=== PATIENT | male | born 1945 | race Caucasian/White ===

== ENCOUNTER 2024-08-05 10:26 | Outpatient (CLI) | payer OTHER, SELFPAY ==
[2024-08-05 10:36] LABS: Microscopic, Urine URINE MICROSCOPIC (MICROSCOPIC)
[2024-08-05 11:05] LABS: Appearance,Urine CLEAR (Clear); Bilirubin,Urine Negative (Negative); Blood, Urine Negative (Negative); Color,Urine YELLOW (Yellow); Glucose,Urine (UA) TRACE (Negative); Ketones,Urine Negative (Negative); Leukocyte Esterase,Urine 1+ (Negative); Nitrate,Urine Negative (Negative); Protein,Urine Negative (Negative); Urobilinogen,Urine 0.2 EU/dl (0.2)
[2024-08-05 11:14] LABS: Hematocrit 35.4 % (42.0-52.0); Hemoglobin 11.8 g/dL (14.1-18.0); Mean Corpuscular HGB Conc 33.3 g/dL (31.8-35.4); Mean Corpuscular Hemoglobin 34.4 pg (27.0-31.2); Mean Corpuscular Volume 103.2 fl (80-94); Platelet Count 211 K/mm3 (142-424); Red Blood Count 3.43 M/mm3 (4.60-6.20); Red Cell Distribution Width 14.4 % (11.5-17.5); White Blood Count 8.2 K/mm3 (4.8-10.8)
[2024-08-05 11:17] LABS: Creatinine,Urine Random 84 mg/dL (Not Estab.)
[2024-08-05 11:24] LABS: Bacteria,Urine Trace /lpf
[2024-08-05 11:46] LABS: Albumin Level 4.5 g/dl (3.5-5.0); Blood Urea Nitrogen 43 mg/dl (9-20); Calcium 9.1 mg/dl (8.4-10.2); Carbon Dioxide 20 mmol/L (22.0-30.0); Chloride 103 mmol/L (98-107); Estimated Glomerular Filt Rate 28 ml/min (>60); GFR (African American) 33 ML/MIN (>60); Glucose 117 mg/dl (74-100); Phosphorous 4.2 mg/dl (2.5-4.5); Sodium 136 mmol/L (136-145)
[2024-08-05 11:57] LABS: Anion Gap 17.9 mEq/L (5-15); Potassium 4.9 mmoL/L (3.5-5.1)
[2024-08-05 12:00] LABS: Intact Parathyroid Hormone 251.3 pg/mL (7.5-53.5)
[2024-08-05 12:06] LABS: 25-OH Vitamin D, Total 31.2 ng/mL (30-100)
== END 2024-08-05 23:59 | disposition home or self-care (01) ==
LOC: LAB 10:31
PROVIDERS: Visit Provider Student in an Organized Health Care Education/Training Program
DX: N18.30 Chronic kidney disease, stage 3 unspecified (principal); E55.9 Vitamin D deficiency, unspecified
CPT/HCPCS: 36415; 80069; 81001; 82306; 82570; 83970; 84156; 85027; 87086

== ENCOUNTER 2024-09-18 21:16 | Emergency (ER) | payer OTHER, MEDICARE, SELFPAY ==
[2024-09-18] VITALS (7 sets, daily range): BP systolic 106–143; BP diastolic 57–82; PULSE 94–107; RESP 18–20; TEMP 36.9–37.3; O2SAT 95–99; BMI 25.8
--- NOTE | 2024-09-18 22:06 | XR_ITS ---
PROCEDURE INFORMATION: Exam: XR Left Hip Exam date and time: 09/18/2024 10:14 PM Age: 78 years old Clinical indication: Hip pain; Left hip; Additional info: Fall, L hip pain TECHNIQUE: Imaging protocol: Radiologic exam of the left hip. Views: 2 or 3 views hip with pelvis when performed. COMPARISON: No relevant prior studies available. FINDINGS: Bones/joints: Unremarkable. No acute fracture. Soft tissues: Unremarkable. IMPRESSION: No acute findings.
--- NOTE | 2024-09-18 22:19 | HMH.EDGENADL ---
Discharge Plan Disposition Patient Disposition: Home, Self-Care Chief Complaint: Fall Referrals Follow up/Referrals: Provider,Referral, MD [Primary Care Provider] - See instructions Activity Restrictions/Add. Instructions Additional Instructions/Restrictions: Take Tylenol 1000 mg every 6 hours (4 times daily) and ibuprofen 400 mg every 6 hours (4 times daily) as needed with food and water to prevent GI upset and kidney damage. Call your family doctor to establish care for this visit to the emergency department and schedule follow-up within 48 hours to ensure improvement. If you have any worsening of your condition or any other concerning signs or symptoms, return to the emergency department or your primary care doctor for further evaluation. Clinical Impressions Clinical Impression: Acute pain of left hip, Accident due to mechanical fall without injury Print Language Print Language: Nauruan Discharge ED Provider: Anup Rose General Adult HPI General Chief complaint: Fall Stated complaint: Disoriented Time Seen by Provider: 09/18/24 21:49 Mode of Arrival: EMS Source of Information: Patient and EMS Limitations: No Limitations Description of Symptoms (Recalled from ER Triage Doc. by RN): pt reports he fell at home and just feels off and spacey pt denies any other complaints. History of Present Illness HPI narrative: Please note that above description of symptoms, in this electronic medical record under categorization of recalled from ER triage doctor by RN are reflective of an initial nursing assessment, however, is not reflective of my full history and physical exam that was personally taken and clarified. Consequentially, this preceding description of symptoms, which may include the patient's categorized chief complaint in the EMR, do not reflect my personal clinical impression, and the ultimate description of history of present illness and patient stated complaints should be deferred to this section of the note. Unless stated otherwise or congruent with this section of the note, additional signs, symptoms, or incongruence should be interpreted as inaccurate with my clinical impression. Related Data Allergies Allergy/AdvReac Type Severity Reaction Status Date / Time iodine Allergy Unknown Verified 09/18/24 21:28 allergy reaction [facility] Disclaimer: The information contained in this section may have been updated after the patient was seen, as this information can be updated by other users. Social History Smoking Status: Never smoker alcohol intake: never current occupational status: retired Travel in the last 8 weeks: None ROS Obtained: Yes All systems reviewed & no additional complaints except as documented Physical Exam General General appearance: alert Head Head exam: atraumatic and normocephalic Eye Eye exam: Present normal appearance, PERRL and EOMI Neck Neck exam: Present normal inspection, full ROM and trachea midline Respiratory Respiratory exam: Absent respiratory distress, wheezes, stridor, accessory muscle use or prolonged expiratory phase Cardiovascular Cardiovascular exam: Present other (Pulses equal symmetric in upper and lower extremities) Abdominal Exam Abdominal exam: Present soft; Absent distention, tenderness or pulsatile mass Extremities Exam Extremities exam: Present other (Tenderness left lateral hip, no tenderness with range of motion. No tenderness in inguinal fold.); Absent edema Neurological Exam Neurological exam: Present alert, oriented X3 and CN II-XII intact; Absent motor sensory deficit Skin Skin exam: Present warm and dry; Absent diaphoresis or erythema Medical Decision Making Medical Records Medical records reviewed: Yes I reviewed the patient's medical records. Screening: Per USPSTF and CDC recommendations, given the prevalence of disease in our region, it is our hospital?s policy to screen for HIV and viral Hepatitis for all patients aged 18 and over and those with ongoing risk factors. Marco Inquiry Pt receiving controlled substance: No Marco was queried for this patient: No Vital Signs: 09/18/24 21:16 Temperature 99.1 F Temperature Source Oral Pulse Rate [Right] 94 H Respiratory Rate 18 Blood Pressure [Right Arm] 112/82 Blood Pressure Mean [Right Arm] 92 02 Sat by Pulse Oximetry 95 Oxygen Delivery Method Room Air Orders (Tests/Meds): ED MEDICATIONS Generic Name Dose Route Start Last Admin Trade Name Freq PRN Reason Stop Dose Admin Acetaminophen 1,000 mg 09/18/24 22:22 Acetaminophen 500mg Tab PO 09/18/24 22:23 ONCE ONE Ibuprofen 600 mg 09/18/24 22:22 Ibuprofen 600 Mg Tablet PO 09/18/24 22:23 ONCE ONE ORDERS Category Date Time Status Hip XR left minimum 2 views [XR hip LT 2-3V w/pelvis] Exams 09/18/24 22:06 Taken Stat Medical Decision Narrative: This is a 78-year-old male presenting with fall. Patient states he was at home, fell because I got clumsy. States that he did not hit his head, did not lose consciousness. Landed on his buttocks and is having pain in his left hip laterally. Called EMS because he was not able to get up on his own, he states this is not abnormal for him. History was obtained via conversation with patient and EMS. On arrival, patient hemodynamically stable, alert, oriented x4, appropriate, GCS 15, moving all extremities spontaneously, pupils equal and reactive to light. Full physical exam performed and significant for very clinically well-appearing male no acute distress. Answering questions appropriately. Has some tenderness left lateral hip overlying trochanter, but range of motion of hip is intact. No midline spinal tenderness. Pelvis is stable and nontender. Neurologically and vascularly intact lower extremities. Differential includes sprain, strain, fracture, dislocation, among others. Patient was given Tylenol Motrin for symptomatic management and correction of underlying abnormalities. Labs considered, but not deemed necessary. Patient hemodynamically stable, very well-appearing, alert and oriented and has no complaints other than left hip. Not deemed necessary. Workup independently interpreted and significant for no acute bony abnormality of the pelvis or hip or femur within imaged parameters. See radiology read for full review of final results. On reevaluation, patient resting comfortably, no acute distress. Given patient presentation, workup, history, this most likely represents left hip pain after fall without complication. Because patient at baseline without signs or symptoms of clinical decompensation, deemed appropriate for discharge. Results were relayed to patient who voiced understanding and were agreeable to outpatient management and follow up. I discussed my clinical impression with patient and answered all questions. At this time, the evidence for any other entities in the differential is insufficient to warrant any further testing or ED observation. This was explained as well. Advisory was given that persistent or worsening symptoms require further evaluation. I confirmed the understanding of this discussion. College And Career Counselor disclaimer Much of this encounter note is an electronic quality systems specialist spoken language to printed text. Electronic quality systems specialist of the spoken language may permit errors. Although I have reviewed the note, some errors may still exist. Critical Care Critical Care Time Critical Care Time: No
[2024-09-18] MEDS: ACETAMINOPHEN 500MG TAB 1000 MG PO (22:38)
[2024-09-18] MEDS: IBUPROFEN 600 MG TABLET PO (22:38)
== END 2024-09-18 23:41 | disposition home or self-care (01) ==
PROVIDERS: Emergency Provider Emergency Medicine
DX: M25.552 Pain in left hip (principal); R41.82 Altered mental status, unspecified; W19.XXXA Unspecified fall, initial encounter; Y93.89 Activity, other specified; Y92.009 Unspecified place in unspecified non-institutional (private) residence as the place of occurrence of the external cause
CPT/HCPCS: 73502; 99283

== ENCOUNTER 2024-10-28 11:32 | Outpatient (CLI) | payer MEDICARE, OTHER, SELFPAY ==
[2024-10-28 11:38] LABS: Anti-Centromere B Antibodies ND; Anti-DNA (DS) Ab Qn ND; Anti-Jo-1 ND; Antichromatin Antibodies ND; Antiscleroderma-70 Antibodies ND; RNP Antibodies ND; Sjogren's Anti-SS-A ND; Sjogren's Anti-SS-B ND
[2024-10-28 12:04] LABS: Basophils % 0.3 % (0.1-2.0); Eosinophils # 0.1 K/mm3 (0.0-0.4); Eosinophils % 1.2 % (0.1-12.0); Hematocrit 39.3 % (42.0-52.0); Hemoglobin 13.2 g/dL (14.1-18.0); Lymphocytes # 3.1 K/mm3 (0.7-4.5); Lymphocytes % 42.4 % (10-50); Mean Corpuscular HGB Conc 33.6 g/dL (31.8-35.4); Mean Corpuscular Hemoglobin 34.5 pg (27.0-31.2); Mean Corpuscular Volume 102.6 fl (80-94); Mean Platelet Volume 9.7 fl (7.4-10.4); Monocytes # 0.5 K/mm3 (0.1-1.0); Monocytes % 7.3 % (1.7-9.3); Neutrophils # 3.6 K/mm3 (1.8-7.8); Neutrophils % 48.5 % (37.0-80.0); Platelet Count 155 K/mm3 (142-424); Red Blood Count 3.83 M/mm3 (4.60-6.20); White Blood Count 7.4 K/mm3 (4.8-10.8)
[2024-10-28 12:35] LABS: Alanine Aminotransferase 12 U/L (12-78); Albumin Level 4.6 g/dl (3.5-5.0); Albumin/Globulin Ratio 1.5 (1.1-1.8); Alkaline Phosphatase 53 U/L (38-126); Aspartate Amino Transferase 22 U/L (17-59); Bilirubin,Total 0.5 mg/dl (0.2-1.3); Blood Urea Nitrogen 31 mg/dl (9-20); Calcium 10.8 mg/dl (8.4-10.2); Carbon Dioxide 31 mmol/L (22.0-30.0); Chloride 108 mmol/L (98-107); Chol/HDL Ratio 4.5 (1-3.5); Cholesterol 201 mg/dl (140-200); Estimated Glomerular Filt Rate 34 ml/min (>60); GFR (African American) 42 ML/MIN (>60); Globulin 3.1 g/dL (1.3-3.2); Glucose 106 mg/dl (74-100); HDL Cholesterol 45 mg/dl (40-60); Magnesium 1.8 mg/dl (1.6-2.3); Sodium 141 mmol/L (136-145); Total Protein,Serum 7.7 g/dl (6.3-8.2); Triglycerides 90 mg/dl (30-150); VLDL Cholesterol 18 mg/dL (0-40)
[2024-10-28 13:06] LABS: Thyroid Stimulating Hormone 1.77 uIU/mL (0.465-4.68)
[2024-10-28 13:10] LABS: Ferritin 110 ng/ml (17.9-464)
[2024-10-28 13:25] LABS: Vitamin B12 980 pg/mL (239-931)
[2024-10-29 10:42] LABS: Triiodothyronine (T3) Free 1.9 pg/mL (2.0-4.4)
[2024-10-29 11:22] LABS: Antinuclear Antibodies (ANA) Negative (Negative)
[2024-10-30 20:21] LABS: Vitamin B1 109.8 nmol/L (66.5-200.0)
== END 2024-10-28 23:59 | disposition home or self-care (01) ==
LOC: LAB 11:35
PROVIDERS: PCP Nurse Practitioner Family; Visit Provider Nurse Practitioner Family
DX: G20.A1 Parkinson's disease without dyskinesia, without mention of fluctuations (principal); E53.8 Deficiency of other specified B group vitamins; D64.9 Anemia, unspecified; E78.5 Hyperlipidemia, unspecified
CPT/HCPCS: 36415; 80053; 80061; 82533; 82607; 82728; 83735; 84207; 84425; 84443; 84481; 85025; 86038

== ENCOUNTER 2024-11-05 11:41 | Outpatient (CLI) | payer MEDICARE, OTHER, SELFPAY ==
[2024-11-05 12:46] LABS: 25-OH Vitamin D, Total 25.5 ng/mL (30-100)
[2024-11-05 12:51] LABS: Hemoglobin A1C 6.5 % (4.0-6.0)
== END 2024-11-05 23:59 | disposition home or self-care (01) ==
LOC: LAB 11:42
PROVIDERS: PCP Nurse Practitioner Family; Visit Provider Nurse Practitioner Family
DX: E83.52 Hypercalcemia (principal); R73.09 Other abnormal glucose
CPT/HCPCS: 36415; 82306; 83036; 83970

== ENCOUNTER 2024-11-22 08:41 | Outpatient (CLI) | payer MEDICARE, OTHER, SELFPAY ==
--- OUTSIDE RECORDS SUMMARY | 2024-11-22 08:44 | XMS_ITS | Encounter Summary ---
Author Name [facility] [place] [facility] [place] Address [address] [place] [address] Care Team Providers Care Sales Facilitator Name Role Phone MING TSANG Primary Care Provider UnavailSOPHIE Fournier Primary Care Provider Unavaila ble Insurance Providers: All historical and current Section Date Range: From patient's date of to the date document was created. This section includes the names of all active insurance providers for the patient. Insurance Provider Type of Coverage Plan Name Start of Policy Coverage End of Policy Coverage Group Number Member ID Insurance Provider's Telephone Number Policy Gallo's Name Patient's Relationship to Policy Gallo [employer] TRICA RE DODA WNR Oct 09, 2020 [facility] [id number] MELANIE,LE ONARD PATIENT MEDICARE (WNR) MEDICARE (M) PART B Nov 05, 2010 PART B [id number] MELANIE,LE ONARD PATIENT MEDICARE (WNR) MEDICARE (M) PART A Nov 05, 2010 [place] [id number] [id number] [phone] MELANIE,LE ONARD PATIENT MEDICARE (WNR) MEDICARE (M) PART B Nov 05, 2010 PART B [id number] [id number] [phone] MELANIE,LE ONARD PATIENT MEDICARE (WNR) MEDICARE (M) PART B Nov 05, 2010 PART B [id number] MELANIEAMXINE GEE PATIENT MEDICARE (WNR) MEDICARE (M) PART A Nov 05, 2010 PART A [id number] MELANIEMAXINE PATIENT MEDICARE (WNR) MEDICARE (M) PART A Nov 05, 2010 PART A [id number] [id number] [phone] MELANIEMAXINE GEE PATIENT MEDICARE (WNR) MEDICARE (M) PART B Nov 05, 2010 PART B [id number] [place] [address] MELANIEMAXINE ONQUEENIE PATIENT MEDICARE (WNR) MEDICARE (M) PART A Nov 05, 2010 PART A [id number] [place] [address] [phone] MELANIEMAXINE GEE PATIENT MEDICARE (WNR) MEDICARE (M) PART B Nov 05, 2010 PART [address] [place] [address] MELANIEMAXINE GEE PATIENT MEDICARE (WNR) MEDICARE (M) PART A Nov 05, 2010 PART A [id number] [id number] MELANIEMAXINE GEE PATIENT MEDICARE (WNR) MEDICARE (M) PART B Nov 05, 2010 PART B [id number] [id number] [phone] MELANIEMAXINE GEE PATIENT MEDICARE (WNR) MEDICARE (M) PART A Nov 05, 2010 PART A [id number] MAXINE NAVARRO PATIENT FOR LIFE TRICA RE FOR LIFE Mar 31, 2010 SPONSOR [id number] MAXINE NAVARRO PATIENT FOR LIFE DIREC T CARE Mar 31, 2010 FOR LIFE [id number] MAXINE NAVARRO PATIENT -FO R-LIFE TRICA RE FOR LIFE December 05, 2010 TFL [id number] MAXINE NAVARRO PATIENT Selected Encounter This section includes the information on record at [place] for the Encounter. Date/Time Encounter Type Encounter Description Reason Pro vider Source Jun 24, 2024 01:26 PM Outpatient Encounter ADMIN PAT ACTIVTIES (MASNONCT) I[facility] Encounter Template Text not used by [place] Plan of Treatment: Future Appointments (+ 6 months) and Future Tests (+/- 45 days) The Plan of Treatment section includes future care activities for the patient from [facility] [place] [facility]. This section includes future appointments and future orders which are active, pending or scheduled. Future Appointments This section includes appointments that were scheduled to occur 6 months from the date of the Encounter, up to a maximum of 20 appointments. The data comes from all [facility]. Appointment Date/Time Appointment Type Appointme nt Facility Name Aug 09, 2024 01:00 PM [facility] Nov 08, 2024 11:00 AM [facility] Active, Pending, and Scheduled Orders This section includes a listing of several types of active, pending, and scheduled orders, including clinic medications orders, diagnostic test orders, procedure orders and consult orders; where the start date of the order is 45 days before the date of the Encounter or 45 days after the date of theEncounter. The data comes from all [facility]. Test Date/Time Test Type Test Details Facility Name Jun 26, 2024 12:00 AM Laboratory - Chemistry Order GLYCOHEMOGLOBIN [id number] BLOOD SP ONCE [facility] Advance Directives: All historical and current Section Date Range: From patient's date of to the date document was created. This section includes ALL of a patient's completed or amended [place] Advance and Rescinded Directives. The entries below indicate that a directive exists for the patient, but an actual copy is not included with this document. The data comes from all [facility]. Date Advance Directives Provider Source Apr 21, 2017 ADVANCE DIRECTIVE DISCUSSION YFN [facility] Jun 26, 2015 ADVANCE DIRECTIVE DISCUSSION ILIA SAL [facility] Encounter Notes: All associated encounter notes This section contains the clinical notes associated to the Encounter. Date/Time Encounter Note(s) Provider Source Jun 24, 2024 01:26 PM ADMINISTRATIVE NOT E: LOCAL TITLE: CLERICAL/ADMIN NOTE STANDARD TITLE: ADMINISTRATIVE NOTE DATE OF NOTE: JUN 24, 2024@13:26 ENTRY DATE: JUN 24, 2024@13:26:34 AUTHOR: OSEI AGRAWAL COSIGNER: URGENCY: STATUS: COMPLETED CLERICAL/ADMIN NOTE Has ADDENDA --forwarding to correct grocery clerk marking Cristobal Earl Md[address] 06/28/2024@13:00 Cancelled By Patient pt would like to reschedule after 08/12/24 thanks /es/ Alondra Lora Mcat Tutor Signed: 06/24/2024 08:31 /es/ OSEI AGRAWAL Signed: 06/24/2024 13:26 Receipt Acknowledged By: 06/25/2024 09:27 /es/ Pau Pollard MSA 06/25/2024 ADDENDUM STATUS: COMPLETED rtc r/s by from 06/28/2024 to new pid 08/09/2024@1pm-letter mailed /franny/ Pau Pollard MSA Signed: 06/25/2024 09:28 [facility]I [facility]RAWAL[facility]
--- OUTSIDE RECORDS SUMMARY | 2024-11-22 08:44 | XMS_ITS | Encounter Summary ---
Author Name [facility] of [facility] ([place]) Organization [facility] of [facility] ([place] Address [address] [place] [address] Care Team Providers Care Finisher Denture Name Role Phone MING TSANG Primary Care [...] TRICA RE DODA WNR Oct 09, 2020 DODA [id number] MELANIE,MAXINE ONARD PATIENT MEDICARE (WNR) MEDICARE (M) PART B Nov 05, 2010 PART B [id number] MELANIE,LE ONARD PATIENT MEDICARE (WNR) MEDICARE (M) PART A Nov 05, 2010 PART A [address] [place] [address] [phone] MELANIE,LE ONARD PATIENT MEDICARE (WNR) MEDICARE (M) PART B Nov 05, 2010 PART B [address] [place] [address] [phone] MELANIE,MAXINE ONARD PATIENT MEDICARE (WNR) MEDICARE (M) PART A Nov 05, 2010 PART A [address] [place] [address] [phone] MELANIEMAXINE ONARD PATIENT MEDICARE (WNR) MEDICARE (M) PART B Nov 05, 2010 PART B [id number] [facility] MELANIE,LE ONQUEENIE PATIENT MEDICARE (WNR) MEDICARE (M) PART A Nov 05, 2010 PART A [id number] MELANIE,LE ONARD PATIENT MEDICARE (WNR) MEDICARE (M) PART B Nov 05, 2010 PART B [id number] [phone] MELANIEMAXINE ONARD PATIENT MEDICARE (WNR) MEDICARE (M) PART A Nov 05, 2010 [id number] [id number] MELANIE,MAXINE ONARD PATIENT MEDICARE (WNR) MEDICARE (M) PART B Nov 05, 2010 PART B [id number] [id number] MELANIE,LE ONARD PATIENT MEDICARE (WNR) MEDICARE (M) PART A Nov 05, 2010 PART [place] [id number] [id number] MELANIEMAXINE GEE PATIENT MEDICARE (WNR) MEDICARE (M) PART B Nov 05, 2010 PART B [id number] MELANIEMAXINE ONQUEENIE PATIENT MEDICARE (WNR) MEDICARE (M) PART A Nov 05, 2010 PART A [id number] MAXINE NAVARRO PATIENT FOR LIFE TRICA RE FOR LIFE Mar 31, 2010 [facility] [id number] MAXINE NAVARRO PATIENT FOR LIFE DIREC T CARE Mar 31, 2010 FOR LIFE [id number] MAXINE NAVARRO PATIENT -FO R-LIFE TRICA RE FOR LIFE December 05, 2010 [facility] [id number] [phone] MAXINE NAVARRO PATIENT Selected Encounter This section includes the information on record at [place] for the Encounter. Date/Time Encounter Type Encounter Description Reason Provider Source Mar 20, 2024 02:36 PM TARGETED CASE MANAGEMENT ADMIN PAT ACTIVTIES (MASNONCT) JOSIE GARCIA Encounter Template Text not used by [place] Plan of Treatment: Future Appointments (+ 6 months) and Future Tests (+/- 45 days) The Plan of Treatment section includes future care activities for the patient from [facility] [facility] This section includes future appointments and future orders which are active, pending or scheduled. Future Appointments This section includes appointments that were scheduled to occur 6 months from the date of the Encounter, up to a maximum of 20 appointments. The data comes from all [facility]. Appointment Date/Time Appointment Type Appointme nt Facility Name Mar 22, 2024 01:00 PM AMBULATORY - PSYCHIATRY [facility] Mar 29, 2024 03:30 PM AMBULATORY - PSYCHIATRY [facility] Aug 09, 2024 01:00 PM AMBULATORY - PSYCHIATRY [facility] Active, Pending, and Scheduled Orders This section includes a listing of several types of active, pending, and scheduled orders, including clinic medications orders, diagnostic test orders, procedure orders and consult orders; where the start date of the order is 45 days before the date of the Encounter or 45 days after the date of theEncounter. The data comes from all [facility]. Test Date/Time Test Type Test Details Facility Name Mar 19, 2024 09:51 AM Consult Order COMMUNITY CARE-NEPHROLOGY Cons Aerial [facility] Mar 29, 2024 12:00 AM Laboratory - Chemi stry Order VALPROIC ACID [id number]-LNLLMI SP ONCE [facility] Apr 19, 2024 12:00 AM Laboratory - Chemi stry Order eGFR + CREATININE [id number] SP ONCE [facility] Apr 19, 2024 12:00 AM Laboratory - Chemi stry Order POTASSIUM [id number]-[id number] SP ONCE [facility] Apr 19, 2024 12:00 AM Laboratory - Chemi stry Order HGB & HCT [id number] BLOOD SP [facility] Apr 19, 2024 12:00 AM Laboratory - Chemi stry Order IRON/TIBC [id number]-MJMVRZ SP ONCE [facility] Apr 19, 2024 12:00 AM Laboratory - Chemi stry Order FERRITIN [id number]-[id number]-[id number] SP ONCE [facility] Apr 19, 2024 12:00 AM Laboratory - Chemi stry Order B12 VITAMIN [id number]-[id number]-[id number] SP ONCE [facility] Apr 19, 2024 12:00 AM Laboratory - Chemi stry Order CALCIUM [id number] SP ONCE [facility] Lab Results: +/- 30 days of the encounter This section includes the Chemistry and Hematology Lab Results on record with [place] for the patient. Radiology Reports and Pathology Reports are provided separately, in subsequent sections. Lab Results This section contains the Chemistry/Hematology Results that were resulted 30 days before or 30 daysafter the date of the Encounter. Date/Time Source Result Type Result - Unit Interpretation Reference Range Specimen Type Comment Mar 22, 2024 12:16 PM [facility] N MICROALBUMIN/CREAT RATIO URINE Specimen Type: URINE No comment entered. Ordering Provider: MING TSANG Report Released Date/Time: Mar 15, 2024 11:30 AM Reporting Lab: [address] [address] Performing Lab: [address] [phone] CREATININE 60.8 mg/dL MICROALBUMIN QUANT 9.0 mg/L 0.0-30.0 .MICROALBUMIN/CREA RATIO 14.8 ug/mg{creat} Mar 15, 2024 12:10 PM [facility] ALT PLASMA Specimen Type: PLASM A Comment: Estimated Glomerular Filtration Rate (eGFR) calculated using the 2020 Chronic Kidney Disease-Epidemiology (CKD-EPI) Collaboration creatinine equation; units of measure are mL/min/1.73 m2. Results are only valid for adults (>=18 years) whose serum creatinine is in a steady state. eGFR calculations are not valid for patients with acute kidney injury and for patients on dialysis. Creatinine-based estimates of kidney function may also be inaccurate in patients with reduced creatinine generation due to decreased muscle mass (e.g., malnutrition, severe hypoalbuminemia, sarcopenia, chronic neuromuscular disease, amputations, severe heart failure or liver disease) and in patients with increased creatinine generation due to increased muscle mass (e.g., muscle builders, anabolic steroids) or increased dietary intake. As drug clearance is proportional to total GFR and not GFR indexed to body surface area (BSA), in individuals with a BSA substantially different than 1.73 m2, drug dosing should be based on the reported eGFR value de-indexed from BSA by multiplying by the individual's BSA and dividing by 1.73. CKD is diagnosed based on abnormalities of kidney structure or function, present for >3 months, with implications for health and disease. CKD is classified and staged based on cause, eGFR and albuminuria (quantified as urine albumin to creatinine ratio). An eGFR >60 mL/min/1.73 m2 in the absence of increased urine albumin excretion or structural abnormalities does not represent CKD. eGFR CKD Interpretation (mL/min/1.73 m2) stage >=90 G1 Normal 60-89 G2 Mild decrease 45-59 G3A Mild to moderate decrease 30-44 G3B Moderate to severe decrease 15-29 G4 Severe decrease <15 G5 Kidney failure Ordering Provider: MING TSANG Report Released Date/Time: Mar 15, 2024 11:30 AM Reporting Lab: [address] [phone] Performing Lab: [address] [phone] ALT 13 U/L 0-55 Mar 15, 2024 12:10 PM [facility] AST PLASMA Specimen Type: PLASM A Comment: Estimated Glomerular Filtration Rate (eGFR) calculated using the 2020 Chronic Kidney Disease-Epidemiology (CKD-EPI) Collaboration creatinine equation; units of measure are mL/min/1.73 m2. Results are only valid for adults (>=18 years) whose serum creatinine is in a steady state. eGFR calculations are not valid for patients with acute kidney injury and for patients on dialysis. Creatinine-based estimates of kidney function may also be inaccurate in patients with reduced creatinine generation due to decreased muscle mass (e.g., malnutrition, severe hypoalbuminemia, sarcopenia, chronic neuromuscular disease, amputations, severe heart failure or liver disease) and in patients with increased creatinine generation due to increased muscle mass (e.g., muscle builders, anabolic steroids) or increased dietary intake. As drug clearance is proportional to total GFR and not GFR indexed to body surface area (BSA), in individuals with a BSA substantially different than 1.73 m2, drug dosing should be based on the reported eGFR value de-indexed from BSA by multiplying by the individual's BSA and dividing by 1.73. CKD is diagnosed based on abnormalities of kidney structure or function, present for >3 months, with implications for health and disease. CKD is classified and staged based on cause, eGFR and albuminuria (quantified as urine albumin to creatinine ratio). An eGFR >60 mL/min/1.73 m2 in the absence of increased urine albumin excretion or structural abnormalities does not represent CKD. eGFR CKD Interpretation (mL/min/1.73 m2) stage >=90 G1 Normal 60-89 G2 Mild decrease 45-59 G3A Mild to moderate decrease 30-44 G3B Moderate to severe decrease 15-29 G4 Severe decrease <15 G5 Kidney failure Ordering Provider: MING TSANG Report Released Date/Time: Mar 15, 2024 11:30 AM Reporting Lab: [address] [phone] Performing Lab: [address] [phone] AST 18 U/L 5-34 Mar 15, 2024 12:10 PM [facility] CBC/PLT BLOOD Specimen Type: BLOOD No comment entered. Ordering Provider: MING TSANG Report Released Date/Time: Mar 15, 2024 11:30 AM Reporting Lab: [address] [phone] Performing Lab: [address] [phone] WBC 6.6 10*3/uL 5.0-10.0 RBC 3.91 10*6/uL L 4.6-6.2 HGB 13.0 g/dL L 14.0-18.0 HCT 39.0 L 42.0-52.0 MCV 99.7 fL H 80.0-94.0 MCH 33.2 pg H 27.0-31.0 MCHC 33.3 g/dL 32.0-36.0 PLT 259 10*3/uL 150-450 MPV 9.6 fL 9.0-13.1 RDW 14.1 11.0-16.0 NRBC 0.0 0.0-0.0 Mar 15, 2024 12:10 PM [facility] GLYCOHEMOGLOBIN BLOOD Specimen Type: BLOOD Comment: [facility] guidelines for A1c interpretation: Glycemic control targets are based on Shared Decision Making between clinicians and patients. Criteria used to establish an A1c target recommendation can be found at https://www.ms.gov/qualityandpatientsafety/ and include the use of result accuracy and precision(CV) of the A1c tests clinicians utilize at their own sites of practice. Values obtained from A1C measurements can vary. For typical A1C assays, a reported value of 7.0 could actually be between 6.72 and 7.28 if measured by a reference method. A reported value of 9.0 could actually be between 8.73 and 9.27. Ref: https://ngsp.org/CAPdata.asp. The in-house Opt[employer]-QA on Request D-100 analyzer has a historical CV <= 2%. Contact the laboratory for further performance characteristics of this assay. Ordering Provider: MING TSANG Report Released Date/Time: Mar 15, 2024 11:30 AM Reporting Lab: [address] [phone] Performing Lab: [address] [address] GLYCOHEMOGLOBIN 9.1 H 4.4-6.4 Mar 15, 2024 12:10 PM [facility] LIPID PROFILE PLASMA Specimen Type: PLASM A Comment: Estimated Glomerular Filtration Rate (eGFR) calculated using the 2020 Chronic Kidney Disease-Epidemiology (CKD-EPI) Collaboration creatinine equation; units of measure are mL/min/1.73 m2. Results are only valid for adults (>=18 years) whose serum creatinine is in a steady state. eGFR calculations are not valid for patients with acute kidney injury and for patients on dialysis. Creatinine-based estimates of kidney function may also be inaccurate in patients with reduced creatinine generation due to decreased muscle mass (e.g., malnutrition, severe hypoalbuminemia, sarcopenia, chronic neuromuscular disease, amputations, severe heart failure or liver disease) and in patients with increased creatinine generation due to increased muscle mass (e.g., muscle builders, anabolic steroids) or increased dietary intake. As drug clearance is proportional to total GFR and not GFR indexed to body surface area (BSA), in individuals with a BSA substantially different than 1.73 m2, drug dosing should be based on the reported eGFR value de-indexed from BSA by multiplying by the individual's BSA and dividing by 1.73. CKD is diagnosed based on abnormalities of kidney structure or function, present for >3 months, with implications for health and disease. CKD is classified and staged based on cause, eGFR and albuminuria (quantified as urine albumin to creatinine ratio). An eGFR >60 mL/min/1.73 m2 in the absence of increased urine albumin excretion or structural abnormalities does not represent CKD. eGFR CKD Interpretation (mL/min/1.73 m2) stage >=90 G1 Normal 60-89 G2 Mild decrease 45-59 G3A Mild to moderate decrease 30-44 G3B Moderate to severe decrease 15-29 G4 Severe decrease <15 G5 Kidney failure Ordering Provider: IMNG TSANG Report Released Date/Time: Mar 15, 2024 11:30 AM Reporting Lab: [address] [phone] Performing Lab: [address] [phone] CHOLESTEROL 144 mg/dL 0-199 TRIGLYCERIDE 96 mg/dL 0-149 HDL CHOLESTEROL 40 mg/dL 40-69 DIRECT LDL CHOL. 93 mg/dL 0-100 Mar 15, 2024 12:10 [facility] Specimen Type: PLASM A Comment: Estimated Glomerular Filtration Rate (eGFR) calculated using the 2020 Chronic Kidney Disease-Epidemiology (CKD-EPI) Collaboration creatinine equation; units of measure are mL/min/1.73 m2. Results are only valid for adults (>=18 years) whose serum creatinine is in a steady state. eGFR calculations are not valid for patients with acute kidney injury and for patients on dialysis. Creatinine-based estimates of kidney function may also be inaccurate in patients with reduced creatinine generation due to decreased muscle mass (e.g., malnutrition, severe hypoalbuminemia, sarcopenia, chronic neuromuscular disease, amputations, severe heart failure or liver disease) and in patients with increased creatinine generation due to increased muscle mass (e.g., muscle builders, anabolic steroids) or increased dietary intake. As drug clearance is proportional to total GFR and not GFR indexed to body surface area (BSA), in individuals with a BSA substantially different than 1.73 m2, drug dosing should be based on the reported eGFR value de-indexed from BSA by multiplying by the individual's BSA and dividing by 1.73. CKD is diagnosed based on abnormalities of kidney structure or function, present for >3 months, with implications for health and disease. CKD is classified and staged based on cause, eGFR and albuminuria (quantified as urine albumin to creatinine ratio). An eGFR >60 mL/min/1.73 m2 in the absence of increased urine albumin excretion or structural abnormalities does not represent CKD. eGFR CKD Interpretation (mL/min/1.73 m2) stage >=90 G1 Normal 60-89 G2 Mild decrease 45-59 G3A Mild to moderate decrease 30-44 G3B Moderate to severe decrease 15-29 G4 Severe decrease <15 G5 Kidney failure Ordering Provider: MING TSANG Report Released Date/Time: Mar 15, 2024 11:30 AM Reporting Lab: [address] [phone] Performing Lab: [address] [address] CREATININE 2.10 mg/dL H 0.72-1.25 UREA NITROGEN 42 mg/dL H 9-25 GLUCOSE 151 mg/dL H 74-100 SODIUM 137 mmol/L 136-145 POTASSIUM 4.8 mmol/L 3.5-5.1 CHLORIDE 107 mmol/L 98-107 CO2 22 mmol/L 22-29 CALCIUM 10.4 mg/dL H 8.4-10.2 ANION GAP 8 meq/L 3-19 eGFR (CKD-EPI) 32 Social History: Smoking Status (Most current) and Tobacco Use (All prior to encounter date) This section includes the most current, and the historical, smoking and tobacco- related health factors from the [place] facility where the Encounter took place. Current Smoking Status This section includes the most current smoking, or tobacco-related health factor, from the [place] facility where the Encounter took place. Date/Time Current Smoking Status Comment Jeri christy Aug 29, 2023 03:32 PM VA-TOBACCO NEVER USED [facility] Tobacco Use History This section includes a history of the smoking, or tobacco-related health factors, that were collected on or before the date of the Encounter. The data comes from the [place] facility where the Encounter took place. Date/Time Smoking Status/Tobacco Use Comment F acility Sep 28, 2020 12:26 PM VA-TOBACCO FORMER USER [facility] Sep 28, 2020 12:26 PM VA-TOBACCO QUIT 15 YRS OR MORE [facility] Advance Directives: All historical and current Section Date Range: From patient's date of to the date document was created. This section includes ALL of a patient's completed or amended [place] Advance and Rescinded Directives. The entries below indicate that a directive exists for the patient, but an actual copy is not included with this document. The data comes from all [place] facilities. Date Advance Directives Provider Source Apr 21, 2017 ADVANCE DIRECTIVE DISCUSSION YFN JOHNSON [facility] Jun 26, 2015 ADVANCE DIRECTIVE DISCUSSION ILIA SLA [facility] Encounter Notes: All associated encounter notes This section contains the clinical notes associated to the Encounter. Date/Time Encounter Note(s) Provider Source Mar 20, 2024 02:36 PM ADMINISTRATIVE NOTE: LOCAL TITLE: PCMM TRAVELING COORDINATOR NOTE STANDARD TITLE: ADMINISTRATIVE NOTE DATE OF NOTE: MAR 20, 2024@14:36 ENTRY DATE: MAR 20, 2024@14:36:17 AUTHOR: JOSIE GARCIA EXP COSIGNER: URGENCY: STATUS: COMPLETED TVC reviewed 's medical record and confirmed has relocated and established care at the [facility]. /es/ JOSIE GARCIA RN,MSN Signed: 03/20/2024 14:36 JOSIE GARCIA [facility]
--- NOTE | 2024-11-22 08:45 | CA_ITS ---
FINAL REPORT TECHNIQUE: Roque scale, color and spectral doppler images of the bilateral carotid arteries were obtained. CLINICAL HISTORY: dizziness, tremor COMPARISON: None FINDINGS: Peak systolic velocity in the right internal carotid artery is 103 cm/sec. The internal carotid to common carotid artery ratio is 1.7. There is no significant carotid artery stenosis and mild plaque formation. The right vertebral artery is normal in direction. Peak systolic velocity in the left internal carotid artery is 102 cm/sec. The internal carotid to common carotid artery ratio is 1.0. There is no significant carotid artery stenosis and mild plaque formation. The left vertebral artery is normal in direction. IMPRESSION: No ultrasound evidence of hemodynamically significant carotid artery stenosis. Normal peak systolic velocities and normal internal to common carotid artery ratios bilaterally. Reviewed, Interpreted and Dictated by Chet Gray MD Transcribed by Danna Jacome Authenticated and [facility]
--- OUTSIDE RECORDS SUMMARY | 2024-11-22 08:45 | XMS_ITS | Encounter Summary ---
Author Name [facility] [place] Organization [place] Address [address] [place] [address] Care Team Providers Care Maintenance Carpenter Name Role Phone MING TSANG Primary Care [...] RE DODA WNR Oct 09, 2020 DODA [id number] [phone] MAXINE NAVARRO ONQUEENIE PATIENT MEDICARE (WNR) MEDICARE (M) PART A Nov 05, 2010 PART A [id number] [facility] MAXINE NAVARRO ONQUE[place] PATIENT MEDICARE (WNR) MEDICARE (M) PART B Nov 05, 2010 PART B [id number] [facility] [phone] MAXINE NAVARRO ONQUEEN[place] PATIENT MEDICARE (WNR) MEDICARE (M) PART A Nov 05, 2010 PART A [id number] MAXINE NAVARRO ONQUEEN[place] PATIENT MEDICARE (WNR) MEDICARE (M) PART B Nov 05, 2010 PART B [id number] [id number] MELANIEMAXINE GEE PATIENT MEDICARE (WNR) MEDICARE (M) PART A Nov 05, 2010 PART A [id number] [facility] MELANIEMAXINE GEE PATIENT MEDICARE (WNR) MEDICARE (M) PART B Nov 05, 2010 [id number] [id number] [phone] [id number] MAXINE NAVARRO ONQUEENIE PATIENT MEDICARE (WNR) MEDICARE (M) PART A Nov 05, 2010 [id number] [id number] MELANIE,LE ONQUEENIE PATIENT MEDICARE (WNR) MEDICARE (M) PART B Nov 05, 2010 [place] [id number] [id number] [id number] [id number] MELANIEMAXINE GEE PATIENT MEDICARE (WNR) MEDICARE (M) PART A Nov 05, 2010 PART A [id number] MAXINE NAVARRO PATIENT MEDICARE (WNR) MEDICARE (M) PART B Nov 05, 2010 PART B [id number] MAXINE NAVARRO PATIENT MEDICARE (WNR) MEDICARE (M) PART A Nov 05, 2010 PART [place] [id number] [id number] MELANIEMAXINE GEE PATIENT MEDICARE (WNR) MEDICARE (M) PART B Nov 05, 2010 PART B [id number] [id number] MAXINE NAVARRO PATIENT FOR LIFE [facility] RE FOR LIFE Mar 31, 2010 [facility] [id number] MAXINE NAVARRO PATIENT FOR LIFE DIREC T CARE Mar 31, 2010 FOR LIFE [id number] MAXINE NAVARRO PATIENT -FO R-LIFE [facility] RE FOR LIFE December 05, 2010 [facility] [id number] MAXINE NAVARRO PATIENT Selected Encounter This section includes the information on record at [place] for the Encounter. Date/Time Encounter Type Encounter Description Reason Pro vider Source Mar 22, 2024 01:14 PM Outpatient Encounter PRIMARY CARE/MEDICINE IHE Encounter Template Text not used by [place] Plan of Treatment: Future Appointments (+ 6 months) and Future Tests (+/- 45 days) The Plan of Treatment section includes future care activities for the patient from all [facility] treatment[facility]ilities. This section includes future appointments and future orders which are active, pending or scheduled. Future Appointments This section includes appointments that were scheduled to occur 6 months from the date of the Encounter, up to a maximum of 20 appointments. The data comes from all [facility]. Appointment Date/Time Appointment Type Appointme nt Facility Name Mar 29, 2024 03:30 PM AMBULATORY - PSYCHIATRY [facility] Aug 09, 2024 01:00 PM AMBULATORY - PSYCHIATRY [facility] Active, Pending, and Scheduled Orders This section includes a listing of several types of active, pending, and scheduled orders, including clinic medications orders, diagnostic test orders, procedure orders and consult orders; where the start date of the order is 45 days before the date of the Encounter or 45 days after the date of theEncounter. The data comes from all [facility]. Test Date/Time Test Type Test Details Facility Name Mar 19, 2024 09:51 AM Consult Order [facility]-NEPH[facility]OLOG[facility] Cons [employer] Mixer Operator's Choice [facility] Mar 29, 2024 12:00 AM Laboratory - Chemi stry Order VALPROIC ACID [id number] SP ONCE [facility] Apr 19, 2024 12:00 AM Laboratory - Chemi stry Order eGFR + CREATININE [id number] SP ONCE [facility] Apr 19, 2024 12:00 AM Laboratory - Chemi stry Order POTASSIUM [id number] SP ONCE [facility] Apr 19, 2024 12:00 AM Laboratory - Chemi stry Order HGB & HCT [id number] BLOOD SP [facility] Apr 19, 2024 12:00 AM Laboratory - Chemi stry Order IRON/TIBC [id number] SP ONCE [facility] Apr 19, 2024 12:00 AM Laboratory - Chemi stry Order FERRITIN [id number] SP ONCE [facility] Apr 19, 2024 12:00 AM Laboratory - Chemi stry Order B12 VITAMIN [id number] SP ONCE [facility] Apr 19, 2024 12:00 AM Laboratory - Chemi stry Order CALCIUM [id number] SP ONCE [facility] Lab Results: +/- 30 days of the encounter This section includes the Chemistry and Hematology Lab Results on record with [place] for the patient. Radiology Reports and Pathology Reports are provided separately, in subsequent sections. Lab Results This section contains the Chemistry/Hematology Results that were resulted 30 days before or 30 daysafter the date of the Encounter. Date/Time Source Result Type Result - Unit Interpretation Reference Range Specimen Type Comment Mar 22, 2024 12:16 PM [facility] N MICROALBUMIN/CREAT RATIO URINE Specimen Type: URINE No comment entered. Ordering Provider: MING TSANG Report Released Date/Time: Mar 15, 2024 11:30 AM Reporting Lab: [address] [phone] Performing Lab: [address] [address] CREATININE 60.8 mg/dL MICROALBUMIN QUANT 9.0 mg/L 0.0-30.0 .MICROALBUMIN/CREA RATIO 14.8 ug/mg{creat} Mar 15, 2024 12:10 PM [facility] ALT PLASMA Specimen Type: PLASM A [...] Mar 15, 2024 11:30 AM Reporting Lab: [address] [address] Performing Lab: [address] [address] ALT 13 U/L 0-55 Mar 15, 2024 12:10 PM [facility] AST PLASMA Specimen Type: PLASM A [...] Mar 15, 2024 11:30 AM Reporting Lab: [address] [phone] Performing Lab: [address] [address] AST 18 U/L 5-34 Mar 15, 2024 12:10 PM [facility] CBC/PLT BLOOD Specimen Type: BLOOD No comment entered. Ordering Provider: MING TSANG Report Released Date/Time: Mar 15, 2024 11:30 AM Reporting Lab: [address] [address] Performing Lab: [address] [address] WBC 6.6 10*3/uL 5.0-10.0 RBC 3.91 10*6/uL L 4.6-6.2 HGB 13.0 g/dL L 14.0-18.0 HCT 39.0 L 42.0-52.0 MCV 99.7 fL H 80.0-94.0 MCH 33.2 pg H 27.0-31.0 MCHC 33.3 g/dL 32.0-36.0 PLT 259 10*3/uL 150-450 MPV 9.6 fL 9.0-13.1 RDW 14.1 11.0-16.0 NRBC 0.0 0.0-0.0 Mar 15, 2024 12:10 PM [facility] GLYCOHEMOGLOBIN BLOOD Specimen Type: BLOOD Comment: [place] guidelines for A1c interpretation: Glycemic control targets are based on Shared Decision Making between clinicians and patients. Criteria used to establish an A1c target recommendation can be found at https://www.or.gov/qualityandpatientsafety/ and include the use of result accuracy [...] 8.73 and 9.27. Ref: https://ngsp.org/CAPdata.asp. The in-house [employer] D-100 analyzer has a historical CV <= 2%. Contact the laboratory for further performance characteristics of this assay. Ordering Provider: MING TSANG Report Released Date/Time: Mar 15, 2024 11:30 AM Reporting Lab: [address] [address] Performing Lab: [address] [address] GLYCOHEMOGLOBIN 9.1 H 4.4-6.4 Mar 15, 2024 12:10 PM [facility] LIPID PROFILE PLASMA Specimen Type: PLASM [...] Mar 15, 2024 11:30 AM Reporting Lab: [address] [address] Performing Lab: [address] [address] CHOLESTEROL 144 mg/dL 0-199 TRIGLYCERIDE 96 mg/dL 0-149 HDL CHOLESTEROL 40 mg/dL 40-69 DIRECT LDL CHOL. 93 mg/dL 0-100 Mar 15, 2024 12:10 PM [facility] PANEL 1 PLASMA Specimen Type: PLASM A [...] Mar 15, 2024 11:30 AM Reporting Lab: [address] [address] Performing Lab: [address] [address] CREATININE 2.10 mg/dL H 0.72-1.25 UREA NITROGEN [...] and tobacco- related health factors from the [place] facility where the Encounter took place. Current Smoking Status This section includes the most current smoking, or tobacco-related health factor, from the [place] facility where the Encounter took place. Date/Time Current Smoking Status Comment Facil ity Mar 15, 2024 11:00 AM VA-TOBACCO FORMER USER [facility] Tobacco Use History This section includes a history of the smoking, or tobacco-related health factors, that were collected on or before the date of the Encounter. The data comes from the [place] facility where the Encounter took place. Date/Time Smoking Status/Tobacco Use Comment F acility Mar 15, 2024 11:00 AM [place]-TOBACCO QUIT 15 YRS OR MORE [facility] Advance Directives: All historical and current Section Date Range: From patient's date of to the date document was created. This section includes ALL of a patient's completed or amended [place] Advance and Rescinded Directives. The entries below indicate that a directive exists for the patient, but an actual copy is not included with this document. The data comes from all [place] facilities. Date Advance Directives Provider Source Apr 21, 2017 ADVANCE DIRECTIVE DISCUSSION [facility] Jun 26, 2015 ADVANCE DIRECTIVE DISCUSSION [facility] Encounter Notes: All associated encounter notes This section contains the clinical notes associated to the Encounter. Date/Time Encounter Note(s) Provider Source Mar 22, 2024 01:14 PM NURSING EDUCATION NOTE: LOCAL TITLE: PC GLUCOMETER TRAINING PROGRESS NOTE STANDARD TITLE: NURSING EDUCATION NOTE DATE OF NOTE: MAR 22, 2024@13:14 ENTRY DATE: MAR 22, 2024@13:14:15 AUTHOR: DES SALINASIGNER: URGENCY: STATUS: COMPLETED Patient was seen in clinic for home glucometer training and issue. Discussed general diabetes issues, and reinforced education with pre-approved teaching tools regarding the following: What is Diabetes, Healthy Eating with Diabetes, HbA1c Measurement - What It Means, Home Blood Sugar Monitoring, Exercise, Foot Care, Prevention of Complications, Hyper and Hypoglycemia Instructed patient on the use of glucometer and auto-lancet. Demonstrated and discussed the following: -Meter use, care, cleaning, protection from extremes of temperature and abrasive solutions. Changing batteries, date and time, memory retrieval, warranty, instruction manual, on/off, county home demonstration agent's 800 Help Number, warning / error signals. -Calibration, test strips, auto-lancet, procedure for finger stick, disposal of lancets, storage of test strips in air tight container, protect strips / meter from extremes of temperature. -Patient returned demonstration, performing a finger stick and blood glucose testing. Patient performed the test correctly, results as follows: -Issued meter, lancet and enough testing supplies to last until pharmacy processes and mails balance of supplies. Instructed patient to bring glucometer to appointments for review of home test results. Meter Lot# [id number] Meter Serial # [id number] Ucon is RN - orders entered for testing supplies to include alcohol swabs, test strips and lancets. Yes - /Caregiver verbalized understanding of topics discussed and education provided /es/ KINSEY MORALESN,RN aadc plans staff officer Signed: 03/22/2024 13:15 DES SALINAS [facility]
--- OUTSIDE RECORDS SUMMARY | 2024-11-22 08:45 | XMS_ITS | Encounter Summary ---
Author Name [facility] [place] Organization [place] Address [address] [place] [address] Care Team Providers Care Dough Raiser Name Role Phone MING TSANG Primary Care [...] 2020 [facility] [id number] MELANIE,LE ONARD PATIENT MEDICARE (WNR) MEDICARE (M) PART A Nov 05, 2010 PART A [id number] MELANIE,LE ONARD PATIENT MEDICARE (WNR) MEDICARE (M) PART B Nov 05, 2010 PART B [id number] MELANIE,LE ONARD PATIENT MEDICARE (WNR) MEDICARE (M) PART A Nov 05, 2010 PART A [id number] [facility] [id number] MELANIE,LE ONARD PATIENT MEDICARE (WNR) MEDICARE (M) PART B Nov 05, 2010 PART B [id number] [id number] MELANIE,LE ONARD PATIENT MEDICARE (WNR) MEDICARE (M) PART A Nov 05, 2010 PART A [id number] [id number] MELANIEMAXINE GEE PATIENT MEDICARE (WNR) MEDICARE (M) PART B Nov 05, 2010 PART B [id number] [id number] MELANIEMAXINE GEE PATIENT MEDICARE (WNR) MEDICARE (M) PART B Nov 05, 2010 PART B [id number] [facility] MELANIEMAXINE ONQUEENIE PATIENT MEDICARE (WNR) MEDICARE (M) PART A Nov 05, 2010 PART A [id number] [facility] [phone] MELANIE,LE ONQUEENIE PATIENT MEDICARE (WNR) MEDICARE (M) PART A Nov 05, 2010 PART A [id number] [id number] MELANIEMAXINE GEE PATIENT MEDICARE (WNR) MEDICARE (M) PART B Nov 05, 2010 PART B [id number] [id number] MAXINE NAVARRO PATIENT MEDICARE (WNR) MEDICARE (M) PART A Nov 05, 2010 PART A [id number] [phone] [id number] MELANIEMAXINE GEE PATIENT MEDICARE (WNR) MEDICARE (M) PART B Nov 05, 2010 PART B [id number] MAXINE NAVARRO PATIENT FOR LIFE TRICA RE FOR LIFE Mar 31, 2010 [facility] [id number] MAXINE NAVARRO PATIENT FOR LIFE DIREC T CARE Mar 31, 2010 FOR LIFE [id number] MAXINE NAVARRO PATIENT -FO R-LIFE TRICA RE FOR LIFE December 05, 2010 [id number] MAXINE NAVARRO PATIENT Selected Encounter This section includes the information on record at [place] for the Encounter. Date/Time Encounter Type Encounter Description Reason Pro vider Source Oct 02, 2024 09:57 AM Outpatient Encounter ADMIN PAT ACTIVTIES (MASNONCT) IHE Encounter Template Text not used by [facility] Plan of Treatment: Future Appointments (+ 6 months) and Future Tests (+/- 45 days) The Plan of Treatment section includes future care activities for the [facility] [place] [facility] This section includes future appointments and future orders which are active, pending or scheduled. Future Appointments This section includes appointments that were scheduled to occur 6 months from the date of the Encounter, up to a maximum of 20 appointments. The data comes from all [place] treatment facilities. Appointment Date/Time Appointment Type Appointme nt Facility Name Nov 08, 2024 11:00 AM AMBULATORY - PSYCHIATRY [facility] Jan 29, 2025 01:00 PM AMBULATORY - PSYCHIATRY [facility] Jan 31, 2025 10:00 AM AMBULATORY - NONE [facility] Lab Results: +/- 30 days of the encounter This section includes the Chemistry and Hematology Lab Results on record with [place] for the patient. Radiology Reports and Pathology Reports are provided separately, in subsequent sections. Lab Results This section contains the Chemistry/Hematology Results that were resulted 30 days before or 30 daysafter the date of the Encounter. Date/Time Source Result Type Result - Unit Interpretation Reference Range Specimen Type Comment Sep 30, 2024 08:55 AM [facility] VALPROIC ACID PLASMA Specimen Type: PLASMA No comment entered. Ordering Provider: ALEXSANDRA STEPHENSON Report Released Date/Time: Aug 09, 2024 07:55 AM Reporting Lab: [address] [address] Performing Lab: [address] [address] VALPROIC ACID 30.8 ug/mL L 50.0-99.9 Advance Directives: All historical and current Section Date Range: From patient's date of to the date document was created. This section includes ALL of a patient's completed or amended [place] Advance and Rescinded Directives. The entries below indicate that a directive exists for the patient, but an actual copy is not included with this document. The data comes from all [facility]. Date Advance Directives Provider Source Apr 21, 2017 ADVANCE DIRECTIVE DISCUSSION [facility] Jun 26, 2015 ADVANCE DIRECTIVE DISCUSSION [facility] Encounter Notes: All associated encounter notes This section contains the clinical notes associated to the Encounter. Date/Time Encounter Note(s) Provider Source Oct 02, 2024 10:54 AM ADDENDUM: LOCAL TITLE: Addendum STANDARD TITLE: ADDENDUM DATE OF NOTE: OCT 02, 2024@10:54:34 ENTRY DATE: OCT 02, 2024@10:54:35 AUTHOR: DES SALINASIGNER: URGENCY: STATUS: COMPLETED Forward to ordering provider /franny/ RICHA MORALES,RN mail processing associate Signed: 10/02/2024 10:54 Receipt Acknowledged By: 10/02/2024 18:18 /franny/ ALEXSANDRA STEPHENSON MD Psychiatry Attending --- Original Document --- 10/02/24 CCC: SCHEDULING ADMINISTRATION: Patient Demographics Patient Name: CHELE NAVARRO Patient Primary Phone: [phone] Patient Primary Address: [address] [place] [address] Patient : 1945 Patient Age: 78 Call Back Number: [phone] Caller/Recipient Relation to Patient: Self Caller Name: CHELE NAVARRO Administrative Administrative Note Reason: Lab / Imaging Results Administrative Note Comments: is calling to see if his lab work results are back. Please call back when available. IMPORTANT: This note was created by [facility] Clinical Contact Center staff. Please do not alert the staff member by adding them as a signer for future communications. Alerts are not monitored by this user. /franny/ SHANNAN BOLTON Advanced Clerical Associate Signed: 10/02/2024 09:57 Receipt Acknowledged By: 10/02/2024 10:55 /franny/ RICHA MORALES,RN mail processing associate DES SALINAS-CDD [facility] Oct 02, 2024 09:57 AM ADMINISTRATIVE NOT E: LOCAL TITLE: CCC: SCHEDULING ADMINISTRATION STANDARD TITLE: ADMINISTRATIVE NOTE DATE OF NOTE: OCT 02, 2024@09:57:25 ENTRY DATE: OCT 02, 2024@09:57:25 AUTHOR: SHANNAN BOLTON EXP COSIGNER: URGENCY: STATUS: COMPLETED CCC: SCHEDULING ADMINISTRATION Has ADDENDA Patient Demographics Patient Name: CHELE NAVARRO Patient Primary Phone: [phone] Patient Primary Address: [address] [place] [address] Patient : 1945 Patient Age: 78 Call Back Number: [phone] Caller/Recipient Relation to Patient: Self Caller Name: CHELE NAVARRO Administrative Administrative Note Reason: Lab / Imaging Results Administrative Note Comments: Mead is calling to see if his lab work results are back. Please call back when available. IMPORTANT: This note was created by [facility] Clinical Contact Center staff. Please do not alert the staff member by adding them as a signer for future communications. Alerts are not monitored by this user. /franny/ SHANNAN BOLTON Advanced Clerical Associate Signed: 10/02/2024 09:57 Receipt Acknowledged By: 10/02/2024 10:55 /es/ RICHA MORALES,RN mail processing associate 10/02/2024 ADDENDUM STATUS: COMPLETED Forward to ordering provider /RICHA Leija,RN mail processing associate Signed: 10/02/2024 10:54 Receipt Acknowledged By: * AWAITING SIGNATURE * ALEXSANDRA STEPHENSON [place] [facility]
--- OUTSIDE RECORDS SUMMARY | 2024-11-22 08:45 | XMS_ITS | Encounter Summary ---
Author Name [facility] [place] Organization [facility] [place] Address [address] [place] [address] Care Team Providers Care Information Technology Assistant Name Role Phone MING TSANG Primary Care [...] TRICA RE DODA WNR Oct 09, 2020 [facility] [id number] MELANIE,MAXINE ONARD PATIENT MEDICARE (WNR) MEDICARE (M) PART A Nov 05, 2010 PART A [id number] [facility] [phone] MELANIE,LE ONARD PATIENT MEDICARE (WNR) MEDICARE (M) PART B Nov 05, 2010 PART B [id number] [facility] [phone] MELANIE,LE ONARD PATIENT MEDICARE (WNR) MEDICARE (M) PART A Nov 05, 2010 PART A [id number] [phone] [id number] MELANIE,LE ONARD PATIENT MEDICARE (WNR) MEDICARE (M) PART B Nov 05, 2010 PART B [id number] [phone] [id number] MELANIE,LE ONQUEENIE PATIENT MEDICARE (WNR) MEDICARE (M) PART A Nov 05, 2010 [id number] [id number] [phone] [id number] MELANIEMAXINE ONQUEENIE PATIENT MEDICARE (WNR) MEDICARE (M) PART B Nov 05, 2010 PART B [id number] [id number] MELANIE,LE ONARD PATIENT MEDICARE (WNR) MEDICARE (M) PART A Nov 05, 2010 PART A [address] [place] [address] [phone] MELANIE,LE ONQUEENIE PATIENT MEDICARE (WNR) MEDICARE (M) PART B Nov 05, 2010 [address] [place] [address] [phone] [id number] MELANIEMAXINE GEE PATIENT MEDICARE (WNR) MEDICARE (M) PART A Nov 05, 2010 PART [place] [id number] [id number] MELANIEMAXINE GEE PATIENT MEDICARE (WNR) MEDICARE (M) PART B Nov 05, 2010 PART B [id number] [id number] MELANIEMAXINE GEE PATIENT MEDICARE (WNR) MEDICARE (M) PART A Nov 05, 2010 PART A [id number] MAXINE NAVARRO PATIENT MEDICARE (WNR) MEDICARE (M) PART B Nov 05, 2010 PART B [id number] MAXINE NAVARRO PATIENT FOR LIFE TRICA RE FOR LIFE Mar 31, 2010 SPONSOR [id number] MAXINE NAVARRO PATIENT FOR LIFE DIREC T CARE Mar 31, 2010 FOR LIFE [id number] MAXINE NAVARRO PATIENT -FO R-LIFE TRICA RE FOR LIFE December 05, 2010 [id number] MAXINE NAVARRO PATIENT Selected Encounter This section includes the information on record at [place] for the Encounter. Date/Time Encounter Type Encounter Description Reason Provider Source Nov 08, 2024 11:00 AM OFFICE O/P EST MOD 30 MIN [facility] - IND ICD-10-CM F31.9 Bipolar disorder, unspecified ALEXSANDRA STEPHENSON Megan Encounter Template Text not used by [place] Assessments - Encounter Diagnoses This section includes the primary and secondary diagnoses documented for the Encounter. Date/Time Primary/Secondary Diagnosis Diagnosis Name Provider Source Nov 08, 2024 05:08 PM PRIMARY Bipolar disorder, unspecified ALEXSANDRA STEPHENSON [facility] Plan of Treatment: Future Appointments (+ 6 months) and Future Tests (+/- 45 days) The Plan of Treatment section includes future care activities for the patient from [facility] [place] [facility]. This section includes future appointments and future orders which are active, pending or scheduled. Future Appointments This section includes appointments that were scheduled to occur 6 months from the date of the Encounter, up to a maximum of 20 appointments. The data comes from all [place] treatment facilities. Appointment Date/Time Appointment Type Appointme nt Facility Name Jan 29, 2025 01:00 PM AMBULATORY - PSYCHIATRY MAXINE GORDONZO [facility] Jan 31, 2025 10:00 AM [facility] Social History: Smoking Status (Most current) and Tobacco Use (All prior to encounter date) This section includes the most current, and the historical, smoking and tobacco- related health factors from the [place] facility where the Encounter took place. Current Smoking Status This section includes the most current smoking, or tobacco-related health factor, from the [place] facility where the Encounter took place. Date/Time Current Smoking Status Comment Facil ity Mar 15, 2024 11:00 AM CO-TOBACCO FORMER USER [facility] Tobacco Use History This section includes a history of the smoking, or tobacco-related health factors, that were collected on or before the date of the Encounter. The data comes from the [place] facility where the Encounter took place. Date/Time Smoking Status/Tobacco Use Comment F acility Mar 15, 2024 11:00 AM CO-TOBACCO QUIT 15 YRS OR MORE [facility] Advance Directives: All historical and current Section Date Range: From patient's date of to the date document was created. This section includes ALL of a patient's completed or amended [place] Advance and Rescinded Directives. The entries below indicate that a directive exists for the patient, but an actual copy is not included with this document. The data comes from all [place] facilities. Date Advance Directives Provider Source Apr 21, 2017 ADVANCE DIRECTIVE DISCUSSION YFN JOHNSON [facility] Jun 26, 2015 ADVANCE DIRECTIVE DISCUSSION ILIA SAL [facility] Encounter Notes: All associated encounter notes This section contains the clinical notes associated to the Encounter. Date/Time Encounter Note(s) Provider Source Nov 08, 2024 05:08 PM MENTAL HEALTH E & M NOTE: LOCAL TITLE: MHC E&M WITH PSYCHOTHERAPY STANDARD TITLE: MENTAL HEALTH E & M NOTE DATE OF NOTE: NOV 08, 2024@17:08 ENTRY DATE: NOV 08, 2024@17:08:42 AUTHOR: ALEXSANDRA STEPHENSON EXP COSIGNER: URGENCY: STATUS: COMPLETED PATIENT NAME: CHELE NAVARRO PATIENT RACE: WHITE PATIENT SEX: MALE PATIENT AGE: 78 MARITAL STATUS:MARITAL STATUS - CO RATING: SERVICE CONNECTED % - 100 Date of Service (if earlier than date of documentation): Is the patient seen via [facility]? No PSYCHOTHERAPY SECTION SUMMARY OF PSYCHOTHERAPY: (minutes) Time spent during this session exclusively on psychotherapy EVALUATION AND MANAGEMENT GRAPE CUTTER COMPLAINT: F/U for Bipolar and meds review. INTERVAL HISTORY: Targeted review of systems was performed. Pertinent findings include: 78 Yo MWM presents with his son for 3 month f/u. Reports Hx of Bipolar for 30+ years and transfer care from [place] to here in 2023. Pt is observed as a WM of stated age with fully bold head. he ws calm, comfortbale, smiling, and very plesant. Pt reports Dx of Bipolar 30 years ago and had at least 5 or 6 psych hospitalizations but the last one was more than 10 years ago. Pt reports seeing an outside priscriber in [place] and has been stable on 3 psych meds. His most recnt VPA was 30. Rotine labs were not remarkable. His meds including Seroquel 100 mg qhs, depakorte 1000 mg qhs. Pt reports not aware of side effects or problems. His recent lab of liver function was fair. VPA was 30 on 09-30-2024. Pt is not clear if his hair loss was related to depakote. Pt denies al/delu/Si/Hi. Wants next f/u be VVC. Past Psych Hx: Reports Dx and Tx of bip[olar for 30+ years. Reports 5 or 6 previous psych amdissions but the last one was more than 10 years ago. Denies suicidal attempt. FAmily Hx: None reported. Social Hx: Pt and his recently moved from [place] to this area. His son is and also moved along with them. Son is employed at [employer] for the past 6 months now. Legal Hx: None reproted. 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 PAIN ASSESSMENT: No - Pain Intensity: Location: Duration: Characteristics: MEDICATION RECONCILIATION: I have reviewed all prescriptions and non-VA medications with the patient and/or caregiver. I have documented and addressed any discrepancies within the Meds tab. Patient verbalized understanding. Active and Recently Outpatient Medications (including Supplies): Active Outpatient Medications Status 1) ALLOPURINOL 100MG TAB TAKE ONE TABLET BY MOUTH DAILY ACTIVE Indication: FOR GOUT 2) CITALOPRAM HYDROBROMIDE 40MG TAB TAKE ONE-HALF TABLET BY ACTIVE MOUTH DAILY Indication: FOR MOOD 3) CLOPIDOGREL BISULFATE 75MG TAB TAKE ONE TABLET BY MOUTH ACTIVE DAILY Indication: TO THIN BLOOD 4) DIVALPROEX 500MG 24HR (ER) SA TAB TAKE TWO TABLETS BY MOUTH ACTIVE DAILY Indication: FOR MOOD 5) GEMFIBROZIL 600MG TAB TAKE ONE TABLET BY MOUTH TWICE A DAY ACTIVE -TAKE 30 MINUTES BEFORE MEALS Indication: FOR CHOLESTEROL 6) MEMANTINE HCL 10MG TAB TAKE ONE TABLET BY MOUTH DAILY ACTIVE (S) Indication: FOR MEMORY 7) PRIMIDONE 50MG TAB TAKE ONE TABLET BY MOUTH DAILY ACTIVE Indication: FOR TREMORS 8) PROPRANOLOL HCL 60MG SA CAP TAKE ONE CAPSULE BY MOUTH DAILY ACTIVE Indication: FOR TREMOR 9) QUETIAPINE FUMARATE 200MG TAB TAKE ONE-HALF TABLET BY MOUTH ACTIVE AT BEDTIME Indication: FOR MOOD 10) SITAGLIPTIN (EQV-ZITUVIO) 50MG TAB TAKE ONE TABLET BY MOUTH ACTIVE DAILY - STORE IN ORIGINAL CONTAINER. OPENED BOTTLES MUST BE USED WITHIN 3 MONTHS Indication: FOR BLOOD SUGAR 11) TAMSULOSIN HCL 0.4MG CAP TAKE ONE CAPSULE BY MOUTH EVERY ACTIVE EVENING Indication: FOR PROSTATE Inactive Outpatient Medications Status 1) LISINOPRIL 20MG TAB TAKE ONE-HALF TABLET BY MOUTH DAILY Indication: FOR HIGH BLOOD PRESSURE 12 Total Medications Allergies: local and remote IODINATED CONTRAST MEDIA FACILITY ALLERGY/ADR -------- [id number]^[facility] SUSAN REPT EFF [id number]^200CHIODINE 512^[facility] SYS^512 IODINE 528^[facility]^528 INTRAVASCULAR CONTRAST MEDIA 528^[facility]^[address] [place] PAST MEDICAL HISTORY: Active problems - Computerized Problem List is the source for the followin. Parkinson's disease 2. Dementia 3. Diabetes mellitus 4. Hypertension 5. Hyperlipidemia 6. Transient cerebral ischemia 7. Gout 8. Benign prostatic hyperplasia VITAL SIGNS: TEMP: No values within 24 hours BLOOD PRESSURE: No values within 24 hours RESPIRATIONS: No values within 24 hours PULSE: No values within 24 hours 66 in [167.6 cm] (03/15/2024 10:22) WEIGHT: No values within 24 hours MENTAL STATUS EXAM: Appearance: No acute distress, Well-developed Orientation/Alertness: Oriented to person, place, and time Attitude: Cooperative Behavior: Calm Speech: Normal in tone, rate, volume and amount Mood: Euthymic Affect: Stable Thought Process: Linear, Organized, Goal directed Thought Content: Appropriate to mood and circumstances denies Hallucinations: Homicide: Memory: normal Attention/Concentration: fair Insight: Shows awareness of self and problems Judgment: Normal Capacity to make treatment decisions and engage in treatment planning: fair Labs: Recent laboratory reports on the chart were reviewed and pertinent abnormalities were noted and considered. CBC/PLT, BLOOD - Partial Panel found WBC , BLOOD, 03/15/24@1210 6.6 K/cmm (5.0 - 10.0) RBC, BLOOD, 03/15/24@1210 3.91 LM/cmm (4.6 - 6.2) HGB, BLOOD, 03/15/24@1210 13.0 Lg/dL (14.0 - 18.0) HCT, BLOOD, 03/15/24@1210 39.0 L% (42.0 - 52.0) MCV, BLOOD, 03/15/24@1210 99.7 HfL (80.0 - 94.0) MCH, BLOOD, 03/15/24@1210 33.2 Hpg (27.0 - 31.0) MCHC, BLOOD, 03/15/24@1210 33.3 g/dL (32.0 - 36.0) RDW, BLOOD, 03/15/241210 14.1 % (11.0 - 16.0) PLT, BLOOD, 03/15/24@1210 259 K/cmm (150 - 450) MPV, BLOOD, 03/15/24@1210 9.6 fL (9.0 - 13.1) NRBC, BLOOD, 03/15/24@1210 0.0 % (0.0 - 0.0) PANEL 1 Jimmy. date GLUCOSE BUN CREAT SODIUM K CHLOR CO2 03/15/24 12:10 151 H 42 H 2.10 H 137 4.8 107 22 Collection DT Specimen Test Name Result Units Ref Range 03/15/2024 12:10 PLASMA!! eGFR (CKD-EPI) 32 SEE EVAL !! Indicates COMMENTS AVAILABLE...Refer to Interim Lab Report. PANEL 2 - NONE FOUND Collection DT Specimen Test Name Result Units Ref Range 03/15/2024 12:10 BLOOD HGB 13.0 L g/dL 14.0 - 18.0 Lipid Panel: Collection DT Specimen Test Name Result Units Ref Range 03/15/2024 12:10 PLASMA!! CHOLESTEROL 144 mg/dL 0 - 199 03/15/2024 12:10 PLASMA!! TRIGLYCERIDE 96 mg/dL 0 - 149 03/15/2024 12:10 PLASMA!! HDL CHOLESTEROL 40 mg/dL 40 - 69 03/15/2024 12:10 PLASMA!! DIRECT LDL CHOL. 93 mg/dL 0 - 100 !! Indicates COMMENTS AVAILABLE...Refer to Interim Lab Report. [place]: ____ Valproic Acid: 30.8 ug/mL L (09/30/2024 08:55) Drugs of Abuse - NONE FOUND SUICIDE RISK ASSESSMENT: C-SSRS Screening [place]-Suicide Severity Rating Scale (C-SSRS Screener) 1. Over the past month, have you wished you were or wished you could go to sleep and not wake up? No 2. Over the past month, have you had any actual thoughts of killing yourself? No 3. Over the past month, have you been thinking about how you might do this? Response not required due to responses to other questions. 4. Over the past month, have you had these thoughts and had some intention of acting on them? Response not required due to responses to other questions. 5. Over the past month, have you started to work out or worked out the details of how to kill yourself? Response not required due to responses to other questions. 6. If yes, at any time in the past month did you intend to carry out this plan? Response not required due to responses to other questions. 7. In your lifetime, have you ever done anything, started to do anything, or prepared to do anything to end your life (for example, collected pills, obtained a gun, gave away valuables, went to the roof but didn't jump)? No 8. If YES, was this within the past 3 months? Response not required due to responses to other questions. ASSESSMENT: 78 Yo WM presents for 3 months f/u. Reports Bipolar Hx for 30 years and has been fairly stable in mood for many years while on 3 meds. VPA was 30 recently. Panel 1 and CBC were fair. Denies sied effects or problems Denies al/delu/si/hi. DSM5 Diagnosis: Bipolar disorder, unspecified (ICD-10-CM F31.9) (Primary) TREATMENT GOALS: stablze mood TREATMENT PLAN: 1. RTC 3 monts. 2. Labs: panel 1 = NL. VPA = 30 on 09-30-2024. 3. Meds: cont. home meds per pt's request, I verified with his old bottles. - Depakote 1000 mg qhs for mood - Seroquel 100 mg qhs formood/sleep/psychosis - Celexa 20 mg daily for depression - On Mementine and Primidone from Neuro. Potential risks, adverse side effects, benefits, and alternatives pertaining to the above treatment plan were reviewed with the patient, who verbalized understanding and provided consent. Patient was instructed to return to clinic or call during regular business hours with any problems or questions and clinic phone numbers were provided. Patient was also advised to present to the nearest emergency room, the [facility] ER, or to call 911 should they experience acute suicidal or homicidal ideation or their medical condition rapidly deteriorate. Patient was also provided with the telephone number for the National Suicide Hotline. DISPOSITION: Visit modality: Bijb-so-hgbj 15 (minutes) Time spent face to face performing medically appropriate exam or evaluation 15 (minutes) Time spent documenting clinical information in the health record (minutes) Total time spent for today's visit The following activities were performed: Preparing to see the patient such as review of tests, x-rays, labs, SHAKA (Specify test reviewed) Obtaining and or review a separately obtained history Counseling and educating the patient/family/caregiver Ordering medications, tests, or procedures (Specify what tests are ordered) /franny/ ALEXSANDRA STEPHENSON MD Psychiatry Attending Signed: 11/08/2024 17:17 ALEXSANDRA STEPHENSON [facility] Nov 08, 2024 05:07 PM MENTAL HEALTH MEDI CATION MGT NOTE: LOCAL TITLE: [facility] STAND[facility] TITLE: MENTAL HEALTH MEDICATION MGT NOTE DATE OF NOTE: NOV 08, 2024@17:07 ENTRY DATE: NOV 08, 2024@17:07:51 AUTHOR: ALEXSANDRA STEPHENSON EXP COSIGNER: URGENCY: STATUS: COMPLETED MEDICATION RECONCILIATION: [place]/caregiver refused a copy of medication list I have reviewed all prescriptions and non-VA medications with the patient and/or caregiver. I have documented and addressed any discrepancies within the Meds tab. Patient verbalized understanding. Active and Recently Outpatient Medications (including Supplies): Active Outpatient Medications Status = 1) ALLOPURINOL 100MG TAB TAKE ONE TABLET BY MOUTH DAILY ACTIVE Indication: FOR GOUT 2) CITALOPRAM HYDROBROMIDE 40MG TAB TAKE ONE-HALF TABLET BY ACTIVE MOUTH DAILY Indication: FOR MOOD 3) CLOPIDOGREL BISULFATE 75MG TAB TAKE ONE TABLET BY MOUTH ACTIVE DAILY Indication: TO THIN BLOOD 4) DIVALPROEX 500MG 24HR (ER) SA TAB TAKE TWO TABLETS BY MOUTH ACTIVE DAILY Indication: FOR MOOD 5) GEMFIBROZIL 600MG TAB TAKE ONE TABLET BY MOUTH TWICE A DAY ACTIVE -TAKE 30 MINUTES BEFORE MEALS Indication: FOR CHOLESTEROL 6) MEMANTINE HCL 10MG TAB TAKE ONE TABLET BY MOUTH DAILY ACTIVE (S) Indication: FOR MEMORY 7) PRIMIDONE 50MG TAB TAKE ONE TABLET BY MOUTH DAILY ACTIVE Indication: FOR TREMORS 8) PROPRANOLOL HCL 60MG SA CAP TAKE ONE CAPSULE BY MOUTH DAILY ACTIVE Indication: FOR TREMOR 9) QUETIAPINE FUMARATE 200MG TAB TAKE ONE-HALF TABLET BY MOUTH ACTIVE AT BEDTIME Indication: FOR MOOD 10) SITAGLIPTIN (EQV-ZITUVIO) 50MG TAB TAKE ONE TABLET BY MOUTH ACTIVE DAILY - STORE IN ORIGINAL CONTAINER. OPENED BOTTLES MUST BE USED WITHIN 3 MONTHS Indication: FOR BLOOD SUGAR 11) TAMSULOSIN HCL 0.4MG CAP TAKE ONE CAPSULE BY MOUTH EVERY ACTIVE EVENING Indication: FOR PROSTATE Inactive Outpatient Medications Status = 1) LISINOPRIL 20MG TAB TAKE ONE-HALF TABLET BY MOUTH DAILY Indication: FOR HIGH BLOOD PRESSURE 12 Total Medications Allergies: local and remote IODINATED CONTRAST MEDIA FACILITY ALLERGY/ADR -------- [id number]^CLNCL/HLTH SUSAN REPT EFF [id number]^200CHIODINE 512^[facility] SYS^512 IODINE 528^[facility]^528 INTRAVASCULAR CONTRAST MEDIA 528^[facility]^[address] [place] Active and Recently Outpatient Medications (including Supplies): Active Outpatient Medications Status = 1) ALLOPURINOL 100MG TAB TAKE ONE TABLET BY MOUTH DAILY ACTIVE Indication: FOR GOUT 2) CITALOPRAM HYDROBROMIDE 40MG TAB TAKE ONE-HALF TABLET BY ACTIVE MOUTH DAILY Indication: FOR MOOD 3) CLOPIDOGREL BISULFATE 75MG TAB TAKE ONE TABLET BY MOUTH ACTIVE DAILY Indication: TO THIN BLOOD 4) DIVALPROEX 500MG 24HR (ER) SA TAB TAKE TWO TABLETS BY MOUTH ACTIVE DAILY Indication: FOR MOOD 5) GEMFIBROZIL 600MG TAB TAKE ONE TABLET BY MOUTH TWICE A DAY ACTIVE -TAKE 30 MINUTES BEFORE MEALS Indication: FOR CHOLESTEROL 6) MEMANTINE HCL 10MG TAB TAKE ONE TABLET BY MOUTH DAILY ACTIVE (S) Indication: FOR MEMORY 7) PRIMIDONE 50MG TAB TAKE ONE TABLET BY MOUTH DAILY ACTIVE Indication: FOR TREMORS 8) PROPRANOLOL HCL 60MG SA CAP TAKE ONE CAPSULE BY MOUTH DAILY ACTIVE Indication: FOR TREMOR 9) QUETIAPINE FUMARATE 200MG TAB TAKE ONE-HALF TABLET BY MOUTH ACTIVE AT BEDTIME Indication: FOR MOOD 10) SITAGLIPTIN (EQV-ZITUVIO) 50MG TAB TAKE ONE TABLET BY MOUTH ACTIVE DAILY - STORE IN ORIGINAL CONTAINER. OPENED BOTTLES MUST BE USED WITHIN 3 MONTHS Indication: FOR BLOOD SUGAR 11) TAMSULOSIN HCL 0.4MG CAP TAKE ONE CAPSULE BY MOUTH EVERY ACTIVE EVENING Indication: FOR PROSTATE Inactive Outpatient Medications Status = 1) LISINOPRIL 20MG TAB TAKE ONE-HALF TABLET BY MOUTH DAILY Indication: FOR HIGH BLOOD PRESSURE 12 Total Medications Allergies: local and remote IODINATED CONTRAST MEDIA FACILITY ALLERGY/ADR -------- [id number]^CLNCL/HLTH SUSAN REPT EFF [id number]^200CHIODINE 512^[facility]^512 IODINE 528^[facility]^528 INTRAVASCULAR CONTRAST MEDIA 528^[facility]^[address] [place] Allergies: Local and Remote IODINATED CONTRAST MEDIA FACILITY ALLERGY/ADR -------- [id number]^CLNCL/HLTH SUSAN REPT EFF [id number]^200CHIODINE 512^[facility]^512 IODINE 528^[facility]^528 INTRAVASCULAR CONTRAST MEDIA 528^[facility]^[address] [place] Medication Reconciliation ACTIVE OUTPATIENT MEDICATIONS LOCAL/REMOTE: ALLOPURINOL 100MG TAB Directions: TAKE ONE TABLET BY MOUTH DAILY FOR GOUT Quantity: 90 for 90 days Issued: 03/19/24 Filled: 08/27/24 Expires: 03/20/25 Refills: 0 Status: ACTIVE CITALOPRAM HYDROBROMIDE 40MG TAB Directions: TAKE ONE-HALF TABLET BY MOUTH DAILY FOR MOOD Quantity: 45 for 90 days Issued: 03/29/24 Filled: 09/15/24 Expires: 03/30/25 Refills: 1 Status: ACTIVE CLOPIDOGREL BISULFATE 75MG TAB Directions: TAKE ONE TABLET BY MOUTH DAILY TO THIN BLOOD Quantity: 90 for 90 days Issued: 09/09/24 Filled: 09/10/24 Expires: 09/10/25 Refills: 1 Status: ACTIVE DIVALPROEX 500MG 24HR (ER) SA TAB Directions: TAKE TWO TABLETS BY MOUTH DAILY FOR MOOD Quantity: 180 for 90 days Issued: 08/09/24 Filled: 08/11/24 Expires: 08/10/25 Refills: 3 Status: ACTIVE GEMFIBROZIL 600MG TAB Directions: TAKE ONE TABLET BY MOUTH TWICE A DAY FOR CHOLESTEROL -TAKE 30 MINUTES BEFORE MEALS Quantity: 180 for 90 days Issued: 10/01/24 Filled: 10/01/24 Expires: 10/02/25 Refills: 1 Status: ACTIVE PRIMIDONE 50MG TAB Directions: TAKE ONE TABLET BY MOUTH DAILY FOR TREMORS Quantity: 90 for 90 days Issued: 09/16/24 Filled: 09/16/24 Expires: 09/17/25 Refills: 1 Status: ACTIVE PROPRANOLOL HCL 60MG SA CAP Directions: TAKE ONE CAPSULE BY MOUTH DAILY FOR TREMOR Quantity: 90 for 90 days Issued: 09/09/24 Filled: 09/10/24 Expires: 09/10/25 Refills: 1 Status: ACTIVE QUETIAPINE FUMARATE 200MG TAB Directions: TAKE ONE-HALF TABLET BY MOUTH AT BEDTIME FOR MOOD Quantity: 45 for 90 days Issued: 03/29/24 Filled: 09/16/24 Expires: 03/30/25 Refills: 1 Status: ACTIVE SITAGLIPTIN (EQV-ZITUVIO) 50MG TAB Directions: TAKE ONE TABLET BY MOUTH DAILY FOR BLOOD SUGAR - STORE IN ORIGINAL CONTAINER. OPENED BOTTLES MUST BE USED WITHIN 3 MONTHS Quantity: 90 for 90 days Issued: 09/16/24 Filled: 09/16/24 Expires: 12/15/24 Refills: 0 Status: ACTIVE TAMSULOSIN HCL 0.4MG CAP Directions: TAKE ONE CAPSULE BY MOUTH EVERY EVENING FOR PROSTATE Quantity: 90 for 90 days Issued: 11/04/24 Filled: 11/04/24 Expires: 11/05/25 Refills: 1 Status: ACTIVE MEMANTINE HCL 10MG TAB Directions: TAKE ONE TABLET BY MOUTH DAILY FOR MEMORY Quantity: 90 for 90 days Issued: 10/15/24 Filled: 12/20/24 Expires: 01/13/25 Refills: 0 Status: ACTIVE/SUSP No remote medications found. PENDING OUTPATIENT MEDICATONS (LOCAL/REMOTE): No local medications found. No remote medications found. ACTIVE/PENDING INPT MEDICATIONS: No local medications found. No remote medications found. ACTIVE NONVA MEDICATIONS (LOCAL): CITALOPRAM TAB Directions: MOUTH Status: ACTIVE DIVALPROEX(HANDLING ALERT) TAB (DELAYED Directions: MOUTH Status: ACTIVE QUETIAPINE TAB Directions: MOUTH Status: ACTIVE OUTPATIENT MEDICATIONS (LOCAL)WITHIN 90 DAYS: MEMANTINE HCL 10MG TAB Directions: TAKE ONE TABLET BY MOUTH DAILY FOR MEMORY Quantity: 90 for 90 days Issued: 10/15/24 Filled: 12/20/24 Expires: 01/13/25 Refills: 0 Status: ACTIVE/SUSP DISCONTINUED OUTPATIENT MEDICATIONS (LOCAL) WITHIN 90 DAYS: MEMANTINE HCL 10MG TAB Directions: TAKE ONE TABLET BY MOUTH DAILY FOR MEMORY Quantity: 90 for 90 days Issued: 10/15/24 Filled: 12/20/24 Expires: 01/13/25 Refills: 0 Status: ACTIVE/SUSP CLOPIDOGREL BISULFATE 75MG TAB Directions: TAKE ONE TABLET BY MOUTH DAILY TO THIN BLOOD Quantity: 90 for 90 days Issued: 03/19/24 Filled: 06/10/24 Expires: 03/20/25 Refills: 0 Status: DISCONTINUED GEMFIBROZIL 600MG TAB Directions: TAKE ONE TABLET BY MOUTH TWICE A DAY FOR CHOLESTEROL -TAKE 30 MINUTES BEFORE MEALS Quantity: 180 for 90 days Issued: 03/19/24 Filled: 06/24/24 Expires: 03/20/25 Refills: 0 Status: DISCONTINUED MEMANTINE HCL 10MG TAB Directions: TAKE ONE TABLET BY MOUTH DAILY FOR MEMORY Quantity: 90 for 90 days Issued: 07/09/24 Filled: 07/10/24 Expires: 10/07/24 Refills: 0 Status: DISCONTINUED MEMANTINE HCL 10MG TAB Directions: TAKE ONE TABLET BY MOUTH DAILY FOR MEMORY Quantity: 90 for 90 days Issued: 10/01/24 Filled: 10/01/24 Expires: 12/30/24 Refills: 0 Status: DISCONTINUED PRIMIDONE 50MG TAB Directions: TAKE ONE TABLET BY MOUTH DAILY FOR TREMORS Quantity: 90 for 90 days Issued: 03/19/24 Filled: 06/18/24 Expires: 03/20/25 Refills: 0 Status: DISCONTINUED PROPRANOLOL HCL 60MG SA CAP Directions: TAKE ONE CAPSULE BY MOUTH DAILY FOR TREMOR Quantity: 90 for 90 days Issued: 03/19/24 Filled: 06/18/24 Expires: 03/20/25 Refills: 0 Status: DISCONTINUED SITAGLIPTIN (EQV-ZITUVIO) 50MG TAB Directions: TAKE ONE TABLET BY MOUTH DAILY FOR BLOOD SUGAR - STORE IN ORIGINAL CONTAINER. OPENED BOTTLES MUST BE USED WITHIN 3 MONTHS Quantity: 90 for 90 days Issued: 05/16/24 Filled: 06/09/24 Expires: 08/14/24 Refills: 0 Status: DISCONTINUED TAMSULOSIN HCL 0.4MG CAP Directions: TAKE ONE CAPSULE BY MOUTH EVERY EVENING FOR PROSTATE Quantity: 90 for 90 days Issued: 03/19/24 Filled: 07/30/24 Expires: 03/20/25 Refills: 0 Status: DISCONTINUED DIVALPROEX 500MG 24HR (ER) SA TAB Directions: TAKE TWO TABLETS BY MOUTH DAILY FOR MOOD Quantity: 180 for 90 days Issued: 07/16/24 Filled: 07/19/24 Expires: 10/14/24 Refills: 0 Status: DISCONTINUED (EDIT) CLINIC MEDICATIONS (LOCAL): No local medications found. Reviewed current medications with patient/signficant other, patient/significant other reports patient taking ALL VA, Non VA & OTC medications as listed on [facility] medication tab outpatient section. /franny/ ALEXSANDRA STEPHENSON MD Psychiatry Attending Signed: 11/08/2024 17:08 ALEXSANDRA STEPHENSON [facility]
--- OUTSIDE RECORDS SUMMARY | 2024-11-22 08:45 | XMS_ITS | Continuity of Care Document ---
Author Name [facility] Organization [facility] Care Team Providers Care Recruit Instructor Name Role Phone [facility] Unavailable Unavailable Problems Combined list of problems from Department of Defense and [facility] Affairs facilities. It does not include entries that were removed or entered in error. 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 02/04/19 98 Condition [facility] Benign prostatic hyperplasia Active Condition [facility] Benign prostatic hyperplasia Active Condition [facility] BIPOLAR AFF, MANIC-MILD Active Condition [facility] Bipolar disorder (SNOMED CT 16909807) Active Condition [facility] Bipolar disorder in remission (SNOMED CT 62191078) Active Condition Jun 11, 2012 Entered By: OZZY WASHINGTON Comment: -psychiatrist Apr 15, 2013 Entered By: OZZY WASHINGTON Comment: [place]- psychiatry [facility] BLEPHARITIS NOS Active Condition [facility] comanaged care Active Condition Jun Entered By: OZZY WASHINGTON Comment: [facility] Dementia Active Condition [facility] depression. 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,UNCONTRLD Active Condition [facility] Diabetes mellitus Active Condition [facility] Diabetes mellitus (SNOMED CT [id number]) Active Condition [facility] Dyslipidemia (ICD-9-CM 272.4) Active Condition [place] [facility] FITTING AND ADJUSTMENT OF HEARING AID Active Condition [facility] Gout Active Condition [facility] Gout * (ICD-9-CM 274.9) Active Condition [facility] Hearing Loss Active Condition [facility] htn. Active Condition [facility] Hyperlipidemia Active Condition [place] [facility] HYPERLIPIDEMIA NEC/NOS Active Condition [facility] Hypertension Active Condition [facility] Hypertension * (ICD-9-CM 401.9) Active Condition [facility] Hypertension, Essential Active Condition [facility] Insulin treated type 2 diabetes mellitus Active Condition [facility] Major Depression, recurrent (ICD-9-CM 296.30) Active Condition [facility] Parkinson disease Active Condition [facility] Parkinson's disease Active Condition [facility] Personal History of Transient Ischemic Attack (Tia), and Cerebral Infarction wit Active Condition [facility] Posttraumatic Stress Disorder Active Condition [facility] PROPHY VACC. STREP PNEU Active Condition [facility] Routine Med Exam Active Condition [facility] Sensorineural hearing loss of Combined types, Bilateral (ICD-9-CM 389.18) Active Condition [facility] Sensorineural Hearing Loss, Bilateral (ICD-9-CM 389.18) Active Condition [facility] Sensorineural hearing loss, bilateral (SNOMED CT [id number]) Active Condition [facility] Transient cerebral ischemia Active Condition [place] [facility] Unspecified Sleep Apnea (ICD-9-CM 780.57) Active Condition [facility] VACCIN FOR INFLUENZA Active Condition [facility] LOSS OF TEETH, ACQUIRED Inactive Condition [facility] Diagnosis: ICD-10-CM F31.9 Bipolar disorder, unspecified Active Diagnosis [facility] Diagnosis: ICD-10-CM E11.9 Type 2 diabetes mellitus without complications Active Diagnosis [facility] Diagnosis: ICD-10-CM Z71.89 Other specified counseling Active Diagnosis [facility] Diagnosis: ICD-10-CM G20.C Parkinsonism, unspecified Active Diagnosis [facility] Medications Combined list of outpatient medications from Department of Defense and [facility] Affairs facilities.Medications provided include 1) outpatient medications from the last 15 months, and 2) patient-reported medications. Medication Details Route Status Patient Instructions Prescription Expires Prescription Number Last Dispense Date Ordering Provider Order Date Order Qty Source allopurinol 100 mg tablet 100 mg, Oral, Daily, # 90 EA, 0 total refill(s ), Hard Stop Oral (given by mouth) Complet ed 08/20/2024 4 2024 90.0 Ambulat ory Pharmac y allopurinol 100 mg tablet 100 mg, Oral, Daily, # 90 EA, 0 total refill(s ), Hard Stop Oral (given by mouth) Complet ed 05/09/2024 3 2023 90.0 Ambulat ory Pharmac y allopurinol 100 mg tablet 100 mg, Oral, Daily, # 90 EA, 1 total refill(s ), Hard Stop Oral (given by mouth) Discont inued 02/29/2024 4 2023 90.0 Ambulat ory Pharmac y allopurinol 100 mg tablet 100 mg, Oral, Daily, # 90 EA, 0 total refill(s ), Hard Stop Oral (given by mouth) Complet ed 02/06/2024 3 2023 90.0 Ambulat ory Pharmac y ALLOPURINOL 100MG TAB TAKE ONE TABLET BY MOUTH DAILY FOR GOUT ORAL ACTIVE 03/20/2025 [id number] GLI TSANG EK R 2023 90 [place] [facility] ALLOPURINOL 100MG TAB TAKE ONE TABLET BY MOUTH EVERY DAY ORAL ACTIVE BLAKE JORDAN I 2017 [facility] ALLOPURINOL 100MG TAB TAKE ONE TABLET BY MOUTH EVERY DAY ORAL ACTIVE AJAY PUENTE 2013 [facility] ASPIRIN 81MG TAB,CHEWABL E CHEW ONE TABLET BY MOUTH EVERY DAY ORAL ACTIVE Chris WALLER 2020 [place] [facility] ASPIRIN TAB TAKE 81MG BY MOUTH EVERY DAY ORAL ACTIVE AJAY PUENTE 2012 [facility] benztropine 0.5 mg oral tablet TAKE ONE TABLET BY MOUTH TWICE A DAY -- NO DRIVING IF FEELING DROWSY FROM THIS MEDICATI ON, # 60 EA, 1 total refill(s ), Acute Complet ed 12/21/2022 2 2022 60.0 Ambulat ory Pharmac y BRAND CELEXA TAB TAKE BY MOUTH EVERY DAY ORAL ACTIVE Chris WALLER 2020 [place] [facility] CHOLECALCIF MIKE 25MCG (1,000UNIT) TAB TAKE TWO TABLETS BY MOUTH EVERY DAY ORAL ACTIVE BLAKE JORDAN JAMIR Dougherty 2017 [facility] CHOLECALCIF MIKE 25MCG (1,000UNIT) TAB TAKE ONE TABLET BY MOUTH EVERY DAY ORAL ACTIVE [facility] SELBY 2011 [facility] citalopram 20 mg tablet See dose instruct ions in comments , # 90 EA, 3 total refill(s ), Acute Complet ed 03/08/2023 3 2022 90.0 Ambulat ory Pharmac y citalopram 20 mg tablet See Instruct ions, # 90 EA, 3 total refill(s ), Hard Stop Complet ed 02/13/2024 4 2023 90.0 Ambulat ory Pharmac y CITALOPRAM HYDROBROMID E 40MG TAB TAKE ONE-HALF TABLET BY MOUTH DAILY FOR MOOD ORAL ACTIVE 03/30/2025 [id number] RONY STEPHENSON 2023 45 [place] [facility] CITALOPRAM TAB TAKE BY MOUTH DAILY ORAL ACTIVE GIL TSANG 2023 [place] [facility] clopidogrel 75 mg tablet 75 mg, Oral, Daily, # 90 EA, 0 total refill(s ), Hard Stop Oral (given by mouth) Complet ed 05/29/2024 3 2023 90.0 Ambulat ory Pharmac y clopidogrel 75 mg tablet 75 mg, Oral, Daily, # 90 EA, 0 total refill(s ), Hard Stop Oral (given by mouth) Complet ed 09/03/2024 4 2024 90.0 Ambulat ory Pharmac y clopidogrel 75 mg tablet 75 mg, Oral, Daily, # 90 EA, 0 total refill(s ), Hard Stop Oral (given by mouth) Ordered 11/30/2024 4 2023 90.0 Ambulat ory Pharmac y clopidogrel 75 mg tablet 75 mg, Oral, Daily, # 90 EA, 0 total refill(s ), Hard Stop Oral (given by mouth) Complet ed 11/23/2023 3 2023 90.0 Ambulat ory Pharmac y clopidogrel 75 mg tablet 75 mg, Oral, Daily, # 90 EA, 0 total refill(s ), Hard Stop Oral (given by mouth) Complet ed 02/22/2024 3 2023 90.0 Ambulat ory Pharmac y CLOPIDOGREL BISULFATE 75MG TAB TAKE ONE TABLET BY MOUTH DAILY TO THIN BLOOD ORAL ACTIVE 09/10/2025 [id number] 5 GIL TSANG EK R 2024 90 [place] [facility] CLOPIDOGREL BISULFATE 75MG TAB TAKE ONE TABLET BY MOUTH DAILY TO THIN BLOOD ORAL DISCONT INUED 03/20/2025 [id number] 4 GIL TSANG R 2023 90 [place] [facility] CLOPIDOGREL BISULFATE 75MG TAB TAKE ONE TABLET BY MOUTH EVERY DAY ORAL ACTIVE BLAKE JORDNA I 2017 [facility] CYANOCOBALA MIN 1000MCG TAB TAKE ONE TABLET BY MOUTH EVERY DAY ORAL ACTIVE BLAKE JORDAN I 2017 [facility] DIVALPROEX NA 500MG TAB,SA TAKE TWO TABLETS BY MOUTH DAILY FOR MOOD ORAL ACTIVE 08/10/2025 [id number] 5 RONY STEPHENSON 2024 180 [place] [facility] DIVALPROEX NA 500MG TAB,SA TAKE TWO TABLETS BY MOUTH DAILY FOR MOOD ORAL DISCONT INUED (EDIT) 10/14/2024 [id number] 4 RONY STEPHENSON 2023 180 [place] [facility] DIVALPROEX NA 500MG TAB,SA TAKE TWO TABLETS BY MOUTH DAILY FOR MOOD ORAL DISCONT INUED 06/27/2024 [id number] 4 RONY STEPHENSON 2023 180 [place] [facility] divalproex sodium ER [Mylan] 500 mg tablet See dose instruct ions in comments , # 180 EA, 1 total refill(s ), Acute Complet ed 03/08/2023 3 2022 180.0 Ambulat ory Pharmac y divalproex sodium ER [Mylan] 500 mg tablet 1000 mg, Oral, every day at bedtime, # 180 EA, 3 total refill(s ), Hard Stop Oral (given by mouth) Complet ed 02/13/2024 4 2023 180.0 Ambulat ory Pharmac y DIVALPROEX( HANDLING ALERT) TAB (DELAYED RELEASE) MOUTH TWICE A DAY ORAL ACTIVE GIL TSANG MALIK R 2023 [place] [facility] fluticasone 50 mcg/inh nasal spray SPRAY 1 SPRAY IN EACH NOSTRIL EVERY DAY, # 16 g, 2 total refill(s ), Acute Complet ed 12/01/2022 2 2022 16.0 Ambulat ory Pharmac y gemfibrozil 600 mg tablet See Instruct ions, Oral, # 90 EA, 0 total refill(s ), Hard Stop Oral (given by mouth) Complet ed 01/03/2024 3 2023 90.0 Ambulat ory Pharmac y gemfibrozil 600 mg tablet See Instruct ions, # 90 EA, 0 total refill(s ), Hard Stop Complet ed 05/15/2024 3 2023 90.0 Ambulat ory Pharmac y gemfibrozil 600 mg tablet 600 mg, Oral, BID, # 90 EA, 0 total refill(s ), Hard Stop Oral (given by mouth) Complet ed 08/20/2024 4 2024 90.0 Ambulat ory Pharmac y gemfibrozil 600 mg tablet 600 mg, Oral, BID, # 90 EA, 0 total refill(s ), Hard Stop Oral (given by mouth) Complet ed 11/07/2023 3 2023 90.0 Ambulat ory Pharmac y gemfibrozil 600 mg tablet See Instruct ions, Oral, # 90 EA, 0 total refill(s ), Hard Stop Oral (given by mouth) Complet ed 04/02/2024 3 2023 90.0 Ambulat ory Pharmac y gemfibrozil 600 mg tablet 600 mg, Oral, BID, # 120 EA, 1 total refill(s ), Hard Stop Oral (given by mouth) Ordered 11/26/2024 4 2023 120.0 Ambulat ory Pharmac y gemfibrozil 600 mg tablet 600 mg, Oral, BID, # 90 EA, 0 total refill(s ), Hard Stop Oral (given by mouth) Complet ed 10/08/2024 4 2024 90.0 Ambulat ory Pharmac y gemfibrozil 600 mg tablet See Instruct ions, # 90 EA, 0 total refill(s ), Hard Stop Complet ed 02/14/2024 3 2023 90.0 Ambulat ory Pharmac y gemfibrozil 600 mg tablet 600 mg, Oral, BID, # 90 EA, 0 total refill(s ), Hard Stop Oral (given by mouth) Complet ed 07/03/2024 3 2023 90.0 Ambulat ory Pharmac y GEMFIBROZIL 600MG TAB TAKE ONE TABLET BY MOUTH TWICE A DAY FOR CHOLESTE ROL -TAKE 30 MINUTES BEFORE MEALS ORAL ACTIVE 10/02/2025 [id number] 5 GIL TSANG EK R 2024 180 [place] GEMFIBROZIL 600MG TAB TAKE ONE TABLET BY MOUTH TWICE A DAY FOR CHOLESTE ROL -TAKE 30 MINUTES BEFORE MEALS ORAL DISCONT INUED 03/20/2025 [id number] 4 GIL TSANG EK R 2023 180 [place] [facility] GEMFIBROZIL 600MG TAB TAKE ONE TABLET BY MOUTH TWICE A DAY ORAL ACTIVE BLAKE JORDAN I 2017 [facility] GLIMEPIRIDE 2MG TAB TAKE ONE TABLET BY MOUTH EVERY DAY ORAL ACTIVE [place] AJAY SELBY 2012 [place] VARGAS [facility] lisinopril 10 mg tablet 10 mg, Oral, Daily, # 90 EA, 1 total refill(s ), Hard Stop Oral (given by mouth) Discont inued 02/29/2024 4 2023 90.0 Ambulat ory Pharmac y lisinopril 10 mg tablet 10 mg, Oral, Daily, # 90 EA, 1 total refill(s ), Hard Stop Oral (given by mouth) Complet ed 07/09/2024 4 2023 90.0 Ambulat ory Pharmac y lisinopril 10 mg tablet 10 mg, Oral, Daily, # 90 EA, 1 total refill(s ), Hard Stop Oral (given by mouth) Complet ed 12/26/2023 3 2023 90.0 Ambulat ory Pharmac y LISINOPRIL 20MG TAB TAKE ONE-HALF TABLET BY MOUTH DAILY FOR HIGH BLOOD PRESSURE ORAL 06/17/2024 [id number] 4 GIL TSANG EK R 2023 45 [place] [facility] LISINOPRIL 40MG TAB TAKE ONE-HALF TABLET BY MOUTH EVERY DAY ORAL ACTIVE BLAKE JORDAN I 2017 [place] [facility] LISINOPRIL 40MG TAB TAKE ONE TABLET BY MOUTH EVERY DAY ORAL ACTIVE AJAY PUENTE 2011 [facility] Lokelma 5 g Packet [5g] See Instruct ions, # 90 EA, 1 total refill(s ), Hard Stop Complet ed 07/12/2024 4 2023 90.0 Ambulat ory Pharmac y memantine 10 mg tablet 10 mg, Oral, BID, # 180 EA, 1 total refill(s ), Hard Stop Oral (given by mouth) Complet ed 06/25/2024 4 2023 180.0 Ambulat ory Pharmac y memantine 10 mg tablet 10 mg, Oral, BID, # 180 EA, 1 total refill(s ), Hard Stop Oral (given by mouth) Complet ed 12/26/2023 3 2023 180.0 Ambulat ory Pharmac y MEMANTINE HCL 10MG TAB TAKE ONE TABLET BY MOUTH DAILY FOR MEMORY ORAL SUSPEND ED 01/13/2025 [id number] 5 TSANGGIL HEART EK R 2024 90 [place] MEMANTINE HCL 10MG TAB TAKE ONE TABLET BY MOUTH DAILY FOR MEMORY ORAL DISCONT INUED 12/30/2024 [id number] 5 TSANGGIL HEART EK R 2024 90 [place] MEMANTINE HCL 10MG TAB TAKE ONE TABLET BY MOUTH DAILY FOR MEMORY ORAL DISCONT INUED 10/07/2024 [id number] 4 TSANGGIL HEART EK R 2023 90 [place] [facility] MEMANTINE HCL 10MG TAB TAKE ONE TABLET BY MOUTH DAILY FOR MEMORY ORAL DISCONT INUED 06/20/2024 [id number] 4 GIL TSANG EK R 2023 90 [place] [facility] MEMANTINE HCL 10MG TAB TAKE ONE TABLET BY MOUTH EVERY DAY ORAL ACTIVE BLAKE JORDAN I 2017 [facility] MEMANTINE HCL 10MG TAB TAKE ONE TABLET BY MOUTH TWICE A DAY ORAL ACTIVE [place]AW[place] AJAY SELBY 2011 [facility] METFORMIN 1000MG/XAVI GLIPTIN 50MG TAB TAKE JANUMET BY MOUTH TWICE A DAY ORAL ACTIVE SHAWN AJAY SELBY 2011 [facility] METFORMIN HCL 1000MG/XAVI GLIPTIN PHOSPHATE 50MG 24 HR TAB,SA TAKE ONE TABLET BY MOUTH EVERY DAY ORAL ACTIVE Chris WALLER 2020 [place] [facility] metformin-s itagliptin 1000 mg-50 mg oral tablet TAKE 1 TABLET BY MOUTH TWICE A DAY WITH MEALS, # 180 EA, 1 total refill(s ), Acute Complet ed 01/09/2023 2 2022 180.0 Ambulat ory Pharmac y PANTOPRAZOL E NA 40MG TAB,EC TAKE ONE TABLET BY MOUTH EVERY DAY ORAL ACTIVE Chris WALLER 2020 [place] [facility] primidone 50 mg tablet 50 mg, Oral, Daily, # 90 EA, 1 total refill(s ), Hard Stop Oral (given by mouth) Complet ed 06/25/2024 4 2023 90.0 Ambulat ory Pharmac y primidone 50 mg tablet 50 mg, Oral, Daily, # 90 EA, 1 total refill(s ), Hard Stop Oral (given by mouth) Complet ed 12/26/2023 3 2023 90.0 Ambulat ory Pharmac y PRIMIDONE 50MG TAB TAKE ONE TABLET BY MOUTH DAILY FOR TREMORS ORAL ACTIVE 09/17/2025 [id number] 5 GIL TSANG EK R 2024 90 [place] PRIMIDONE 50MG TAB TAKE ONE TABLET BY MOUTH DAILY FOR TREMORS ORAL DISCONT INUED 03/20/2025 [id number] 4 GIL TSANG EK R 2023 90 [place] [facility] PRIMIDONE 50MG TAB TAKE ONE TABLET BY MOUTH EVERY DAY ORAL ACTIVE BLAKE JORDAN I 2017 [facility] propranolol 60 mg oral tablet TAKE 1 TABLET BY MOUTH EVERY DAY, # 60 EA, 0 total refill(s ), Acute Complet ed 11/26/20222022 60.0 Ambulat ory Pharmac y propranolol 60 mg tablet 60 mg, Oral, Daily, # 60 EA, 1 total refill(s ), Hard Stop Oral (given by mouth) Ordered 11/26/2024 4 2023 60.0 Ambulat ory Pharmac y propranolol ER 60 mg/24 hour capsule 60 mg, Oral, Daily, # 90 EA, 1 total refill(s ), Hard Stop Oral (given by mouth) Complet ed 05/03/2024 4 2023 90.0 Ambulat ory Pharmac y propranolol ER 60 mg/24 hour capsule 60 mg, Oral, Daily, # 90 EA, 1 total refill(s ), Hard Stop Oral (given by mouth) Complet ed 12/26/2023 4 2023 90.0 Ambulat ory Pharmac y PROPRANOLOL HCL 60MG CAP,SA TAKE ONE CAPSULE BY MOUTH DAILY FOR TREMOR ORAL ACTIVE 09/10/2025 [id number] 5 GIL TSANG EK R 2024 90 [place] [facility] PROPRANOLOL HCL 60MG CAP,SA TAKE ONE CAPSULE BY MOUTH DAILY FOR TREMOR ORAL DISCONT INUED 03/20/2025 [id number] 4 GIL TSANG EK R 2023 90 [place] [facility] PROPRANOLOL HCL 60MG CAP,SA TAKE 1 CAPSULE BY MOUTH EVERY DAY ORAL ACTIVE JADENBLAKE MIR JAMIR Dougherty 2017 [facility] PROPRANOLOL HCL 60MG CAP,SA TAKE 1 CAPSULE BY MOUTH EVERY DAY ORAL ACTIVE AJAY PUENTE 2011 [facility] QUEtiapine 100 mg tablet See dose instruct ions in comments , # 90 EA, 2 total refill(s ), Acute Complet ed 03/08/2023 3 2022 90.0 Ambulat ory Pharmac y QUEtiapine 100 mg tablet 100 mg, Oral, every day at bedtime, # 90 EA, 3 total refill(s ), Hard Stop Oral (given by mouth) Complet ed 02/13/2024 4 2023 90.0 Ambulat ory Pharmac y QUETIAPINE FUMARATE 200MG TAB TAKE ONE-HALF TABLET BY MOUTH AT BEDTIME FOR MOOD ORAL ACTIVE 03/30/2025 [id number] 5 RONY STEPHENSON 2023 45 [place] [facility] QUETIAPINE FUMARATE 300MG TAB TAKE ONE TABLET BY MOUTH ORAL ACTIVE Chris WALLER 2020 [place] [facility] QUETIAPINE TAB TAKE BY MOUTH ORAL ACTIVE GIL TSANG R 2023 [place] [facility] SIMVASTATIN 40MG TAB TAKE ONE-HALF TABLET BY MOUTH AT BEDTIME ORAL ACTIVE AJAY PUENTE 2011 [facility] SITAGLIPTIN (EQV-ZITUVI O) 50MG TAB TAKE ONE TABLET BY MOUTH DAILY FOR BLOOD SUGAR - STORE IN ORIGINAL JOSEE R. OPENED BOTTLES MUST BE USED WITHIN 3 MONTHS ORAL ACTIVE 12/15/2024 [id number] 5 GIL TSANG EK R 2024 90 [place] SITAGLIPTIN (EQV-ZITUVI O) 50MG TAB TAKE ONE TABLET BY MOUTH DAILY FOR BLOOD SUGAR - STORE IN ORIGINAL CONTAINE R. OPENED BOTTLES MUST BE USED WITHIN 3 MONTHS ORAL DISCONT INUED 08/14/2024 [id number] 4 TALAT TSANG UR N 2023 90 [place] SITAGLIPTIN (EQV-ZITUVI O) 50MG TAB TAKE ONE TABLET BY MOUTH DAILY FOR BLOOD SUGAR - STORE IN ORIGINAL CONTAINE R. OPENED BOTTLES MUST BE USED WITHIN 3 MONTHS ORAL DISCONT INUED 06/18/2024 [id number] 4 GIL TSANG R 2023 90 [place] [facility] SODIUM ZIRCONIUM CYCLOSILICA TE 5GM/PKT PWDR,RENST- ORAL TAKE 1 PACKET BY MOUTH DAILY FOR HIGH POTASSIU M -MIX PACKET CONTENTS IN A GLASS WITH AT LEAST 3 TABLESPO ONS OF WATER OR MORE THEN STIR WELL AND DRINK. IF POWDER REMAINS, ADD WATER, STIR, AND DRINK. REPEAT UNTIL NO POWDER REMAINS. ORAL 04/18/2024 [id number] 4 GIL TSANG R 2023 30 [place] [facility] tamsulosin 0.4 mg capsule 0.4 mg, Oral, Daily, # 90 EA, 1 total refill(s ), Hard Stop Oral (given by mouth) Discont inued 02/29/2024 4 2023 90.0 Ambulat ory Pharmac y tamsulosin 0.4 mg capsule See Instruct ions, 0, # 90 EA, 1 total refill(s ), Hard Stop Complet ed 07/16/2024 4 2023 90.0 Ambulat ory Pharmac y tamsulosin 0.4 mg capsule 0.4 mg, Oral, Daily, # 90 EA, 1 total refill(s ), Hard Stop Oral (given by mouth) Complet ed 12/26/2023 3 2023 90.0 Ambulat ory Pharmac y tamsulosin 0.4 mg oral capsule TAKE ONE CAPSULE BY MOUTH EVERY DAY, # 90 EA, 1 total refill(s ), Acute Complet ed 12/27/2022 2 2022 90.0 Ambulat ory Pharmac y TAMSULOSIN HCL 0.4MG CAP TAKE ONE CAPSULE BY MOUTH EVERY EVENING FOR PROSTATE ORAL ACTIVE 11/05/2025 [id number] 5 GLI TSANG EK R 2024 90 [place] [facility] TAMSULOSIN HCL 0.4MG CAP TAKE ONE CAPSULE BY MOUTH EVERY EVENING FOR PROSTATE ORAL DISCONT INUED 03/20/2025 [id number] 4 GIL TSANG EK R 2023 90 [place] [facility] TAMSULOSIN HCL 0.4MG CAP TAKE ONE CAPSULE BY MOUTH AT BEDTIME ORAL ACTIVE BLAKE JORDAN I 2017 [place] [facility] TAMSULOSIN HCL 0.4MG CAP TAKE 1 CAPSULE BY MOUTH EVERY DAY ORAL ACTIVE ROMYJACOB NON 2016 [place] VARGAS [facility] Allergies, Adverse Reactions, Alerts Combined list of allergies from Department of Defense and Veterans Affairs facilities. It does not include entries that were removed or entered in error. Substance Category Reaction Severity Reaction type Status Date Reported Comments Source INTRAVASCULA R CONTRAST MEDIA Propensity to adverse reactions to drug (finding) Urticaria, Swelling, Pharyngeal swelling active 2 [facility] IODINATED CONTRAST MEDIA Propensity to adverse reactions to drug (finding) active 4 [place] [facility] IODINE Propensity to adverse reactions to drug (finding) ITCHING,TONI ERING EYES, Diarrhea active 2 [facility] iodine topical Propensity to adverse reactions to drug Unknown Active Reaction( s): Unknown Unknown Organiza tion sertraline Propensity to adverse reactions to drug Vomiting Active Unknown Organiza tion SHELLFISH Propensity to adverse reactions to food (finding) Urticaria, Pharyngeal swelling active 2 [facility] Immunizations Combined list of available immunizations from the Department of Defense and Veterans Affairs facilities. Immunization Series Date Given Administered By Site Reaction Lot Number CVX Code Drug Manager Progressive Care Status Comments Source INFLUENZA, HIGH-DOSE, TRIVALENT, PF 1 2024 135 complet ed HISTORICA L INFORMATI ON - FROM OTHER REGISTRY, [place] [facility] influenza virus vaccine, inactivated 2022 [id number] [place] clyde, left (delt oid) [id number] 197 sanofi pasteur complet ed influenza virus vaccine, inactivat ed 06/05/23 Given [id number] [place] COVID Vaccine Moderna 2021 zzLef t Arm [id number] 207 complet ed COVID Vaccine Moderna 12/10/21 Given Ambulat ory Pharmac y COVID Vaccine Moderna 2020 zzLef t Arm [id number] 207 complet ed COVID Vaccine Moderna 06/10/21 Given Ambulat ory Pharmac y COVID-19 (MODERNA), MRNA, LNP-S, PF, 100 MCG/0.5 ML DOSE 2 2020 207 complet ed [facility] COVID Vaccine Moderna 2020 Body, whole [id number] 207 complet ed COVID Vaccine Moderna 11/12/20 Given Ambulat ory Pharmac y COVID Vaccine Moderna 2020 zzLef t Arm [id number] 207 complet ed COVID Vaccine Moderna 10/16/20 Given Ambulat ory Pharmac y COVID-19 (MODERNA), MRNA, LNP-S, PF, 100 MCG/0.5 ML DOSE 1 2020 207 complet ed [facility] INFLUENZA, UNSPECIFIED FORMULATION 2019 88 complet ed [facility] INFLUENZA, HIGH DOSE SEASONAL 2016 135 complet ed Community [facility] INFLUENZA, SEASONAL, INJECTABLE 2016 141 complet ed Community PCP [facility] INFLUENZA, SEASONAL, INJECTABLE 2014 141 complet ed outside provider [facility] PNEUMOCOCCAL CONJUGATE PCV 13 2014 133 complet ed [facility] ZOSTER LIVE 2013 121 complet ed [facility] FLU,3 YRS (HISTORICAL) 2013 88 complet ed [facility] FLU,3 YRS (HISTORICAL) 2012 88 complet ed [facility] PNEUMOCOCCAL POLYSACCHARID E PPV23 2011 33 complet ed [facility] PNEUMOCOCCAL, UNSPECIFIED FORMULATION 2011 109 complet ed [facility] FLU,3 YRS (HISTORICAL) [address] [facility] FLU,3 YRS (HISTORICAL) 2010 88 complet ed [facility] INFLUENZA, UNSPECIFIED FORMULATION [address] [facility] [facility]OSP[facility] PNEUMOCOCCAL, UNSPECIFIED FORMULATION [address] [facility] NOVEL INFLUENZA-H1N 1-09, ALL FORMULATIONS [address] FLU,3 YRS (HISTORICAL) [address] [facility] influenza virus vaccine,split 2007 zzLef t Arm [id number] 15 complet ed influenza virus vaccine,s plit 05/21/08 Given Ambulat ory Pharmac y FLU,3 YRS (HISTORICAL) 2007 88 complet ed [facility] INFLUENZA, UNSPECIFIED FORMULATION [address] [facility] Influenza Vaccination (Refused) (HISTORICAL) 2002 complet ed DECLINED ADRIANA QIU BUTCHER TETANUS REFUSED (HISTORICAL) 2001 complet ed verbalize s akankshaan mena GONZALESMegan BUTCHER TETANUS REFUSED (HISTORICAL) 2001 complet ed does not wish to receive this visit. FELECIAKULDEEPMARÍA ELENA GONZALESMegan BUTCHER INFLUENZA (HISTORICAL) 2001 88 complet ed [facility] Results Combined list of recent chemistry, hematology and other laboratory results from [employer] and [employer], ranging from 15 months to all on record, depending upon the facility. Order Name Results Value Reference Range Date Interpretation Specimen Comments Source VALPROIC ACID VALPROATE [MASS/VOLUM E] IN SERUM OR PLASMA 30.8 ug/mL 50.0 - 99.9 09/30 L Specimen Type: PLASMA No comment entered. Ordering Provider: WINTER STEPHENSON Report Released Date/Time: Aug 09, 2024 07:55 AM Reporting Lab: [facility] [address] [address] Performing Lab: [facility] [address] [address] [facility] MICROALBU MIN/CREAT RATIO CREATININE [MASS/VOLUM E] IN URINE 60.8 mg/dL 03/22 Specimen Type: URINE No comment entered. Ordering Provider: MING TSANG Report Released Date/Time: Mar 15, 2024 11:30 AM Reporting Lab: [place] [phone] Performing Lab: [place] [phone] [facility] MICROALBU MIN/CREAT RATIO MICROALBUMI N [MASS/VOLUM E] IN URINE 9.0 mg/L 0.0 - 30.0 03/22 Specimen Type: URINE No comment entered. Ordering Provider: MING TSANG Report Released Date/Time: Mar 15, 2024 11:30 AM Reporting Lab: [address] [address] Performing Lab: [place] [phone] [facility] MICROALBU MIN/CREAT RATIO MICROALBUMI N/CREATININ E [MASS RATIO] IN URINE 14.8 ug/mg{ creat} 03/22 Specimen Type: URINE No comment entered. Ordering Provider: MING TSANG Report Released Date/Time: Mar 15, 2024 11:30 AM Reporting Lab: [address] [address] Performing Lab: [place] [phone] [facility] ALT ALANINE AMINOTRANSF ERASE [ENZYMATIC ACTIVITY/VO LUME] IN SERUM OR PLASMA 13 U/L 0 - 55 03/15 Specimen Type: PLASMA Comment: Estimated Glomerular Filtration Rate (eGFR) calculated using the 2020 Chronic Kidney Disease-Epi demiology (CKD-EPI) Collaborati on creatinine equation; units of measure are mL/min/1.73 m2. Results are only valid for adults (>=18 years) whose serum creatinine is in a steady state. eGFR calculation s are not valid for patients with acute kidney injury and for patients on dialysis. Creatinine- based estimates of kidney function may also be inaccurate in patients with reduced creatinine generation due to decreased muscle mass (e.g., malnutritio n, severe hypoalbumin emia, sarcopenia, chronic neuromuscul ar disease, amputations , severe heart failure or liver disease) and in patients with increased creatinine generation due to increased muscle mass (e.g., muscle builders, anabolic steroids) or increased dietary intake. As drug clearance is proportiona l to total GFR and not GFR indexed to body surface area (BSA), in individuals with a BSA substantial ly different than 1.73 m2, drug dosing should be based on the reported eGFR value de-indexed from BSA by multiplying by the individual' s BSA and dividing by 1.73. CKD is diagnosed based on abnormaliti es of kidney structure or function, present for >3 months, with implication s for health and disease. CKD is classified and staged based on cause, eGFR and albuminuria (quantified as urine albumin to creatinine ratio). An eGFR >60 mL/min/1.73 m2 in the absence of increased urine albumin excretion or structural abnormaliti es does not represent CKD. eGFR CKD Interpretat ion (mL/min/1.7 3 m2) stage >=90 G1 Normal 60-89 G2 Mild decrease 45-59 G3A Mild to moderate decrease 30-44 G3B Moderate to severe decrease 15-29 G4 Severe decrease <15 G5 Kidney failure Ordering Provider: MING TSANG Report Released Date/Time: Mar 15, 2024 11:30 AM Reporting Lab: [facility] [address] [address] Performing Lab: [facility] [address] [address] [facility] AST ASPARTATE AMINOTRANSF ERASE [ENZYMATIC ACTIVITY/VO LUME] IN SERUM OR PLASMA 18 U/L 5 - 34 03/15 Specimen Type: PLASMA Comment: Estimated Glomerular Filtration Rate (eGFR) calculated using the 2020 Chronic Kidney Disease-Epi demiology (CKD-EPI) Collaborati on creatinine equation; units of measure are mL/min/1.73 m2. Results are only valid for adults (>=18 years) whose serum creatinine is in a steady state. eGFR calculation s are not valid for patients with acute kidney injury and for patients on dialysis. Creatinine- based estimates of kidney function may also be inaccurate in patients with reduced creatinine generation due to decreased muscle mass (e.g., malnutritio n, severe hypoalbumin emia, sarcopenia, chronic neuromuscul ar disease, amputations , severe heart failure or liver disease) and in patients with increased creatinine generation due to increased muscle mass (e.g., muscle builders, anabolic steroids) or increased dietary intake. As drug clearance is proportiona l to total GFR and not GFR indexed to body surface area (BSA), in individuals with a BSA substantial ly different than 1.73 m2, drug dosing should be based on the reported eGFR value de-indexed from BSA by multiplying by the individual' s BSA and dividing by 1.73. CKD is diagnosed based on abnormaliti es of kidney structure or function, present for >3 months, with implication s for health and disease. CKD is classified and staged based on cause, eGFR and albuminuria (quantified as urine albumin to creatinine ratio). An eGFR >60 mL/min/1.73 m2 in the absence of increased urine albumin excretion or structural abnormaliti es does not represent CKD. eGFR CKD Interpretat ion (mL/min/1.7 3 m2) stage >=90 G1 Normal 60-89 G2 Mild decrease 45-59 G3A Mild to moderate decrease 30-44 G3B Moderate to severe decrease 15-29 G4 Severe decrease <15 G5 Kidney failure Ordering Provider: MING TSANG Report Released Date/Time: Mar 15, 2024 11:30 AM Reporting Lab: [facility] [address] [address] Performing Lab: [facility] [address] [address] [facility] CBC/PLT LEUKOCYTES [#/VOLUME] IN BLOOD BY AUTOMATED COUNT 6.6 10*3/u L 5.0 - 10.0 03/15 Specimen Type: BLOOD No comment entered. Ordering Provider: TSANG,MING R Report Released Date/Time: Mar 15, 2024 11:30 AM Reporting Lab: [place] [phone] Performing Lab: [place] [phone] [place] [address] CBC/PLT ERYTHROCYTE S [#/VOLUME] IN BLOOD BY AUTOMATED COUNT 3.91 10*6/u L 4.6 - 6.2 03/15 L Specimen Type: BLOOD No comment entered. Ordering Provider: MING TSANG R Report Released Date/Time: Mar 15, 2024 11:30 AM Reporting Lab: [address] [address] Performing Lab: [place] [phone] [place] [address] CBC/PLT HEMOGLOBIN [MASS/VOLUM E] IN BLOOD 13.0 g/dL 14.0 - 18.0 03/15 L Specimen Type: BLOOD No comment entered. Ordering Provider: MING TSANG R Report Released Date/Time: Mar 15, 2024 11:30 AM Reporting Lab: [address] [address] Performing Lab: [address] [phone] [place] [address] CBC/PLT HEMATOCRIT [VOLUME FRACTION] OF BLOOD BY AUTOMATED COUNT 39.0 42.0 - 52.0 03/15 L Specimen Type: BLOOD No comment entered. Ordering Provider: MING TSANG Report Released Date/Time: Mar 15, 2024 11:30 AM Reporting Lab: [address] [address] Performing Lab: [address] [address] [facility] CBC/PLT MCV [ENTITIC VOLUME] BY AUTOMATED COUNT 99.7 fL 80.0 - 94.0 03/15 H Specimen Type: BLOOD No comment entered. Ordering Provider: MING TSANG R Report Released Date/Time: Mar 15, 2024 11:30 AM Reporting Lab: [address] [address] Performing Lab: [address] [address] [facility] CBC/PLT MCH [ENTITIC MASS] BY AUTOMATED COUNT 33.2 pg 27.0 - 31.0 03/15 H Specimen Type: BLOOD No comment entered. Ordering Provider: MING TSANG Report Released Date/Time: Mar 15, 2024 11:30 AM Reporting Lab: [place] [phone] Performing Lab: [place] [phone] [facility] CBC/PLT MCHC [MASS/VOLUM E] BY AUTOMATED COUNT 33.3 g/dL 32.0 - 36.0 03/15 Specimen Type: BLOOD No comment entered. Ordering Provider: MING TSANG Report Released Date/Time: Mar 15, 2024 11:30 AM Reporting Lab: [place] [phone] Performing Lab: [place] [phone] [facility] CBC/PLT PLATELETS [#/VOLUME] IN BLOOD 259 10*3/u L 150 - 450 03/15 Specimen Type: BLOOD No comment entered. Ordering Provider: MING TSANG Report Released Date/Time: Mar 15, 2024 11:30 AM Reporting Lab: [place] [phone] Performing Lab: [place] [phone] [place] [address] CBC/PLT PLATELET MEAN VOLUME [ENTITIC VOLUME] IN BLOOD 9.6 fL 9.0 - 13.1 03/15 Specimen Type: BLOOD No comment entered. Ordering Provider: MING TSANG Report Released Date/Time: Mar 15, 2024 11:30 AM Reporting Lab: [address] [address] Performing Lab: [address] [address] [facility] CBC/PLT ERYTHROCYTE DISTRIBUTIO N WIDTH [ENTITIC VOLUME] BY AUTOMATED COUNT 14.1 11.0 - 16.0 03/15 Specimen Type: BLOOD No comment entered. Ordering Provider: MING TSANG Report Released Date/Time: Mar 15, 2024 11:30 AM Reporting Lab: [address] [address] Performing Lab: [place] [phone] [place] [address] CBC/PLT NUCLEATED ERYTHROCYTE S/100 ERYTHROCYTE S IN BLOOD 0.0 0.0 - 0.0 03/15 Specimen Type: BLOOD No comment entered. Ordering Provider: MING TSANG Report Released Date/Time: Mar 15, 2024 11:30 AM Reporting Lab: [place] [phone] Performing Lab: [place] [phone] [place] [address] GLYCOHEMO GLOBIN HEMOGLOBIN A1C/HEMOGLO BIN.TOTAL IN BLOOD BY HPLC 9.1 4.4 - 6.4 03/15 H Specimen Type: BLOOD Comment: [facility] guidelines for A1c interpretat ion: Glycemic control targets are based on Shared Decision Making between clinicians and patients. Criteria used to establish an A1c target recommendat ion can be found at https://www .in.gov/bladimir lityandpati entsafety/ and include the use of result accuracy and precision(C V) of the A1c tests clinicians utilize at their own sites of practice. Values obtained from A1C measurement s can vary. For typical A1C assays, a reported value of 7.0 could actually be between 6.72 and 7.28 if measured by a reference method. A reported value of 9.0 could actually be between 8.73 and 9.27. Ref: https://ngs p.org/CAPda ta.asp. The in-house [employer]-Neuro[employer] D-100 analyzer has a historical CV <= 2%. Contact the laboratory for further performance characteris tics of this assay. Ordering Provider: MING TSANG Report Released Date/Time: Mar 15, 2024 11:30 AM Reporting Lab: [address] [address] Performing Lab: [place] [id number] [facility] [address] [facility] LIPID PROFILE CHOLESTEROL [MASS/VOLUM E] IN SERUM OR PLASMA 144 mg/dL 0 - 199 03/15 Specimen Type: PLASMA Comment: Estimated Glomerular Filtration Rate (eGFR) calculated using the 2020 Chronic Kidney Disease-Epi demiology (CKD-EPI) Collaborati on creatinine equation; units of measure are mL/min/1.73 m2. Results are only valid for adults (>=18 years) whose serum creatinine is in a steady state. eGFR calculation s are not valid for patients with acute kidney injury and for patients on dialysis. Creatinine- based estimates of kidney function may also be inaccurate in patients with reduced creatinine generation due to decreased muscle mass (e.g., malnutritio n, severe hypoalbumin emia, sarcopenia, chronic neuromuscul ar disease, amputations , severe heart failure or liver disease) and in patients with increased creatinine generation due to increased muscle mass (e.g., muscle builders, anabolic steroids) or increased dietary intake. As drug clearance is proportiona l to total GFR and not GFR indexed to body surface area (BSA), in individuals with a BSA substantial ly different than 1.73 m2, drug dosing should be based on the reported eGFR value de-indexed from BSA by multiplying by the individual' s BSA and dividing by 1.73. CKD is diagnosed based on abnormaliti es of kidney structure or function, present for >3 months, with implication s for health and disease. CKD is classified and staged based on cause, eGFR and albuminuria (quantified as urine albumin to creatinine ratio). An eGFR >60 mL/min/1.73 m2 in the absence of increased urine albumin excretion or structural abnormaliti es does not represent CKD. eGFR CKD Interpretat ion (mL/min/1.7 3 m2) stage >=90 G1 Normal 60-89 G2 Mild decrease 45-59 G3A Mild to moderate decrease 30-44 G3B Moderate to severe decrease 15-29 G4 Severe decrease <15 G5 Kidney failure Ordering Provider: MING TSANG Report Released Date/Time: Mar 15, 2024 11:30 AM Reporting Lab: [facility] [address] [facility] [address] Performing Lab: [facility] [address] [facility] [address] [facility] LIPID PROFILE TRIGLYCERID E [MASS/VOLUM E] IN SERUM OR PLASMA 96 mg/dL 0 - 149 03/15 Specimen Type: PLASMA Comment: Estimated Glomerular Filtration Rate (eGFR) calculated using the 2020 Chronic Kidney Disease-Epi demiology (CKD-EPI) Collaborati on creatinine equation; units of measure are mL/min/1.73 m2. Results are only valid for adults (>=18 years) whose serum creatinine is in a steady state. eGFR calculation s are not valid for patients with acute kidney injury and for patients on dialysis. Creatinine- based estimates of kidney function may also be inaccurate in patients with reduced creatinine generation due to decreased muscle mass (e.g., malnutritio n, severe hypoalbumin emia, sarcopenia, chronic neuromuscul ar disease, amputations , severe heart failure or liver disease) and in patients with increased creatinine generation due to increased muscle mass (e.g., muscle builders, anabolic steroids) or increased dietary intake. As drug clearance is proportiona l to total GFR and not GFR indexed to body surface area (BSA), in individuals with a BSA substantial ly different than 1.73 m2, drug dosing should be based on the reported eGFR value de-indexed from BSA by multiplying by the individual' s BSA and dividing by 1.73. CKD is diagnosed based on abnormaliti es of kidney structure or function, present for >3 months, with implication s for health and disease. CKD is classified and staged based on cause, eGFR and albuminuria (quantified as urine albumin to creatinine ratio). An eGFR >60 mL/min/1.73 m2 in the absence of increased urine albumin excretion or structural abnormaliti es does not represent CKD. eGFR CKD Interpretat ion (mL/min/1.7 3 m2) stage >=90 G1 Normal 60-89 G2 Mild decrease 45-59 G3A Mild to moderate decrease 30-44 G3B Moderate to severe decrease 15-29 G4 Severe decrease <15 G5 Kidney failure Ordering Provider: MING TSANG Report Released Date/Time: Mar 15, 2024 11:30 AM Reporting Lab: [facility] [address] [facility] [address] Performing Lab: [facility] [address] [facility] [address] [facility] LIPID PROFILE CHOLESTEROL IN HDL [MASS/VOLUM E] IN SERUM OR PLASMA 40 mg/dL 40 - 69 03/15 Specimen Type: PLASMA Comment: Estimated Glomerular Filtration Rate (eGFR) calculated using the 2020 Chronic Kidney Disease-Epi demiology (CKD-EPI) Collaborati on creatinine equation; units of measure are mL/min/1.73 m2. Results are only valid for adults (>=18 years) whose serum creatinine is in a steady state. eGFR calculation s are not valid for patients with acute kidney injury and for patients on dialysis. Creatinine- based estimates of kidney function may also be inaccurate in patients with reduced creatinine generation due to decreased muscle mass (e.g., malnutritio n, severe hypoalbumin emia, sarcopenia, chronic neuromuscul ar disease, amputations , severe heart failure or liver disease) and in patients with increased creatinine generation due to increased muscle mass (e.g., muscle builders, anabolic steroids) or increased dietary intake. As drug clearance is proportiona l to total GFR and not GFR indexed to body surface area (BSA), in individuals with a BSA substantial ly different than 1.73 m2, drug dosing should be based on the reported eGFR value de-indexed from BSA by multiplying by the individual' s BSA and dividing by 1.73. CKD is diagnosed based on abnormaliti es of kidney structure or function, present for >3 months, with implication s for health and disease. CKD is classified and staged based on cause, eGFR and albuminuria (quantified as urine albumin to creatinine ratio). An eGFR >60 mL/min/1.73 m2 in the absence of increased urine albumin excretion or structural abnormaliti es does not represent CKD. eGFR CKD Interpretat ion (mL/min/1.7 3 m2) stage >=90 G1 Normal 60-89 G2 Mild decrease 45-59 G3A Mild to moderate decrease 30-44 G3B Moderate to severe decrease 15-29 G4 Severe decrease <15 G5 Kidney failure Ordering Provider: MING TSANG Report Released Date/Time: Mar 15, 2024 11:30 AM Reporting Lab: [place] [address] [address] Performing Lab: [place] [address] [address] [facility] LIPID PROFILE CHOLESTEROL IN LDL [MASS/VOLUM E] IN SERUM OR PLASMA BY DIRECT ASSAY 93 mg/dL 0 - 100 03/15 Specimen Type: PLASMA Comment: Estimated Glomerular Filtration Rate (eGFR) calculated using the 2020 Chronic Kidney Disease-Epi demiology (CKD-EPI) Collaborati on creatinine equation; units of measure are mL/min/1.73 m2. Results are only valid for adults (>=18 years) whose serum creatinine is in a steady state. eGFR calculation s are not valid for patients with acute kidney injury and for patients on dialysis. Creatinine- based estimates of kidney function may also be inaccurate in patients with reduced creatinine generation due to decreased muscle mass (e.g., malnutritio n, severe hypoalbumin emia, sarcopenia, chronic neuromuscul ar disease, amputations , severe heart failure or liver disease) and in patients with increased creatinine generation due to increased muscle mass (e.g., muscle builders, anabolic steroids) or increased dietary intake. As drug clearance is proportiona l to total GFR and not GFR indexed to body surface area (BSA), in individuals with a BSA substantial ly different than 1.73 m2, drug dosing should be based on the reported eGFR value de-indexed from BSA by multiplying by the individual' s BSA and dividing by 1.73. CKD is diagnosed based on abnormaliti es of kidney structure or function, present for >3 months, with implication s for health and disease. CKD is classified and staged based on cause, eGFR and albuminuria (quantified as urine albumin to creatinine ratio). An eGFR >60 mL/min/1.73 m2 in the absence of increased urine albumin excretion or structural abnormaliti es does not represent CKD. eGFR CKD Interpretat ion (mL/min/1.7 3 m2) stage >=90 G1 Normal 60-89 G2 Mild decrease 45-59 G3A Mild to moderate decrease 30-44 G3B Moderate to severe decrease 15-29 G4 Severe decrease <15 G5 Kidney failure Ordering Provider: MING TSANG Report Released Date/Time: Mar 15, 2024 11:30 AM Reporting Lab: [facility] [address] [phone] Performing Lab: [address] [address] [facility] PANEL 1 CREATININE [MASS/VOLUM E] IN SERUM OR PLASMA 2.10 mg/dL 0.72 - 1.25 03/15 H Specimen Type: PLASMA Comment: Estimated Glomerular Filtration Rate (eGFR) calculated using the 2020 Chronic Kidney Disease-Epi demiology (CKD-EPI) Collaborati on creatinine equation; units of measure are mL/min/1.73 m2. Results are only valid for adults (>=18 years) whose serum creatinine is in a steady state. eGFR calculation s are not valid for patients with acute kidney injury and for patients on dialysis. Creatinine- based estimates of kidney function may also be inaccurate in patients with reduced creatinine generation due to decreased muscle mass (e.g., malnutritio n, severe hypoalbumin emia, sarcopenia, chronic neuromuscul ar disease, amputations , severe heart failure or liver disease) and in patients with increased creatinine generation due to increased muscle mass (e.g., muscle builders, anabolic steroids) or increased dietary intake. As drug clearance is proportiona l to total GFR and not GFR indexed to body surface area (BSA), in individuals with a BSA substantial ly different than 1.73 m2, drug dosing should be based on the reported eGFR value de-indexed from BSA by multiplying by the individual' s BSA and dividing by 1.73. CKD is diagnosed based on abnormaliti es of kidney structure or function, present for >3 months, with implication s for health and disease. CKD is classified and staged based on cause, eGFR and albuminuria (quantified as urine albumin to creatinine ratio). An eGFR >60 mL/min/1.73 m2 in the absence of increased urine albumin excretion or structural abnormaliti es does not represent CKD. eGFR CKD Interpretat ion (mL/min/1.7 3 m2) stage >=90 G1 Normal 60-89 G2 Mild decrease 45-59 G3A Mild to moderate decrease 30-44 G3B Moderate to severe decrease 15-29 G4 Severe decrease <15 G5 Kidney failure Ordering Provider: MING TSANG Report Released Date/Time: Mar 15, 2024 11:30 AM Reporting Lab: [facility] [address] [address] Performing Lab: [facility] [address] [address] [facility] PANEL 1 UREA NITROGEN [MASS/VOLUM E] IN SERUM OR PLASMA 42 mg/dL 03/15 H Specimen Type: PLASMA Comment: Estimated Glomerular Filtration Rate (eGFR) calculated using the 2020 Chronic Kidney Disease-Epi demiology (CKD-EPI) Collaborati on creatinine equation; units of measure are mL/min/1.73 m2. Results are only valid for adults (>=18 years) whose serum creatinine is in a steady state. eGFR calculation s are not valid for patients with acute kidney injury and for patients on dialysis. Creatinine- based estimates of kidney function may also be inaccurate in patients with reduced creatinine generation due to decreased muscle mass (e.g., malnutritio n, severe hypoalbumin emia, sarcopenia, chronic neuromuscul ar disease, amputations , severe heart failure or liver disease) and in patients with increased creatinine generation due to increased muscle mass (e.g., muscle builders, anabolic steroids) or increased dietary intake. As drug clearance is proportiona l to total GFR and not GFR indexed to body surface area (BSA), in individuals with a BSA substantial ly different than 1.73 m2, drug dosing should be based on the reported eGFR value de-indexed from BSA by multiplying by the individual' s BSA and dividing by 1.73. CKD is diagnosed based on abnormaliti es of kidney structure or function, present for >3 months, with implication s for health and disease. CKD is classified and staged based on cause, eGFR and albuminuria (quantified as urine albumin to creatinine ratio). An eGFR >60 mL/min/1.73 m2 in the absence of increased urine albumin excretion or structural abnormaliti es does not represent CKD. eGFR CKD Interpretat ion (mL/min/1.7 3 m2) stage >=90 G1 Normal 60-89 G2 Mild decrease 45-59 G3A Mild to moderate decrease 30-44 G3B Moderate to severe decrease 15-29 G4 Severe decrease <15 G5 Kidney failure Ordering Provider: MING TSANG Report Released Date/Time: Mar 15, 2024 11:30 AM Reporting Lab: [facility] [address] [phone] Performing Lab: [facility] [address] [address] [facility] PANEL 1 GLUCOSE [MASS/VOLUM E] IN SERUM OR PLASMA 151 mg/dL 74 - 100 03/15 H Specimen Type: PLASMA Comment: Estimated Glomerular Filtration Rate (eGFR) calculated using the 2020 Chronic Kidney Disease-Epi demiology (CKD-EPI) Collaborati on creatinine equation; units of measure are mL/min/1.73 m2. Results are only valid for adults (>=18 years) whose serum creatinine is in a steady state. eGFR calculation s are not valid for patients with acute kidney injury and for patients on dialysis. Creatinine- based estimates of kidney function may also be inaccurate in patients with reduced creatinine generation due to decreased muscle mass (e.g., malnutritio n, severe hypoalbumin emia, sarcopenia, chronic neuromuscul ar disease, amputations , severe heart failure or liver disease) and in patients with increased creatinine generation due to increased muscle mass (e.g., muscle builders, anabolic steroids) or increased dietary intake. As drug clearance is proportiona l to total GFR and not GFR indexed to body surface area (BSA), in individuals with a BSA substantial ly different than 1.73 m2, drug dosing should be based on the reported eGFR value de-indexed from BSA by multiplying by the individual' s BSA and dividing by 1.73. CKD is diagnosed based on abnormaliti es of kidney structure or function, present for >3 months, with implication s for health and disease. CKD is classified and staged based on cause, eGFR and albuminuria (quantified as urine albumin to creatinine ratio). An eGFR >60 mL/min/1.73 m2 in the absence of increased urine albumin excretion or structural abnormaliti es does not represent CKD. eGFR CKD Interpretat ion (mL/min/1.7 3 m2) stage >=90 G1 Normal 60-89 G2 Mild decrease 45-59 G3A Mild to moderate decrease 30-44 G3B Moderate to severe decrease 15-29 G4 Severe decrease <15 G5 Kidney failure Ordering Provider: MING TSANG Report Released Date/Time: Mar 15, 2024 11:30 AM Reporting Lab: [facility] [address] [address] Performing Lab: [facility] [address] [address] [facility] PANEL 1 SODIUM [MOLES/VOLU ME] IN SERUM OR PLASMA 137 mmol/L 136 - 145 03/15 Specimen Type: PLASMA Comment: Estimated Glomerular Filtration Rate (eGFR) calculated using the 2020 Chronic Kidney Disease-Epi demiology (CKD-EPI) Collaborati on creatinine equation; units of measure are mL/min/1.73 m2. Results are only valid for adults (>=18 years) whose serum creatinine is in a steady state. eGFR calculation s are not valid for patients with acute kidney injury and for patients on dialysis. Creatinine- based estimates of kidney function may also be inaccurate in patients with reduced creatinine generation due to decreased muscle mass (e.g., malnutritio n, severe hypoalbumin emia, sarcopenia, chronic neuromuscul ar disease, amputations , severe heart failure or liver disease) and in patients with increased creatinine generation due to increased muscle mass (e.g., muscle builders, anabolic steroids) or increased dietary intake. As drug clearance is proportiona l to total GFR and not GFR indexed to body surface area (BSA), in individuals with a BSA substantial ly different than 1.73 m2, drug dosing should be based on the reported eGFR value de-indexed from BSA by multiplying by the individual' s BSA and dividing by 1.73. CKD is diagnosed based on abnormaliti es of kidney structure or function, present for >3 months, with implication s for health and disease. CKD is classified and staged based on cause, eGFR and albuminuria (quantified as urine albumin to creatinine ratio). An eGFR >60 mL/min/1.73 m2 in the absence of increased urine albumin excretion or structural abnormaliti es does not represent CKD. eGFR CKD Interpretat ion (mL/min/1.7 3 m2) stage >=90 G1 Normal 60-89 G2 Mild decrease 45-59 G3A Mild to moderate decrease 30-44 G3B Moderate to severe decrease 15-29 G4 Severe decrease <15 G5 Kidney failure Ordering Provider: MING TSANG Report Released Date/Time: Mar 15, 2024 11:30 AM Reporting Lab: [facility] [address] [address] Performing Lab: [facility] [address] [address] [facility] PANEL 1 POTASSIUM [MOLES/VOLU ME] IN SERUM OR PLASMA 4.8 mmol/L 3.5 - 5.1 03/15 Specimen Type: PLASMA Comment: Estimated Glomerular Filtration Rate (eGFR) calculated using the 2020 Chronic Kidney Disease-Epi demiology (CKD-EPI) Collaborati on creatinine equation; units of measure are mL/min/1.73 m2. Results are only valid for adults (>=18 years) whose serum creatinine is in a steady state. eGFR calculation s are not valid for patients with acute kidney injury and for patients on dialysis. Creatinine- based estimates of kidney function may also be inaccurate in patients with reduced creatinine generation due to decreased muscle mass (e.g., malnutritio n, severe hypoalbumin emia, sarcopenia, chronic neuromuscul ar disease, amputations , severe heart failure or liver disease) and in patients with increased creatinine generation due to increased muscle mass (e.g., muscle builders, anabolic steroids) or increased dietary intake. As drug clearance is proportiona l to total GFR and not GFR indexed to body surface area (BSA), in individuals with a BSA substantial ly different than 1.73 m2, drug dosing should be based on the reported eGFR value de-indexed from BSA by multiplying by the individual' s BSA and dividing by 1.73. CKD is diagnosed based on abnormaliti es of kidney structure or function, present for >3 months, with implication s for health and disease. CKD is classified and staged based on cause, eGFR and albuminuria (quantified as urine albumin to creatinine ratio). An eGFR >60 mL/min/1.73 m2 in the absence of increased urine albumin excretion or structural abnormaliti es does not represent CKD. eGFR CKD Interpretat ion (mL/min/1.7 3 m2) stage >=90 G1 Normal 60-89 G2 Mild decrease 45-59 G3A Mild to moderate decrease 30-44 G3B Moderate to severe decrease 15-29 G4 Severe decrease <15 G5 Kidney failure Ordering Provider: MING TSANG Report Released Date/Time: Mar 15, 2024 11:30 AM Reporting Lab: [facility] [address] [address] Performing Lab: [facility] [address] [address] [facility] PANEL 1 CHLORIDE [MOLES/VOLU ME] IN SERUM OR PLASMA 107 mmol/L 98 - 107 03/15 Specimen Type: PLASMA Comment: Estimated Glomerular Filtration Rate (eGFR) calculated using the 2020 Chronic Kidney Disease-Epi demiology (CKD-EPI) Collaborati on creatinine equation; units of measure are mL/min/1.73 m2. Results are only valid for adults (>=18 years) whose serum creatinine is in a steady state. eGFR calculation s are not valid for patients with acute kidney injury and for patients on dialysis. Creatinine- based estimates of kidney function may also be inaccurate in patients with reduced creatinine generation due to decreased muscle mass (e.g., malnutritio n, severe hypoalbumin emia, sarcopenia, chronic neuromuscul ar disease, amputations , severe heart failure or liver disease) and in patients with increased creatinine generation due to increased muscle mass (e.g., muscle builders, anabolic steroids) or increased dietary intake. As drug clearance is proportiona l to total GFR and not GFR indexed to body surface area (BSA), in individuals with a BSA substantial ly different than 1.73 m2, drug dosing should be based on the reported eGFR value de-indexed from BSA by multiplying by the individual' s BSA and dividing by 1.73. CKD is diagnosed based on abnormaliti es of kidney structure or function, present for >3 months, with implication s for health and disease. CKD is classified and staged based on cause, eGFR and albuminuria (quantified as urine albumin to creatinine ratio). An eGFR >60 mL/min/1.73 m2 in the absence of increased urine albumin excretion or structural abnormaliti es does not represent CKD. eGFR CKD Interpretat ion (mL/min/1.7 3 m2) stage >=90 G1 Normal 60-89 G2 Mild decrease 45-59 G3A Mild to moderate decrease 30-44 G3B Moderate to severe decrease 15-29 G4 Severe decrease <15 G5 Kidney failure Ordering Provider: MING TSANG Report Released Date/Time: Mar 15, 2024 11:30 AM Reporting Lab: [facility] [address] [address] Performing Lab: [facility] [address] [address] [facility] PANEL 1 CARBON DIOXIDE, TOTAL [MOLES/VOLU ME] IN SERUM OR PLASMA 22 mmol/L 22 - 03/15 Specimen Type: PLASMA Comment: Estimated Glomerular Filtration Rate (eGFR) calculated using the 2020 Chronic Kidney Disease-Epi demiology (CKD-EPI) Collaborati on creatinine equation; units of measure are mL/min/1.73 m2. Results are only valid for adults (>=18 years) whose serum creatinine is in a steady state. eGFR calculation s are not valid for patients with acute kidney injury and for patients on dialysis. Creatinine- based estimates of kidney function may also be inaccurate in patients with reduced creatinine generation due to decreased muscle mass (e.g., malnutritio n, severe hypoalbumin emia, sarcopenia, chronic neuromuscul ar disease, amputations , severe heart failure or liver disease) and in patients with increased creatinine generation due to increased muscle mass (e.g., muscle builders, anabolic steroids) or increased dietary intake. As drug clearance is proportiona l to total GFR and not GFR indexed to body surface area (BSA), in individuals with a BSA substantial ly different than 1.73 m2, drug dosing should be based on the reported eGFR value de-indexed from BSA by multiplying by the individual' s BSA and dividing by 1.73. CKD is diagnosed based on abnormaliti es of kidney structure or function, present for >3 months, with implication s for health and disease. CKD is classified and staged based on cause, eGFR and albuminuria (quantified as urine albumin to creatinine ratio). An eGFR >60 mL/min/1.73 m2 in the absence of increased urine albumin excretion or structural abnormaliti es does not represent CKD. eGFR CKD Interpretat ion (mL/min/1.7 3 m2) stage >=90 G1 Normal 60-89 G2 Mild decrease 45-59 G3A Mild to moderate decrease 30-44 G3B Moderate to severe decrease 15-29 G4 Severe decrease <15 G5 Kidney failure Ordering Provider: MING TSANG Report Released Date/Time: Mar 15, 2024 11:30 AM Reporting Lab: [facility] [address] [address] Performing Lab: [facility] [address] [address] [facility] PANEL 1 CALCIUM [MASS/VOLUM E] IN SERUM OR PLASMA 10.4 mg/dL 8.4 - 10.2 03/15 H Specimen Type: PLASMA Comment: Estimated Glomerular Filtration Rate (eGFR) calculated using the 2020 Chronic Kidney Disease-Epi demiology (CKD-EPI) Collaborati on creatinine equation; units of measure are mL/min/1.73 m2. Results are only valid for adults (>=18 years) whose serum creatinine is in a steady state. eGFR calculation s are not valid for patients with acute kidney injury and for patients on dialysis. Creatinine- based estimates of kidney function may also be inaccurate in patients with reduced creatinine generation due to decreased muscle mass (e.g., malnutritio n, severe hypoalbumin emia, sarcopenia, chronic neuromuscul ar disease, amputations , severe heart failure or liver disease) and in patients with increased creatinine generation due to increased muscle mass (e.g., muscle builders, anabolic steroids) or increased dietary intake. As drug clearance is proportiona l to total GFR and not GFR indexed to body surface area (BSA), in individuals with a BSA substantial ly different than 1.73 m2, drug dosing should be based on the reported eGFR value de-indexed from BSA by multiplying by the individual' s BSA and dividing by 1.73. CKD is diagnosed based on abnormaliti es of kidney structure or function, present for >3 months, with implication s for health and disease. CKD is classified and staged based on cause, eGFR and albuminuria (quantified as urine albumin to creatinine ratio). An eGFR >60 mL/min/1.73 m2 in the absence of increased urine albumin excretion or structural abnormaliti es does not represent CKD. eGFR CKD Interpretat ion (mL/min/1.7 3 m2) stage >=90 G1 Normal 60-89 G2 Mild decrease 45-59 G3A Mild to moderate decrease 30-44 G3B Moderate to severe decrease 15-29 G4 Severe decrease <15 G5 Kidney failure Ordering Provider: MING TSANG Report Released Date/Time: Mar 15, 2024 11:30 AM Reporting Lab: [facility] [address] [address] Performing Lab: [facility] [address] [address] [facility] PANEL 1 ANION GAP 3 IN SERUM OR PLASMA 8 meq/L 3 - 19 03/15 Specimen Type: PLASMA Comment: Estimated Glomerular Filtration Rate (eGFR) calculated using the 2020 Chronic Kidney Disease-Epi demiology (CKD-EPI) Collaborati on creatinine equation; units of measure are mL/min/1.73 m2. Results are only valid for adults (>=18 years) whose serum creatinine is in a steady state. eGFR calculation s are not valid for patients with acute kidney injury and for patients on dialysis. Creatinine- based estimates of kidney function may also be inaccurate in patients with reduced creatinine generation due to decreased muscle mass (e.g., malnutritio n, severe hypoalbumin emia, sarcopenia, chronic neuromuscul ar disease, amputations , severe heart failure or liver disease) and in patients with increased creatinine generation due to increased muscle mass (e.g., muscle builders, anabolic steroids) or increased dietary intake. As drug clearance is proportiona l to total GFR and not GFR indexed to body surface area (BSA), in individuals with a BSA substantial ly different than 1.73 m2, drug dosing should be based on the reported eGFR value de-indexed from BSA by multiplying by the individual' s BSA and dividing by 1.73. CKD is diagnosed based on abnormaliti es of kidney structure or function, present for >3 months, with implication s for health and disease. CKD is classified and staged based on cause, eGFR and albuminuria (quantified as urine albumin to creatinine ratio). An eGFR >60 mL/min/1.73 m2 in the absence of increased urine albumin excretion or structural abnormaliti es does not represent CKD. eGFR CKD Interpretat ion (mL/min/1.7 3 m2) stage >=90 G1 Normal 60-89 G2 Mild decrease 45-59 G3A Mild to moderate decrease 30-44 G3B Moderate to severe decrease 15-29 G4 Severe decrease <15 G5 Kidney failure Ordering Provider: MING TSANG Report Released Date/Time: Mar 15, 2024 11:30 AM Reporting Lab: [facility] [address] [facility] [address] Performing Lab: [facility] [address] [facility] [address] [facility] PANEL 1 GLOMERULAR FILTRATION RATE/1.73 SQ M.PREDICTED [VOLUME RATE/AREA] IN SERUM, PLASMA OR BLOOD BY CREATININE- BASED FORMULA (CKD-EPI 2020) 32 03/15 Specimen Type: PLASMA Comment: Estimated Glomerular Filtration Rate (eGFR) calculated using the 2020 Chronic Kidney Disease-Epi demiology (CKD-EPI) Collaborati on creatinine equation; units of measure are mL/min/1.73 m2. Results are only valid for adults (>=18 years) whose serum creatinine is in a steady state. eGFR calculation s are not valid for patients with acute kidney injury and for patients on dialysis. Creatinine- based estimates of kidney function may also be inaccurate in patients with reduced creatinine generation due to decreased muscle mass (e.g., malnutritio n, severe hypoalbumin emia, sarcopenia, chronic neuromuscul ar disease, amputations , severe heart failure or liver disease) and in patients with increased creatinine generation due to increased muscle mass (e.g., muscle builders, anabolic steroids) or increased dietary intake. As drug clearance is proportiona l to total GFR and not GFR indexed to body surface area (BSA), in individuals with a BSA substantial ly different than 1.73 m2, drug dosing should be based on the reported eGFR value de-indexed from BSA by multiplying by the individual' s BSA and dividing by 1.73. CKD is diagnosed based on abnormaliti es of kidney structure or function, present for >3 months, with implication s for health and disease. CKD is classified and staged based on cause, eGFR and albuminuria (quantified as urine albumin to creatinine ratio). An eGFR >60 mL/min/1.73 m2 in the absence of increased urine albumin excretion or structural abnormaliti es does not represent CKD. eGFR CKD Interpretat ion (mL/min/1.7 3 m2) stage >=90 G1 Normal 60-89 G2 Mild decrease 45-59 G3A Mild to moderate decrease 30-44 G3B Moderate to severe decrease 15-29 G4 Severe decrease <15 G5 Kidney failure Ordering Provider: MING TSANG Report Released Date/Time: Mar 15, 2024 11:30 AM Reporting Lab: [facility] [address] [address] Performing Lab: [facility] [address] [address] [facility] Vital Signs Combined list of inpatient and outpatient Vital Signs from Department of [facility] and [facility], ranging from 12 months to all on record, depending upon the facility. Vital Sign Value Date Comments Source SYSTOLIC BLOOD PRESSURE 124 03/15/2024 10:22:26 [facility] DIASTOLIC BLOOD PRESSURE 76 03/15/2024 10:22:26 [facility] PULSE OXIMETRY 99 03/15/2024 10:22:26 [facility] WEIGHT 155 03/15/2024 10:22:26 [place] [facility] PAIN 0 03/15/2024 10:22:26 [place] [facility] TEMPERATURE 97.6 03/15/2024 10:22:26 [facility] PULSE 83 03/15/2024 10:22:26 [place] [facility] RESPIRATION 20 03/15/2024 10:22:26 [facility] Encounters Combined list of: 1) [facility]ters [facility] facilities going backup to the last 18 months, not all [place] inpatient encounters are included; 2) Encounters from the Department of [facility] facilities going backup to 280 months. Location Location Details Encounter Type Encounter Number Reason For Visit Attending Provider ADM Date DC Date Status Disposition Source [facility] Outpatient Encounter [id number] STANLEY DIAS 08/29 [facility] Outpatient Encounter [id number] 11/20 [place] [facility] Outpatient Encounter [id number] 02/25 [place] [facility] En[facility] [id number] 02/27 [place] Outpatient Encounter [id number] 03/01 [place] Outpatient Encounter [id number] 03/05 [place] Outpatient Encounter [id number] 03/05 [place] Outpatient Encounter [id number] 03/06 [place] [facility] Outpatient Encounter [id number] 03/08 [place] [facility] OFFICE O/P NEW MOD 45 MIN [id number] Diagnos is: ICD-10- CM G20.C Max onism, unspeci TREASURE Parr 03/15 [place] [facility] CASE MANAGEMENT [id number] Diagnos is: ICD-10- CM Z71.89 Other specifi ed assessment counselor KIERSTEN Brooks 03/15 [place] [facility] Outpatient Encounter [id number] 03/15 [place] [facility] HC PRO PHONE CALL 5-10 MIN [id number] Diagnos is: ICD-10- CM E11.9 Type 2 diabete s mellitu s without complic ations Livier SALINAS 03/19 [place] [facility] HC PRO PHONE CALL 5-10 MIN [id number] Diagnos is: ICD-10- CM Z71.89 Other specifi ed assessment counselor TIKI Diamond 03/19 [place] [facility] TARGETED CASE MANAGEMENT [id number] CELSARAMY Kate 03/20 [place] Outpatient Encounter [id number] 03/20 [place] [facility] TARGETED CASE MANAGEMENT [id number] [place] GARCIA 03/20 [facility] Outpatient Encounter [id number] 03/22 [place] [facility] PSYTX W PT 60 MINUTES [id number] Diagnos is: ICD-10- CM F31.9 Bipolar disorde r, unspeci fied MONI CARTER 03/22 [place] [facility] Outpatient Encounter [id number] 03/22 [place] [facility] Outpatient Encounter [id number] 03/22 [place] [facility] Outpatient Encounter [id number] 03/22 [place] [facility] Outpatient Encounter [id number] 03/26 [place] [facility] Outpatient Encounter [id number] 03/26 [place] Outpatient Encounter [id number] 03/29 [place] [facility] PSYCH DIAG EVAL W/MED SRVCS [id number] Diagnos is: ICD-10- CM F31.9 Bipolar disorde r, unspeci fied FORTINO STEPHENSON 03/29 [place] [facility] Outpatient Encounter [id number] 03/29 [place] Outpatient Encounter [id number] 04/10 [place] Outpatient Encounter [id number] 04/24 [place] HC PRO PHONE CALL 5-10 MIN [id number] Diagnos is: ICD-10- CM Z71.89 Other specifi ed assessment counselor TIKI Diamond 05/09 [place] [facility] Outpatient Encounter [id number] 05/15 [place] HC PRO PHONE CALL 5-10 MIN [id number] Diagnos is: ICD-10- CM E11.9 Type 2 diabete s mellitu s without complic ations Livier SALINAS 05/15 [place] [facility] HC PRO PHONE CALL 5-10 MIN [id number] Diagnos is: ICD-10- CM Z71.89 Other specifi ed assessment counselor TIKI Diamond 05/15 [place] [facility] Outpatient Encounter [id number] 06/24 [place] Outpatient Encounter [id number] 07/09 [place] OFFICE O/P EST HI 40 MIN [id number] Diagnos is: ICD-10- CM F31.9 Bipolar disorde r, unspeci fied FORTINO STEPHENSON 08/09 [place] [facility] Outpatient Encounter [id number] 09/09 [place] [facility] Outpatient Encounter [id number] 09/16 [place] [facility] PH1 ASSMT&MGMT NQHP 5-10 [id number] Diagnos is: ICD-10- CM E11.9 Type 2 diabete s mellitu s without complic ations ZELALEM JOAQUIN 09/16 [place] [facility] Outpatient Encounter [id number] 09/18 [place] ASSMT&MGMT NQHP 5-10 [id number] Diagnos is: ICD-10- CM E11.9 Type 2 diabete s mellitu s without complic ations Livier SALINAS 09/24 [place] [facility] Outpatient Encounter [id number] 09/30 [place] [facility] Outpatient Encounter [id number] 10/02 [place] Outpatient Encounter [id number] 10/15 [place] [facility] Outpatient Encounter [id number] 10/21 [place] [facility] Outpatient Encounter [id number] 11/04 [place] [facility] OFFICE O/P EST MOD 30 MIN [id number] Diagnos is: ICD-10- CM F31.9 Bipolar disorde r, unspeci fied SACHINRONNYLOTTIE AARON 11/08 [place] [facility] Procedures Combined list of: 1) Procedures from [facility] facilities going back up to thelast 18 months, not all [place] non-surgical procedures are included; 2) All procedures from the Department of [facility] facilities. Procedure Procedure Type Code Date Perfomer Comments Sourc e No data available for this section Ambulatory P harmacy Social History Combined list of available smoking, tobacco, and other social history from Department of Defense and Veterans [facility] facilities. Social History Type Response Date Comment Sourc e Tobacco smoking status NHIS [facility]-TO[facility]ACCO FORMER USER 03/15/2024 [facility] History of tobacco use MI-TOBACCO QUIT 15 YRS OR MORE 03/15/2024 [facility] History of tobacco use MI-TOBACCO NEVER USED 08/29/2023 [facility] History of tobacco use MI-TOBACCO QUIT 15 YRS OR MORE 09/28/2020 [facility] [facility] History of tobacco use [place]-TOBACCO FORMER USER 10/08/2018 [facility] History of tobacco use LIFETIME NON-USER OF TOBACCO 07/21/2017 [facility] History of tobacco use LIFETIME NON-USER OF TOBACCO 10/17/2016 [facility] History of tobacco use LIFETIME NON-USER OF [facility]BACCO 10[facility]28[facility] History of tobacco use LIFETIME NON-USER OF TOBACCO 12/23[facility] History of tobacco use QUIT TOBACCO >7 YEARS AGO 03/10/2014 [facility] History of tobacco use QUIT TOBACCO >7 YEARS AGO 04/15/2013 [facility] History of tobacco use QUIT TOBACCO >7 YEARS AGO 06/11/2012 [facility] History of tobacco use DATE LAST SMOKED 11/29/2011 [facility] History of tobacco use LIFETIME NON-TOBACCO USER 09/16/2010 [facility] History of tobacco use DATE LAST SMOKED 06/24/2009 [facility] History of tobacco use LIFETIME NON-TOBACCO USER 06/23/2008 [facility] History of tobacco use TOBACCO USE/SMOKING SCREEN 07/27/2007 [facility] History of tobacco use DATE LAST SMOKED 07/24/2006 [facility] History of tobacco use LIFETIME NON-TOBACCO USER 12/02/2004 [facility] Assessment and Plan Combined list of future care activities from [facility] facilities (e.g., assessment and plan notes, appointments, orders, and referrals). Additional future care activities may be listed in the Plan of Care section. Result Assessment and Plan Date Source Assessment and Plan No data available for this section 11/22/2024 Ambulatory Pharmacy Plan of Care List of future care activities from Department [facility] facilities. Additional future care activities may be listed in the Assessment and Plan section. Date/Time Care Activity Care Activity Detail Facili ty 01/29/2025 [facility] Advance Directives List of completed, amended, or rescinded Advance Directives on record at Department [facility] facilities. An actual copy of the Directive is not included. Date Advance Directive Provider Source 04/21/2017 ADVANCE DIRECTIVE DISCUSSION YFN JOHNSON [facility] 06/26/2015 ADVANCE DIRECTIVE DISCUSSION CATA SAL [facility] Functional Status Combined list of recent functional and cognitive assessments recorded at [facility] ([place] Functional Roane Measurement (FIM) Scale: 1 = Total Assistance (Subject = 0% +), 2 = Maximal Assistance (Subject = 25% +), 3 = Moderate Assistance (Subject = 50% +), 4 = Minimal Assistance (Subject = 75% +), 5 = Supervision, 6 = Modified Roane (Device), 7 = Complete Roane (Timely, Safely). Assessment Date/Time Source Assessment Type Assessment Skill Assessment Score Assessment Details No data available for this section
--- OUTSIDE RECORDS SUMMARY | 2024-11-22 08:45 | XMS_ITS | Encounter Summary ---
Author Name [facility] Organization [facility] Address [address] [place] [address] Care Team Providers Care Independent Consultant Name Role Phone MING TSANG Primary Care [...] RE DODA WNR Oct 09, 2020 DODA [id number] MAXINE NAVARRO [place] PATIENT MEDICARE (WNR) MEDICARE (M) PART A Nov 05, 2010 PART A [id number] [facility] [phone] MAXINE NAVARRO [place] PATIENT MEDICARE (WNR) MEDICARE (M) PART B Nov 05, 2010 PART B [id number] [place] [address] [phone] MAXINE NAVARRO [place] PATIENT MEDICARE (WNR) MEDICARE (M) PART A Nov 05, 2010 PART A [id number] [id number] [phone] MAXINE NAVARRO [place] PATIENT MEDICARE (WNR) MEDICARE (M) PART B Nov 05, 2010 PART B [id number] [place] [address] [phone] MELANIE,MAXINE ONARD PATIENT MEDICARE (WNR) MEDICARE (M) PART A Nov 05, 2010 PART A [id number] [phone] MELANIE,MAXINE ONARD PATIENT MEDICARE (WNR) MEDICARE (M) PART B Nov 05, 2010 PART B [id number] MELANIE,MAXINE ONARD PATIENT MEDICARE (WNR) MEDICARE (M) PART A Nov 05, 2010 PART A [id number] [id number] MELANIE,MAXINE ONARD PATIENT MEDICARE (WNR) MEDICARE (M) PART B Nov 05, 2010 PART B [id number] [id number] [phone] MELANIE,MAXINE ONARD PATIENT MEDICARE (WNR) MEDICARE (M) PART A Nov 05, 2010 PART A [id number] [id number] MELANIE,MAXINE ONARD PATIENT MEDICARE (WNR) MEDICARE (M) PART B Nov 05, 2010 PART B [id number] [id number] MELANIE,MAXINE ONARD PATIENT MEDICARE (WNR) MEDICARE (M) PART A Nov 05, 2010 PART A [id number] [phone] MELANIE,LE ONQUEEN[place] PATIENT MEDICARE (WNR) MEDICARE (M) PART B Nov 05, 2010 PART B [id number] [phone] MELANIEMAXINE GEE PATIENT FOR LIFE TRICA RE FOR LIFE Mar 31, 2010 SPONSOR [id number] MELANIEMAXINE GEE PATIENT FOR LIFE DIREC T CARE Mar 31, 2010 FOR LIFE [id number] MELANIEMAXINE GEE PATIENT -FO R-LIFE TRICA RE FOR LIFE December 05, 2010 [id number] [phone] MELANIEMAXINE GEE PATIENT Selected Encounter This section includes the information on record at MD for the Encounter. Date/Time Encounter Type Encounter Description Reason Provider Source Sep 24, 2024 01:18 PM PH1 ASSMT&MGMT NQHP 5-10 TELEPHONE PRIMARY CARE ICD-10-CM E11.9 Type 2 diabetes mellitus without complications PENDLAND,CLIFF IFER WILLIE IHE Encounter Template Text not used by [facility] Assessments - Encounter Diagnoses This section includes the primary and secondary diagnoses documented for the Encounter. Date/Time Primary/Secondary Diagnosis Diagnosis Name Provider Source Sep 24, 2024 01:18 PM PRIMARY Type 2 diabetes mellitus without complications FRANCY SALINAS [facility] Plan of Treatment: Future Appointments (+ 6 months) and Future Tests (+/- 45 days) The Plan of Treatment section includes future care activities for the patient from all MD treatmentfacilities. This section includes future appointments and future orders which are active, pending or scheduled. Future Appointments This section includes appointments that were scheduled to occur 6 months from the date of the Encounter, up to a maximum of 20 appointments. The data comes from all MD treatment facilities. Appointment Date/Time Appointment Type Appointme nt Facility Name Nov 08, 2024 11:00 AM AMBULATORY - PS[facility]IATRY [facility] Jan 29, 2025 01:00 PM AMBULATORY - PSYCHIATRY [facility] Jan 31, 2025 10:00 AM AMBULATORY - NONE [facility] Lab Results: +/- 30 days of the encounter This section includes the Chemistry and Hematology Lab Results on record with MD for the patient. Radiology Reports and Pathology Reports are provided separately, in subsequent sections. Lab Results This section contains the Chemistry/Hematology Results that were resulted 30 days before or 30 daysafter the date of the Encounter. Date/Time Source Result Type Result - Unit Interpretation Reference Range Specimen Type Comment Sep 30, 2024 08:55 AM [facility] VALPROIC ACID PLASMA Specimen Type: PLASMA No comment entered. Ordering Provider: ALEXSANDRA STEPHENSON Report Released Date/Time: Aug 09, 2024 07:55 AM Reporting Lab: [address] [id number] Performing Lab: [address] [id number] VALPROIC ACID 30.8 ug/mL L 50.0-99.9 Social History: Smoking Status (Most current) and Tobacco Use (All prior to encounter date) This section includes the most current, and the historical, smoking and tobacco- related health factors from the MD facility where the Encounter took place. Current Smoking Status This section includes the most current smoking, or tobacco-related health factor, from the MD facility where the Encounter took place. Date/Time Current Smoking Status Comment Jeri ity Mar 15, 2024 11:00 AM VA-TOBACCO FORMER USER [facility] Tobacco Use History This section includes a history of the smoking, or tobacco-related health factors, that were collected on or before the date of the Encounter. The data comes from the MD facility where the Encounter took place. Date/Time Smoking Status/Tobacco Use Comment F acility Mar 15, 2024 11:00 AM VA-TOBACCO QUIT 15 YRS OR MORE [facility] Advance Directives: All historical and current Section Date Range: From patient's date of to the date document was created. This section includes ALL of a patient's completed or amended MD Advance and Rescinded Directives. The entries below indicate that a directive exists for the patient, but an actual copy is not included with this document. The data comes from all [facility]. Date Advance Directives Provider Source Apr 21, 2017 ADVANCE DIRECTIVE DISCUSSION YFN JOHNSON [facility] Jun 26, 2015 ADVANCE DIRECTIVE DISCUSSION ILIA SAL [facility] Encounter Notes: All associated encounter notes This section contains the clinical notes associated to the Encounter. Date/Time Encounter Note(s) Provider Source Sep 24, 2024 01:18 PM PRIMARY CARE TELEP MANA ENCOUNTER NOTE: LOCAL TITLE: Pc Telephone Care Note STANDARD TITLE: PRIMARY CARE TELEPHONE ENCOUNTER NOTE DATE OF NOTE: SEP 24, 2024@13:18 ENTRY DATE: SEP 24, 2024@13:19:10 AUTHOR: DES SALINAS COSIGNER: URGENCY: STATUS: COMPLETED Contacted and verified patient(name, SSN) regarding PC note dated 09/16/24 in regards to BS log for medication refill. Please review log Date BS 09/17/24 105 09/18/24 95 09/19/24 168 09/20/24 110 09/21/24 106 09/22/24 150 09/23/24 159 09/24/24 132 Time Spent- 6 min /franny/ RICHA MORALES,RN artificial stone applicator Signed: 09/24/2024 13:23 Receipt Acknowledged By: 09/24/2024 14:08 /franny/ MING TSANG M.D. PRIMARY CARE STAFF PHYSICIAN DES SALINAS [facility]
--- OUTSIDE RECORDS SUMMARY | 2024-11-22 08:45 | XMS_ITS | Encounter Summary ---
Author Name [facility] [place] [place] [facility] [place] Address [address] [place] [id number] Care Team Providers Care House Admin Name Role Phone MING TSANG Primary Care [...] RE DODA WNR Oct 09, 2020 DODA [id number] MELANIE,LE ONARD PATIENT MEDICARE (WNR) MEDICARE (M) PART A Nov 05, 2010 PART A [id number] MELANIE,LE ONARD PATIENT MEDICARE (WNR) MEDICARE (M) PART B Nov 05, 2010 PART B [id number] MELANIE,LE ONARD PATIENT MEDICARE (WNR) MEDICARE (M) PART A Nov 05, 2010 PART A [id number] [facility] [phone] MELANIE,LE ONARD PATIENT MEDICARE (WNR) MEDICARE (M) PART B Nov 05, 2010 PART B [id number] [id number] MELANIE,LE ONARD PATIENT MEDICARE (WNR) MEDICARE (M) PART A Nov 05, 2010 PART A [id number] [facility] [phone] MELANIEMAXINE GEE PATIENT MEDICARE (WNR) MEDICARE (M) PART B Nov 05, 2010 PART B [id number] [id number] MELANIE,LE ONQUEENIE PATIENT MEDICARE (WNR) MEDICARE (M) PART B Nov 05, 2010 PART B [id number] [facility] MELANIE,LE ONQUEENIE PATIENT MEDICARE (WNR) MEDICARE (M) PART A Nov 05, 2010 PART A [id number] [facility] MELANIE,LE ONQUEENIE PATIENT MEDICARE (WNR) MEDICARE (M) PART A Nov 05, 2010 PART [place] [id number] [id number] MAXINE NAVARRO PATIENT MEDICARE (WNR) MEDICARE (M) PART B Nov 05, 2010 PART B [id number] [id number] MAXINE NAVARRO PATIENT MEDICARE (WNR) MEDICARE (M) PART A Nov 05, 2010 PART A [id number] [id number] MELANIEMAXINE GEE PATIENT MEDICARE (WNR) MEDICARE (M) PART B Nov 05, 2010 PART B [id number] [facility] [phone] MAXINE NAVARRO PATIENT FOR LIFE TRICA RE FOR LIFE Mar 31, 2010 [facility] [id number] MAXINE NAVARRO PATIENT FOR LIFE DIREC T CARE Mar 31, 2010 FOR LIFE [id number] MAXINE NAVARRO PATIENT -FO R-LIFE TRICA RE FOR LIFE December 05, 2010 [id number] MAXINE NAVARRO PATIENT Selected Encounter This section includes the information on record at [place] for the Encounter. Date/Time Encounter Type Encounter Description Reason Provider Source Mar 15, 2024 03:20 PM CASE MANAGEMENT PRIMARY CARE/MEDICINE ICD-10-CM Z71.89 Other specified counseling [place] Encounter Template Text not used by [place] Assessments - Encounter Diagnoses This section includes the primary and secondary diagnoses documented for the Encounter. Date/Time Primary/Secondary Diagnosis Diagnosis Name Provider Source Mar 15, 2024 03:56 PM PRIMARY Other specified counseling [place] [facility] Plan of Treatment: Future Appointments (+ 6 months) and Future Tests (+/- 45 days) The Plan of Treatment section includes future care activities for the patient from all [place] [facility] This section includes future appointments and future orders which are active, pending or scheduled. Future Appointments This section includes appointments that were scheduled to occur 6 months from the date of the Encounter, up to a maximum of 20 appointments. The data comes from all [facility]. Appointment Date/Time Appointment Type Appointme nt Facility Name Mar 22, 2024 01:00 PM AMBULATORY - PSYCHIATRY [facility] Mar 29, 2024 03:30 PM AMBULATORY - PSYCHIATRY [facility] Aug 09, 2024 01:00 PM AMBULATORY - PSYCHIATRY [facility] Active, Pending, and Scheduled Orders This section includes a listing of several types of active, pending, and scheduled orders, including clinic medications orders, diagnostic test orders, procedure orders and consult orders; where the start date of the order is 45 days before the date of the Encounter or 45 days after the date of theEncounter. The data comes from all [facility]. Test Date/Time Test Type Test Details Facility Name Mar 19, 2024 09:51 AM Consult Order COMMUNITY CARE-NEPHROLOGY Cons Rehabilitation Counsellor's Choice [facility] Mar 29, 2024 12:00 AM Laboratory - Chemi stry Order VALPROIC ACID [id number] SP ONCE [facility] Apr 19, 2024 12:00 AM Laboratory - Chemi stry Order eGFR + CREATININE [id number] SP [facility]CE [facility] Apr 19, 2024 12:00 AM Laboratory - Chemi stry Order POTASSIUM [id number] SP [facility]CE [facility] Apr 19, 2024 12:00 AM Laboratory - Chemi stry Order HGB & HCT [id number] BLOOD SP [facility] Apr 19, 2024 12:00 AM Laboratory - Chemi stry Order IRON/TIBC [id number] SP [facility]CE [facility] Apr 19, 2024 12:00 AM Laboratory - Chemi stry Order FERRITIN [id number] SP [facility]CE [facility] Apr 19, 2024 12:00 AM Laboratory - Chemi stry Order B12 VITAMIN [id number] SP [facility]CE [facility] Apr 19, 2024 12:00 AM Laboratory - Chemi stry Order CALCIUM [id number] SP [facility]CE [facility] Lab Results: +/- 30 days of the encounter This section includes the Chemistry and Hematology Lab [facility] with [facility]. Radiology Reports and Pathology Reports are provided separately, in subsequent sections. Lab Results This section contains the Chemistry/Hematology Results that were resulted 30 days before or 30 daysafter the date of the Encounter. Date/Time Source Result Type Result - Unit Interpretation Reference Range Specimen Type Comment Mar 22, 2024 12:16 PM [facility] N MICROALBUMIN/CREAT RATIO URINE Specimen Type: URINE No comment entered. Ordering Provider: MING TSANG Report Released Date/Time: Mar 15, 2024 11:30 AM Reporting Lab: [address] [address] Performing Lab: [address] [address] CREATININE 60.8 mg/dL MICROALBUMIN QUANT 9.0 mg/L 0.0-30.0 .MICROALBUMIN/CREA RATIO 14.8 ug/mg{creat} Mar 15, 2024 12:10 PM [facility] ALT PLASMA Specimen Type: PLASM A Comment: [...] Mar 15, 2024 11:30 AM Reporting Lab: [address] [address] Performing Lab: [address] [address] ALT 13 U/L 0-55 Mar 15, 2024 12:10 PM [facility] PLASMA Specimen Type: PLASM A Comment: [...] Mar 15, 2024 11:30 AM Reporting Lab: [address] [address] Performing Lab: [address] [address] AST 18 U/L 5-34 Mar 15, 2024 12:10 PM [facility] CBC/PLT BLOOD Specimen Type: BLOOD No comment entered. Ordering Provider: MING TSANG Report Released Date/Time: Mar 15, 2024 11:30 AM Reporting Lab: [address] [address] Performing Lab: [address] [address] WBC 6.6 10*3/uL 5.0-10.0 RBC 3.91 10*6/uL L 4.6-6.2 HGB 13.0 g/dL L 14.0-18.0 HCT 39.0 L 42.0-52.0 MCV 99.7 fL H 80.0-94.0 MCH 33.2 pg H 27.0-31.0 MCHC 33.3 g/dL 32.0-36.0 PLT 259 10*3/uL 150-450 MPV 9.6 fL 9.0-13.1 RDW 14.1 11.0-16.0 NRBC 0.0 0.0-0.0 Mar 15, 2024 12:10 PM [facility] GLYCOHEMOGLOBIN BLOOD Specimen Type: BLOOD Comment: [place] guidelines for A1c interpretation: Glycemic control targets are based on Shared Decision Making between clinicians and patients. Criteria used to establish an A1c target recommendation can be found at https://www.oh.gov/qualityandpatientsafety/ and include the use of result accuracy [...] 8.73 and 9.27. Ref: https://ngsp.org/CAPdata.asp. The in-house [employer] D-100 analyzer has a historical CV <= 2%. Contact the laboratory for further performance characteristics of this assay. Ordering Provider: MING TSANG Report Released Date/Time: Mar 15, 2024 11:30 AM Reporting Lab: [address] [address] Performing Lab: [address] [address] GLYCOHEMOGLOBIN 9.1 H 4.4-6.4 Mar 15, 2024 12:10 PM [facility] LIPID PROFILE PLASMA Specimen Type: PLASM A [...] Mar 15, 2024 11:30 AM Reporting Lab: [address] [address] Performing Lab: [address] [address] CHOLESTEROL 144 mg/dL 0-199 TRIGLYCERIDE 96 mg/dL 0-149 HDL CHOLESTEROL 40 mg/dL 40-69 DIRECT LDL CHOL. 93 mg/dL 0-100 Mar 15, 2024 12:10 PM [facility] PANEL 1 PLASMA Specimen Type: PLASM A [...] Mar 15, 2024 11:30 AM Reporting Lab: [address] [address] Performing Lab: [address] [address] CREATININE 2.10 mg/dL H 0.72-1.25 UREA NITROGEN 42 mg/dL H 9-25 GLUCOSE 151 mg/dL H 74-100 SODIUM 137 mmol/L 136-145 POTASSIUM 4.8 mmol/L 3.5-5.1 CHLORIDE 107 mmol/L 98-107 CO2 22 mmol/L 22-29 CALCIUM 10.4 mg/dL H 8.4-10.2 ANION GAP 8 meq/L 3-19 eGFR (CKD-EPI) 32 Vital Signs: All taken on the encounter date This section contains inpatient and outpatient Vital Signs collected on the date of the Encounter. Date/Time Temperature Pulse Blood Pressure Respiratory Rate SP02 Pain Height Weight Body Mass Index Source Mar 15, 2024 10:22 AM 97.6 83 124/76 20 99 0 155 [facility] Mar 15, 2024 10:22 AM 66 [facility] Social History: Smoking Status (Most current) and Tobacco Use (All prior to encounter date) This section includes the most current, and the historical, smoking and tobacco- related health factors from the [place] facility where the Encounter took place. Current Smoking Status This section includes the most current smoking, or tobacco-related health factor, from the [place] facility where the Encounter took place. Date/Time Current Smoking Status Comment Facil ity Mar 15, 2024 11:00 AM [place]-TOBACCO FORMER USER [facility] Tobacco Use History This section includes a history of the smoking, or tobacco-related health factors, that were collected on or before the date of the Encounter. The data comes from the [place] facility where the Encounter took place. Date/Time Smoking Status/Tobacco Use Comment F acility Mar 15, 2024 11:00 AM [place]-TOBACCO QUIT 15 YRS OR MORE [facility] Advance Directives: All historical and current Section Date Range: From patient's date of to the date document was created. This section includes ALL of a patient's completed or amended [place] Advance and Rescinded Directives. The entries below indicate that a directive exists for the patient, but an actual copy is not included with this document. The data comes from all [place] facilities. Date Advance Directives Provider Source Apr 21, 2017 ADVANCE DIRECTIVE DISCUSSION YFN JOHNSNO [facility] Jun 26, 2015 ADVANCE DIRECTIVE DISCUSSION ILIA SAL [facility] Encounter Notes: All associated encounter notes This section contains the clinical notes associated to the Encounter. Date/Time Encounter Note(s) Provider Source Mar 15, 2024 03:20 PM SOCIAL WORK NOTE: LOCAL TITLE: SOCIAL WORK PSYCHOSOCIAL ASSESSMENT STANDARD TITLE: SOCIAL WORK NOTE DATE OF NOTE: MAR 15, 2024@15:20 ENTRY DATE: MAR 15, 2024@15:20:26 AUTHOR: JIM GORDON EXP COSIGNER: URGENCY: STATUS: COMPLETED SOCIAL WORK PSYCHOSOCIAL ASSESSMENT Has ADDENDA SOCIAL WORK PC ASSESSMENT SW met with [place] during his scheduled Primary Care clinic appt. Town of Residence: [place] What kind of residence: (house/apt/mobile home); Mobile home Who lives with you:Adult son and spouse Service Connection: 100% [place] Last Means Test (for copays): No means test req : yes Children:Adult son Employment: retired Education:HS Leisure activities:cutting the grass and research Mood: Okay, a little nervous about not receiving his medications in a timely manner Support System: Son and spouse Pets:2 cats and 1 dog Spiritual :sabianism Still driving:no Screening for [employer]:negative Brief Summary: SW educated of SW role on the team and reviewed supportive services available to them if needed including home delivered meals, food pantry, transportation options, etc. PCSW introduced self as surrogate for assigned PCSW. PCSW received [place] assessment and discussed current challenges. Selin reports that he comes [place] where all of his medications and medical history is. He reports that he is not able to get some of his medications because he did not bring any medical documentation. He and son acknowledge that they did not think they had too but understands the reason why. Son reports that he is on several different medications and he is has run out of most of them. He continues to report that since father civilian care, the [facility] was not able [facility] or [facility] records for appt. PCSW informed and son that if they could provide the medical providers that prescribed, there may be chance that the VA can request and then fax over information. provided the names, city, and state of each provider. PCSW informed both father and son that the PACT may be able to work on receiving the documents. PCSW informed and son that a CINDY will be needed so that the information can be faxed to the [facility]. Additionally, reported the steps and railing to enter the trailer needs repair and son was trying to figure out a way to get it repaired. PCSW offered assistance through [facility] and informed them that a consult can be placed. [place] displayed appreciation for assistance and help in resolving barriers Advanced Directive/Living Will on file: Declined Is case management recommended? No Social Work Interventions and Plan: Problem Solving Cognitive Restructuring Psychoeducation Reflective listening motivational interviewing Joining Will place [facility] margaret consult Will v/a assigned SW and PACT RN/CM to retrieve medical records from previous providers. Procedure: telephone case management DX: Other Specified Counseling Time Spent: 30 minutes [id number] RN/Cm and PCSW [place] needs to get medications filled however he does not have documentation of them being previously filled. He provided names, city and state of providers. Asphalt Spreader googled all information and verified all providers fax number except for one. Neurology Lia Miller APRN [facility] [place] [address] Markos Morelos MD (They were closed today so I was not able to retrieve their fax number) Psychiatrist Dr. Charles Chew MD [address] [place] [address] Carl Jarrett MD ([facility]) [address] [place] [address] Fax: [phone] Asphalt Spreader obtained signatures for releases as well. /franny/ Jim Gordon LCSW Primary Care Reclamation Worker Signed: 03/15/2024 15:42 Receipt Acknowledged By: 03/18/2024 07:45 /es/ Chiquis DUENASW - Primary Care Reclamation Worker 03/18/2024 08:25 /franny/ RICHA MORALES,RN fill manager 03/22/2024 15:25 /es/ DREA DERAS ADVANCED BUSINESS ADMINISTRATION PROFESSOR 03/18/2024 ADDENDUM STATUS: COMPLETED Please request records for PCP to review /franny/ RICHA MORALES,RN fill manager Signed: 03/18/2024 08:25 03/18/2024 ADDENDUM STATUS: COMPLETED Medical records request faxed to Dr. Charles Chew and [place]. Unable to contact [facility] [place] [facility] at number provided. Request mailed via USPS. /es/ Chiquis Chávez ACCOUNTS RECEIVABLE BOOKKEEPER - Primary Care Reclamation Worker Signed: 03/18/2024 09:35 [facility]IM G[facility]ON [facility]
--- OUTSIDE RECORDS SUMMARY | 2024-11-22 08:45 | XMS_ITS ---
Author Name [facility] [place] Organization [facility] [place] [facility] [place] Address [address] [place] [address] Care Team Providers Care Manager Sustainability Name Role Phone MING TSANG Primary Care [...] TRICA RE DODA WNR Oct 09, 2020 [facility] [id number] [phone] MELANIE,LE ONARD PATIENT MEDICARE (WNR) MEDICARE (M) PART B Nov 05, 2010 PART B [id number] MELANIE,LE ONARD PATIENT MEDICARE (WNR) MEDICARE (M) PART A Nov 05, 2010 PART A [id number] [phone] MELANIE,LE ONARD PATIENT MEDICARE (WNR) MEDICARE (M) PART B Nov 05, 2010 PART B [id number] [id number] MELANIE,LE ONARD PATIENT MEDICARE (WNR) MEDICARE (M) PART B Nov 05, 2010 PART B [id number] MELANIEMAXINE GEE PATIENT MEDICARE (WNR) MEDICARE (M) PART A Nov 05, 2010 PART A [id number] [phone] MELANIEMAXINE PATIENT MEDICARE (WNR) MEDICARE (M) PART A Nov 05, 2010 PART A [id number] [id number] MELANIE,LE ONQUEENIE PATIENT MEDICARE (WNR) MEDICARE (M) PART B Nov 05, 2010 PART B [id number] [place] [address] MELANIEMAXINE ONQUEENIE PATIENT MEDICARE (WNR) MEDICARE (M) PART A Nov 05, 2010 PART [address] [place] [address] MELANIEMAXINE GEE PATIENT MEDICARE (WNR) MEDICARE (M) PART B Nov 05, 2010 PART B [address] [place] [address] MELANIEMAXINE GEE PATIENT MEDICARE (WNR) MEDICARE (M) PART A Nov 05, 2010 PART A [id number] [id number] [id number] MELANIEMAXINE GEE PATIENT MEDICARE (WNR) MEDICARE (M) PART B Nov 05, 2010 PART B [id number] [id number] MELANIEMAXINE GEE PATIENT MEDICARE (WNR) MEDICARE (M) PART A Nov 05, 2010 PART A [id number] MAXINE NAVARRO PATIENT FOR LIFE TRICA RE FOR LIFE Mar 31, 2010 SPONSOR [id number] MAXINE NAVARRO PATIENT FOR LIFE DIREC T CARE Mar 31, 2010 FOR LIFE [id number] MAXINE NAVARRO PATIENT -FO R-LIFE TRICA RE FOR LIFE December 05, 2010 [id number] MAXINE NAVARRO PATIENT Selected Encounter This section includes the information on record at [place] for the Encounter. Date/Time Encounter Type Encounter Description Reason Pro vider Source Feb 28, 2024 04:47 PM Outpatient Encounter ADMIN PAT ACTIVTIES (MASNONCT) IHE Encounter Template Text not used by [place] Plan of Treatment: Future Appointments (+ 6 months) and Future Tests (+/- 45 days) The Plan of Treatment section includes future care activities for the patient [facility] [place] [facility] This section includes future appointments and future orders which are active, pending or scheduled. Future Appointments This section includes appointments that were scheduled to occur 6 months from the date of the Encounter, up to a maximum of 20 appointments. The data comes from all [facility]. Appointment Date/Time Appointment Type Appointme nt Facility Name Mar 15, 2024 11:00 AM AMBULATORY - MEDICINE [facility] Mar 22, 2024 01:00 PM AMBULATORY - PSYCHIATRY [facility] Mar 29, 2024 03:30 PM AMBULATORY - PSYCHIATRY [facility] Aug 09, 2024 01:00 PM AMBULATORY - PSYCHIATRY [facility] Active, Pending, and Scheduled Orders This section includes a listing of several types of active, pending, and scheduled orders, including clinic medications orders, diagnostic test orders, procedure orders and consult orders; where the start date of the order is 45 days before the date of the Encounter or 45 days after the date of theEncounter. The data comes from all [facility]. Test Date/Time Test Type Test Details Facility Name Mar 19, 2024 09:51 AM Consult Order COMMUNITY CARE-NEPHROLOGY Cons Cotton Ball Machine Tender's Choice [facility] Mar 29, 2024 12:00 AM Laboratory - Chemi stry Order VALPROIC ACID [id number] SP ONCE [facility] Lab Results: +/- 30 days of the encounter This section includes the Chemistry and Hematology Lab Results on record with [place] for the patient. Radiology Reports and Pathology Reports are provided separately, in subsequent sections. Lab Results This section contains the Chemistry/Hematology Results that were resulted 30 days before or 30 daysafter the date of the Encounter. Date/Time Source Result Type Result - Unit Interpretation Reference Range Specimen Type Comment Mar 22, 2024 12:16 PM [facility] N MICROALBUMIN/CREAT RATIO URINE Specimen Type: URINE No comment entered. Ordering Provider: MING TSANG Report Released Date/Time: Mar 15, 2024 11:30 AM Reporting Lab: [address] [address] Performing Lab: [address] [address] CREATININE 60.8 mg/dL MICROALBUMIN QUANT 9.0 mg/L 0.0-30.0 .MICROALBUMIN/CREA RATIO 14.8 ug/mg{creat} Mar 15, 2024 12:10 PM [facility] ALT PLASMA Specimen Type: PLASM A [...] Mar 15, 2024 11:30 AM Reporting Lab: [facility] [address] [address] Performing Lab: [facility] [address] [address] ALT 13 U/L 0-55 Mar 15, 2024 12:10 PM [facility]ASMA Specimen Type: PLASM A Comment: [...] Mar 15, 2024 11:30 AM Reporting Lab: [address] [address] Performing Lab: [address] [address] AST 18 U/L 5-34 Mar 15, 2024 12:10 PM [facility] CBC/PLT BLOOD Specimen Type: BLOOD No comment entered. Ordering Provider: MING TSANG Report Released Date/Time: Mar 15, 2024 11:30 AM Reporting Lab: [address] [address] Performing Lab: [address] [address] WBC 6.6 10*3/uL 5.0-10.0 RBC 3.91 10*6/uL L 4.6-6.2 HGB 13.0 g/dL L 14.0-18.0 HCT 39.0 L 42.0-52.0 MCV 99.7 fL H 80.0-94.0 MCH 33.2 pg H 27.0-31.0 MCHC 33.3 g/dL 32.0-36.0 PLT 259 10*3/uL 150-450 MPV 9.6 fL 9.0-13.1 RDW 14.1 11.0-16.0 NRBC 0.0 0.0-0.0 Mar 15, 2024 12:10 PM [facility] GLYCOHEMOGLOBIN BLOOD Specimen Type: BLOOD Comment: [place] guidelines for A1c interpretation: Glycemic control targets are based on Shared Decision Making between clinicians and patients. Criteria used to establish an A1c target recommendation can be found at https://www.[place].gov/qualityandpatientsafety/ and include the use of result accuracy [...] 8.73 and 9.27. Ref: https://ngsp.org/CAPdata.asp. The in-house [employer] D-100 analyzer has a historical CV <= 2%. Contact the laboratory for further performance characteristics of this assay. Ordering Provider: MING TSANG Report Released Date/Time: Mar 15, 2024 11:30 AM Reporting Lab: [address] [address] Performing Lab: [address] [address] GLYCOHEMOGLOBIN 9.1 H 4.4-6.4 Mar 15, 2024 12:10 PM [facility] LIPID PROFILE PLASMA Specimen Type: [...] Mar 15, 2024 11:30 AM Reporting Lab: [facility] [address] [address] Performing Lab: [facility] [address] [address] CHOLESTEROL 144 mg/dL 0-199 TRIGLYCERIDE 96 mg/dL 0-149 HDL CHOLESTEROL 40 mg/dL 40-69 DIRECT LDL CHOL. 93 mg/dL 0-100 Mar 15, 2024 12:10 PM [facility] PANEL 1 PLASMA Specimen Type: PLASM A [...] Mar 15, 2024 11:30 AM Reporting Lab: [address] [address] Performing Lab: [address] [address] CREATININE 2.10 mg/dL H 0.72-1.25 UREA NITROGEN 42 mg/dL H 9-25 GLUCOSE 151 mg/dL H 74-100 SODIUM 137 mmol/L 136-145 POTASSIUM 4.8 mmol/L 3.5-5.1 CHLORIDE 107 mmol/L 98-107 CO2 22 mmol/L 22-29 CALCIUM 10.4 mg/dL H 8.4-10.2 ANION GAP 8 meq/L 3-19 eGFR (CKD-EPI) 32 Advance Directives: All historical and current Section Date Range: From patient's date of to the date document was created. This section includes ALL of a patient's completed or amended [place] Advance and Rescinded Directives. The entries below indicate that a directive exists for the patient, but an actual copy is not included with this document. The data comes from all [place] facilities. Date Advance Directives Provider Source Apr 21, 2017 ADVANCE DIRECTIVE DISCUSSION YFN JOHNSON [facility] Jun 26, 2015 ADVANCE DIRECTIVE DISCUSSION ILIA SAL [facility] Encounter Notes: All associated encounter notes This section contains the clinical notes associated to the Encounter. Date/Time Encounter Note(s) Provider Source Mar 05, 2024 10:45 AM ADDENDUM: LOCAL TITLE: Addendum STANDARD TITLE: ADDENDUM DATE OF NOTE: MAR 05, 2024@10:45:07 ENTRY DATE: MAR 05, 2024@10:45:08 AUTHOR: DES LOPEZ COSIGNER: URGENCY: STATUS: COMPLETED Spoke with pt to schedule NEW PT appt as below. Cristobal Pact Foxtrot 1-3 03/15/2024@11:00 Cons Future NEW PT, PT DD 03/11/24, LTR SENT 's current Medical Care received - DR CONNOR, [facility] 's received Medications - WILL BRING BOTTLES TO APPT Recent Hospitalizations or Surgeries in last 90 days - NONE dx: [facility], MH/psychiatrist, TIA's in the past (2020) Pt was informed to come 15 minutes early, bring his/her insurance card, a list of current medications and any medical records pertinent to current problems. /franny/ DES ESCOBAR Signed: 03/05/2024 10:58 Receipt Acknowledged By: 03/06/2024 09:05 /es/ YADIEL CARTER PSYD Psychology Postdoctoral Fellow 03/05/2024 11:32 /es/ Chiquis DUENASW - Primary Care Last Remodeler Repairer 03/05/2024 11:10 /es/ MING TSANG M.D. PRIMARY CARE STAFF PHYSICIAN 03/05/2024 11:38 /franny/ DREA DERAS ADVANCED AUTO BODY REPAIRMAN --- Original Document --- 02/28/24 PC NEW PATIENT CONTACT NOTE: Is patient Post 9-11, OEF/OIF/OND ? Patient is not a Post 9-11 . I have attempted to contact patient to schedule a new patient appointment. I was unable to reach the patient via phone because: There was no answer, and no answering machine. VOICEMAIL NOT SET UP YET. A letter asking the patient to contact PC to schedule an appointment has been mailed to the patient today. If no response by 03/13/2024 consult will be discontinued and a new one will need to be entered if [place] wishes to schedule in the future. /elmer ESCOBAR Signed: 02/28/2024 16:54 03/05/2024 ADDENDUM STATUS: COMPLETED 60 min, no overlap /elmer DERAS ADVANCED AUTO BODY REPAIRMAN Signed: 03/05/2024 11:38 DES LOPEZ-CDD [facility] Feb 28, 2024 04:54 PM PRIMARY CARE LETTMegan RS: LOCAL TITLE: PC LETTER NEW PATIENT CONTACT STANDARD TITLE: PRIMARY CARE LETTERS DATE OF NOTE: FEB 28, 2024@16:54 ENTRY DATE: FEB 28, 2024@16:54:55 AUTHOR: DES LOPEZ COSIGNER: URGENCY: STATUS: COMPLETED [facility] [address] [place] [address] February 28, 2024 Mr. CHELE VELASCO MELANIE [address] [place] [address] Dear Azalia CHELE VELASCO MELANIE, Thank you for your interest in Primary Care. We have received a request to schedule an appointment for you with a Primary Care Provider, however, we have been unable to reach you by phone. Please call us at , ext: [phone] or ext: [phone] to schedule an appointment that is convenient for you. If you are not interested in Primary Care, please contact us to let us know. We look forward to hearing from you. Sincerely, [facility] DES LOPEZ-CDD [facility] Feb 28, 2024 04:47 PM PRIMARY CARE ADMIN ISTRATIVE NOTE: LOCAL TITLE: PC NEW PATIENT CONTACT NOTE STANDARD TITLE: PRIMARY CARE ADMINISTRATIVE NOTE DATE OF NOTE: FEB 28, 2024@16:47 ENTRY DATE: FEB 28, 2024@16:47:44 AUTHOR: DES LOPEZIGNER: URGENCY: STATUS: COMPLETED PC NEW PATIENT CONTACT NOTE Has ADDENDA Is patient Post 9-11, OEF/OIF/OND ? Patient is not a Post 9-11 . I have attempted to contact patient to schedule a new patient appointment. I was unable to reach the patient via phone because: There was no answer, and no answering machine. VOICEMAIL NOT SET UP YET. A letter asking the patient to contact PC to schedule an appointment has been mailed to the patient today. If no response by 03/13/2024 consult will be discontinued and a new one will need to be entered if [place] wishes to schedule in the future. /franny/ DES LOPEZ LEAD AMSA Signed: 02/28/2024 16:54 03/05/2024 ADDENDUM STATUS: COMPLETED Spoke with pt to schedule NEW PT appt as below. Cristobal Pact Foxtrot 1-3 03/15/2024@11:00 Cons Future NEW PT, PT DD 03/11/24, LTR SENT [place]'s current Medical Care received - DR CONNOR, [facility] [place]'s received Medications - WILL BRING BOTTLES TO APPT Recent Hospitalizations or Surgeries in last 90 days - NONE dx: [facility], MH/psychiatrist, TIA's in the past (2020) Pt was informed to come 15 minutes early, bring his/her insurance card, a list of current medications and any medical records pertinent to current problems. /es/ DES LOPEZ LEAD AMSA Signed: 03/05/2024 10:58 Receipt Acknowledged By: * AWAITING SIGNATURE * YADIEL CARTER 03/05/2024 11:32 /es/ Chiquis Chávez LCSW - Primary Care Last Remodeler Repairer 03/05/2024 11:10 /es/ MING TSANG M.D. PRIMARY CARE STAFF PHYSICIAN 03/05/2024 11:38 /franny/ DREA DERAS ADVANCED AUTO BODY REPAIRMAN 03/05/2024 ADDENDUM STATUS: COMPLETED 60 min, no overlap /elmer DERAS ADVANCED AUTO BODY REPAIRMAN Signed: 03/05/2024 11:38 DES LOPEZ-CDD [facility]
--- OUTSIDE RECORDS SUMMARY | 2024-11-22 08:45 | XMS_ITS | Encounter Summary ---
Author Name [facility] [place] [facility] [place] Address [address] [place] [address] Care Team Providers [employer] Interpreter Name Role Phone ESEQUIEL HUERTA Primary Care Provider UnavailSOPHIE Fournier Primary Care [...] RE DODA WNR Oct 09, 2020 [facility] [id number] MELANIE,LE ONARD PATIENT MEDICARE (WNR) MEDICARE (M) PART A Nov 05, 2010 PART A [id number] MELANIE,LE ONARD PATIENT MEDICARE (WNR) MEDICARE (M) PART B Nov 05, 2010 PART B [id number] MELANIE,LE ONARD PATIENT MEDICARE (WNR) MEDICARE (M) PART A Nov 05, 2010 PART A [id number] [facility] [phone] MELANIE,LE ONARD PATIENT MEDICARE (WNR) MEDICARE (M) PART B Nov 05, 2010 PART B [id number] [id number] MELANIE,LE ONARD PATIENT MEDICARE (WNR) MEDICARE (M) PART A Nov 05, 2010 PART A [id number] [id number] MELANIE,LE ONARD PATIENT MEDICARE (WNR) MEDICARE (M) PART B Nov 05, 2010 PART B [id number] [id number] [phone] MELANIEMAXINE ONARD PATIENT MEDICARE (WNR) MEDICARE (M) PART B Nov 05, 2010 PART B [id number] [facility] MELANIE,MAXINE ONARD PATIENT MEDICARE (WNR) MEDICARE (M) PART A Nov 05, 2010 PART A [id number] [facility] MELANIE,MAXINE ONARD PATIENT MEDICARE (WNR) MEDICARE (M) PART A Nov 05, 2010 PART A [id number] [id number] MELANIE,LE ONQUEENIE PATIENT MEDICARE (WNR) MEDICARE (M) PART B Nov 05, 2010 PART B [id number] [id number] MELANIEMAXINE GEE PATIENT MEDICARE (WNR) MEDICARE (M) PART A Nov 05, 2010 PART A [id number] [id number] MELANIE,LE ONQUEENIE PATIENT MEDICARE (WNR) MEDICARE (M) PART B Nov 05, 2010 PART B [id number] [id number] [phone] MAXINE NAVARRO PATIENT FOR LIFE TRICA RE FOR LIFE Mar 31, 2010 [facility] [id number] MAXINE NAVARRO PATIENT FOR LIFE DIREC T CARE Mar 31, 2010 [facility] [id number] MAXINE NAVARRO PATIENT -FO R-LIFE TRICA RE FOR LIFE December 05, 2010 [facility] [id number] MAXINE NAVARRO PATIENT Selected Encounter This section includes the information on record at [place] for the Encounter. Date/Time Encounter Type Encounter Description Reason Provider Source Mar 22, 2024 01:00 PM PSYTX W PT 60 MINUTES [facility] INDIV ICD-10-CM F31.9 Bipolar disorder, unspecified CARLOS CARTER Megan Encounter Template Text not used by [place] Assessments - Encounter Diagnoses This section includes the primary and secondary diagnoses documented for the Encounter. Date/Time Primary/Secondary Diagnosis Diagnosis Name Provider Source Mar 25, 2024 08:40 AM PRIMARY Bipolar disorder, unspecified CARLOS CARTER [facility] Plan of Treatment: Future Appointments (+ 6 months) and Future Tests (+/- 45 days) The Plan of Treatment section includes future care activities for the [facility] [place] [facility] This section includes future appointments and future orders which are active, pending or scheduled. Future Appointments This section includes appointments that were scheduled to occur 6 months from the date of the Encounter, up to a maximum of 20 appointments. The data comes from all [facility]. Appointment Date/Time Appointment Type Appointme nt Facility Name Mar 29, 2024 03:30 PM AMBULATORY - PSYCHIATRY [facility] Aug 09, 2024 01:00 PM AMBULATORY - PSYCHIATRY [facility] Active, Pending, and Scheduled Orders This section includes a listing of several types of active, pending, and scheduled orders, including clinic medications orders, diagnostic test orders, procedure orders and consult orders; where the start date of the order is 45 days before the date of the Encounter or 45 days after the date of theEncounter. The data comes from all [facility]. Test Date/Time Test Type Test Details Facility Name Mar 19, 2024 09:51 AM Consult Order COMMUNITY CARE-NEPHROLOGY Cons [place] [facility] Mar 29, 2024 12:00 AM Laboratory - Chemi stry Order VALPROIC ACID [id number] SP ONCE [facility] Apr 19, 2024 12:00 AM Laboratory - Chemi stry Order eGFR + CREATININE [id number] SP ONCE [facility] Apr 19, 2024 12:00 AM Laboratory - Chemi stry Order POTASSIUM [id number] SP ONCE [facility] Apr 19, 2024 12:00 AM Laboratory - Chemi stry Order HGB & HCT DUI-EILATRXC-PDR BLOOD SP [facility] Apr 19, 2024 12:00 AM Laboratory - Chemi stry Order IRON/TIBC [id number] SP ONCE [facility] Apr 19, 2024 12:00 AM Laboratory - Chemi stry Order FERRITIN EFT-FBCQN-TILHRT SP ONCE [facility] Apr 19, 2024 12:00 AM Laboratory - Chemi stry Order B12 VITAMIN [id number] SP ONCE [facility] Apr 19, 2024 12:00 AM Laboratory - Chemi stry Order CALCIUM [id number] SP ONCE [facility] Lab Results: +/- 30 days of the encounter This section includes the Chemistry and Hematology Lab Results on record with [place] for the patient. Radiology Reports and Pathology Reports are provided separately, in subsequent sections. Lab Results This section contains the Chemistry/Hematology Results that were resulted 30 days before or 30 daysafter the date of the Encounter. Date/Time Source Result Type Result - Unit Interpretation Reference Range Specimen Type Comment Mar 22, 2024 12:16 PM [facility] N MICROALBUMIN/CREAT RATIO URINE Specimen Type: URINE No comment entered. Ordering Provider: ESEQUIEL HUERTA Report Released Date/Time: Mar 15, 2024 11:30 AM Reporting Lab: [address] [address] Performing Lab: [address] [address] CREATININE 60.8 mg/dL MICROALBUMIN QUANT 9.0 mg/L 0.0-30.0 .MICROALBUMIN/CREA RATIO 14.8 ug/mg{creat} Mar 15, 2024 12:10 PM [facility] ALT PLASMA Specimen Type: PLASM [...] decrease <15 G5 Kidney failure Ordering Provider: ESEQUIEL HUERTA Report Released Date/Time: Mar 15, 2024 11:30 AM Reporting Lab: [address] [address] Performing Lab: [address] [address] ALT 13 U/L 0-55 Mar 15, 2024 12:10 PM [facility] AST PLASMA Specimen Type: PLASM [...] decrease <15 G5 Kidney failure Ordering Provider: ESEQUIEL HUERTA Report Released Date/Time: Mar 15, 2024 11:30 AM Reporting Lab: [address] [address] Performing Lab: [address] [address] AST 18 U/L 5-34 Mar 15, 2024 12:10 PM [facility] CBC/PLT BLOOD Specimen Type: BLOOD No comment entered. Ordering Provider: ESEQUIEL HUERTA Report Released Date/Time: Mar 15, 2024 11:30 AM Reporting Lab: [address] [address] Performing Lab: [address] [address] WBC 6.6 10*3/uL 5.0-10.0 RBC 3.91 10*6/uL L 4.6-6.2 HGB 13.0 g/dL L 14.0-18.0 HCT 39.0 L 42.0-52.0 MCV 99.7 fL H 80.0-94.0 MCH 33.2 pg H 27.0-31.0 MCHC 33.3 g/dL 32.0-36.0 PLT 259 10*3/uL 150-450 MPV 9.6 fL 9.0-13.1 RDW 14.1 11.0-16.0 NRBC 0.0 0.0-0.0 Mar 15, 2024 12:10 PM [facility] GLYCOHEMOGLOBIN BLOOD Specimen Type: BLOOD Comment: [place] guidelines for A1c interpretation: Glycemic control targets are based on Shared Decision Making between clinicians and patients. Criteria used to establish an A1c target recommendation can be found at https://www.[place].gov/qualityandpatientsafety/ and include the use of result accuracy [...] 8.73 and 9.27. Ref: https://ngsp.org/CAPdata.asp. The in-house [employer] D-100 analyzer has a historical CV <= 2%. Contact the laboratory for further performance characteristics of this assay. Ordering Provider: ESEQUIEL HUERTA Report Released Date/Time: Mar 15, 2024 11:30 AM Reporting Lab: [address] [address] Performing Lab: [address] [address] GLYCOHEMOGLOBIN 9.1 H 4.4-6.4 Mar 15, 2024 12:10 PM [facility] LIPID PROFILE PLASMA Specimen Type: [...] decrease <15 G5 Kidney failure Ordering Provider: ESEQUIEL HUERTA Report Released Date/Time: Mar 15, 2024 11:30 AM Reporting Lab: [address] [address] Performing Lab: [address] [address] CHOLESTEROL 144 mg/dL 0-199 TRIGLYCERIDE 96 mg/dL 0-149 HDL CHOLESTEROL 40 mg/dL 40-69 DIRECT LDL CHOL. 93 mg/dL 0-100 Mar 15, 2024 12:10 [facility] PLASMA Specimen Type: PLASM A [...] decrease <15 G5 Kidney failure Ordering Provider: ESEQUIEL HUERTA Report Released Date/Time: Mar 15, 2024 11:30 AM Reporting Lab: [address] [address] Performing Lab: [address] [address] CREATININE 2.10 mg/dL H 0.72-1.25 UREA NITROGEN [...] and tobacco- related health factors from the [place] facility where the Encounter took place. Current Smoking Status This section includes the most current smoking, or tobacco-related health factor, from the [place] facility where the Encounter took place. Date/Time Current Smoking Status Comment Facil ity Mar 15, 2024 11:00 AM [place]-TOBACCO FORMER USER [facility] Tobacco Use History This section includes a history of the smoking, or tobacco-related health factors, that were collected on or before the date of the Encounter. The data comes from the [place] facility where the Encounter took place. Date/Time Smoking Status/Tobacco Use Comment F acility Mar 15, 2024 11:00 AM [place]-TO[place]AC[place] QUIT 15 YRS OR MORE [facility] Advance Directives: All historical and current Section Date Range: From patient's date of to the date document was created. This section includes ALL of a patient's completed or amended [place] Advance and Rescinded Directives. The entries below indicate that a directive exists for the patient, but an actual copy is not included with this document. The data comes from all [place] facilities. Date Advance Directives Provider Source Apr 21, 2017 ADVANCE DIRECTIVE DISCUSSION YFN JOHNSON [facility] Jun 26, 2015 ADVANCE DIRECTIVE DISCUSSION ILIA SAL [facility] Encounter Notes: All associated encounter notes This section contains the clinical notes associated to the Encounter. Date/Time Encounter Note(s) Provider Source Mar 25, 2024 08:37 AM MENTAL HEALTH TELEPHONE ENCOUNTER NOTE: [facility] STANDARD TITLE: MENTAL HEALTH TELEPHONE ENCOUNTER NOTE DATE OF NOTE: MAR 25, 2024@08:37:19 ENTRY DATE: MAR 25, 2024@08:37:19 AUTHOR: YADIEL CARTER COSIGNER: URGENCY: STATUS: COMPLETED These assessments were completed by CHELE NAVARRO via provider direct entry on 03/22/2024 1:56:33 PM. PATIENT HEALTH QUESTIONNAIRE-9 (PHQ-9) The patient reported some symptoms of depression; symptoms are not consistent with a major depressive episode. Patient reported being bothered by the following over the last 2 weeks: 1. Little interest or pleasure: Not at all 2. Feeling down, depressed or hopeless: Not at all 3. Trouble sleeping: Several Days 4. Tired, low energy: Not at all 5. Poor appetite, over-eating: Not at all 6. Feelings of failure, guilt: Not at all 7. Trouble concentrating: Nearly every day 8. Motor retardation, agitation: Not at all 9. Thoughts better off /hurting self: Not at all PHQ-9 total score = 4 1-4 = minimal symptoms 5-9= mild symptoms 10-14= moderate symptoms 15-19= moderately severe symptoms 20-27= severe depressive symptoms The patient stated that the depressive symptoms made it somewhat difficult to work, take care of things at home, or get along with others. /franny/ YADIEL CARTER PSY.D. Licensed Psychologist Signed: 03/25/2024 10:22 YADIEL CARTER [facility] Mar 22, 2024 04:33 PM MENTAL HEALTH NOTE: LOCAL TITLE: [facility] INITIAL ASSESSMENT NOTE STANDARD TITLE: MENTAL HEALTH NOTE DATE OF NOTE: MAR 22, 2024@16:33 ENTRY DATE: MAR 22, 2024@16:33:20 AUTHOR: YADIEL CARTER EXP COSIGNER: URGENCY: STATUS: COMPLETED PRIMARY CARE MENTAL HEALTH INTEGRATION ([facility]) CO-LOCATED COLLABORATIVE CARE INITIAL ASSESSMENT NOTE [x] Ejae-pp-Rdux Date/Time: 03/22/24 at 1:05 Length of Session (minutes): 60 Current Contact Number: ; his son's number which was given for scheduling purposes is [phone] TYPE: [x]Individual [x]Scheduled Background Information Service-Connected Disabilities: DS - Disabilities Eligibility: SERVICE CONNECTED 50% to 100% VERIFIED Total S/C %: 100 MAJOR DEPRESSIVE DISORDER 70% S/C HYPERTENSIVE VASCULAR DISEASE 10% S/C DIABETES MELLITUS 20% S/C TRAUMATIC ARTHRITIS 10% S/C SLEEP APNEA SYNDROMES 50% S/C DEFORMITY OF THE PENIS 0% S/C FOOT CONDITION 10% S/C ARTERIOSCLEROTIC HEART DISEASE 30% S/C PROSTATE GLAND CONDITION 20% S/C PARALYSIS OF EXTERNAL POPLITEAL NERVE 10% S/C MUSCLE NERVE CONDITION 30% S/C PARALYSIS OF EXTERNAL POPLITEAL NERVE 10% S/C Service: Service Branch Service # Entered Discharge [employer] JUL 23, 1979 JUL 06, 1995 [employer] [id number] JUN 05, 1964 MAR 08, 1968 [facility] Mental Health Clinical Reminders are up to date Primary Care Provider/Primary Care Team: Dr. Esequiel Huerta [facility] Reason for Referral: to discuss mental health concerns and treatment options Type of Referral: Self referral Consult Type of appointment: Face to Face, In person Discussed with Fithian [facility]'s role within the clinic as part of the PACT, the length of the appointment, what would happen during the appointment, and the type of follow-up which may occur. Additionally, we discussed that a note would be placed in the medical record and that the Primary Care team would be given feedback after this appointment. Limits of confidentiality were discussed with the Fithian, including limits related to harm to self and others, and the voluntary nature of treatment. Fithian expressed informed consent to this evaluation today. 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 He mentioned this as play writer, son, and were walking back to the appointment room. 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 Fithian brought his son into the appointment to help with reporting symptoms. Current Medications: Active Outpatient Medications (including Supplies): Active Outpatient Medications Status 1) ALLOPURINOL 100MG TAB TAKE ONE TABLET BY MOUTH DAILY ACTIVE FOR GOUT 2) CLOPIDOGREL BISULFATE 75MG TAB TAKE ONE TABLET BY ACTIVE MOUTH DAILY TO THIN BLOOD 3) GEMFIBROZIL 600MG TAB TAKE ONE TABLET BY MOUTH TWICE ACTIVE A DAY FOR CHOLESTEROL -TAKE 30 MINUTES BEFORE MEALS 4) LISINOPRIL 20MG TAB TAKE ONE-HALF TABLET BY MOUTH ACTIVE DAILY FOR HIGH BLOOD PRESSURE 5) PRIMIDONE 50MG TAB TAKE ONE TABLET BY MOUTH DAILY FOR ACTIVE TREMORS 6) PROPRANOLOL HCL 60MG SA CAP TAKE ONE CAPSULE BY MOUTH ACTIVE DAILY FOR TREMOR 7) SITAGLIPTIN (EQV-ZITUVIO) 50MG TAB TAKE ONE TABLET BY ACTIVE MOUTH DAILY FOR BLOOD SUGAR - STORE IN ORIGINAL CONTAINER. OPENED BOTTLES MUST BE USED WITHIN 3 MONTHS 8) SODIUM ZIRCONIUM CYCLOSILICATE 5GM/PKT TAKE 1 PACKET ACTIVE BY MOUTH DAILY FOR HIGH POTASSIUM -MIX PACKET CONTENTS IN A GLASS WITH AT LEAST 3 TABLESPOONS OF WATER OR MORE THEN STIR WELL AND DRINK. IF POWDER REMAINS, ADD WATER, STIR, AND DRINK. REPEAT UNTIL NO POWDER REMAINS. 9) TAMSULOSIN HCL 0.4MG CAP TAKE ONE CAPSULE BY MOUTH ACTIVE EVERY EVENING FOR PROSTATE Pending Outpatient Medications Status 1) MEMANTINE HCL 10MG TAB TAKE ONE TABLET BY MOUTH DAILY PENDING Active Non-VA Medications Status 1) Non-VA CITALOPRAM TAB MOUTH ACTIVE 2) Non-VA DIVALPROEX(HANDLING ALERT) TAB (DELAYED ACTIVE RELEASE) MOUTH 3) Non-VA QUETIAPINE TAB MOUTH ACTIVE 13 Total Medications Active Problems: Active problems - Computerized Problem List is the source for the followin. Parkinson's disease 2. Dementia 3. Diabetes mellitus 4. Hypertension 5. Hyperlipidemia 6. Transient cerebral ischemia 7. Gout 8. Benign prostatic hyperplasia Presenting Problem The following was reported by the as the primary concern: Fithian relayed he has been diagnosed in the past with bipolar disorder. He feels that he doesn't have severe moods. Symptoms reported include his mind racing, inability to concentrate, excess energy, and goal-directed activity. Recently there has been some sadness due to moving, but he did not feel that he was depressed. The last identified period of depression was in November. *Frank has difficulty hearing. Frank and his son worked together to answer play writer's questions. There was some circumstantial speech by both individuals. Some information was not able to be obtained due to a lack of time. History of Problem Problem History (Duration/Frequency/Intens ity): The mind racing was identified as the most distressing symptoms by both the Fithian and his son, and it was said to be present daily. Treatment History (Including Med Trials, Adherence, Adverse Reactions): He has been taking Divalproex, Quetiapine, and Citalopram. He ran out of medications at the end of January. relayed being on this medication regimen for over 20 years with one change in the past from Prozac to Citalopram. Frank has had therapy in the past as well. Other Problems of Concern to : Frank moved to [place] in February which has resulted in some stress and sadness. Assessment Risk Assessment (e.g., lethality, suicidality/homicidality): C-SSRS Screening [place]-Suicide Severity Rating Scale (C-SSRS Screener) 1. Over [...] went to the roof but didn't jump)? Yes 8. If YES, was this within the past 3 months? No Fithian reports no current homicidal ideation. Functional Assessment/Typical Day The reports the following areas to be impacted by the presenting concern: Sleep: Frank was noted to have excess energy at times. Physical: He relayed having Parkinson's, early dementia, and strokes. His appetite was said to have increased but the amount of food has decreased. Work/School: Frank is not working. He enjoys doing tasks to help his family. Close Relationships/Family/Frien ds: He is . As mentioned above, Frank brought his son into the appointment. Recreation: Frank enjoys spending time with his family. Alcohol: He said he hasn't had a drink in 35 years. Tobacco: It has reportedly been 25 years since he has smoked. Illicit Drugs: Did not obtain. Caffeine: Did not obtain. Additional Assessment Measurement-Based Care: PHQ-9: No data available JJ-7: No data available for: JJ-7 PCL-5: No data available for: PCL-5 was administered the following self-report instruments to further assess identified area of concern. The use of these instruments to assist in guiding treatment planning and assess progress was discussed with the . Patient Health Questionnaire - 9 (PHQ-9; Depression Measure) (Note: 0-4 Minimal: 5-9 Mild; 10-14 Moderate; 15-19 Moderately severe; 20-27 Severe) obtained a score of 4 which is indicative of minimal symptoms. Pain Measure did not report pain as a topic of concern today. Brief Mental Status Exam: Appearance: Casual Dress, Hygiene WNL, Grooming WNL Level of Consciousness: Alert and Oriented Attitude: Friendly Motor/Activity Level: Psychomotor Agitation Speech: Normal Rate/Tone Mood: Good Affect: Congruent with Mood Thought Processes: Logical Thought Content: WNL Perception: WNL Insight: Recognizes need for help Cognition: No significant deficits based on ability to give details of personal history Provisional Diagnosis Unspecified Bipolar Disorder Intervention: Psychoeducation Supportive Psychotherapy/Reflection/V alidation Treatment Plan and Follow-up -- Specific plans for follow-up were discussed with the : Patient Goals: Other: medication management Homework/Handouts: N/A Brief Treatment Plan Consult [facility] for medication management. Visit Duration: 60 minutes Patient records have been reviewed. Informed/Reviewed with Fithian about MH resources in case of crisis including the [facility] Crisis Line number (press 1) and emergency room services. Outcome and recommendations will be discussed with the referring provider and other relevant PACT team members as needed. /franny/ YADIEL CARTER PSY.D. Licensed Psychologist Signed: 03/25/2024 10:32 YADIEL CARTER [facility]
--- OUTSIDE RECORDS SUMMARY | 2024-11-22 08:45 | XMS_ITS | Encounter Summary ---
Author Name [facility] [place] [facility] [place] [facility] [facility] [place] Address [address] [place] [address] Care Team Providers Care Story Teller Name Role Phone MING TSANG Primary Care [...] TRICA RE DODA WNR Oct 09, 2020 [facility] [id number] [phone] MELANIE,LE ONQUEENIE PATIENT MEDICARE (WNR) MEDICARE (M) PART A Nov 05, 2010 PART A [id number] [facility] MAXINE NAVARRO ONARD PATIENT MEDICARE (WNR) MEDICARE (M) PART B Nov 05, 2010 PART B [id number] [facility] MAXINE NAVARRO ONQUEENIE PATIENT MEDICARE (WNR) MEDICARE (M) PART A Nov 05, 2010 PART A [id number] MAXINE NAVARRO ONQUEENIE PATIENT MEDICARE (WNR) MEDICARE (M) PART B Nov 05, 2010 PART B [id number] MELANIEMAXINE ONARD PATIENT MEDICARE (WNR) MEDICARE (M) PART A Nov 05, 2010 PART A [id number] [facility] MELANIE,MAXINE ONARD PATIENT MEDICARE (WNR) MEDICARE (M) PART B Nov 05, 2010 PART B [id number] [facility] [phone] MELANIEMAXINE ONARD PATIENT MEDICARE (WNR) MEDICARE (M) PART A Nov 05, 2010 PART A [id number] [facility] MELANIEMAXINE ONARD PATIENT MEDICARE (WNR) MEDICARE (M) PART B Nov 05, 2010 PART B [id number] [facility] MELANIEMAXINE ONARD PATIENT MEDICARE (WNR) MEDICARE (M) PART A Nov 05, 2010 PART A [id number] MELANIE,LE ONQUEENIE PATIENT MEDICARE (WNR) MEDICARE (M) PART B Nov 05, 2010 PART B [id number] MELANIEMAXINE GEE PATIENT MEDICARE (WNR) MEDICARE (M) PART A Nov 05, 2010 PART A [id number] [facility] [id number] MELANIE,LE ONQUEENIE PATIENT MEDICARE (WNR) MEDICARE (M) PART B Nov 05, 2010 [id number] [id number] MAXINE NAVARRO PATIENT FOR LIFE TRICA RE FOR LIFE Mar 31, 2010 SPONSOR [id number] MAXINE NAVARRO PATIENT FOR LIFE DIREC T CARE Mar 31, 2010 FOR LIFE [id number] MAXINE NAVARRO PATIENT -FO R-LIFE TRICA RE FOR LIFE December 05, 2010 TFL [id number] MAXINE NAVARRO PATIENT Selected Encounter This section includes the information on record at [place] for the Encounter. Date/Time Encounter Type Encounter Description Reason Pro vider Source Mar 29, 2024 03:57 PM Outpatient Encounter ADMIN PAT ACTIVTIES (MASNONCT) I[facility] Encounter Template Text not used by [place] Plan of Treatment: Future Appointments (+ 6 months) and Future Tests (+/- 45 days) The Plan of Treatment section includes future care activities for the patient [facility] [place] [facility] This section includes future appointments and future orders which are active, pending or scheduled. Future Appointments This section includes appointments that were scheduled to occur 6 months from the date of the Encounter, up to a maximum of 20 appointments. The data comes from all [facility] facilities. Appointment Date/Time Appointment Type Appointme nt Facility Name Aug 09, 2024 01:00 PM AMBULATORY - PSYCHIATRY [facility] Active, Pending, and Scheduled Orders This section includes a listing of several types of active, pending, and scheduled orders, including clinic medications orders, diagnostic test orders, procedure orders and consult orders; where the start date of the order is 45 days before the date of the Encounter or 45 days after the date of theEncounter. The data comes from all [facility]. Test Date/Time Test Type Test Details Facility Name Mar 19, 2024 09:51 AM Consult Order [facility] Cons Sales Producer's Choice [facility] Mar 29, 2024 12:00 AM Laboratory - Chemi stry Order VALPROIC ACID [id number] SP ONCE [facility] Apr 19, 2024 12:00 AM Laboratory - Chemi stry Order eGFR + CREATININE [id number]-[id number] SP ONCE [facility] Apr 19, 2024 12:00 AM Laboratory - Chemi stry Order POTASSIUM [id number] SP ONCE [facility] Apr 19, 2024 12:00 AM Laboratory - Chemi stry Order HGB & HCT [id number] BLOOD SP [facility] Apr 19, 2024 12:00 AM Laboratory - Chemi stry Order IRON/TIBC [id number] SP ONCE [facility] Apr 19, 2024 12:00 AM Laboratory - Chemi stry Order FERRITIN [id number] SP ONCE [facility] Apr 19, 2024 12:00 AM Laboratory - Chemi stry Order B12 VITAMIN [id number] SP ONCE [facility] Apr 19, 2024 12:00 AM Laboratory - Chemi stry Order CALCIUM [id number] SP ONCE [facility] Lab Results: +/- 30 days of the encounter This section includes the Chemistry and Hematology Lab Results on record with [place] for the patient. Radiology Reports and Pathology Reports are provided separately, in subsequent sections. Lab Results This section contains the Chemistry/Hematology Results that were resulted 30 days before or 30 daysafter the date of the Encounter. Date/Time Source Result Type Result - Unit Interpretation Reference Range Specimen Type Comment Mar 22, 2024 12:16 PM [facility]CREAT RATIO URINE Specimen Type: URINE No comment entered. Ordering Provider: MING TSANG Report Released Date/Time: Mar 15, 2024 11:30 AM Reporting Lab: [address] [address] Performing Lab: [address] [address] CREATININE 60.8 mg/dL MICROALBUMIN QUANT 9.0 mg/L [...] Mar 15, 2024 11:30 AM Reporting Lab: [address] [address] Performing Lab: [address] [address] ALT 13 U/L 0-55 Mar 15, 2024 12:10 PM [facility] Specimen Type: PLASM A Comment: [...] Mar 15, 2024 11:30 AM Reporting Lab: [address] [address] Performing Lab: [address] [address] AST 18 U/L 5-34 Mar 15, 2024 12:10 PM [facility] CBC/PLT BLOOD Specimen Type: BLOOD No comment entered. Ordering Provider: MING TSANG Report Released Date/Time: Mar 15, 2024 11:30 AM Reporting Lab: [address] [address] Performing Lab: [address] [address] WBC 6.6 10*3/uL 5.0-10.0 RBC 3.91 10*6/uL L 4.6-6.2 HGB 13.0 g/dL L 14.0-18.0 HCT 39.0 L 42.0-52.0 MCV 99.7 fL H 80.0-94.0 MCH 33.2 pg H 27.0-31.0 MCHC 33.3 g/dL 32.0-36.0 PLT 259 10*3/uL 150-450 MPV 9.6 fL 9.0-13.1 RDW 14.1 11.0-16.0 NRBC 0.0 0.0-0.0 Mar 15, 2024 12:10 PM [facility] GLYCOHEMOGLOBIN BLOOD Specimen Type: BLOOD Comment: [place] guidelines for A1c interpretation: Glycemic control targets are based on Shared Decision Making between clinicians and patients. Criteria used to establish an A1c target recommendation can be found at https://www.ga.gov/qualityandpatientsafety/ and include the use of result accuracy [...] 8.73 and 9.27. Ref: https://ngsp.org/CAPdata.asp. The in-house [employer] D-100 analyzer has a historical CV <= 2%. Contact the laboratory for further performance characteristics of this assay. Ordering Provider: MING TSANG Report Released Date/Time: Mar 15, 2024 11:30 AM Reporting Lab: [address] [address] Performing Lab: [address] [address] GLYCOHEMOGLOBIN 9.1 H 4.4-6.4 Mar 15, 2024 [...] Mar 15, 2024 11:30 AM Reporting Lab: [address] [address] Performing Lab: [address] [address] CHOLESTEROL 144 mg/dL 0-199 TRIGLYCERIDE 96 mg/dL [...] Mar 15, 2024 11:30 AM Reporting Lab: [address] [address] Performing Lab: [address] [address] CREATININE 2.10 mg/dL H 0.72-1.25 UREA NITROGEN [...] ALL of a patient's completed or amended [place] Advance and Rescinded Directives. The entries below indicate that a directive exists for the patient, but an actual copy is not included with this document. The data comes from all [place] facilities. Date Advance Directives Provider Source Apr 21, 2017 ADVANCE DIRECTIVE DISCUSSION ALEX,LASHANA [facility] Jun 26, 2015 ADVANCE DIRECTIVE DISCUSSION JONELLEILIA [facility] Encounter Notes: All associated encounter notes This section contains the clinical notes associated to the Encounter. Date/Time Encounter Note(s) Provider Source Mar 29, 2024 03:57 PM ADMINISTRATIVE NOT E: LOCAL TITLE: CLERICAL/ADMIN NOTE STANDARD TITLE: ADMINISTRATIVE NOTE DATE OF NOTE: MAR 29, 2024@15:57 ENTRY DATE: MAR 29, 2024@15:57:14 AUTHOR: OSEI AGRAWAL EXP COSIGNER: URGENCY: STATUS: COMPLETED scheduled at tennis desk team member rtc placed. PID 06/28/24 scheduled 06/28/24 @1pm cale/#[id number] f2f letter given to vet at tennis desk team member /franny/ OSEI AGRAWAL Signed: 03/29/2024 15:58 OSEI AGRAWAL-Barbara [facility]
--- OUTSIDE RECORDS SUMMARY | 2024-11-22 08:45 | XMS_ITS | Encounter Summary ---
Author Name [facility] [place] [facility] [place] [facility] [place] [facility] [place] Address [address] [place] [address] Care Team Providers Care Addictions Recovery Specialist Name Role Phone MING TSANG Primary Care [...] RE DODA WNR Oct 09, 2020 DODA [id number] MAXINE NAVARRO ONQUEENIE PATIENT MEDICARE (WNR) MEDICARE (M) PART B Nov 05, 2010 PART B [id number] MELANIEMAXINE ONARD PATIENT MEDICARE (WNR) MEDICARE (M) PART A Nov 05, 2010 [address] [place] [address] [phone] MELANIEMAXINE ONQUEENIE PATIENT MEDICARE (WNR) MEDICARE (M) PART B Nov 05, 2010 PART B [address] [place] [address] [phone] MAXINE NAVARRO ONQUEENIE PATIENT MEDICARE (WNR) MEDICARE (M) PART A Nov 05, 2010 PART A [address] [place] [address] MELANIEMAXINE ONARD PATIENT MEDICARE (WNR) MEDICARE (M) PART B Nov 05, 2010 PART B [id number] [facility] MELANIEMAXINE ONARD PATIENT MEDICARE (WNR) MEDICARE (M) PART A Nov 05, 2010 PART A [id number] MELANIEMAXINE ONARD PATIENT MEDICARE (WNR) MEDICARE (M) PART B Nov 05, 2010 PART B [id number] [phone] MELANIE,MAXINE ONARD PATIENT MEDICARE (WNR) MEDICARE (M) PART A Nov 05, 2010 PART A [id number] [facility] MELANIE,MAXINE ONARD PATIENT MEDICARE (WNR) MEDICARE (M) PART B Nov 05, 2010 [id number] [id number] MELANIEMAXINE ONARD PATIENT MEDICARE (WNR) MEDICARE (M) PART A Nov 05, 2010 PART A [id number] [id number] MELANIEMAXINE ONQUEENIE PATIENT MEDICARE (WNR) MEDICARE (M) PART B Nov 05, 2010 PART B [id number] [facility] MELANIE,MAXINE ONARD PATIENT MEDICARE (WNR) MEDICARE (M) PART A Nov 05, 2010 PART A [id number] MAXINE NAVARRO PATIENT FOR LIFE TRICA RE FOR LIFE Mar 31, 2010 SPONSOR [id number] MAXINE NAVARRO PATIENT FOR LIFE DIREC T CARE Mar 31, 2010 FOR LIFE [id number] MAXINE NAVARRO PATIENT -FO R-LIFE TRICA RE FOR LIFE December 05, 2010 [id number] MAXINE NAVARRO PATIENT Selected Encounter This section includes the information on record at [place] for the Encounter. Date/Time Encounter Type Encounter Description Reason Provider Source Mar 15, 2024 11:00 AM OFFICE O/P NEW MOD 45 MIN PRIMARY CARE/MEDICINE ICD-10-CM G20.C Parkinsonism, unspecified MING TSANG Encounter Template Text not used by [place] Assessments - Encounter Diagnoses This section includes the primary and secondary diagnoses documented for the Encounter. Date/Time Primary/Secondary Diagnosis Diagnosis Name Provider Source Mar 15, 2024 11:53 AM PRIMARY Parkinsonism, unspecified TSANGMING HEART [facility] Mar 15, 2024 11:53 AM SECONDARY Benign prostatic hyperplasia without lower urinry tract symp GIL TSANGEK Emerson [facility] Mar 15, 2024 11:53 AM SECONDARY Essential (primary) hypertension GIL TSANGEK Emerson [facility] Mar 15, 2024 11:53 AM SECONDARY Gout, unspecified TRINHMING Emerson [facility] Mar 15, 2024 11:53 AM SECONDARY Hyperlipidemia, unspecified TRINHMING Emerson [facility] Mar 15, 2024 11:53 AM SECONDARY Prsnl hx of TIA (TIA), and cereb infrc w/o resid deficits MING TSANG [facility] Mar 15, 2024 11:53 AM SECONDARY Type 2 diabetes mellitus without complications MING TSANG [facility] Mar 15, 2024 11:53 AM SECONDARY Unsp dementia, unsp severity, without beh/psych/mood/anx GIL TSANGEK Emerson [facility] Plan of Treatment: Future Appointments (+ 6 months) and Future Tests (+/- 45 days) The Plan of Treatment section includes future care activities for the patient from all [place] treatmentfacilities. This section includes future appointments and future orders which are active, pending or scheduled. Future Appointments This section includes appointments that were scheduled to occur 6 months from the date of the Encounter, up to a maximum of 20 appointments. The data comes from all [place] treatment facilities. Appointment Date/Time Appointment Type Appointme nt Facility Name Mar 22, 2024 01:00 PM AMBULATORY - PSYCHIATRY [facility] Mar 29, 2024 03:30 PM AMBULATORY - PSYCHIATRY [facility] Aug 09, 2024 01:00 PM AMBULATORY - PSYCHIATRY [facility] Active, Pending, and Scheduled Orders This section includes a listing of several types of active, pending, and scheduled orders, including clinic medications orders, diagnostic test orders, procedure orders and consult orders; where the start date of the order is 45 days before the date of the Encounter or 45 days after the date of theEncounter. The data comes from all [place] treatment facilities. 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 [facility] Mar 29, 2024 12:00 AM Laboratory - Chemi stry Order VALPROIC ACID [id number] SP ONCE [facility] Apr 19, 2024 12:00 AM Laboratory - Chemi stry Order eGFR + CREATININE [id number] SP ONCE [facility] Apr 19, 2024 12:00 AM Laboratory - Chemi stry Order POTASSIUM [id number] SP ONCE [facility] Apr 19, 2024 12:00 AM Laboratory - Chemi stry Order HGB & HCT [id number] BLOOD SP [facility] Apr 19, 2024 12:00 AM Laboratory - Chemi stry Order IRON/TIBC [id number] SP ONCE [facility] Apr 19, 2024 12:00 AM Laboratory - Chemi stry Order FERRITIN [id number] SP ONCE [facility] Apr 19, 2024 12:00 AM Laboratory - Chemi stry Order B12 VITAMIN [id number] SP ONCE [facility] Apr 19, 2024 12:00 AM Laboratory - Chemi stry Order CALCIUM [id number] SP ONCE [facility] Lab Results: +/- 30 days of the encounter This section includes the Chemistry and Hematology Lab Results on record with [place] for the patient. Radiology Reports and Pathology Reports are provided separately, in subsequent sections. Lab Results This section contains the Chemistry/Hematology Results that were resulted 30 days before or 30 daysafter the date of the Encounter. Date/Time Source Result Type Result - Unit Interpretation Reference Range Specimen Type Comment Mar 22, 2024 12:16 PM [facility] N MICROALBUMIN/CREAT RATIO URINE Specimen Type: URINE No comment entered. Ordering Provider: MING TSANG Report Released Date/Time: Mar 15, 2024 11:30 AM Reporting Lab: [facility] [address] [facility] [address] Performing Lab: [facility] [address] [facility] [address] CREATININE 60.8 mg/dL MICROALBUMIN QUANT 9.0 mg/L 0.0-30.0 .MICROALBUMIN/CREA RATIO 14.8 ug/mg{creat} Mar 15, 2024 12:10 PM [facility]ASMA Specimen Type: PLASM [...] Mar 15, 2024 11:30 AM Reporting Lab: [facility] [address] [facility] [address] Performing Lab: [address] [address] ALT 13 U/L 0-55 Mar 15, 2024 12:10 PM [facility] AST PLASMA Specimen Type: PLASM [...] 15, 2024 11:30 AM Reporting Lab: [address] [address] Performing Lab: [address] [address] AST 18 U/L 5-34 Mar 15, 2024 12:10 PM [facility] CBC/PLT BLOOD Specimen Type: BLOOD No comment entered. Ordering Provider: MING TSANG Report Released Date/Time: Mar 15, 2024 11:30 AM Reporting Lab: [address] [address] Performing Lab: [address] [address] WBC 6.6 10*3/uL 5.0-10.0 RBC 3.91 10*6/uL L 4.6-6.2 HGB 13.0 g/dL L 14.0-18.0 HCT 39.0 L 42.0-52.0 MCV 99.7 fL H 80.0-94.0 MCH 33.2 pg H 27.0-31.0 MCHC 33.3 g/dL 32.0-36.0 PLT 259 10*3/uL 150-450 MPV 9.6 fL 9.0-13.1 RDW 14.1 11.0-16.0 NRBC 0.0 0.0-0.0 Mar 15, 2024 12:10 PM [facility] GLYCOHEMOGLOBIN BLOOD Specimen Type: BLOOD Comment: [place] guidelines for A1c interpretation: Glycemic control targets are based on Shared Decision Making between clinicians and patients. Criteria used to establish an A1c target recommendation can be found at https://www.va.gov/qualityandpatientsafety/ and include the use of result accuracy [...] 8.73 and 9.27. Ref: https://ngsp.org/CAPdata.asp. The in-house Dragonfly-Tripping D-100 analyzer has a historical CV <= 2%. Contact the laboratory for further performance characteristics of this assay. Ordering Provider: MING TSANG Report Released Date/Time: Mar 15, 2024 11:30 AM Reporting Lab: [address] [address] Performing Lab: [address] [address] GLYCOHEMOGLOBIN 9.1 H 4.4-6.4 Mar 15, 2024 12:10 PM [facility] LIPID PROFILE PLASMA Specimen Type: PLASM A [...] 15, 2024 11:30 AM Reporting Lab: [address] [address] Performing Lab: [address] [address] CHOLESTEROL 144 mg/dL 0-199 TRIGLYCERIDE 96 mg/dL 0-149 HDL CHOLESTEROL 40 mg/dL 40-69 DIRECT LDL CHOL. 93 mg/dL 0-100 Mar 15, 2024 12:10 PM [facility] PLASMA Specimen Type: PLASM [...] 15, 2024 11:30 AM Reporting Lab: [address] [address] Performing Lab: [address] [address] CREATININE 2.10 mg/dL H 0.72-1.25 UREA NITROGEN [...] 124/76 20 99 0 155 [place] [facility] Mar 15, 2024 10:22 AM 66 [place] [facility] Social History: Smoking Status (Most current) and Tobacco Use (All prior to encounter date) This section includes the most current, and the historical, smoking and tobacco- related health factors from the [place] facility where the Encounter took place. Current Smoking Status This section includes the most current smoking, or tobacco-related health factor, from the [place] facility where the Encounter took place. Date/Time Current Smoking Status Matt christy Mar 15, 2024 11:00 AM VA-TOBACCO FORMER USER [facility] Tobacco Use History This section includes a history of the smoking, or tobacco-related health factors, that were collected on or before the date of the Encounter. The data comes from the [place] facility where the Encounter took place. Date/Time Smoking Status/Tobacco Use Comment F acility Mar 15, 2024 11:00 AM VA-TOBACCO QUIT 15 YRS OR MORE [facility] Advance Directives: All historical and current Section Date Range: From patient's date of to the date document was created. This section includes ALL of a patient's completed or amended [place] Advance and Rescinded Directives. The entries below indicate that a directive exists for the patient, but an actual copy is not included with this document. The data comes from all [place] facilities. Date Advance Directives Provider Source Apr 21, 2017 ADVANCE DIRECTIVE DISCUSSION YFN JOHNSON [facility] Jun 26, 2015 ADVANCE DIRECTIVE DISCUSSION ILIA SAL [facility] Encounter Notes: All associated encounter notes This section contains the clinical notes associated to the Encounter. Date/Time Encounter Note(s) Provider Source Mar 19, 2024 09:52 AM ADDENDUM: LOCAL TITLE: Addendum STANDARD TITLE: ADDENDUM DATE OF NOTE: MAR 19, 2024@09:52:39 ENTRY DATE: MAR 19, 2024@09:52:40 AUTHOR: MING TSANG EXP COSIGNER: URGENCY: STATUS: COMPLETED Meds ordered and renal consult placed, awaiting records from non [place] neuro before a neuro consult can be placed. His creatinine is high, stay well hydrated. His HbA1c is high, is pt not taking any DM meds? Please confirm. Thanks /franny/ MING TSANG M.D. PRIMARY CARE STAFF PHYSICIAN Signed: 03/19/2024 09:53 Receipt Acknowledged By: 03/19/2024 14:16 /franny/ RICHA MORALES,RN warehouse delivery manager --- Original Document --- 03/15/24 PC NEW PATIENT CONSULT RESPONSE: com: establish care at [facility]. HPI: Mr Navarro presents today accompanied by his son. Pt states he has Parkinson Disease and Dementia for >10 yrs and was being managed by non [place] neurologist in [place] before he moved here, son states pt is doing quite well and reports no behavioral issues. He has DM x >10 yrs and states his last A1c in January 7.6. He has HTN for >10 yrs and his BP is in good range. Pt on med for Hyperlipidemia for >10 yrs. 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 He states his potassium is high and a kidney doctor prescribed Lokelma to lower his potassium. Pt states he has Gout and prostate issues for >10 yrs and is doing well. He has Biploar D/O for >10 yrs and has appt with [facility] next week. He and son offer no complaints today. PMH: as above PSH: Tonsillectomy & adenoidectomy 40 yrs ago list of problems and related history: Problem List - Active - NONE FOUND ros: no cp, sob, ortiz, dizziness, gi, gu problems reported all: IODINATED CONTRAST MEDIA med: Active Outpatient Medications (including Supplies): Active Non-VA Medications Status 1) Non-VA ALLOPURINOL TAB MOUTH ACTIVE 2) Non-VA CITALOPRAM TAB MOUTH ACTIVE 3) Non-VA CLOPIDOGREL BISULFATE 75MG TAB 75MG MOUTH ACTIVE DAILY 4) Non-VA DIVALPROEX(HANDLING ALERT) TAB (DELAYED ACTIVE RELEASE) MOUTH 5) Non-VA GEMFIBROZIL TAB,ORAL MOUTH ACTIVE 6) Non-VA LISINOPRIL TAB MOUTH ACTIVE 7) Non-VA MEMANTINE TAB MOUTH ACTIVE 8) Non-VA METFORMIN 500MG/SITAGLIPTIN 50MG TAB MOUTH ACTIVE 9) Non-VA PRIMIDONE TAB MOUTH ACTIVE 10) Non-VA PROPRANOLOL LA (proPRANolol LA) CAP,SA MOUTH ACTIVE 11) Non-VA QUETIAPINE TAB MOUTH ACTIVE 12) Non-VA SODIUM ZIRCONIUM CYCLOSILICATE PWDR,RENST-ORAL ACTIVE MOUTH 13) Non-VA TAMSULOSIN (FLOMAX) CAP,ORAL MOUTH ACTIVE sh: retired, quit smoking >20 yrs ago, denies etoh and drug use fh: Father: Abdoul disease pe: bp: 124/76 (03/15/2024 10:22) pulse: 83 (03/15/2024 10:22) resp: 20 (03/15/2024 10:22) temp: 97.6 F [36.4 C] (03/15/2024 10:22) ht: 66 in [167.6 cm] (03/15/2024 10:22) wt: 155 lb [70.31 kg] (03/15/2024 10:22) pain: 0 (03/15/2024 10:22) bmi: BODY MASS INDEX - 25.1 gen: nad head: no trauma eyes: conjunctivae clear neck: supple lungs: ctab heart: s1s2+ reg abd: soft, ntnd back: nt ext: no edema neuro: grossly intact assessment/plan: 1. Parkinsons Disease, Dementia: on meds, will provide records from non [place] neurologist so I can place neuro consult at [place] 2. Type 2 DM w/out comp: pt unsure if he is taking med, HbA1c today 3. Essential HTN: BP good on current Rx 4. Hyperlipidemia: on med, labs today' 5. H/O TIA: on plavix 6. Gout: on med, no flare ups reported 7. BPH: doing well on current Rx 8. Bipolar D/O: has appt with [facility] nest week 9. Pt states his last colonoscopy was about 5 yrs ago and it was fine . He declines anymore colon CA screening 10. Labs today, f/up in 1yr Pt had a hand written list of med, unable to verify dose, son states he will bring med bottles on Monday. The voiced understanding of topics covered/discussed at today's visit and has no further questions at this time. COVID-19 Immunization: Defer vaccine, reassess in 1 year Reason: pt declines Tobacco Pack Year History: Former cigarette smoker but now quit: Quit smoking GREATER THAN OR EQUAL to 15 years ago. Toxic Exposure Screening Follow-Up: Exposure Concern(s): 03/15/2024 Doesnt Know - Toxic Exposure Concern Follow-up Question(s): 03/15/2024 Health/Medical Questions - Toxic Exposure Concern [place]/caregiver has no health or medical concerns related to their concern of environmental exposure. The following connections were provided to the /caregiver: No connections needed at this time Hepatitis C Testing: Patient declines HCV lab test. Herpes Zoster (Shingles) Vaccine: The patient declines to receive the recommended dose of zoster (shingles) vaccine. Immunization: ZOSTER RECOMBINANT Refusal Reason: PATIENT DECISION Patient refuses all immunization(s) in the ZOSTER group Date Documented: 03/15/24 11:43 Pneumococcal Conjugate Vaccine (PCV15/PCV20): Refuses PCV vaccine Immunization: PNEUMOCOCCAL CONJUGATE, UNSPECIFIED FORMULATION Refusal Reason: PATIENT DECISION Patient refuses all immunization(s) in the PneumoPCV group Date Documented: 03/15/24 11:44 Tdap Immunization: The patient declines to receive the recommended dose of Tdap vaccine. Immunization: TDAP Refusal Reason: PATIENT DECISION Patient refuses all immunization(s) in the TDAP group Date Documented: 03/15/24 11:44 /franny/ MING TSANG M.D. PRIMARY CARE STAFF PHYSICIAN Signed: 03/15/2024 11:54 03/18/2024 ADDENDUM STATUS: COMPLETED Son presented to front man with medication RX bottles from local out of state provider. Father just moved to [place] and was seen on the dateas a new pt. Records have been requested Please review all medication RX for refill Clopidogrel 75mg tablet daily Tamsulosin 0.4mg Take on capsule by mouth daily Propranolol 60mg Take one capsule daily Genfibrozil 600mg 1 twice a day Allopurinol 100mg Take one tablet daily Lisinopril 10mg Take one tablet daily Primidone 50mg 1 tablet by mouth daily Lokelma 5g per packet daily /franny/ RICHA MORALES,RN warehouse delivery manager Signed: 03/18/2024 16:33 Receipt Acknowledged By: 03/19/2024 09:52 /franny/ MING TSANG M.D. PRIMARY CARE STAFF PHYSICIAN MING TSANG [facility] Mar 18, 2024 04:27 PM ADDENDUM: LOCAL TITLE: Addendum STANDARD TITLE: ADDENDUM DATE OF NOTE: MAR 18, 2024@16:27:04 ENTRY DATE: MAR 18, 2024@16:27:05 AUTHOR: EDS SALINAS EXP COSIGNER: URGENCY: STATUS: COMPLETED Son presented to front man with medication RX bottles from local out of state provider. Father just moved to [place] and was seen on the dateas a new pt. Records have been requested Please review all medication RX for refill Clopidogrel 75mg tablet daily Tamsulosin 0.4mg Take on capsule by mouth daily Propranolol 60mg Take one capsule daily Genfibrozil 600mg 1 twice a day Allopurinol 100mg Take one tablet daily Lisinopril 10mg Take one tablet daily Primidone 50mg 1 tablet by mouth daily Lokelma 5g per packet daily /franny/ RICHA MORALES,RN warehouse delivery manager Signed: 03/18/2024 16:33 Receipt Acknowledged By: 03/19/2024 09:52 /franny/ MING TSANG M.D. PRIMARY CARE STAFF PHYSICIAN --- Original Document --- 03/15/24 NEW PATIENT CONSULT RESPONSE: com: establish care at [facility]. HPI: Mr Melanie presents today accompanied by his son. Pt states he has Parkinson Disease and Dementia for >10 yrs and was being managed by non [place] before [place] here, son states pt is doing quite well and reports no behavioral issues. He has DM x >10 yrs and states his last A1c in January 7.6. He has HTN for >10 yrs and his BP is in good range. Pt on med for Hyperlipidemia for >10 yrs. 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 He states his potassium is high and a kidney doctor prescribed Lokelma to lower his potassium. Pt states he has Gout and prostate issues for >10 yrs and is doing well. He has Biploar D/O for >10 yrs and has appt with [facility] next week. He and son offer no complaints today. PMH: as above PSH: Tonsillectomy & adenoidectomy 40 yrs ago list of problems and related history: Problem List - Active - NONE FOUND ros: no cp, sob, ortiz, dizziness, gi, gu problems reported all: IODINATED CONTRAST MEDIA med: Active Outpatient Medications (including Supplies): Active Non-VA Medications Status 1) Non-VA ALLOPURINOL TAB MOUTH ACTIVE 2) Non-VA CITALOPRAM TAB MOUTH ACTIVE 3) Non-VA CLOPIDOGREL BISULFATE 75MG TAB 75MG MOUTH ACTIVE DAILY 4) Non-VA DIVALPROEX(HANDLING ALERT) TAB (DELAYED ACTIVE RELEASE) MOUTH 5) Non-VA GEMFIBROZIL TAB,ORAL MOUTH ACTIVE 6) Non-VA LISINOPRIL TAB MOUTH ACTIVE 7) Non-VA MEMANTINE TAB MOUTH ACTIVE 8) Non-VA METFORMIN 500MG/SITAGLIPTIN 50MG TAB MOUTH ACTIVE 9) Non-VA PRIMIDONE TAB MOUTH ACTIVE 10) Non-VA PROPRANOLOL LA (proPRANolol LA) CAP,SA MOUTH ACTIVE 11) Non-VA QUETIAPINE TAB MOUTH ACTIVE 12) Non-VA SODIUM ZIRCONIUM CYCLOSILICATE PWDR,RENST-ORAL ACTIVE MOUTH 13) Non-VA TAMSULOSIN (FLOMAX) CAP,ORAL MOUTH ACTIVE sh: retired, quit smoking >20 yrs ago, denies etoh and drug use fh: Father: Abdoul disease pe: bp: 124/76 (03/15/2024 10:22) pulse: 83 (03/15/2024 10:22) resp: 20 (03/15/2024 10:22) temp: 97.6 F [36.4 C] (03/15/2024 10:22) ht: 66 in [167.6 cm] (03/15/2024 10:22) wt: 155 lb [70.31 kg] (03/15/2024 10:22) pain: 0 (03/15/2024 10:22) bmi: BODY MASS INDEX - 25.1 gen: nad head: no trauma eyes: conjunctivae clear neck: supple lungs: ctab heart: s1s2+ reg abd: soft, ntnd back: nt ext: no edema neuro: grossly intact assessment/plan: 1. Parkinsons Disease, Dementia: on meds, will provide records from non [place] neurologist so I can place neuro consult at [place] 2. Type 2 DM w/out comp: pt unsure if he is taking med, HbA1c today 3. Essential HTN: BP good on current Rx 4. Hyperlipidemia: on med, labs today' 5. H/O TIA: on plavix 6. Gout: on med, no flare ups reported 7. BPH: doing well on current Rx 8. Bipolar D/O: has appt with [facility] nest week 9. Pt states his last colonoscopy was about 5 yrs ago and it was fine . He declines anymore colon CA screening 10. Labs today, f/up in 1yr Pt had a hand written list of med, unable to verify dose, son states he will bring med bottles on Monday. The voiced understanding of topics covered/discussed at today's visit and has no further questions at this time. COVID-19 Immunization: Defer vaccine, reassess in 1 year Reason: pt declines Tobacco Pack Year History: Former cigarette smoker but now quit: Quit smoking GREATER THAN OR EQUAL to 15 years ago. Toxic Exposure Screening Follow-Up: Exposure Concern(s): 03/15/2024 Doesnt Know - Toxic Exposure Concern Follow-up Question(s): 03/15/2024 Health/Medical Questions - Toxic Exposure Concern [place]/caregiver has no health or medical concerns related to their concern of environmental exposure. The following connections were provided to the /caregiver: No connections needed at this time Hepatitis C Testing: Patient declines HCV lab test. Herpes Zoster (Shingles) Vaccine: The patient declines to receive the recommended dose of zoster (shingles) vaccine. Immunization: ZOSTER RECOMBINANT Refusal Reason: PATIENT DECISION Patient refuses all immunization(s) in the ZOSTER group Date Documented: 03/15/24 11:43 Pneumococcal Conjugate Vaccine (PCV15/PCV20): Refuses PCV vaccine Immunization: PNEUMOCOCCAL CONJUGATE, UNSPECIFIED FORMULATION Refusal Reason: PATIENT DECISION Patient refuses all immunization(s) in the PneumoPCV group Date Documented: 03/15/24 11:44 Tdap Immunization: The patient declines to receive the recommended dose of Tdap vaccine. Immunization: TDAP Refusal Reason: PATIENT DECISION Patient refuses all immunization(s) in the TDAP group Date Documented: 03/15/24 11:44 /franny/ MING TSANG M.D. PRIMARY CARE STAFF PHYSICIAN Signed: 03/15/2024 11:54 03/19/2024 ADDENDUM STATUS: UNSIGNED You may not VIEW this UNSIGNED Addendum. DES SALINAS [facility] Mar 15, 2024 11:35 AM CONSULT: LOCAL TITLE: PC NEW PATIENT CONSULT RESPONSE STANDARD TITLE: CONSULT DATE OF NOTE: MAR 15, 2024@11:35 ENTRY DATE: MAR 15, 2024@11:35:15 AUTHOR: MING TSANG EXP COSIGNER: URGENCY: STATUS: COMPLETED PC NEW PATIENT CONSULT RESPONSE Has ADDENDA ch com: establish care at [facility]. HPI: Mr Melanie presents today accompanied by his son. Pt states he has Parkinson Disease and Dementia for >10 yrs and was being managed by non [place] neurologist in [place] before [place] moved here, son states pt is doing quite well and reports no behavioral issues. He has DM x >10 yrs and states his last A1c in January 7.6. He has HTN for >10 yrs and his BP is in good range. Pt on med for Hyperlipidemia for >10 yrs. 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 He states his potassium is high and a kidney doctor prescribed Lokelma to lower his potassium. Pt states he has Gout and prostate issues for >10 yrs and is doing well. He has Biploar D/O for >10 yrs and has appt with [facility] next week. He and son offer no complaints today. PMH: as above PSH: Tonsillectomy & adenoidectomy 40 yrs ago list of problems and related history: Problem List - Active - NONE FOUND ros: no cp, sob, ortiz, dizziness, gi, gu problems reported all: IODINATED CONTRAST MEDIA med: Active Outpatient Medications (including Supplies): Active Non-VA Medications Status 1) Non-VA ALLOPURINOL TAB MOUTH ACTIVE 2) Non-VA CITALOPRAM TAB MOUTH ACTIVE 3) Non-VA CLOPIDOGREL BISULFATE 75MG TAB 75MG MOUTH ACTIVE DAILY 4) Non-VA DIVALPROEX(HANDLING ALERT) TAB (DELAYED ACTIVE RELEASE) MOUTH 5) Non-VA GEMFIBROZIL TAB,ORAL MOUTH ACTIVE 6) Non-VA LISINOPRIL TAB MOUTH ACTIVE 7) Non-VA MEMANTINE TAB MOUTH ACTIVE 8) Non-VA METFORMIN 500MG/SITAGLIPTIN 50MG TAB MOUTH ACTIVE 9) Non-VA PRIMIDONE TAB MOUTH ACTIVE 10) Non-VA PROPRANOLOL LA (proPRANolol LA) CAP,SA MOUTH ACTIVE 11) Non-VA QUETIAPINE TAB MOUTH ACTIVE 12) Non-VA SODIUM ZIRCONIUM CYCLOSILICATE PWDR,RENST-ORAL ACTIVE MOUTH 13) Non-VA TAMSULOSIN (FLOMAX) CAP,ORAL MOUTH ACTIVE sh: retired, quit smoking >20 yrs ago, denies etoh and drug use fh: Father: Abdoul disease pe: bp: 124/76 (03/15/2024 10:22) pulse: 83 (03/15/2024 10:22) resp: 20 (03/15/2024 10:22) temp: 97.6 F [36.4 C] (03/15/2024 10:22) ht: 66 in [167.6 cm] (03/15/2024 10:22) wt: 155 lb [70.31 kg] (03/15/2024 10:22) pain: 0 (03/15/2024 10:22) bmi: BODY MASS INDEX - 25.1 gen: nad head: no trauma eyes: conjunctivae clear neck: supple lungs: ctab heart: s1s2+ reg abd: soft, ntnd back: nt ext: no edema neuro: grossly intact assessment/plan: 1. Parkinsons Disease, Dementia: on meds, will provide records from non [place] neurologist so I can place neuro consult at [place] 2. Type 2 DM w/out comp: pt unsure if he is taking med, HbA1c today 3. Essential HTN: BP good on current Rx 4. Hyperlipidemia: on med, labs today' 5. H/O TIA: on plavix 6. Gout: on med, no flare ups reported 7. BPH: doing well on current Rx 8. Bipolar D/O: has appt with [facility] nest week 9. Pt states his last colonoscopy was about 5 yrs ago and it was fine . He declines anymore colon CA screening 10. Labs today, f/up in 1yr Pt had a hand written list of med, unable to verify dose, son states he will bring med bottles on Monday. The voiced understanding of topics covered/discussed at today's visit and has no further questions at this time. COVID-19 Immunization: Defer vaccine, reassess in 1 year Reason: pt declines Tobacco Pack Year History: Former cigarette smoker but now quit: Quit smoking GREATER THAN OR EQUAL to 15 years ago. Toxic Exposure Screening Follow-Up: Exposure Concern(s): 03/15/2024 Doesnt Know - Toxic Exposure Concern Follow-up Question(s): 03/15/2024 Health/Medical Questions - Toxic Exposure Concern /caregiver has no health or medical concerns related to their concern of environmental exposure. The following connections were provided to the /caregiver: No connections needed at this time Hepatitis C Testing: Patient declines HCV lab test. Herpes Zoster (Shingles) Vaccine: The patient declines to receive the recommended dose of zoster (shingles) vaccine. Immunization: ZOSTER RECOMBINANT Refusal Reason: PATIENT DECISION Patient refuses all immunization(s) in the ZOSTER group Date Documented: 03/15/24 11:43 Pneumococcal Conjugate Vaccine (PCV15/PCV20): Refuses PCV vaccine Immunization: PNEUMOCOCCAL CONJUGATE, UNSPECIFIED FORMULATION Refusal Reason: PATIENT DECISION Patient refuses all immunization(s) in the PneumoPCV group Date Documented: 03/15/24 11:44 Tdap Immunization: The patient declines to receive the recommended dose of Tdap vaccine. Immunization: TDAP Refusal Reason: PATIENT DECISION Patient refuses all immunization(s) in the TDAP group Date Documented: 03/15/24 11:44 /franny/ MING TSANG M.D. PRIMARY CARE STAFF PHYSICIAN Signed: 03/15/2024 11:54 03/18/2024 ADDENDUM STATUS: COMPLETED Son presented to front man with medication RX bottles from local out of state provider. Father just moved to [place] and was seen on the dateas a new pt. Records have been requested Please review all medication RX for refill Clopidogrel 75mg tablet daily Tamsulosin 0.4mg Take on capsule by mouth daily Propranolol 60mg Take one capsule daily Genfibrozil 600mg 1 twice a day Allopurinol 100mg Take one tablet daily Lisinopril 10mg Take one tablet daily Primidone 50mg 1 tablet by mouth daily Lokelma 5g per packet daily /franny/ KINSEY MORALESN,RN warehouse delivery manager Signed: 03/18/2024 16:33 Receipt Acknowledged By: 03/19/2024 09:52 /franny/ MING TSANG M.D. PRIMARY CARE STAFF PHYSICIAN 03/19/2024 ADDENDUM STATUS: COMPLETED Meds ordered and renal consult placed, awaiting records from non [place] neuro before a neuro consult can be placed. His creatinine is high, stay well hydrated. His HbA1c is high, is pt not taking any DM meds? Please confirm. Thanks /franny/ MING TSANG M.D. PRIMARY CARE STAFF PHYSICIAN Signed: 03/19/2024 09:53 Receipt Acknowledged By: * AWAITING SIGNATURE * DES SALINAS VIVEK R [place] [facility] Mar 15, 2024 10:29 AM PRIMARY CARE NURSING NOTE: LOCAL TITLE: Health Tech/camera tuning engineer Note STANDARD TITLE: PRIMARY CARE NURSING NOTE DATE OF NOTE: MAR 15, 2024@10:29 ENTRY DATE: MAR 15, 2024@10:29:48 AUTHOR: TRACEY PETERSONIGNER: URGENCY: STATUS: COMPLETED The patient was given a list of his current medications, instructed to review and discuss any changes or problems with their provider. Patient advised to carry a list of current medications and any allergies with them in the event of emergency situations. Yes - [place]/Caregiver verbalized understanding of topics discussed and education provided Provider notified of elevated B/P >/= 140/90. Not Applicable Alcohol Use Screen (AUDIT-C): Alcohol Screen:QUIT 40 YEARS SCREEN FOR ALCOHOL (AUDIT-C) An alcohol screening test (AUDIT-C) was negative (score=0). 1. How often did you have a drink containing alcohol in the past year? Consider a drink to be a 12 ounce can or bottle of regular beer, 8 ounces of malt liquor, a 5 ounce glass of table wine, or a 1.5 ounce shot of liquor (like scotch, gin, or vodka). Never 2. How many drinks containing alcohol did you have on a typical day when you were drinking in the past year? Response not required due to responses to other questions. 3. How often did you have six or more drinks on one occasion in the past year? Response not required due to responses to other questions. Tobacco Use Screening: The patient is a former tobacco user. The patient quit fifteen or more years ago. Depression Screening: Perform PHQ-2 A PHQ-2 screen was performed. The score was 2 which is a negative screen for depression. Over the past two weeks, how often have you been bothered by the following problems? 1. Little interest or pleasure in doing things Several days 2. Feeling down, depressed, or hopeless Several days Homelessness/Food Insecurity Screen: In the past 2 months, have you been living in stable housing that you own, rent, or stay in as part of a household? Yes - Living in stable housing. Are you worried or concerned that in the next 2 months you may NOT have stable housing that you own, rent, or stay in as part of a household? No - Not worried about housing near future The [place] reports the following: Within the past 12 months, you worried whether your food would run out before you got money to buy more. Never true Within the past 12 months, the food you bought just didn't last and you didn't have money to get more. Never true PTSD Screening: PC-PTSD-5 A PTSD screening test (PC-PTSD-5) was negative (score=0). IN THE PAST MONTH, have you ever had any experience that was so frightening, horrible or traumatic. For example: A serious accident or fire a physical or sexual assault or abuse An earthquake or flood A war Seeing someone be killed or seriously injured Having a loved one through homicide or suicide 1. Have you ever experienced this kind of event? NO 2. Had nightmares about the event(s) or thought about the event(s) when you did not want to? Response not required due to responses to other questions. 3. Tried hard not to think about the event(s) or went out of your way to avoid situations that reminded you of the event(s)? Response not required due to responses to other questions. 4. Been constantly on guard, watchful, or easily startled? Response not required due to responses to other questions. 5. [place] numb or detached from people, activities, or your surroundings? Response not required due to responses to other questions. 6. Germfask guilty or unable to stop blaming yourself or others for the event(s) or any problems the event(s) may have caused? Response not required due to responses to other questions. Suicide Screen: C-SSRS Screening [place] Suicide Severity Rating Scale (C-SSRS) screener 1. Over the past month, have you [...] this within the past 3 months? No Toxic Exposure Screening: The [place]/caregiver was asked if they believe the experienced any toxic exposure(s), such as Airborne Hazards and Open Burn Pit, [place] War related exposures, Agent [place], Radiation, contaminated water at [place] or other such exposures, while serving in the Armed Forces. [place]/caregiver doesn't know of concerns about exposure to harmful substances while serving in the Armed Forces. Printed information was offered and contact information for local resources were provided if requested. Health/Medical Questions All patients who report a health/medical concern will receive follow-up from a clinician. For urgent or emergent concerns, they were advised to follow local facility policy. Contact information for local resources: Benefits/Claim Questions: [place] Benefits Administration (VBA): [place] Healthcare Enrollment: Health Benefits: [phone] Ext. [phone] Registry Coordinator: Ext. [phone] PTSD Screening: PC-PTSD-5 A PTSD screening test (PC-PTSD-5) was negative (score=0). IN THE PAST MONTH, have you ever had any experience that was so frightening, horrible or traumatic. For example: A serious accident or fire a physical or sexual assault or abuse An earthquake or flood A war Seeing someone be killed or seriously injured Having a loved one through homicide or suicide 1. Have you ever experienced this kind of event? NO 2. Had nightmares about the event(s) or thought about the event(s) when you did not want to? Response not required due to responses to other questions. 3. Tried hard not to think about the event(s) or went out of your way to avoid situations that reminded you of the event(s)? Response not required due to responses to other questions. 4. Been constantly on guard, watchful, or easily startled? Response not required due to responses to other questions. 5. Germf[place] numb or detached from people, activities, or your surroundings? Response not required due to responses to other questions. 6. Germf[place] guilty or unable to stop blaming yourself or others for the event(s) or any problems the event(s) may have caused? Response not required due to responses to other questions. ADL/IADL Functional Measures(V9): Incontinence Screen: Within the past 12 months, has the patient had any characteristics of incontinence (ability, voiding, leakage, etc.)? No incontinence. Falls Screen: Patient does not report falls within the past 12 months. Dementia Warning Signs: Please indicate below whether the patient or caregiver report any warning signs of Dementia? No warning signs of dementia noted. Godoy Index of [place] in Activities of Daily Living: GODOY INDEX FOR ADL ASSESSMENT: GODOY Index of [place] in Activities of Daily Living was completed at this encounter. BATHING: Patient needs no supervision, direction or personal assistance with bathing. DRESSING: Patient needs no supervision, direction or personal assistance with dressing. TOILETING: Patient needs no supervision, direction or personal assistance with toileting. TRANSFERRING: Patient needs no supervision, direction or personal assistance with transferring. CONTINENCE: Patient needs no supervision, direction or personal assistance with bowel continence. FEEDING: Patient needs no supervision, direction or personal assistance with feeding/eating. ENTER TOTAL SCORE BELOW: TOTAL POINTS: = [ 6 ] NOTE: 6-5 = FULL FUNCTION (patient independent) INSTRUMENTAL ACTIVITIES OF DAILY LIVING (IADL) SCALE ([place]) Telephone: 1 point - Able to answer phone and dial for help, other assistance needed Shoppin points - Needs to be accompanied on any shopping trip Food preparation: 0 points - Needs to have meals prepared and served Housekeepin point - Performs light daily tasks such as dishwashing, bed-making Laundry: 1 point - Able to lauunder small items; rinses stockings, etc. Mode of transportation: 1 point - Arranges own travel via taxi, but does not otherwise use public transportation Responsibility for own medications: 0 points - Takes responsibility if medication is prepared in advance in separate dosages Ability to handle finances: 1 point - Manages financial matters independently (budgets, writes checks, pays rent and bills, goes to bank), collects and keeps track of income SCORING: The total score may range from 0 - 8. A lower score indicates a higher level of dependence. Total score: 6 points Learning Readiness Assessment: Preferred language for discussing health care Occitan NEW ASSESSMENT LEARNING BARRIERS Visual Barrier Comment: READING GLASSES READING LIMITATIONS No reading limitations PREFERRED METHODS FOR LEARNING Written/Printed Material INTERESTED IN LEARNING (MOTIVATED) Yes, interested in learning what? Comment: HIS HEALTHCARE PERSON BEING EDUCATED TODAY Patient N/A Comment: SON Education was provided on the following topics RESPONSE Verbalizes Successfully /franny/ YAMILE PETERSON LPN LPN Signed: 03/15/2024 10:55 TRACEY PETERSON [facility]
--- OUTSIDE RECORDS SUMMARY | 2024-11-22 08:45 | XMS_ITS | Encounter Summary ---
Author Name [facility] [facility] [place] Address [address] [place] [address] Care Team Providers Care Inside Polisher Name Role Phone MING TSANG Primary Care [...] RE DODA WNR Oct 09, 2020 DODA [id number] MELANIE,LE ONQUEENIE PATIENT MEDICARE (WNR) MEDICARE (M) PART A Nov 05, 2010 PART A [id number] [facility] [phone] MAXINE NAVARRO ONARD PATIENT MEDICARE (WNR) MEDICARE (M) PART B Nov 05, 2010 PART B [id number] [place] [address] [phone] MAXINE NAVARRO ONARD PATIENT MEDICARE (WNR) MEDICARE (M) PART A Nov 05, 2010 PART [id number] [id number] [phone] MAXINE NAVARRO ONQUEENIE PATIENT MEDICARE (WNR) MEDICARE (M) PART B Nov 05, 2010 PART B [id number] [place] [address] [phone] MELANIEMAXINE ONQUEENIE PATIENT MEDICARE (WNR) MEDICARE (M) PART A Nov 05, 2010 PART A [id number] MELANIE,MAXINE ONQUEENIE PATIENT MEDICARE (WNR) MEDICARE (M) PART B Nov 05, 2010 PART B [id number] MELANIEMAXINE ONARD PATIENT MEDICARE (WNR) MEDICARE (M) PART A Nov 05, 2010 PART A [id number] [id number] MELANIE,MAXINE ONARD PATIENT MEDICARE (WNR) MEDICARE (M) PART B Nov 05, 2010 PART B [id number] [id number] [phone] MELANIEMAXINE ONARD PATIENT MEDICARE (WNR) MEDICARE (M) PART A Nov 05, 2010 PART A [id number] [id number] [phone] MELANIEMAXINE PATIENT MEDICARE (WNR) MEDICARE (M) PART B Nov 05, 2010 PART B [id number] [facility] [phone] [id number] MELANIEMAXINE PATIENT MEDICARE (WNR) MEDICARE (M) PART A Nov 05, 2010 PART A [id number] MELANIEMAXINE GEE PATIENT MEDICARE (WNR) MEDICARE (M) PART B Nov 05, 2010 PART B [id number] MAXINE NAVARRO PATIENT FOR LIFE [facility] RE FOR LIFE Mar 31, 2010 SPONSOR [id number] MAXINE NAVARRO PATIENT FOR LIFE DIREC T CARE Mar 31, 2010 FOR LIFE [id number] MAXINE NAVARRO PATIENT -FO R-LIFE [facility] FOR LIFE December 05, 2010 TFL [id number] [phone] MAXINE NAVARRO PATIENT Selected Encounter This section includes the information on record at [place] for the Encounter. Date/Time Encounter Type Encounter Description Reason Pro vider Source Sep 30, 2024 12:30 PM Outpatient Encounter ADMIN PAT ACTIVTIES (MASNONCT) IHE Encounter Template Text not used by [facility] Plan of Treatment: Future Appointments (+ 6 months) and Future Tests (+/- 45 days) The Plan of Treatment section includes future care activities for the patient from all [place] [facility] This section includes future appointments and future orders which are active, pending or scheduled. Future Appointments This section includes appointments that were scheduled to occur 6 months from the date of the Encounter, up to a maximum of 20 appointments. The data comes from all [place] treatment facilities. Appointment Date/Time Appointment Type Appointme nt Facility Name Nov 08, 2024 11:00 AM AMBULATORY - PSYCHIATRY [facility] Jan 29, 2025 01:00 PM AMBULATORY - PS[facility]CHIATRY [facility] Jan 31, 2025 10:00 AM AMBULATORY - NONE [facility] Lab Results: +/- 30 days of the encounter This section includes the Chemistry and Hematology Lab Results on record with [place] for the patient. Radiology Reports and Pathology Reports are provided separately, in subsequent sections. Lab Results This section contains the Chemistry/Hematology Results that were resulted 30 days before or 30 daysafter the date of the Encounter. Date/Time Source Result Type Result - Unit Interpretation Reference Range Specimen Type Comment Sep 30, 2024 08:55 AM [facility] WN VALPROIC ACID PLASMA Specimen Type: PLASMA No comment entered. Ordering Provider: ALEXSANDRA STEPHENSON Report Released Date/Time: Aug 09, 2024 07:55 AM Reporting Lab: [address] [address] Performing Lab: [address] [address] VALPROIC ACID 30.8 ug/mL L 50.0-99.9 Social History: Smoking Status (Most current) and Tobacco Use (All prior to encounter date) This section includes the most current, and the historical, smoking and tobacco- related health factors from the [place] facility where the Encounter took place. Current Smoking Status This section includes the most current smoking, or tobacco-related health factor, from the [place] facility where the Encounter took place. Date/Time Current Smoking Status Comment Jeri josey Mar 15, 2024 11:00 AM [facility]-TOBACCO FORMER USER [facility] Tobacco Use History This section includes a history of the smoking, or tobacco-related health factors, that were collected on or before the date of the Encounter. The data comes from the [place] facility where the Encounter took place. Date/Time Smoking Status/Tobacco Use Comment F acility Mar 15, 2024 11:00 AM [place]-TOBACCO QUIT 15 YRS OR MORE [facility] Advance Directives: All historical and current Section Date Range: From patient's date of to the date document was created. This section includes ALL of a patient's completed or amended [place] Advance and Rescinded Directives. The entries below indicate that a directive exists for the patient, but an actual copy is not included with this document. The data comes from all [place] facilities. Date Advance Directives Provider Source Apr 21, 2017 ADVANCE DIRECTIVE DISCUSSION YFN JOHNSON [facility] Jun 26, 2015 ADVANCE DIRECTIVE DISCUSSION ILIA SAL [facility] Encounter Notes: All associated encounter notes This section contains the clinical notes associated to the Encounter. Date/Time Encounter Note(s) Provider Source Sep 30, 2024 12:30 PM PHARMACY NOTE: LOCAL TITLE: SIGNATURE READY PHARMACY RENEWAL NOTE STANDARD TITLE: PHARMACY NOTE DATE OF NOTE: SEP 30, 2024@12:30 ENTRY DATE: SEP 30, 2024@12:30:50 AUTHOR: SPEEDY CUETO EXP COSIGNER: URGENCY: STATUS: COMPLETED Signature Ready Order No Data Found for the Selected Note Titles 1) Rx#: [id number] GEMFIBROZIL 600MG TAB 2) Rx#: [id number] MEMANTINE HCL 10MG TAB Original Prescriber: MING TSANG Pharmacy received request via: TELEPHONE /franny/ SPEEDY CUETO CPHT Pharmacy Resident Service Coordinator Signed: 09/30/2024 12:33 [facility]
--- OUTSIDE RECORDS SUMMARY | 2024-11-22 08:45 | XMS_ITS | Encounter Summary ---
Author Name [facility] [place] Address [address] [place] [address] Care Team Providers Care Food Dehydrator Operator Name Role Phone MING TSANG Primary Care [...] RE DODA WNR Oct 09, 2020 DODA [id number] MAXINE NAVARRO ONQUEENIE PATIENT MEDICARE (WNR) MEDICARE (M) PART B Nov 05, 2010 PART B [id number] MELANIE,LE ONARD PATIENT MEDICARE (WNR) MEDICARE (M) PART A Nov 05, 2010 PART [address] [place] [address] [phone] MELANIE,LE ONQUEENIE PATIENT MEDICARE (WNR) MEDICARE (M) PART B Nov 05, 2010 PART B [address] [place] [address] [phone] MAXINE NAVARRO ONQUEENIE PATIENT MEDICARE (WNR) MEDICARE (M) PART A Nov 05, 2010 PART A [address] [place] [address] MELANIEMAXINE GEE PATIENT MEDICARE (WNR) MEDICARE (M) PART B Nov 05, 2010 PART B [id number] [facility] MELANIEMAXINE ONARD PATIENT MEDICARE (WNR) MEDICARE (M) PART A Nov 05, 2010 PART A [id number] MELANIEMAXINE ONARD PATIENT MEDICARE (WNR) MEDICARE (M) PART B Nov 05, 2010 PART B [id number] [phone] MELANIEMAXINE ONARD PATIENT MEDICARE (WNR) MEDICARE (M) PART A Nov 05, 2010 PART A [id number] [facility] MELANIEMAXINE ONARD PATIENT MEDICARE (WNR) MEDICARE (M) PART B Nov 05, 2010 [id number] [id number] MELANIEMAXINE PATIENT MEDICARE (WNR) MEDICARE (M) PART A Nov 05, 2010 [id number] [id number] [phone] MELANIEMAXINE PATIENT MEDICARE (WNR) MEDICARE (M) PART B Nov 05, 2010 PART B [id number] [facility] MELANIEMAXINE ONQUEENIE PATIENT MEDICARE (WNR) MEDICARE (M) PART A Nov 05, 2010 PART A [id number] MXAINE NAVARRO PATIENT FOR LIFE TRICA RE FOR LIFE Mar 31, 2010 SPONSOR [id number] MAXINE NAVARRO PATIENT FOR LIFE DIREC T CARE Mar 31, 2010 FOR LIFE [id number] MAXINE NAVARRO PATIENT -FO R-LIFE TRICA RE FOR LIFE December 05, 2010 TFL [id number] MAXINE NAVARRO PATIENT Selected Encounter This section includes the information on record at [place] for the Encounter. Date/Time Encounter Type Encounter Description Reason Pro vider Source Mar 26, 2024 12:58 PM Outpatient Encounter ADMIN PAT ACTIVTIES (MASNONCT) IHE Encounter Template Text not used by [place] Plan of Treatment: Future Appointments (+ 6 months) and Future Tests (+/- 45 days) The Plan of Treatment section includes future care activities for the patient from all [place] [facility]. This section includes future appointments and future orders which are active, pending or scheduled. Future Appointments This section includes appointments that were scheduled to occur 6 months from the date of the Encounter, up to a maximum of 20 appointments. The data comes from all [facility]. Appointment Date/Time Appointment Type Appointme nt Facility Name Mar 29, 2024 03:30 PM AMBULATORY - PSYCHIATRY [facility] Aug 09, 2024 01:00 PM AMBULATORY - PSYCHIATRY [facility] Active, Pending, and Scheduled Orders This section includes a listing of several types of active, pending, and scheduled orders, including clinic medications orders, diagnostic test orders, procedure orders and consult orders; where the start date of the order is 45 days before the date of the Encounter or 45 days after the date of theEncounter. The data comes from all [facility]. Test Date/Time Test Type Test Details Facility Name Mar 19, 2024 09:51 AM Consult Order COMMUNITY CARE-NEPHROLOGY Cons Tower Director's Choice [facility] Mar 29, 2024 12:00 AM Laboratory - Chemi stry Order VALPROIC ACID [id number] SP ONCE [facility] Apr 19, 2024 12:00 AM Laboratory - Chemi stry Order eGFR + CREATININE [id number]-[id number]-[id number] SP ONCE [facility] Apr 19, 2024 12:00 AM Laboratory - Chemi stry Order POTASSIUM [id number]-[id number]-[id number] SP ONCE [facility] Apr 19, 2024 12:00 AM Laboratory - Chemi stry Order HGB & HCT [id number]-[id number]-QEI BLOOD SP [facility] Apr 19, 2024 12:00 AM Laboratory - Chemi stry Order IRON/TIBC [id number]-HEJBC-SMDVMF SP ONCE [facility] Apr 19, 2024 12:00 AM Laboratory - Chemi stry Order FERRITIN SEU-[id number]-[id number] SP ONCE [facility] Apr 19, 2024 12:00 AM Laboratory - Chemi stry Order B12 VITAMIN [id number]-[id number] SP ONCE [facility] Apr 19, 2024 12:00 AM Laboratory - Chemi stry Order CALCIUM [id number]-[id number]-[id number] SP ONCE [facility] Lab Results: +/- 30 days [...] Type Comment Mar 22, 2024 12:16 PM [facility] N MICROALBUMIN/CREAT RATIO URINE Specimen Type: URINE No comment entered. Ordering Provider: MING TSANG Report Released Date/Time: Mar 15, 2024 11:30 AM Reporting Lab: [address] [address] Performing Lab: [address] [address] CREATININE 60.8 mg/dL MICROALBUMIN QUANT 9.0 mg/L 0.0-30.0 .MICROALBUMIN/CREA RATIO 14.8 ug/mg{creat} Mar 15, 2024 12:10 PM [facility] ALT PLASMA Specimen Type: PLASM [...] Mar 15, 2024 11:30 AM Reporting Lab: [address] [address] Performing Lab: [address] [address] ALT 13 U/L 0-55 Mar 15, 2024 12:10 PM [facility] PLASMA Specimen Type: PLASM A Comment: [...] Mar 15, 2024 11:30 AM Reporting Lab: [address] [address] Performing Lab: [address] [address] AST 18 U/L 5-34 Mar 15, 2024 12:10 PM [facility] CBC/PLT BLOOD Specimen Type: BLOOD No comment entered. Ordering Provider: MING TSANG Report Released Date/Time: Mar 15, 2024 11:30 AM Reporting Lab: [address] [address] Performing Lab: [address] [address] WBC 6.6 10*3/uL 5.0-10.0 RBC 3.91 10*6/uL L 4.6-6.2 HGB 13.0 g/dL L 14.0-18.0 HCT 39.0 L 42.0-52.0 MCV 99.7 fL H 80.0-94.0 MCH 33.2 pg H 27.0-31.0 MCHC 33.3 g/dL 32.0-36.0 PLT 259 10*3/uL 150-450 MPV 9.6 fL 9.0-13.1 RDW 14.1 11.0-16.0 NRBC 0.0 0.0-0.0 Mar 15, 2024 12:10 PM [facility] GLYCOHEMOGLOBIN BLOOD Specimen Type: BLOOD Comment: [place] guidelines for A1c interpretation: Glycemic [...] 8.73 and 9.27. Ref: https://ngsp.org/CAPdata.asp. The in-house TASS D-100 analyzer has a historical CV <= 2%. Contact the laboratory for further performance characteristics of this assay. Ordering Provider: MING TSANG Report Released Date/Time: Mar 15, 2024 11:30 AM Reporting Lab: [address] [address] Performing Lab: [address] [address] GLYCOHEMOGLOBIN 9.1 H 4.4-6.4 Mar 15, 2024 12:10 PM [facility] LIPID PROFILE PLASMA Specimen Type: [...] Mar 15, 2024 11:30 AM Reporting Lab: [address] [address] Performing Lab: [address] [address] CHOLESTEROL 144 mg/dL 0-199 TRIGLYCERIDE 96 mg/dL 0-149 HDL CHOLESTEROL 40 mg/dL 40-69 DIRECT LDL CHOL. 93 mg/dL 0-100 Mar 15, 2024 12:10 PM [facility] PANEL 1 PLASMA Specimen Type: PLASM A [...] Mar 15, 2024 11:30 AM Reporting Lab: [address] [address] Performing Lab: [address] [address] CREATININE 2.10 mg/dL H 0.72-1.25 UREA NITROGEN [...] ALL of a patient's completed or amended [place] Advance and Rescinded Directives. The entries below indicate that a directive exists for the patient, but an actual copy is not included with this document. The data comes from all [place] facilities. Date Advance Directives Provider Source Apr 21, 2017 ADVANCE DIRECTIVE DISCUSSION YFN JOHNSON [facility] Jun 26, 2015 ADVANCE DIRECTIVE DISCUSSION DANEMESFINILIA [facility] Encounter Notes: All associated encounter notes This section contains the clinical notes associated to the Encounter. Date/Time Encounter Note(s) Provider Source Mar 26, 2024 12:58 PM LETTERS: LOCAL TITLE: SPECIALTY CONTACT LETTER STANDARD TITLE: LETTERS DATE OF NOTE: MAR 26, 2024@12:58 ENTRY DATE: MAR 26, 2024@12:58:55 AUTHOR: FRANCOISE BARR EXP COSIGNER: URGENCY: STATUS: COMPLETED [facility] [address] [place] [address] Mr. CHELE NAVARRO [address], [place] [address] MAR 26, 2024 Dear CHELE NAVARRO, We have been unable to contact you by telephone to schedule an appointment in our Mental Health clinic. Your health and well-being are important to us. Please call us at or . Select Option #2 and then #3. We look forward to hearing from you soon. Sincerely yours, Mental Health [facility] FRANCOISE BARR-Barbara [facility]
--- OUTSIDE RECORDS SUMMARY | 2024-11-22 08:45 | XMS_ITS | Encounter Summary ---
Author Name [facility] [place] [facility] [place] Address [address] [place] [address] Care Team Providers Care Meat Sales And Storage Manager Name Role Phone MING TSANG Primary Care [...] TRICA RE DODA WNR Oct 09, 2020 [facility] [id number] [phone] MELANIE,LE ONARD PATIENT MEDICARE (WNR) MEDICARE (M) PART A Nov 05, 2010 PART A [id number] [facility] [phone] MELANIE,LE ONARD PATIENT MEDICARE (WNR) MEDICARE (M) PART B Nov 05, 2010 PART B [id number] [facility] [phone] MELANIE,LE ONARD PATIENT MEDICARE (WNR) MEDICARE (M) PART A Nov 05, 2010 PART A [id number] MELANIE,LE ONARD PATIENT MEDICARE (WNR) MEDICARE (M) PART B Nov 05, 2010 PART B [id number] MELANIE,LE ONARD PATIENT MEDICARE (WNR) MEDICARE (M) PART A Nov 05, 2010 PART [id number] [id number] MAXINE NAVARRO PATIENT MEDICARE (WNR) MEDICARE (M) PART B Nov 05, 2010 PART B [id number] [id number] [phone] MAXINE NAVARRO PATIENT MEDICARE (WNR) MEDICARE (M) PART A Nov 05, 2010 PART A [id number] [place] [address] [phone] MELANIEMAXINE GEE PATIENT MEDICARE (WNR) MEDICARE (M) PART B Nov 05, 2010 PART B [id number] [place] [address] MAXINE NAVARRO PATIENT MEDICARE (WNR) MEDICARE (M) PART A Nov 05, 2010 PART A [id number] [id number] [phone] MAXINE NAVARRO PATIENT MEDICARE (WNR) MEDICARE (M) PART B Nov 05, 2010 PART B [id number] [id number] MAXINE NAVARRO PATIENT MEDICARE (WNR) MEDICARE (M) PART A Nov 05, 2010 PART A [id number] MAXINE NAVRARO PATIENT MEDICARE (WNR) MEDICARE (M) PART B Nov 05, 2010 PART B [id number] MAXINE NAVARRO PATIENT FOR LIFE TRICA RE FOR LIFE Mar 31, 2010 SPONSOR [id number] MAXINE NAVARRO PATIENT FOR LIFE DIREC T CARE Mar 31, 2010 FOR LIFE [id number] MAXINE NAVARRO PATIENT -FO R-LIFE TRICA RE FOR LIFE December 05, 2010 [id number] MAXINE NAVARRO PATIENT Selected Encounter This section includes the information on record at [place] for the Encounter. Date/Time Encounter Type Encounter Description Reason Provider Source Mar 20, 2024 08:53 AM TARGETED CASE MANAGEMENT ADMIN PAT ACTIVTIES (MASNONCT) YUKI STEEN Megan Encounter Template Text not used by [place] Plan of Treatment: Future Appointments (+ 6 months) and Future Tests (+/- 45 days) The Plan of Treatment section includes future care activities for the patient from all [place] [facility]. This section includes future appointments and future orders which are active, pending or scheduled. Future Appointments This section includes appointments that were scheduled to occur 6 months from the date of the Encounter, up to a maximum of 20 appointments. The data comes from all [facility]. Appointment Date/Time Appointment Type Appointme nt Facility Name Mar 22, 2024 01:00 PM AMBULATORY - PSYCHIATRY [facility] Mar 29, 2024 03:30 PM AMBULATORY - PSYCHIATRY [facility] Aug 09, 2024 01:00 PM AMBULATORY - PSYCHIATRY [facility] Active, Pending, and Scheduled Orders This section includes a listing of several types of active, pending, and scheduled orders, including clinic medications orders, diagnostic test orders, procedure orders and consult orders; where the start date of the order is 45 days before the date of the Encounter or 45 days after the date of theEncounter. The data comes from all [facility]. Test Date/Time Test Type Test Details Facility Name Mar 19, 2024 09:51 AM Consult Order COMMUNITY CARE-NEPHROLOGY Cons Meat Butcher's Choice [facility] Mar 29, 2024 12:00 AM Laboratory - Chemi stry Order VALPROIC ACID [id number] SP ONCE [facility] Apr 19, 2024 12:00 AM Laboratory - Chemi stry Order eGFR + CREATININE [id number]-[id number]-[id number] SP ONCE [facility] Apr 19, 2024 12:00 AM Laboratory - Chemi stry Order POTASSIUM DSD-JHWAN-MIJJDN SP ONCE [facility] Apr 19, 2024 12:00 AM Laboratory - Chemi stry Order HGB & HCT VRH-PBJQYPTS-URU BLOOD SP [facility] Apr 19, 2024 12:00 AM Laboratory - Chemi stry Order IRON/TIBC [id number]-[id number] SP ONCE [facility] Apr 19, 2024 12:00 AM Laboratory - Chemi stry Order FERRITIN [id number]-ABESJ-[id number] SP ONCE [facility] Apr 19, 2024 12:00 AM Laboratory - Chemi stry Order B12 VITAMIN [id number] SP ONCE [facility] Apr 19, 2024 12:00 AM Laboratory - Chemi stry Order CALCIUM NSA-KHNSC-[id number] SP ONCE [facility] Lab Results: +/- 30 days of the encounter This section includes the Chemistry and Hematology Lab Results on record with [place] for the patient. Radiology Reports and Pathology Reports are provided separately, in subsequent sections. Lab Results This section contains the Chemistry/Hematology Results that were resulted 30 days before or 30 daysafter the date of the Encounter. Date/Time Source Result Type Result - Unit Interpretation Reference Range Specimen Type Comment Mar 22, 2024 12:16 PM [facility] N MICROALBUMIN/CREAT RATIO URINE Specimen Type: URINE No comment entered. Ordering Provider: MING TSANG Report Released Date/Time: Mar 15, 2024 11:30 AM Reporting Lab: [address] [address] Performing Lab: [address] [address] CREATININE 60.8 mg/dL MICROALBUMIN QUANT 9.0 mg/L 0.0-30.0 .MICROALBUMIN/CREA RATIO 14.8 ug/mg{creat} Mar 15, 2024 12:10 PM [facility] ALT PLASMA Specimen Type: PLASM A Comment: [...] Mar 15, 2024 11:30 AM Reporting Lab: [address] [address] Performing Lab: [address] [address] ALT 13 U/L 0-55 Mar 15, 2024 12:10 PM [facility] AST PLASMA Specimen Type: PLASM A Comment: [...] Mar 15, 2024 11:30 AM Reporting Lab: [address] [address] Performing Lab: [address] [address] AST 18 U/L 5-34 Mar 15, 2024 12:10 PM [facility] CBC/PLT BLOOD Specimen Type: BLOOD No comment entered. Ordering Provider: MING TSANG Report Released Date/Time: Mar 15, 2024 11:30 AM Reporting Lab: [address] [address] Performing Lab: [address] [address] WBC 6.6 10*3/uL 5.0-10.0 RBC 3.91 10*6/uL L 4.6-6.2 HGB 13.0 g/dL L 14.0-18.0 HCT 39.0 L 42.0-52.0 MCV 99.7 fL H 80.0-94.0 MCH 33.2 pg H 27.0-31.0 MCHC 33.3 g/dL 32.0-36.0 PLT 259 10*3/uL 150-450 MPV 9.6 fL 9.0-13.1 RDW 14.1 11.0-16.0 NRBC 0.0 0.0-0.0 Mar 15, 2024 12:10 PM [facility] GLYCOHEMOGLOBIN BLOOD Specimen Type: BLOOD Comment: [place] guidelines for A1c interpretation: Glycemic control targets are based on Shared Decision Making between clinicians and patients. Criteria used to establish an A1c target recommendation can be found at https://www.ak.gov/qualityandpatientsafety/ and include the use of result accuracy [...] 8.73 and 9.27. Ref: https://ngsp.org/CAPdata.asp. The in-house [employer]-E[employer] D-100 analyzer has a historical CV <= 2%. Contact the laboratory for further performance characteristics of this assay. Ordering Provider: MING TSANG Report Released Date/Time: Mar 15, 2024 11:30 AM Reporting Lab: [address] [address] Performing Lab: [address] [address] GLYCOHEMOGLOBIN 9.1 H 4.4-6.4 Mar 15, 2024 12:10 PM [facility] LIPID PROFILE PLASMA Specimen Type: PLASM A [...] Mar 15, 2024 11:30 AM Reporting Lab: [address] [address] Performing Lab: [address] [address] CHOLESTEROL 144 mg/dL 0-199 TRIGLYCERIDE 96 mg/dL 0-149 HDL CHOLESTEROL 40 mg/dL 40-69 DIRECT LDL CHOL. 93 mg/dL 0-100 Mar 15, 2024 12:10 PM [facility] PANEL 1 PLASMA Specimen Type: PLASM [...] Mar 15, 2024 11:30 AM Reporting Lab: [address] [address] Performing Lab: [address] [address] CREATININE 2.10 mg/dL H 0.72-1.25 UREA NITROGEN [...] ALL of a patient's completed or amended [place] Advance and Rescinded Directives. The entries below indicate that a directive exists for the patient, but an actual copy is not included with this document. The data comes from all [place] facilities. Date Advance Directives Provider Source Apr 21, 2017 ADVANCE DIRECTIVE DISCUSSION YFN JOHNSON [facility] Jun 26, 2015 ADVANCE DIRECTIVE DISCUSSION ILIA SAL [facility] Encounter Notes: All associated encounter notes This section contains the clinical notes associated to the Encounter. Date/Time Encounter Note(s) Provider Source Mar 20, 2024 08:53 AM ASSEMBLY DETAILER NOTE: LOCAL TITLE: [facility] TVC COORDINATOR NOTE STANDARD TITLE: ASSEMBLY DETAILER NOTE DATE OF NOTE: MAR 20, 2024@08:53 ENTRY DATE: MAR 20, 2024@08:53:17 AUTHOR: YUKI STEEN COSIGNER: URGENCY: STATUS: COMPLETED Record review completed as part of [facility] notification. has relocated to [facility] and established care on 03/15/2024. Actionable alert for permanent relocation approved in [facility] Web. to be reassigned to the following panel: LOCAL [facility] ([phone]) PACT: PENDING: PACT [address] (Focus: Primary Care Only) Primary Care Provider: MING TSANG PHONE:[phone] Shearing Shed Hand: DES SALINAS PHONE:[phone] Clinical Associate: KIRT ELLER PHONE:[phone] Ambulance Attendant: DREA DERAS PHONE:[phone] Clinical Pharmacist Practitioner: ALEX CRUZ PHONE:[phone] Commercial Teller: TIKI JACKSON PHONE:[phone] Surrogate Shearing Shed Hand: LEIGHTON SALAMANCA Clinical POC: Shearing Shed Hand DES SALINAS PHONE:[phone] Administrative POC: Ambulance Attendant DREA DERAS PHONE:[phone] to be removed from the following panel: [facility] ([id number]) PACT: [facility] (Focus: Primary Care Only) Primary Care Provider: SOPHIE GHOSH PHONE:[phone] PAGER: Shearing Shed Hand: SURINDER SWANSON Ambulance Attendant: SEB MUÑOZ PHONE:[phone] Clinical Pharmacist Practitioner: CARLOS ENRIQUE WOODWARD Commercial Teller: YUSUF HARDY PHONE:[phone] Registered Dietitian: NAKUL GRAYSON Surrogate Shearing Shed Hand: SHAMEKA NDIAYE Clinical POC: Shearing Shed Hand SURINDER SWANSON Administrative POC: Ambulance Attendant SEB MUÑOZ PHONE:[phone] Actionable alert for permanent relocation approved in [facility] Web. /es/ YUKI STEENMSN RN MSN,CLINICAL NURSE SPEC. Signed: 03/20/2024 08:54 YUKI STEEN-JONELLE [facility]
--- OUTSIDE RECORDS SUMMARY | 2024-11-22 08:45 | XMS_ITS | Encounter Summary ---
Author Name [place] Address [address] [place] [address] Care Team Providers Care Commercial Coordinator Name Role Phone MING TSANG Primary Care [...] TRICA RE DODA WNR Oct 09, 2020 [facility] [id number] MELANIE,LE ONARD PATIENT MEDICARE (WNR) MEDICARE (M) PART B Nov 05, 2010 PART B [id number] [phone] MELANIE,LE ONARD PATIENT MEDICARE (WNR) MEDICARE (M) PART A Nov 05, 2010 PART A [id number] [facility] [phone] MELANIE,LE ONARD PATIENT MEDICARE (WNR) MEDICARE (M) PART B Nov 05, 2010 PART B [id number] [id number] [phone] MELANIE,LE ONARD PATIENT MEDICARE (WNR) MEDICARE (M) PART B Nov 05, 2010 PART B [id number] MELANIE,LE ONARD PATIENT MEDICARE (WNR) MEDICARE (M) PART A Nov 05, 2010 PART A [id number] MELANIEMAXINE GEE PATIENT MEDICARE (WNR) MEDICARE (M) PART A Nov 05, 2010 PART A [id number] [id number] MELANIEMAXINE GEE PATIENT MEDICARE (WNR) MEDICARE (M) PART B Nov 05, 2010 PART B [id number] [id number] MELANIE,LE ONQUEENIE PATIENT MEDICARE (WNR) MEDICARE (M) PART A Nov 05, 2010 PART A [id number] [place] [address] [phone] MAXINE NAVARRO PATIENT MEDICARE (WNR) MEDICARE (M) PART B Nov 05, 2010 PART B [address] [place] [address] [phone] MAXINE NAVARRO PATIENT MEDICARE (WNR) MEDICARE (M) PART A Nov 05, 2010 PART A [id number] [id number] MAXINE NAVARRO PATIENT MEDICARE (WNR) MEDICARE (M) PART B Nov 05, 2010 PART B [id number] [id number] [phone] MELANIEMAXINE GEE PATIENT MEDICARE (WNR) MEDICARE (M) PART A Nov 05, 2010 PART A [id number] MAXINE NAVARRO PATIENT FOR LIFE TRICA RE FOR LIFE Mar 31, 2010 SPONSOR [id number] MAXINE NAVARRO PATIENT FOR LIFE DIREC T CARE Mar 31, 2010 FOR LIFE [id number] MAXINE NAVARRO PATIENT -FO R-LIFE TRICA RE FOR LIFE December 05, 2010 TF [id number] MAXINE NAVARRO PATIENT Selected Encounter This section includes the information on record at [place] for the Encounter. Date/Time Encounter Type Encounter Description Reason Pro vider Source Oct 21, 2024 12:00 AM Outpatient Encounter EVENT (HISTORICAL) IHE Encounter Template Text not used by [...] 20 appointments. The data comes from all [place] treatment facilities. Appointment Date/Time Appointment Type Appointme nt Facility Name Nov 08, 2024 11:00 AM AMBULATORY - PSY[facility]IATRY [facility] Jan 29, 2025 01:00 PM AMBULATORY - PSYCHIATRY [facility] Jan 31, 2025 10:00 AM AMBULATORY - NONE [facility] Lab Results: +/- 30 days of the encounter This section includes the Chemistry and Hematology Lab Results on record with [place] for the patient. Radiology Reports and Pathology Reports are provided separately, in subsequent sections. Lab Results This section contains the Chemistry/Hematology Results that were resulted 30 days before or 30 daysafter the date of the Encounter. Date/Time Source Result Type Result - Unit Interpretation Reference Range Specimen Type Comment Sep 30, 2024 08:55 AM [facility] WN VALPROIC ACID PLASMA Specimen Type: PLASMA No comment entered. Ordering Provider: ALEXSANDRA STEPHENSON Report Released Date/Time: Aug 09, 2024 07:55 AM Reporting Lab: [address] [address] Performing Lab: [address] [address] VALPROIC ACID 30.8 ug/mL L 50.0-99.9 Immunizations: All administered on the encounter date This section contains immunizations associated to the Encounter. Immunization Series Date Issued Administered By Site Reaction Lot Number CVX Code Drug Director Of Marketing And Promotions Comment(s) Source INFLUENZA, HIGH-DOSE, TRIVALENT, PF 1 Oct 21, 2024 135 HISTORICAL INFORMATION - FROM OTHER REGISTRY, [place] [facility] Social History: Smoking Status (Most current) and Tobacco Use (All prior to encounter date) This section includes the most current, and the historical, smoking and tobacco- related health factors from the [place] facility where the Encounter took place. Current Smoking Status This section includes the most current smoking, or tobacco-related health factor, from the [place] facility where the Encounter took place. Date/Time Current Smoking Status Comment Jeri christy Mar 15, 2024 11:00 AM VA-TOBACCO FORMER USER [facility] Tobacco Use History This section includes a history of the smoking, or tobacco-related health factors, that were collected on or before the date of the Encounter. The data comes from the [place] facility where the Encounter took place. Date/Time Smoking Status/Tobacco Use Comment F acility Mar 15, 2024 11:00 AM [place]-TOBACCO QUIT 15 YRS OR MORE [facility] Advance Directives: All historical and current Section Date Range: From patient's date of to the date document was created. This section includes ALL of a patient's completed or amended [place] Advance and Rescinded Directives. The entries below indicate that a directive exists for the patient, but an actual copy is not included with this document. The data comes from all [place] facilities. Date Advance Directives Provider Source Apr 21, 2017 ADVANCE DIRECTIVE DISCUSSION YFN [facility] Jun 26, 2015 ADVANCE DIRECTIVE DISCUSSION [facility]
--- OUTSIDE RECORDS SUMMARY | 2024-11-22 08:46 | XMS_ITS | Encounter Summary ---
Author Name [place] Address [address] [place] [address] Care Team Providers Care Geothermal Production Manager Name Role Phone MING TSANG Primary [...] RE DODA WNR Oct 09, 2020 [facility] [id number] [phone] MELANIE,LE ONQUEENIE PATIENT MEDICARE (WNR) MEDICARE (M) PART B Nov 05, 2010 PART B [id number] [phone] MELANIE,MAXINE ONARD PATIENT MEDICARE (WNR) MEDICARE (M) PART A Nov 05, 2010 PART [address] [place] [address] [phone] MELANIE,MAXINE ONARD PATIENT MEDICARE (WNR) MEDICARE (M) PART B Nov 05, 2010 PART B [address] [place] [address] [phone] MELANIE,LE ONARD PATIENT MEDICARE (WNR) MEDICARE (M) PART A Nov 05, 2010 PART A [address] [place] [address] [phone] MELANIEMAXINE GEE PATIENT MEDICARE (WNR) MEDICARE (M) PART B Nov 05, 2010 PART B [id number] MELANIEMAXINE ONQUEENIE PATIENT MEDICARE (WNR) MEDICARE (M) PART A Nov 05, 2010 PART A [id number] MELANIEMAXINE ONARD PATIENT MEDICARE (WNR) MEDICARE (M) PART B Nov 05, 2010 PART B [id number] MELANIEMAXINE ONARD PATIENT MEDICARE (WNR) MEDICARE (M) PART A Nov 05, 2010 PART A [id number] [facility] [phone] MELANIEMAXINE ONARD PATIENT MEDICARE (WNR) MEDICARE (M) PART B Nov 05, 2010 PART B [id number] [id number] MELANIEMAXINE ONQUEENIE PATIENT MEDICARE (WNR) MEDICARE (M) PART A Nov 05, 2010 PART A [id number] [id number] [phone] MELANIEMAXINE GEE PATIENT MEDICARE (WNR) MEDICARE (M) PART B Nov 05, 2010 PART B [id number] [facility] MELANIEMAXINE ONQUEENIE PATIENT MEDICARE (WNR) MEDICARE (M) PART A Nov 05, 2010 PART A [id number] MAXINE NAVARRO PATIENT FOR LIFE TRICA RE FOR LIFE Mar 31, 2010 SPONSOR [id number] MAXINE NAVARRO PATIENT FOR LIFE DIREC T CARE Mar 31, 2010 FOR LIFE [id number] MAXINE NAVARRO PATIENT -FO R-LIFE TRICA RE FOR LIFE December 05, 2010 TFL [id number] MAXINE NAVARRO PATIENT Selected Encounter This section includes the information on record at [place] for the Encounter. Date/Time Encounter Type Encounter Description Reason Pro vider Source Oct 15, 2024 08:05 AM Outpatient Encounter ADMIN PAT ACTIVTIES (MASNONCT) IHE Encounter Template Text not used by [place] Plan of Treatment: Future Appointments (+ 6 months) and Future Tests (+/- 45 days) The Plan of Treatment section includes future care activities for the patient from all [place] [facility] This section includes future appointments and future orders which are active, pending or scheduled. Future Appointments This section includes appointments that were scheduled to occur 6 months from the date of the Encounter, up to a maximum of 20 appointments. The data comes from all [place] treatment facilities. Appointment Date/Time Appointment Type Appointme nt Facility Name Nov 08, 2024 11:00 AM AMBULATORY - PSYCHIATRY [facility] Jan 29, 2025 01:00 PM AMBULATORY - PSYCHIATRY [facility] Jan 31, 2025 10:00 AM AMBULATORY - NONE [facility] Lab Results: +/- 30 days [...] Type Comment Sep 30, 2024 08:55 AM [facility] WN VALPROIC ACID PLASMA Specimen Type: PLASMA No comment entered. Ordering Provider: ALEXSANDRA STEPHENSON Report Released Date/Time: Aug 09, 2024 07:55 AM Reporting Lab: [address] [address] Performing Lab: [address] [address] VALPROIC ACID 30.8 ug/mL L 50.0-99.9 Social [...] 15, 2024 11:00 AM VA-TOBACCO FORMER USER [facility] Tobacco Use History This section includes a history of the smoking, or tobacco-related health factors, that were collected on or before the date of the Encounter. The data comes from the [place] facility where the Encounter took place. Date/Time Smoking Status/Tobacco Use Comment F acility Mar 15, 2024 11:00 AM [place]-TOBACCO QUIT 15 YRS OR MORE [facility] Advance Directives: All historical and current [...] 21, 2017 ADVANCE DIRECTIVE DISCUSSION YFN [facility]NS[facility] Jun 26, 2015 ADVANCE DIRECTIVE DISCUSSION ILIA SAL [facility] Encounter Notes: All associated encounter notes This section contains the clinical notes associated to the Encounter. Date/Time Encounter Note(s) Provider Source Oct 15, 2024 08:05 AM PHARMACY NOTE: LOCAL TITLE: SIGNATURE READY PHARMACY RENEWAL NOTE STANDARD TITLE: PHARMACY NOTE DATE OF NOTE: OCT 15, 2024@08:05 ENTRY DATE: OCT 15, 2024@08:05:37 AUTHOR: SPEEDY CUETO EXP COSIGNER: URGENCY: STATUS: COMPLETED Signature Ready Order No Data Found for the Selected Note Titles 1) Rx#: [id number] MEMANTINE HCL 10MG TAB Original Prescriber: KRISTA HOLLAND Pharmacy received request via: TELEPHONE /franny/ SPEEDY CUETO CPHT Pharmacy Leather Softener Signed: 10/15/2024 08:11 [facility]
--- OUTSIDE RECORDS SUMMARY | 2024-11-22 08:46 | XMS_ITS | Encounter Summary ---
Author Name [place] Address [address] [place] [address] Care Team Providers Care Network Engineer Administrator Name Role Phone MING TSANG Primary Care [...] TRICA RE DODA WNR Oct 09, 2020 [facility] [id number] MELANIE,LE ONQUEENIE PATIENT MEDICARE (WNR) MEDICARE (M) PART B Nov 05, 2010 PART B [id number] [phone] MELANIE,MAXINE ONARD PATIENT MEDICARE (WNR) MEDICARE (M) PART A Nov 05, [address] [place] [address] [phone] MELANIE,MAXINE ONQUEENIE PATIENT MEDICARE (WNR) MEDICARE (M) PART B Nov 05, 2010 [address] [place] [address] [phone] MAXINE NAVARRO ONARD PATIENT MEDICARE (WNR) MEDICARE (M) PART B Nov 05, 2010 [address] [place] [address] [phone] MELANIEMAXINE GEE PATIENT MEDICARE (WNR) MEDICARE (M) PART A Nov 05, 2010 PART A [id number] [id number] [phone] MELANIE,LE ONQUEENIE PATIENT MEDICARE (WNR) MEDICARE (M) PART A Nov 05, 2010 PART A [id number] MELANIE,LE ONQUEENIE PATIENT MEDICARE (WNR) MEDICARE (M) PART B Nov 05, 2010 PART B [id number] [phone] MELANIEMAXINE ONQUEENIE PATIENT MEDICARE (WNR) MEDICARE (M) PART A Nov 05, 2010 PART A [id number] [facility] [phone] MELANIEMAXINE GEE PATIENT MEDICARE (WNR) MEDICARE (M) PART B Nov 05, 2010 PART B [id number] [facility] MELANIEMAXINE GEE PATIENT MEDICARE (WNR) MEDICARE (M) PART A Nov 05, 2010 PART A [id number] [id number] MELANIEMAXINE GEE PATIENT MEDICARE (WNR) MEDICARE (M) PART B Nov 05, 2010 PART B [id number] [facility] MELANIEMAXINE PATIENT MEDICARE (WNR) MEDICARE (M) PART A Nov 05, 2010 PART A [id number] MAXINE NAVARRO PATIENT FOR LIFE TRICA RE FOR LIFE Mar 31, 2010 SPONSOR [id number] MAXINE NAVARRO PATIENT FOR LIFE DIREC T CARE Mar 31, 2010 FOR LIFE [id number] MAXINE NAVARRO PATIENT -FO R-LIFE TRICA RE FOR LIFE December 05, 2010 TFL [id number] MAXINE NAVARRO PATIENT Selected Encounter This section includes the information on record at [place] for the Encounter. Date/Time Encounter Type Encounter Description Reason Pro vider Source Mar 01, 2024 03:18 PM Outpatient Encounter ADMIN PAT ACTIVTIES (MASNONCT) IHE Encounter Template Text not used by [place] Plan of Treatment: Future Appointments (+ 6 months) and Future Tests (+/- 45 days) The Plan of Treatment section includes future care activities for the patient from [facility] [place] [facility] This section includes future appointments and future orders which are active, pending or scheduled. Future Appointments This section includes appointments that were scheduled to occur 6 months from the date of the Encounter, up to a maximum of 20 appointments. The data comes from all [facility]. Appointment Date/Time Appointment Type Appointme nt Facility Name Mar 15, 2024 11:00 AM AMBULATORY - MEDICINE [facility] Mar 22, 2024 01:00 PM AMBULATORY - PSYCHIATRY [facility] Mar 29, 2024 03:30 PM AMBULATORY - PSYCHIATRY [facility] Aug 09, 2024 01:00 PM AMBULATORY - PSYCHIATRY [facility] Active, Pending, and Scheduled Orders This section includes a listing of several types of active, pending, and scheduled orders, including clinic medications orders, diagnostic test orders, procedure orders and consult orders; where the start date of the order is 45 days before the date of the Encounter or 45 days after the date of theEncounter. The data comes from all [facility]. Test Date/Time Test Type Test Details Facility Name Mar 19, 2024 09:51 AM Consult Order COMMUNITY CARE-NEPHROLOGY Cons [employer]obile [employer] Service Estimator's Choice [facility] Mar 29, 2024 12:00 AM Laboratory - Chemi stry Order VALPROIC ACID [id number] SP ONCE [facility] Lab Results: +/- 30 days of [...] Mar 15, 2024 11:30 AM Reporting Lab: [address] [address] Performing Lab: [address] [address] CREATININE 60.8 mg/dL MICROALBUMIN QUANT 9.0 mg/L 0.0-30.0 .MICROALBUMIN/CREA RATIO 14.8 ug/mg{creat} Mar 15, 2024 12:10 PM [facility] ALT PLASMA Specimen Type: PLASM A [...] Mar 15, 2024 11:30 AM Reporting Lab: [facility] [address] [facility] [address] Performing Lab: [facility] [address] [facility] [address] ALT 13 U/L 0-55 Mar 15, 2024 12:10 PM [facility] Specimen Type: PLASM A Comment: [...] Mar 15, 2024 11:30 AM Reporting Lab: [address] [address] Performing Lab: [address] [address] AST 18 U/L 5-34 Mar 15, 2024 12:10 PM [facility] CBC/PLT BLOOD Specimen Type: BLOOD No comment entered. Ordering Provider: MING TSANG Report Released Date/Time: Mar 15, 2024 11:30 AM Reporting Lab: [address] [address] Performing Lab: [address] [address] WBC 6.6 10*3/uL 5.0-10.0 RBC 3.91 10*6/uL L 4.6-6.2 HGB 13.0 g/dL L 14.0-18.0 HCT 39.0 L 42.0-52.0 MCV 99.7 fL H 80.0-94.0 MCH 33.2 pg H 27.0-31.0 MCHC 33.3 g/dL 32.0-36.0 PLT 259 10*3/uL 150-450 MPV 9.6 fL 9.0-13.1 RDW 14.1 11.0-16.0 NRBC 0.0 0.0-0.0 Mar 15, 2024 12:10 PM [facility] GLYCOHEMOGLOBIN BLOOD Specimen Type: BLOOD Comment: [place] guidelines for A1c interpretation: Glycemic control targets are based on Shared Decision Making between clinicians and patients. Criteria used to establish an A1c target recommendation can be found at https://www.ri.gov/qualityandpatientsafety/ and include the use of result accuracy [...] 8.73 and 9.27. Ref: https://ngsp.org/CAPdata.asp. The in-house [employer] D-100 analyzer has a historical CV <= 2%. Contact the laboratory for further performance characteristics of this assay. Ordering Provider: MING TSANG Report Released Date/Time: Mar 15, 2024 11:30 AM Reporting Lab: [address] [address] Performing Lab: [address] [address] GLYCOHEMOGLOBIN 9.1 H 4.4-6.4 Mar 15, 2024 12:10 PM [facility] LIPID PROFILE PLASMA Specimen Type: PLASM [...] Mar 15, 2024 11:30 AM Reporting Lab: [facility] [address] [facility] [address] Performing Lab: [facility] [address] [facility] [address] CHOLESTEROL 144 mg/dL 0-199 TRIGLYCERIDE 96 mg/dL 0-149 HDL CHOLESTEROL 40 mg/dL 40-69 DIRECT LDL CHOL. 93 mg/dL 0-100 Mar 15, 2024 12:10 PM [facility] PANEL 1 PLASMA Specimen Type: PLASM A [...] Mar 15, 2024 11:30 AM Reporting Lab: [address] [address] Performing Lab: [address] [address] CREATININE 2.10 mg/dL H 0.72-1.25 UREA NITROGEN [...] 2017 ADVANCE DIRECTIVE DISCUSSION YFN [facility] Jun 26, 2015 ADVANCE DIRECTIVE DISCUSSION ILIA SAL [facility] Encounter Notes: All associated encounter notes This section contains the clinical notes associated to the Encounter. Date/Time Encounter Note(s) Provider Source Mar 01, 2024 03:18 PM ADMINISTRATIVE NOT E: LOCAL TITLE: HEALTH BENEFITS ADMINISTRATIVE NOTE STANDARD TITLE: ADMINISTRATIVE NOTE DATE OF NOTE: MAR 01, 2024@15:18 ENTRY DATE: MAR 01, 2024@15:18:50 AUTHOR: LAZARO LOCKWOOD COSIGNER: URGENCY: STATUS: COMPLETED Eligible for enrollment: Yes [place] has been enrolled and assigned to priority group 1 HBA enrolled Feb Per email: From: Lia Hernandes < > Sent: Friday, March 01, 2024 3:06 PM To: HAZEL HAS New Patient Request <[email or web address]> Subject: DEMO UPDATES MELANIE 1902 ? delete and replace with Lia Hernandes /franny/ LAZARO LOCKWOOD Signed: 03/01/2024 15:19 LAZARO LOCKWOOD[facility]
--- OUTSIDE RECORDS SUMMARY | 2024-11-22 08:46 | XMS_ITS | Encounter Summary ---
Author Name [place] Address [address] [place] [address] Care Team Providers Care Territory Sales Professional Name Role Phone MING TSANG Primary Care [...] RE DODA WNR Oct 09, 2020 [facility] [id number] [phone] MELANIE,LE ONQUEENIE PATIENT MEDICARE (WNR) MEDICARE (M) PART B Nov 05, 2010 PART B [id number] MELANIE,MAXINE ONARD PATIENT MEDICARE (WNR) MEDICARE (M) PART A Nov 05, [address] [place] [address] [phone] MELANIE,MAXINE ONARD PATIENT MEDICARE (WNR) MEDICARE (M) PART B Nov 05, 2010 PART [address] [place] [address] [id number] MELANIE,LE ONARD PATIENT MEDICARE (WNR) MEDICARE (M) PART A Nov 05, 2010 [address] [place] [address] MELANIEMAXINE GEE PATIENT MEDICARE (WNR) MEDICARE (M) PART B Nov 05, 2010 PART B [id number] [phone] MELANIEMAXINE ONQUEENIE PATIENT MEDICARE (WNR) MEDICARE (M) PART A Nov 05, 2010 PART A [id number] MELANIEMAXINE ONARD PATIENT MEDICARE (WNR) MEDICARE (M) PART B Nov 05, 2010 PART B [id number] MELANIEMAXINE ONARD PATIENT MEDICARE (WNR) MEDICARE (M) PART A Nov 05, 2010 PART A [id number] [facility] MELANIEMAXINE ONARD PATIENT MEDICARE (WNR) MEDICARE (M) PART B Nov 05, 2010 PART B [id number] [id number] MELANIEMAXINE ONQUEENIE PATIENT MEDICARE (WNR) MEDICARE (M) PART A Nov 05, 2010 PART A [id number] [address] MELANIEMAXINE GEE PATIENT MEDICARE (WNR) MEDICARE (M) PART B Nov 05, 2010 PART B [id number] [facility] MELANIEMAXINE ONQUEENIE PATIENT MEDICARE (WNR) MEDICARE (M) PART A Nov 05, 2010 PART A [id number] MAXINE NAVARRO PATIENT FOR LIFE TRICA RE FOR LIFE Mar 31, 2010 SPONSOR [id number] MAXINE NAVARRO PATIENT FOR LIFE DIREC T CARE Mar 31, 2010 FOR LIFE [id number] MAXINE NAVARRO PATIENT -FO R-LIFE TRICA RE FOR LIFE December 05, 2010 TFL [id number] MAXINE NAVARRO PATIENT Selected Encounter This section includes the information on record at [place] for the Encounter. Date/Time Encounter Type Encounter Description Reason Pro vider Source Nov 04, 2024 08:04 AM Outpatient Encounter ADMIN PAT ACTIVTIES (MASNONCT) IHE Encounter Template Text not used by [place] Plan of Treatment: Future Appointments (+ 6 months) and Future Tests (+/- 45 days) The Plan of Treatment section includes future care activities for the patient from all [place] [facility]. This section includes future appointments and future orders which are active, pending or scheduled. Future Appointments This section includes appointments that were scheduled to occur 6 months from the date of the Encounter, up to a maximum of 20 appointments. The data comes from all [place] treatment facilities. Appointment Date/Time Appointment Type Appointme nt Facility Name Nov 08, 2024 11:00 AM AMBULATORY - PSYCHIATRY [facility] Jan 29, 2025 01:00 PM AMBULATORY - PSYCHIATRY [facility] Jan 31, 2025 10:00 AM AMBULATORY - NONE [facility] Social History: Smoking Status (Most current) and Tobacco Use (All prior to encounter date) This section includes the most current, and the historical, smoking and tobacco- related health factors from the [place] facility where the Encounter took place. Current Smoking Status This section includes the most current smoking, or tobacco-related health factor, from the [place] facility where the Encounter took place. Date/Time Current Smoking Status Comment Jeri ity Mar 15, 2024 11:00 AM VA-TOBACCO FORMER USER [facility] Tobacco Use History This section includes a history of the smoking, or tobacco-related health factors, that were collected on or before the date of the Encounter. The data comes from the [place] facility where the Encounter took place. Date/Time Smoking Status/Tobacco Use Comment F acility Mar 15, 2024 11:00 AM [place]-TOBACCO QUIT 15 YRS OR MORE [facility] Advance Directives: All historical and current Section Date Range: From patient's date of to the date document was created. This section includes ALL of a patient's completed or amended [place] Advance and Rescinded Directives. The entries below indicate that a directive exists for the patient, but an actual copy is not included with this document. The data comes from all [place] facilities. Date Advance Directives Provider Source Apr 21, 2017 ADVANCE DIRECTIVE DISCUSSION YFN JOHNSON [facility] Jun 26, 2015 ADVANCE DIRECTIVE DISCUSSION ILIA SAL [facility] Encounter Notes: All associated encounter notes This section contains the clinical notes associated to the Encounter. Date/Time Encounter Note(s) Provider Source Nov 04, 2024 08:04 AM PHARMACY TELEPHONE ENCOUNTER NOTE: LOCAL TITLE: PHARMACY TELEPHONE CARE NOTE STANDARD TITLE: PHARMACY TELEPHONE ENCOUNTER NOTE DATE OF NOTE: NOV 04, 2024@08:04 ENTRY DATE: NOV 04, 2024@08:04:28 AUTHOR: ITA KINNEY EXP COSIGNER: URGENCY: STATUS: COMPLETED 1. Name of caller: Chele Quinteros 2. Phone #: [phone] 3. Specialty Clinic/Primary Care Team: No Data Found for the Selected Note Titles 4. Medication: TAMSULOSIN HCL 0.4MG CAP 5. Last fill date: 07-30-24 Provider: MING TSANG 6. The caller requests prescription: Mailed 7. View Alert to: Primary Care Nurse /franny/ ITA MCCLURE 9 [facility] Signed: 11/04/2024 08:05 Receipt Acknowledged By: 11/04/2024 08:06 /franny/ MING TSANG M.D. PRIMARY CARE STAFF PHYSICIAN 11/05/2024 08:28 /franny/ KINSEY MORALESN,RN [facility]
--- NOTE | 2024-11-22 09:45 | MR_ITS ---
FINAL REPORT CLINICAL HISTORY: tremor. Parkinson's disease. falling frequently [id number]. COMPARISON: None FINDINGS: Multi planar MR imaging was obtained through the brain without contrast. There is moderate global atrophy with proportionate ventriculomegaly. There are confluent deep white matter foci of signal identified bilaterally, that likely represent ischemic microvascular change. The midline structures appear intact. There is no evidence of Chiari malformation. On T2 and flair axial images the brain parenchyma is homogeneous. On diffusion-weighted images there is no evidence of restricted diffusion. The visualized paranasal sinuses demonstrate normal signal voids. The seventh and eighth nerve root complexes are intact. There is signal in the inferior right mastoid air cells consistent with chronic mastoiditis. 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 Reviewed, Interpreted and Dictated by Chet Gray MD Transcribed by Danna Jacome Authenticated and . [facility]
== END 2024-11-22 23:59 | disposition home or self-care (01) ==
LOC: RT 08:42
PROVIDERS: PCP Nurse Practitioner Family; Visit Provider Nurse Practitioner Family
DX: R42 Dizziness and giddiness (principal); G20.A1 Parkinson's disease without dyskinesia, without mention of fluctuations
CPT/HCPCS: 70551; 93880

== ENCOUNTER 2025-01-06 07:47 | Outpatient (CLI) | payer MEDICARE, OTHER, SELFPAY ==
--- OUTSIDE RECORDS SUMMARY | 2024-12-31 04:02 | XMS_ITS | Encounter Summary ---
Author Name [facility] [place] Address [address] [place] [address] Care Team Providers Care Logistical Engineer Name Role Phone MING TSANG Primary Care [...] TRICA RE DODA WNR Oct 09, 2020 [facility] [id number] MELANIE,LE ONARD PATIENT MEDICARE (WNR) MEDICARE (M) PART A Nov 05, 2010 PART A [id number] MELANIE,LE ONARD PATIENT MEDICARE (WNR) MEDICARE (M) PART B Nov 05, 2010 PART B [id number] MELANIE,LE ONARD PATIENT MEDICARE (WNR) MEDICARE (M) PART A Nov 05, 2010 PART A [id number] [facility] [phone] MELANIE,LE ONARD PATIENT MEDICARE (WNR) MEDICARE (M) PART B Nov 05, 2010 [place] B [id number] [id number] MELANIE,LE ONARD PATIENT MEDICARE (WNR) MEDICARE (M) PART A Nov 05, 2010 PART A [id number] [id number] MELANIEMAXINE GEE PATIENT MEDICARE (WNR) MEDICARE (M) PART B Nov 05, 2010 PART B [id number] [id number] MELANIE,LE ONQUEENIE PATIENT MEDICARE (WNR) MEDICARE (M) PART A Nov 05, 2010 PART A [id number] [facility] [phone] MELANIEMAXINE ONQUEENIE PATIENT MEDICARE (WNR) MEDICARE (M) PART B Nov 05, 2010 PART B [id number] [facility] MELANIE,LE ONARD PATIENT MEDICARE (WNR) MEDICARE (M) PART A Nov 05, 2010 PART [place] [id number] [id number] MELANIEMAXNIE GEE PATIENT MEDICARE (WNR) MEDICARE (M) PART B Nov 05, 2010 PART B [id number] [id number] [phone] MAXINE NAVARRO PATIENT MEDICARE (WNR) MEDICARE (M) PART A Nov 05, 2010 PART A [id number] [id number] MAXINE NAVARRO PATIENT MEDICARE (WNR) MEDICARE (M) PART B Nov 05, 2010 PART B [id number] MAXINE NAVARRO PATIENT FOR LIFE TRICA RE FOR LIFE Mar 31, 2010 [facility] [id number] MAXINE NAVARRO PATIENT FOR LIFE DIREC T CARE Mar 31, 2010 [facility] [id number] MAXINE NAVARRO PATIENT -FO R-LIFE TRICA RE FOR LIFE December 05, 2010 [id number] MAXINE NAVARRO PATIENT Selected Encounter This section includes the information on record at [place] for the Encounter. Date/Time Encounter Type Encounter Description Reason Pro vider Source December 31, 2024 08:02 AM Outpatient Encounter ADMIN PAT ACTIVTIES (MASNONCT) IHE Encounter Template Text not used by [facility] Plan of Treatment: Future Appointments (+ 6 months) and Future Tests (+/- 45 days) The Plan of Treatment section includes future care activities for the patient from all [place] [facility] This section includes future appointments and future orders which are active, pending or scheduled. Future Appointments This section includes appointments that were scheduled to occur 6 months from the date of the Encounter, up to a maximum of 20 appointments. The data comes from all [place] treatment facilities. Appointment Date/Time Appointment Type Appointme nt Facility Name Jan 29, 2025 01:00 PM AMBULATORY - PSYCHIATRY [facility] Jan 31, 2025 10:00 AM AM[facility]ULATORY - NONE [place] [facility] Advance Directives: All historical and current Section Date Range: From patient's date of to the date document was created. This section includes ALL of a patient's completed or amended [place] Advance and Rescinded Directives. The entries below indicate that a directive exists for the patient, but an actual copy is not included with this document. The data comes from all [facility]. Date Advance Directives Provider Source Apr 21, 2017 ADVANCE DIRECTIVE DISCUSSION YFN JOHNSON [facility] Jun 26, 2015 ADVANCE DIRECTIVE DISCUSSION ILIA SAL [facility] Encounter Notes: All associated encounter notes This section contains the clinical notes associated to the Encounter. Date/Time Encounter Note(s) Provider Source December 31, 2024 08:02 AM PHARMACY TELEPHONE ENCOUNTER NOTE: LOCAL TITLE: PHARMACY TELEPHONE CARE NOTE STANDARD TITLE: PHARMACY TELEPHONE ENCOUNTER NOTE DATE OF NOTE: DECEMBER 31, 2024@08:02 ENTRY DATE: DECEMBER 31, 2024@08:02:55 AUTHOR: RILYE GEORGE EXP COSIGNER: URGENCY: STATUS: COMPLETED PHARMACY TELEPHONE CARE NOTE Has ADDENDA 1. Name of caller: 2. Phone #: 3. Specialty Clinic/Primary Care Team: No Data Found for the Selected Note Titles 4. Medication: LISINOPRIL 20MG TAB 5. Last fill date: Provider: 6. The caller requests prescription: Mailed 7. View Alert to: /franny/ Riley George CPhT Pharmacy Deployment Technician Signed: 12/31/2024 08:03 Receipt Acknowledged By: 12/31/2024 13:56 /franny/ MING TSANG M.D. PRIMARY CARE STAFF PHYSICIAN 12/31/2024 ADDENDUM STATUS: COMPLETED This med was last refilled in Mar 2024 for 3 months, is he still taking it and who is prescribing it? Does he follows with [facility] renal provider? /franny/ MING TSANG M.D. PRIMARY CARE STAFF PHYSICIAN Signed: 12/31/2024 13:57 Receipt Acknowledged By: * AWAITING SIGNATURE * DES SALINAS 01/03/2025 ADDENDUM STATUS: COMPLETED Attempted to contact , no answer. No VM option /franny/ DES SALINAS,BSN,RN framing mill supervisor Signed: 01/03/2025 09:38 RILEY GEORGE-JONELLE [facility]
--- OUTSIDE RECORDS SUMMARY | 2025-01-06 07:49 | XMS_ITS | Continuity of Care Document ---
Author Name [facility] Organization [facility] Care Team Providers Care Train Station Server Name Role Phone [facility] Unavailable Unavailable Problems Combined list of problems from Department of Defense and [facility] Affairs facilities. It does not include entries that were removed or entered in error. 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 1997 Condition [facility] Benign prostatic hyperplasia Active Condition [facility] Benign prostatic hyperplasia Active Condition [facility] BIPOLAR AFF, MANIC-MILD Active Condition [facility] Bipolar disorder (SNOMED CT 28555503) Active Condition [facility] Bipolar disorder in remission (SNOMED CT 50883388) Active Condition Jun 11, 2012 Entered By: Humble W[place] Comment: Dr.Remington Hutchinson p 2012 Entered By: [place]ble [place] Comment: [place]- psychiatry [facility] BLEPHARITIS NOS Active Condition [facility] comanaged care Active Condition Jun Entered By: Humble [place] Comment: [facility] Dementia Active Condition [facility] depression. 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 Active Condition [facility] Hyperlipidemia Active Condition [place] [facility] HYPERLIPIDEMIA NEC/NOS Active Condition [facility] Hypertension Active Condition [facility] Hypertension * (ICD-9-CM 401.9) Active Condition [place] [facility] Hypertension, Essential Active Condition [facility] Insulin treated type 2 diabetes mellitus Active Condition [facility] Major Depression, recurrent (ICD-9-CM 296.30) Active Condition [facility] Parkinson disease Active Condition [facility] Parkinson's disease Active Condition [place] [facility] Personal History of Transient Ischemic Attack (Tia), and Cerebral Infarction wit Active Condition [facility] Posttraumatic Stress Disorder Active Condition [facility] PROPHY VACC. STREP PNEU Active Condition [facility] Routine Med Exam Active Condition [facility] Sensorineural hearing loss of Combined types, Bilateral (ICD-9-CM 389.18) Active Condition [facility] Sensorineural Hearing Loss, Bilateral (ICD-9-CM 389.18) Active Condition [facility] Sensorineural hearing loss, bilateral (SNOMED CT 459841035) Active Condition [facility] Transient cerebral ischemia Active Condition [facility] Unspecified Sleep Apnea (ICD-9-CM 780.57) Active Condition [facility] VACCIN FOR INFLUENZA Active Condition [facility] LOSS OF TEETH, ACQUIRED Inactive Condition [facility] Other Physical Therapy Active Condition [facility] joint pain fingers Active Condition [facility] joint stiffness finger(s) Active Condition [facility] Vaccines Prophylactic Need Against Influenza Inactive Condition Do D HYPERCHOLESTEROLEMIA Active Condition Good control. No change DoD DIVERTICULOSIS Active Condition Diver ticulitis resolved. Pt reports that he had colonoscopy several (? 5 ) years ago. No record of it in chart. Refer to Dr. Soto for repeat/screenin g [facility] ESSENTIAL HYPERTENSION BENIGN Active Condition Better control on current regimen - continue DoD DIVERTICULITIS OF COLON Active Condition Full review of hospital record done including labs and imaging. Complete course of antibiotics. Written information from Up-To-Date (including diet information) provided. [facility] DIABETES MELLITUS Active Condition Go od control. No change DoD FUNCTIONAL MURMUR Active Condition Adria ring of todays 30min visit spent discussing past cardiac history. Murmur not heard on todays exam. Offered cardiac consult. Pt declines. Per patient request, will review old record. Patient apparently had a cardiac RUFF in the past. Advised him that w/o DoD visit for: issue repeat prescription Active Condition Patient aware of need to make appt for yearly physical [facility] visit for: laboratory Inactive Condition [facility] NONORGANIC SLEEP DISORDERS Active Condition [facility] BIPOLAR DISORDER Active Condition Pat ient to FU w/ referral management. Will enter referral if needed. [facility] REFRACTIVE ERROR - HYPERMETROPIA Active Condition PT EDU ON IMPORTANCE OF ANNUAL EXAM. PT EDU ON IMPORTANCE OF BS AND BP CONTROL. SINCE PT DOESNT LIKE WEARING RX FOR DIST, PT TOLD TO CONTINUE USING OTC READERS PRN. DoD PRESBYOPIA Active Condition PT EDU ON IMPORTANCE OF ANNUAL EXAM. PT EDU ON IMPORTANCE OF BS AND BP CONTROL. SINCE PT DOESNT LIKE WEARING RX FOR DIST, PT TOLD TO CONTINUE USING OTC READERS PRN. 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 [facility] HYPERLIPIDEMIA Active Condition Good control. D oD OBESITY MORBID Active Condition Great ly improved. DoD FATIGUE Active Condition Related to his sleep apnea. Much improved with his increased exercise and some additional caffeine. Patient not interested in pursuing CPAP further at this time. 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, recommended to pt, f/up for further evaluation, pt states he will make appt [facility] RHINOVIRUS Active Condition [facility] Diagnosis: ICD-10-CM E11.9 Type 2 diabetes mellitus without complications Active Diagnosis [facility] Diagnosis: ICD-10-CM F31.9 Bipolar disorder, unspecified Active Diagnosis [facility] Diagnosis: ICD-10-CM Z71.89 Other specified counseling Active Diagnosis [facility] Diagnosis: ICD-10-CM G20.C Parkinsonism, unspecified Active Diagnosis [facility] Medications Combined list of outpatient medications from Department of Defense and Veterans Affairs facilities.Medications provided include 1) outpatient medications [...] BY MOUTH DAILY FOR GOUT ORAL ACTIVE 12/06/2025 [id number] 5 GIL TSANG R 2024 90 [place] [facility] ALLOPURINOL 100MG TAB TAKE ONE TABLET BY MOUTH DAILY FOR GOUT ORAL DISCONT INUED 03/20/2025 [id number] GIL TSANG R 2023 90 [place] [facility] ALLOPURINOL 100MG TAB TAKE ONE TABLET BY MOUTH EVERY DAY ORAL ACTIVE AJAY PUENTE 2013 [facility] ALLOPURINOL 100MG TAB TAKE ONE TABLET BY MOUTH EVERY DAY ORAL ACTIVE BLAKE JORDAN I 2017 [facility] ASPIRIN 81MG TAB,CHEWABL E CHEW ONE TABLET BY MOUTH EVERY DAY ORAL ACTIVE Chris WALLER 2020 [place] [facility] ASPIRIN TAB TAKE 81MG BY MOUTH EVERY DAY ORAL ACTIVE AJAY PUENTE 2012 [facility] benztropine 0.5 mg oral tablet TAKE ONE TABLET BY MOUTH TWICE A DAY -- NO DRIVING IF FEELING DROWSY FROM THIS MEDICATI ON, # 60 EA, 1 total refill(s ), Acute Complet ed 12/21/2022 2 2022 60.0 Ambulat ory Pharmac y BRAND CELEXA TAB TAKE BY MOUTH EVERY DAY ORAL ACTIVE Chris WALLER DARIN MARCUS 2020 [place] [facility] CHOLECALCIF MIKE 25MCG (1,000UNIT) TAB TAKE TWO TABLETS BY MOUTH EVERY DAY ORAL ACTIVE JADENCLARKEBLAKE I 2017 [facility] CHOLECALCIF MIKE 25MCG (1,000UNIT) TAB TAKE ONE TABLET BY MOUTH EVERY DAY ORAL ACTIVE AJAY PUENTE 2011 [facility] citalopram 20 mg tablet See dose [...] MOUTH DAILY FOR MOOD ORAL ACTIVE 03/30/2025 [id number] RONY STEPHENSON 2023 45 [place] [facility] CITALOPRAM TAB TAKE BY MOUTH DAILY ORAL ACTIVE GIL TSANG 2023 [place] [facility] clopidogrel 75 mg tablet 75 mg, Oral, Daily, # 90 EA, 0 total refill(s ), Hard Stop Oral (given by mouth) Complet ed 05/29/2024 3 2023 90.0 Ambulat ory Pharmac y clopidogrel 75 mg tablet 75 mg, Oral, Daily, # 90 EA, 0 total refill(s ), Hard Stop Oral (given by mouth) Complet ed 09/03/2024 4 01/28/ 2025 90.0 Ambulat ory Pharmac y clopidogrel 75 mg tablet 75 mg, Oral, Daily, # 90 EA, 0 total refill(s ), Hard Stop Oral (given by mouth) Complet ed 11/30/2024 4 2024 90.0 Ambulat ory Pharmac y [...] DAILY TO THIN BLOOD ORAL ACTIVE 09/10/2025 [id number] 5 GIL TSANG R 2024 90 [place] [facility] CLOPIDOGREL BISULFATE 75MG TAB TAKE ONE TABLET BY MOUTH DAILY TO THIN BLOOD ORAL DISCONT INUED 03/20/2025 [id number] GIL TSANG R 2023 90 [place] [facility] CLOPIDOGREL BISULFATE 75MG TAB TAKE ONE TABLET BY MOUTH EVERY DAY ORAL ACTIVE BLAKE JORDAN I 2017 [facility] CYANOCOBALA MIN 1000MCG TAB TAKE ONE TABLET BY MOUTH EVERY DAY ORAL ACTIVE BLAKE JORDAN I 2017 [facility] DIVALPROEX NA 500MG TAB,SA TAKE TWO TABLETS BY MOUTH DAILY FOR MOOD ORAL ACTIVE 08/10/2025 [id number] RONY STEPHENSON 2024 180 [place] [facility] DIVALPROEX NA 500MG TAB,SA TAKE TWO TABLETS BY MOUTH DAILY FOR MOOD ORAL DISCONT INUED (EDIT) 10/14/2024 [id number] RONY STEPHENSON 2023 180 [place] [facility] DIVALPROEX NA 500MG TAB,SA TAKE TWO TABLETS BY MOUTH DAILY FOR MOOD ORAL DISCONT INUED 06/27/2024 [id number] SACHINRONY DACOSTA 2023 180 [place] [facility] divalproex sodium ER [Mylan] 500 mg tablet [...] TWICE A DAY ORAL ACTIVE GIL TSANG 2023 [place] [facility] FLOMAX (BRAND) 0.4 MG ORAL CAP May cause drowsine ss.Be careful if taking OTCs.Ovidio e or use exactly as directed .Swallow whole. 07/16/2024 [id number] 3 2023 90 [facility] fluticasone 50 mcg/inh nasal spray SPRAY 1 [...] Stop Oral (given by mouth) Complet ed 11/26/2024 4 2024 120.0 Ambulat ory Pharmac y gemfibrozil 600 [...] 30 MINUTES BEFORE MEALS ORAL ACTIVE 10/02/2025 [id number] TSANG,GIL EK R 2024 180 [place] GEMFIBROZIL 600MG TAB TAKE ONE TABLET BY MOUTH TWICE A DAY FOR CHOLESTE ROL -TAKE 30 MINUTES BEFORE MEALS ORAL DISCONT INUED 03/20/2025 [id number] GIL TSANG EK R 2023 180 [place] [facility] GEMFIBROZIL 600MG TAB TAKE ONE TABLET BY MOUTH TWICE A DAY ORAL ACTIVE BLAKE JORDAN I 2017 [facility] GLIMEPIRIDE 2MG TAB TAKE ONE TABLET BY MOUTH EVERY DAY ORAL ACTIVE [facility] AJAY SELBY 2012 [facility] LISINOPRIL (U/D) 10 MG ORAL TAB Be careful if taking OTCs.Ovidio e or use exactly as directed .Do not take if . 07/09/2024 [id number] 2023 90 [facility] lisinopril 10 mg tablet 10 mg, Oral, [...] DAILY FOR HIGH BLOOD PRESSURE ORAL 06/17/2024 [id number] GIL TSANG EK R 2023 45 [place] [facility] LISINOPRIL 40MG TAB TAKE ONE TABLET BY MOUTH EVERY DAY ORAL ACTIVE AJAY PUENTE 2011 [facility] LISINOPRIL 40MG TAB TAKE ONE-HALF TABLET BY MOUTH EVERY DAY ORAL ACTIVE BLAKE JORDAN I 2017 [facility] Lokelma 5 g Packet [5g] See [...] TABLET BY MOUTH DAILY FOR MEMORY ORAL ACTIVE 01/13/2025 [id number] 5 GIL TSANG EK R 2024 90 [place] MEMANTINE HCL 10MG TAB TAKE ONE TABLET BY MOUTH DAILY FOR MEMORY ORAL DISCONT INUED 12/30/2024 [id number] 5 GIL TSANG EK R 2024 90 [place] MEMANTINE HCL 10MG TAB TAKE ONE TABLET BY MOUTH DAILY FOR MEMORY ORAL DISCONT INUED 10/07/2024 [id number] 4 GIL TSANG EK R 2023 90 [place] [facility] MEMANTINE HCL 10MG TAB TAKE ONE TABLET BY MOUTH DAILY FOR MEMORY ORAL DISCONT INUED 06/20/2024 [id number] GIL TSANG EK R 2023 90 [place] [facility] MEMANTINE HCL 10MG TAB TAKE ONE TABLET BY MOUTH TWICE A DAY ORAL ACTIVE AJAY PUENTE 2011 [place] [facility] MEMANTINE HCL 10MG TAB TAKE ONE TABLET BY MOUTH EVERY DAY ORAL ACTIVE BLAKE JORDAN I 2017 [facility] Memantine Hydrochlori de (Namenda Eq.) Tablet 10 mg Oral 06/25/2024 [id number] 06/26 3 2023 180 [facility] METFORMIN 1000MG/XAVI GLIPTIN 50MG TAB TAKE JANUMET BY MOUTH TWICE A DAY [facility]AL [facility]IVE [facility] AJAY [place]EL[place] 2011 [facility] METFORMIN HCL 1000MG/XAVI GLIPTIN PHOSPHATE 50MG 24 HR TAB,SA TAKE ONE TABLET BY MOUTH EVERY DAY ORAL ACTIVE Chris WALLER 2020 [place] [facility] metformin-s itagliptin 1000 mg-50 mg oral tablet TAKE 1 TABLET BY MOUTH TWICE A DAY WITH MEALS, # 180 EA, 1 total refill(s ), Acute Complet ed 01/09/2023 2 2022 180.0 Ambulat ory Pharmac y PANTOPRAZOL E NA 40MG TAB,EC TAKE ONE TABLET BY MOUTH EVERY DAY ORAL ACTIVE Chris WALLER 2020 [place] [facility] PRIMIDONE 50 MG ORAL TAB Do not drink alcohol. Take or use exactly as directed .May cause drowsine ss/dizzi ness. 06/25/2024 [id number] 3 2023 90 [facility] primidone 50 mg tablet 50 mg, Oral, [...] TABLET BY MOUTH DAILY FOR TREMORS ORAL SUSPEND ED 03/31/2025 [id number] GIL TSANG R 2024 90 [place] PRIMIDONE 50MG TAB TAKE ONE TABLET BY MOUTH DAILY FOR TREMORS ORAL DISCONT INUED 09/17/2025 [id number] 5 GIL TSANG R 2024 90 [place] PRIMIDONE 50MG TAB TAKE ONE TABLET BY MOUTH DAILY FOR TREMORS ORAL DISCONT INUED 03/20/2025 [id number] GIL TSANG MALIK R 2023 90 [place] [facility] PRIMIDONE 50MG TAB TAKE ONE TABLET BY MOUTH EVERY DAY ORAL ACTIVE BLAKE JORDAN I 2017 [facility] propranolol 60 mg oral tablet TAKE 1 TABLET BY MOUTH EVERY DAY, # 60 EA, 0 total refill(s ), Acute Complet ed 11/26/20222022 60.0 Ambulat ory Pharmac y propranolol 60 mg tablet 60 mg, Oral, Daily, # 60 EA, 1 total refill(s ), Hard Stop Oral (given by mouth) Complet ed 11/26/2024 4 2024 60.0 Ambulat ory Pharmac y propranolol ER [...] MOUTH DAILY FOR TREMOR ORAL ACTIVE 09/10/2025 [id number] 5 GIL TSANG MALIK R 2024 90 [place] [facility] PROPRANOLOL HCL 60MG CAP,SA TAKE ONE CAPSULE BY MOUTH DAILY FOR TREMOR ORAL DISCONT INUED 03/20/2025 [id number] GIL TSANG MALIK R 2023 90 [place] [facility] PROPRANOLOL HCL 60MG CAP,SA TAKE 1 CAPSULE BY MOUTH EVERY DAY ORAL ACTIVE BLAKE JORDAN I 2017 [facility] PROPRANOLOL HCL 60MG CAP,SA TAKE 1 CAPSULE BY MOUTH EVERY DAY ORAL ACTIVE [facility] LE[facility],AJAY A 2011 [facility] QUEtiapine 100 mg tablet See dose instruct [...] AT BEDTIME FOR MOOD ORAL ACTIVE 03/30/2025 [id number] RONY STEPHENSON 2023 45 [place] [facility] QUETIAPINE FUMARATE 300MG TAB TAKE ONE TABLET BY MOUTH ORAL ACTIVE Chris WALLER 2020 [place] [facility] QUETIAPINE TAB TAKE BY MOUTH ORAL ACTIVE GIL TSANG R 2023 [place] [facility] SIMVASTATIN 40MG TAB TAKE ONE-HALF TABLET BY MOUTH AT BEDTIME ORAL ACTIVE AJAY PUENTE 2011 [facility] SITAGLIPTIN (EQV-ZITUVI O) 50MG TAB TAKE ONE TABLET BY MOUTH DAILY FOR BLOOD SUGAR - STORE IN ORIGINAL CONTAINE R. OPENED BOTTLES MUST BE USED WITHIN 3 MONTHS ORAL ACTIVE 03/18/2025 [id number] 5 GIL TSANG R 2024 90 [place] [facility] SITAGLIPTIN (EQV-ZITUVI O) 50MG TAB TAKE ONE TABLET BY MOUTH DAILY FOR BLOOD SUGAR - STORE IN ORIGINAL CONTAINE R. OPENED BOTTLES MUST BE USED WITHIN 3 MONTHS ORAL DISCONT INUED 12/15/2024 [id number] 5 GIL TSANG R 2024 90 [place] SITAGLIPTIN (EQV-ZITUVI O) 50MG TAB TAKE ONE TABLET BY MOUTH DAILY FOR BLOOD SUGAR - STORE IN ORIGINAL CONTAINE R. OPENED BOTTLES MUST BE USED WITHIN 3 MONTHS ORAL DISCONT INUED 08/14/2024 [id number] TALAT TSANG UR N 2023 90 [place] SITAGLIPTIN (EQV-ZITUVI O) 50MG TAB TAKE ONE TABLET BY MOUTH DAILY FOR BLOOD SUGAR - STORE IN ORIGINAL CONTAINE R. OPENED BOTTLES MUST BE USED WITHIN 3 MONTHS ORAL DISCONT INUED 06/18/2024 [id number] GIL TSANG EK R 2023 90 [place] [facility] sodium zircon cyclosilic 5 GM ORAL PWPK 07/12/2024 [id number] 2023 90 [facility] SODIUM ZIRCONIUM CYCLOSILICA TE 5GM/PKT PWDR,RENST- ORAL TAKE 1 PACKET BY MOUTH DAILY FOR HIGH POTASSIU M -MIX PACKET CONTENTS IN A GLASS WITH AT LEAST 3 TABLESPO ONS OF WATER OR MORE THEN STIR WELL AND DRINK. IF POWDER REMAINS, ADD WATER, STIR, AND DRINK. REPEAT UNTIL NO POWDER REMAINS. ORAL 04/18/2024 [id number] IGL TSANG EK R 2023 30 [place] [facility] tamsulosin 0.4 mg capsule 0.4 mg, [...] EVERY EVENING FOR PROSTATE ORAL ACTIVE 11/05/2025 [id number] 5 GIL TSANG EK R 2024 90 [place] [facility] TAMSULOSIN HCL 0.4MG CAP TAKE ONE CAPSULE BY MOUTH EVERY EVENING FOR PROSTATE ORAL DISCONT INUED 03/20/2025 [id number] 4 GIL TSANG EK R 2023 90 [place] [facility] TAMSULOSIN HCL 0.4MG CAP TAKE 1 CAPSULE BY MOUTH EVERY DAY ORAL ACTIVE JACOB STANTON 2016 [place] [facility] TAMSULOSIN HCL 0.4MG CAP TAKE ONE CAPSULE BY MOUTH AT BEDTIME ORAL ACTIVE BLAKE JORDAN I 2017 [place] [facility] Allergies, Adverse Reactions, Alerts Combined list of allergies from Department of Defense and Veterans Affairs facilities. It does not include entries that were removed or entered in error. Substance Category Reaction Severity Reaction type Status Date Reported Comments Source INTRAVASCULA R CONTRAST MEDIA Propensity to adverse reactions to drug (finding) Urticaria, Swelling, Pharyngeal swelling active 2 [facility] IODINATED CONTRAST MEDIA Propensity to adverse reactions to drug (finding) active 4 [place] [facility] IODINE Propensity to adverse reactions to drug (finding) ITCHING,TONI ERING EYES, Diarrhea active 2 [facility] IODINE Drug allergy (disorder) Unknown active 9 [facility] [place] IODINE Drug allergy (disorder) active 9 [facility] iodine topical Propensity to adverse reactions to drug Unknown Active Reaction( s): Unknown Unknown Organiza tion sertraline Propensity to adverse reactions to drug Vomiting Active Unknown Organiza tion SHELLFISH Propensity to adverse reactions to food (finding) Urticaria, Pharyngeal swelling active 2 [facility] ZOLOFT Drug allergy (disorder) Vomiting active 9 [facility] Immunizations Combined list of available immunizations from the Department of Defense and Veterans Affairs facilities. Immunization Series Date Given Administered By Site Reaction Lot Number CVX Code Drug Human Resources Recruiter Status Comments Source INFLUENZA, HIGH-DOSE, TRIVALENT, PF 1 2024 135 complet ed HISTORICA L INFORMATI ON - FROM OTHER REGISTRY, [place] [facility] influenza virus vaccine, inactivated 2022 EVA Hardwick clyde, left (delt oid) [id number] 197 sanofi pasteur complet ed influenza virus vaccine, inactivat ed 06/05/23 Given [id number] [facility] [place] COVID Vaccine Moderna 2021 zzLef t Arm [id number] 207 complet ed COVID Vaccine Moderna 12/10/21 Given Ambulat ory Pharmac y SARS-COV-2 (COVID-19) vaccine, mRNA, spike protein, LNP, preservative free, 100 mcg or 50 mcg dose 4 2021 EPIFANIO FRENCH [id number] 207 Moderna [employer] (MOD) complet ed SARS-COV- 2 (COVID-19 ) vaccine, mRNA, spike protein, LNP, preservat luz elena free, 100 mcg or 50 mcg dose DoD COVID Vaccine Moderna 2020 zzLef t Arm [id number] 207 complet ed COVID Vaccine Moderna 06/10/21 Given Ambulat ory Pharmac y SARS-COV-2 (COVID-19) vaccine, mRNA, spike protein, LNP, preservative free, 100 mcg or 50 mcg dose 3 2020 ODILIA PRYOR [id number] 207 Modern[employer] (MOD) complet ed SARS-COV- 2 (COVID-19 ) vaccine, mRNA, spike protein, LNP, preservat luz elena free, 100 mcg or 50 mcg dose DoD COVID-19 (MODERNA), MRNA, LNP-S, PF, 100 MCG/0.5 ML DOSE 2 2020 207 complet ed [facility] COVID Vaccine Moderna 2020 Body, whole [id number] 207 complet ed COVID Vaccine Moderna 11/12/20 Given Ambulat ory Pharmac y SARS-COV-2 (COVID-19) vaccine, mRNA, spike protein, LNP, preservative free, 100 mcg or 50 mcg dose 2 2020 [id number] 207 [employer] (MOD) complet ed SARS-COV- 2 (COVID-19 ) vaccine, mRNA, spike protein, LNP, preservat luz elena free, 100 mcg or 50 mcg dose DoD COVID Vaccine Moderna 2020 zzLef t Arm [id number] 207 complet ed COVID Vaccine Moderna 10/16/20 Given Ambulat ory Pharmac y COVID-19 (MODERNA), MRNA, LNP-S, PF, 100 MCG/0.5 ML DOSE 1 2020 207 complet ed [facility] SARS-COV-2 (COVID-19) vaccine, mRNA, spike protein, LNP, preservative free, 100 mcg or 50 mcg dose 1 2020 [id number] 207 [employer] (MOD) complet ed SARS-COV- 2 (COVID-19 ) vaccine, mRNA, spike protein, LNP, preservat luz elena free, 100 mcg or 50 mcg dose DoD INFLUENZA, UNSPECIFIED FORMULATION 2019 88 complet ed [facility] INFLUENZA, HIGH DOSE SEASONAL 2016 135 complet ed Community [facility] INFLUENZA, SEASONAL, INJECTABLE 2016 141 complet ed Community PCP [facility] INFLUENZA, SEASONAL, INJECTABLE 2014 141 complet ed outside provider [facility] PNEUMOCOCCAL CONJUGATE PCV 13 2014 133 complet ed [facility] ZOSTER LIVE 2013 121 complet ed [facility] FLU,3 YRS (HISTORICAL) 2013 88 complet ed [facility] FLU,3 YRS (HISTORICAL) 2012 88 complet ed [facility] PNEUMOCOCCAL POLYSACCHARID E [id number] 2011 33 complet ed [facility] PNEUMOCOCCAL, UNSPECIFIED FORMULATION 2011 109 complet ed [facility] FLU,3 YRS (HISTORICAL) 2011 88 complet ed per [facility] FLU,3 YRS (HISTORICAL) 2010 88 complet ed [facility] INFLUENZA, UNSPECIFIED FORMULATION 2009 NONE 88 complet ed [facility] PNEUMOCOCCAL, UNSPECIFIED FORMULATION 2009 NONE 109 complet ed [facility] NOVEL INFLUENZA-H1N 1-09, ALL FORMULATIONS 2008 128 complet ed [employer] [facility] INFLUENZA, UNSPECIFIED FORMULATION 2008 NONE 88 complet ed [facility] influenza virus vaccine,split 2007 zzLef t Arm [id number] 15 complet ed influenza virus vaccine,s plit 05/21/08 Given Ambulat ory Pharmac y influenza virus vaccine, split virus (incl. 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 purified surface antigen)- retired CODE DoD FLU,3 YRS (HISTORICAL) 2007 88 complet ed [facility] INFLUENZA, UNSPECIFIED FORMULATION 2006 NONE 88 complet ed [facility] Influenza Vaccination (Refused) (HISTORICAL) 2002 complet ed DECLINED ADRIANA UYEN BUTCHER TETANUS REFUSED (HISTORICAL) 2001 complet ed verbalize s akankshaan ding [facility] TETANUS REFUSED (HISTORICAL) 2001 complet ed does not wish to receive this visit. SydnieCURRYEmersonHumble BUTCHER INFLUENZA (HISTORICAL) 2001 88 complet ed [facility] Results Combined list of recent chemistry, [...] 09, 2024 07:55 AM Reporting Lab: [place] [address] [address] Performing Lab: SHE[address]IA[address] [address] [facility] MICROALBU MIN/CREAT RATIO CREATININE [MASS/VOLUM E] IN URINE 60.8 mg/dL 03/22 Specimen Type: URINE No comment entered. Ordering Provider: MING TSANG Report Released Date/Time: Mar 15, 2024 11:30 AM Reporting Lab: [place] [id number] Performing Lab: [address] MICROALBU MIN/CREAT RATIO MICROALBUMI N [MASS/VOLUM E] IN URINE 9.0 mg/L 0.0 - 30.0 03/22 Specimen Type: URINE No comment entered. Ordering Provider: MING TSANG Report Released Date/Time: Mar 15, 2024 11:30 AM Reporting Lab: [place] [phone] Performing Lab: [address] MICROALBU MIN/CREAT RATIO MICROALBUMI N/CREATININ E [MASS RATIO] IN URINE 14.8 ug/mg{ creat} 03/22 Specimen Type: URINE No comment entered. Ordering Provider: MING TSANG Report Released Date/Time: Mar 15, 2024 11:30 AM Reporting Lab: [place] [address] Performing Lab: [place] [id number] ALT ALANINE AMINOTRANSF ERASE [ENZYMATIC ACTIVITY/VO LUME] [...] 2024 11:30 AM Reporting Lab: [place] [address] [address] Performing Lab: [place] [address] [address] [facility] AST ASPARTATE AMINOTRANSF ERASE [ENZYMATIC ACTIVITY/VO LUME] [...] 15, 2024 11:30 AM Reporting Lab: [place] [address] [address] Performing Lab: [place] [address] [address] [facility] CBC/PLT LEUKOCYTES [#/VOLUME] IN BLOOD BY AUTOMATED COUNT 6.6 10*3/u L 5.0 - 10.0 03/15 Specimen Type: BLOOD No comment entered. Ordering Provider: MING TSANG Report Released Date/Time: Mar 15, 2024 11:30 AM Reporting Lab: [place] [address] [address] Performing Lab: [address] [address] [facility] CBC/PLT ERYTHROCYTE S [#/VOLUME] IN BLOOD BY AUTOMATED COUNT 3.91 10*6/u L 4.6 - 6.2 03/15 L Specimen Type: BLOOD No comment entered. Ordering Provider: MING TSANG Report Released Date/Time: Mar 15, 2024 11:30 AM Reporting Lab: [address] [address] Performing Lab: [address] [address] [facility] CBC/PLT HEMOGLOBIN [MASS/VOLUM E] IN BLOOD 13.0 g/dL 14.0 - 18.0 03/15 L Specimen Type: BLOOD No comment entered. Ordering Provider: MING TSANG Report Released Date/Time: Mar 15, 2024 11:30 AM Reporting Lab: [place] [phone] Performing Lab: [place] [phone] [facility] CBC/PLT HEMATOCRIT [VOLUME FRACTION] OF BLOOD BY AUTOMATED COUNT 39.0 42.0 - 52.0 03/15 L Specimen Type: BLOOD No comment entered. Ordering Provider: MING TSANG Report Released Date/Time: Mar 15, 2024 11:30 AM Reporting Lab: [address] [address] Performing Lab: [address] [address] [facility] CBC/PLT MCV [ENTITIC VOLUME] BY AUTOMATED COUNT 99.7 fL 80.0 - 94.0 03/15 H Specimen Type: BLOOD No comment entered. Ordering Provider: MING TSANG Report Released Date/Time: Mar 15, 2024 11:30 AM Reporting Lab: [address] [address] Performing Lab: [address] [address] [facility] CBC/PLT MCH [ENTITIC MASS] BY AUTOMATED COUNT 33.2 pg 27.0 - 31.0 03/15 H Specimen Type: BLOOD No comment entered. Ordering Provider: MING TSANG Report Released Date/Time: Mar 15, 2024 11:30 AM Reporting Lab: [place] [phone] Performing Lab: [place] [id number] CBC/PLT MCHC [MASS/VOLUM E] BY AUTOMATED COUNT 33.3 g/dL 32.0 - 36.0 03/15 Specimen Type: BLOOD No comment entered. Ordering Provider: MING TSANG Report Released Date/Time: Mar 15, 2024 11:30 AM Reporting Lab: [place] [address] Performing Lab: [address] CBC/PLT PLATELETS [#/VOLUME] IN BLOOD 259 10*3/u L 150 - 450 03/15 Specimen Type: BLOOD No comment entered. Ordering Provider: MING TSANG Report Released Date/Time: Mar 15, 2024 11:30 AM Reporting Lab: [place] [address] Performing Lab: [address] CBC/PLT PLATELET MEAN VOLUME [ENTITIC VOLUME] IN BLOOD 9.6 fL 9.0 - 13.1 03/15 Specimen Type: BLOOD No comment entered. Ordering Provider: MING TSANG Report Released Date/Time: Mar 15, 2024 11:30 AM Reporting Lab: [place] [address] Performing Lab: [address] CBC/PLT ERYTHROCYTE DISTRIBUTIO N WIDTH [ENTITIC VOLUME] BY AUTOMATED COUNT 14.1 11.0 - 16.0 03/15 Specimen Type: BLOOD No comment entered. Ordering Provider: MING TSANG Report Released Date/Time: Mar 15, 2024 11:30 AM Reporting Lab: [address] [address] Performing Lab: [place] [phone] [facility] CBC/PLT NUCLEATED ERYTHROCYTE S/100 ERYTHROCYTE S IN BLOOD 0.0 0.0 - 0.0 03/15 Specimen Type: BLOOD No comment entered. Ordering Provider: MING TSANG Report Released Date/Time: Mar 15, 2024 11:30 AM Reporting Lab: [address] [address] Performing Lab: [place] [phone] [facility] GLYCOHEMO GLOBIN HEMOGLOBIN A1C/HEMOGLO BIN.TOTAL IN BLOOD BY HPLC 9.1 4.4 - 6.4 03/15 H Specimen Type: BLOOD Comment: [place] guidelines for A1c interpretat ion: Glycemic control targets are based on Shared Decision Making between clinicians and patients. Criteria used to establish an A1c target recommendat ion can be found at https://www .[place].gov/bladimir lityandpati entsafety/ and include the use of [...] 9.27. Ref: https://ngs p.org/CAPda ta.asp. The in-house [employer] D-100 analyzer has a historical CV <= 2%. Contact the laboratory for further performance characteris tics of this assay. Ordering Provider: MING TSANG Report Released Date/Time: Mar 15, 2024 11:30 AM Reporting Lab: [address] [address] Performing Lab: [address] [address] [facility] LIPID PROFILE CHOLESTEROL [MASS/VOLUM E] IN SERUM [...] 2024 11:30 AM Reporting Lab: [place] [facility] [address] [facility] [address] Performing Lab: [place] [facility] [address] [facility] [address] [facility] LIPID PROFILE TRIGLYCERID E [MASS/VOLUM E] IN [...] 2024 11:30 AM Reporting Lab: [place] [facility] [address] [facility] [address] Performing Lab: [place] [address] [address] [facility] LIPID PROFILE CHOLESTEROL IN HDL [MASS/VOLUM E] [...] 2024 11:30 AM Reporting Lab: [place] [facility] [address] [facility] [address] Performing Lab: [place] [facility] [address] [place] [address] [facility] LIPID PROFILE CHOLESTEROL IN LDL [MASS/VOLUM E] [...] 2024 11:30 AM Reporting Lab: [place] [address] [address] Performing Lab: [place] [address] [address] [facility] PANEL 1 CREATININE [MASS/VOLUM E] IN SERUM [...] 2024 11:30 AM Reporting Lab: [place] [address] [address] Performing Lab: [place] [address] [address] [facility] PANEL 1 UREA NITROGEN [MASS/VOLUM E] IN SERUM OR PLASMA 42 mg/dL 9 - 25 03/15 H Specimen Type: PLASMA Comment: Estimated [...] 2024 11:30 AM Reporting Lab: [place] [address] [address] Performing Lab: [place] [address] [address] [facility] PANEL 1 GLUCOSE [MASS/VOLUM E] IN SERUM [...] 2024 11:30 AM Reporting Lab: [place] [address] [address] Performing Lab: [place] [address] [address] [facility] PANEL 1 SODIUM [MOLES/VOLU ME] IN SERUM [...] 2024 11:30 AM Reporting Lab: [place] [address] [address] Performing Lab: [place] [address] [address] [facility] PANEL 1 POTASSIUM [MOLES/VOLU ME] IN SERUM [...] 2024 11:30 AM Reporting Lab: [place] [address] [address] Performing Lab: [place] [address] [address] [facility] PANEL 1 CHLORIDE [MOLES/VOLU ME] IN SERUM [...] 2024 11:30 AM Reporting Lab: [place] [address] [address] Performing Lab: [place] [address] [address] [facility] PANEL 1 CARBON DIOXIDE, TOTAL [MOLES/VOLU ME] IN SERUM OR PLASMA 22 mmol/L 22 - 29 03/15 Specimen Type: PLASMA Comment: Estimated Glomerular [...] 2024 11:30 AM Reporting Lab: [place] [address] [address] Performing Lab: [place] [address] [address] [facility] PANEL 1 CALCIUM [MASS/VOLUM E] IN SERUM [...] 2024 11:30 AM Reporting Lab: [place] [address] [address] Performing Lab: [place] [address] [address] [facility] PANEL 1 ANION GAP 3 IN SERUM [...] 2024 11:30 AM Reporting Lab: [place] [address] [address] Performing Lab: [place] [address] [address] [facility] PANEL 1 GLOMERULAR FILTRATION RATE/1.73 SQ M.PREDICTED [...] 2024 11:30 AM Reporting Lab: [place] [facility] [address] [facility] [address] Performing Lab: [place] [facility] [address] [facility] [address] [facility] Vital Signs Combined list of inpatient and outpatient Vital Signs from Department of [facility] and [facility], ranging from 12 months to all on record, depending upon the facility. Vital Sign Value Date Comments Source SYSTOLIC BLOOD PRESSURE 124 03/15/2024 10:22:26 [facility] DIASTOLIC BLOOD PRESSURE 76 03/15/2024 10:22:26 [facility] PULSE OXIMETRY 99 03/15/2024 10:22:26 [facility] WEIGHT 155 03/15/2024 10:22:26 [facility] PAIN 0 03/15/2024 10:22:26 [facility] TEMPERATURE 97.6 03/15/2024 10:22:26 [facility] PULSE 83 03/15/2024 10:22:26 [facility] RESPIRATION 20 03/15/2024 10:22:26 [facility] Encounters Combined list of: 1) Encounters from [facility] Veterans Affairs facilities going backup to the last 18 months, not all [place] inpatient encounters are included; 2) Encounters from the Department of [facility] facilities going backup to 280 months. Location Location Details Encounter Type Encounter Number Reason For Visit Attending Provider ADM Date DC Date Status Disposition Source [facility] [place] OUTPATIENT [id number] f/u WALDEMAR Judge 05/26 Released w/o Limitations [facility] [place] [facility] [place] OUTPATIENT [id number] f/u WALDEMAR Judge 09/09 Released w/o Limitations [facility] [place] [place] TELE CONSULT [id number] call re LINN Horvath 09/14 [facility] [place] [facility] [place] OUTPATIENT [id number] f/u diabete s WALDEMAR COSTA 09/19 Released w/o Limitations [facility] [place] [facility] [place] TELE CONSULT [id number] Consult LINN MATUTE 09/28 [facility] [place] [place] OUTPATIENT [id number] fever/c ongesti on SEDRICK WALDEMAR P 10/11 Released w/o Limitations [facility] [place] [place] OUTPATIENT [id number] tired all the time WALDEMAR COSTA 10/20 Released w/o Limitations [facility] [place] [place] OUTPATIENT [id number] f/u labwork WALDEMAR COSTA 10/31 Released w/o Limitations [facility] [place] [place] TELE CONSULT [id number] lab orders LINN MATUTE 12/13 [facility] [place] [facility] [place] OUTPATIENT [id number] lab results WALDEMAR COSTA 01/09 Released w/o Limitations [facility] [place] [facility] [place] TELE CONSULT [id number] Lab results [facility] 03/22 [facility] [place] [facility] [place] TELE CONSULT [id number] request for labs [facility] 03/28 [facility] [place] [place] OUTPATIENT [id number] f/u diabete s SELAM KEBEDE 05/01 Released w/o Limitations [facility] [place] [place] OUTPATIENT [id number] annual pe SELAM KEBEDE 06/01 Released w/o Limitations [facility] [place] [place] OUTPATIENT [id number] diabeti c eye exam RAUDEL HAYDEN 06/01 Released w/o Limitations [facility] [place] [place] OUTPATIENT [id number] discuss sleep apnea KRISTIAN HUDSON 08/02 Released w/o Limitations [facility] [place] [facility] [place] OUTPATIENT [id number] med refills PENDJESSICA ROGERS JR 10/26 Released w/o Limitations [facility] [place] [facility] [place] TELE CONSULT [id number] annual bloodwo rk ELICIA CASANOVA 04/10 [facility] [place] [facility] [place] OUTPATIENT [id number] sherri f/u YANG NORMAN S 05/01 Released w/o Limitations [facility] [place] [facility] [place] OUTPATIENT [id number] f/u diabeti c YANG NORMAN S 06/05 Released w/o Limitations [facility] [place] [facility] [place] OUTPATIENT [id number] fu from [facility] inpatie nt stay YANG NORMAN S 09/14 Released w/o Limitations [facility] [place] [place] OUTPATIENT [id number] f/u bp YANG NORMAN S 10/09 Released w/o Limitations [facility] [place] [place] OUTPATIENT [id number] followu p on bloodpr essure YANG NORMAN S 11/06 Released w/o Limitations [facility] [place] [place] TELE CONSULT [id number] referra LUKE Mendoza 12/31 [facility] [place]Im [facility]atio [facility] [place] OUTPATIENT [id number] NEMO ANSARI 05/21 Released w/o Limitations [facility] [place]) [facility]Ph [facility]sical Therapy [place] OUTPATIENT [id number] Pas entered the order-t humb arthrop athy. OTONIEL MASON 11/05 Released w/o Limitations [facility] [place] [place] OUTPATIENT [id number] thumb arthrop aty OTONIEL MASON 11/14 Released w/o Limitations [facility] [place] [facility] [place] OUTPATIENT [id number] OTONIEL MASON 11/19 Released w/o Limitations [facility] [place](Im ms[facility]) OUTPATIENT [id number] 7 ODILIA Zhou 06/10 Released w/o Limitations [facility]( Imms[facility]We [facility]ness [facility]) [facility] OUTPATIENT [id number] 4 Notes Entered by: EPIFANIO FRENCH 10 Dec 2021 1203 ------- ------- ------- ------- -- Moderna Booster 2 EPIFANIO FRENCH 12/10 Released w/o Limitations [facility]( Imms/We llness Cl [facility]x) [facility] Outpatient Encounter [id number] STANLEY DIAS 08/29 [facility] Outpatient Encounter [id number] 11/20 [place] [facility] Outpatient Encounter [id number] 02/25 [place] [facility] Outpatient Encounter [id number] 02/27 [place] [facility] Outpatient Encounter [id number] 03/01 [place] Outpatient Encounter [id number] 03/05 [place] [facility] Outpatient Encounter [id number] 03/05 [place] [facility] Outpatient Encounter [id number] 03/06 [place] [facility] Outpatient Encounter [id number] 03/08 [place] [facility] OFFICE O/P NEW MOD 45 MIN [id number] Diagnos is: ICD-10- CM G20.C Max onism, unspeci TREASURE Parr 03/15 [place] [facility] CASE MANAGEMENT [id number] Diagnos is: ICD-10- CM Z71.89 Other specifi ed counselor manager KIERSTEN Brooks 03/15 [place] [facility] Outpatient Encounter [id number] 03/15 [place] [facility] HC PRO PHONE CALL 5-10 MIN [id number] Diagnos is: ICD-10- CM E11.9 Type 2 diabete s mellitu s without complic ations Livier SALINAS 03/19 [place] [facility] HC PRO PHONE CALL 5-10 MIN [id number] Diagnos is: ICD-10- CM Z71.89 Other specifi ed counselor manager TIKI Diamond 03/[address] [place] [facility] TARGETED CASE MANAGEMENT [id number] CELSARAMY Kate 03/20 [place] Outpatient Encounter [id number] 03/[address] [place] [facility] TARGETED CASE MANAGEMENT [id number] Humble GARCIA 03/20 [facility] Outpatient Encounter [id number] 03/22 [place] [facility] PSYTX W PT 60 MINUTES [id number] Diagnos is: ICD-10- CM F31.9 Bipolar disorde r, unspeci fied MONI CARTER 03/22 [place] [facility] Outpatient Encounter [id number] 03/22 [place] [facility] Outpatient Encounter [id number] 03/22 [place] [facility] Outpatient Encounter [id number] 03/22 [place] [facility] Outpatient Encounter [id number] 03/[address] [place] [facility] Outpatient Encounter [id number] 03/26 [place] Outpatient Encounter [id number] 03/29 [place] [facility] PSYCH DIAG EVAL W/MED SRVCS [id number] Diagnos is: ICD-10- CM F31.9 Bipolar disorde r, unspeci fied FORTINO STEPHENSON 03/[address] [place] [facility] Outpatient Encounter [id number] 03/29 [place] [facility] Outpatient Encounter [id number] 04/10 [place] [facility] Outpatient Encounter [id number] 04/24 [place] [facility] HC PRO PHONE CALL 5-10 MIN [id number] Diagnos is: ICD-10- CM Z71.89 Other specifi ed counselor manager TIKI Diamond 05/[address] [place] [facility] Outpatient Encounter [id number] 60 05/15 [place] [facility] HC PRO PHONE CALL 5-10 MIN [id number] Diagnos is: ICD-10- CM E11.9 Type 2 diabete s mellitu s without complic ations Livier SALINAS 05/15 [place] [facility] HC PRO PHONE CALL 5-10 MIN [id number] Diagnos is: ICD-10- CM Z71.89 Other specifi ed counselor manager TIKI Diamond 05/[address] [place] [facility] Outpatient Encounter [id number] 21 06/24 [place] [facility] Outpatient Encounter [id number] 07/09 [place] [facility] OFFICE O/P EST HI 40 MIN [id number] Diagnos is: ICD-10- CM F31.9 Bipolar disorde r, unspeci fied FORTINO STEPHENSON 08/09 [place] [facility] Outpatient Encounter [id number] 09/09 [place] [facility] Outpatient Encounter [id number] 09/16 [place] [facility] PH1 ASSMT&MGMT NQHP 5-10 [id number] Diagnos is: ICD-10- CM E11.9 Type 2 diabete s mellitu s without complic ations ZELALEM JOAQUIN 09/[address] [place] [facility] Outpatient Encounter [id number] 09/18 [place] [id number] ASSMT&MGMT NQHP 5-10 [id number] Diagnos is: ICD-10- CM E11.9 Type 2 diabete s mellitu s without complic ations Livier SALINAS 09/24 [place] [facility] Outpatient Encounter [id number] 09/[address] [place] [facility] Outpatient Encounter [id number] 10/02 [place] [facility] Outpatient Encounter [id number] 10/15 [place] [facility] Outpatient Encounter [id number] 10/21 [place] [facility] Outpatient Encounter [id number] 11/04 [place] [facility] OFFICE O/P EST MOD 30 MIN [id number] Diagnos is: ICD-10- CM F31.9 Bipolar disorde r, unspeci fied SACHINFORTINO GALEN 11/[address] [place] [facility] Outpatient Encounter [id number] 12/05 [place] [facility] Outpatient Encounter [id number] 12/17 [place] [facility] Outpatient Encounter [id number] 12/18 [place] [facility] PH1 ASSMT&MGMT NQHP 5-10 [id number] Diagnos is: ICD-10- CM E11.9 Type 2 diabete s mellitu s without complic ations Livier SALINAS 12/[address] [place] [facility] Outpatient Encounter [id number] 04 12/31 [place] [facility] Procedures Combined list of: 1) Procedures from Department of Veterans Affairs facilities going back up to thelast 18 months, not all [place] non-surgical procedures are included; 2) All procedures from the Department of Defense facilities. Procedure Procedure Type Code Date Perfomer Comments Sourc e No data available for this section [facility] OTHER SURGICAL EXTRACTION OF TOOTH 994 DoD ALVEOLOPLASTY 994 DoD BIOPSY OF GUM 994 DoD Exercises A isted Exercises For [place] 66633 009 DEEPAK REED DoD Exercises A isted Exercises [place] [address] 009 KASSANDRA JUAREZ [facility] Exercises A isted Exercises For [place] [address]12[address] 009 DONNIE MASON [facility] Physical Medicine Physical Therapy Evaluation Physical Medicine Physical Therapy Evaluation 64330 009 DONNIE MASON [facility] Influenza Split Virus Vaccine Age 3+ Years Intramuscular 008 KATHARINE STANFORD [facility] Immunization Administration One Vaccine Immunization Administration One Vaccine 55399 008 KATHARINE STANFORD [facility] Psychoactive Medication Management Psychoactive Medication Management 92875 007 ZAC, ODITA D DoD Psychiat Therapy Indiv Appr 20-30 Min W/ Med Eval Managemt Psychiat Therapy Indiv Appr 20-30 Min W/ Med Eval Managemt [id number] 007 ZAC, ODITA D DoD Psychoactive Medication Management Psychoactive Medication Management 95470 007 ZAC, ODITA D DoD Psychiat Therapy Indiv Appr 20-30 Min W/ Med Eval Managemt Psychiat Therapy Indiv Appr 20-30 Min W/ Med Eval Managemt 25907 007 ZAC, ODITA D DoD Psychoactive Medication Management Psychoactive Medication Management 76275 007 ZAC, ODITA D DoD Psychiat Therapy Indiv Appr 20-30 Min W/ Med Eval Managemt Psychiat Therapy Indiv Appr 20-30 Min W/ Med Eval Managemt 54960 006 ZAC, ODITA D DoD Psychoactive Medication Management Psychoactive Medication Management 80483 006 ZAC, ODITA D DoD Determination Of Refractive State Determination Of Refractive State 17603 006 , [facility] Diabetic indicator; retinal eye exam, dilated, bilateral 006 , [facility] Ophthalmological New Patient Start Comprehensive [facility] Ophthalmological New Patient Start Comprehensive Care 23403 006 , [facility] Psychiat Therapy Indiv Appr 20-30 Min W/ Med Eval Managemt Psychiat Therapy Indiv Appr 20-30 Min W/ Med Eval Managemt 18900 006 ZAC, ODITA D DoD Psychoactive Medication Management Psychoactive Medication Management [id number] ZAC, ODITA D DoD Psychiat Therapy Indiv Appr 20-30 Min W/ Med Eval Managemt Psychiat Therapy Indiv Appr 20-30 Min W/ Med Eval Managemt [id number] ZAC, ODITA D DoD Psychoactive Medication Management Psychoactive Medication Management [id number] ZAC, ODITA D DoD Psychiat Therapy Indiv Appr 20-30 Min W/ Med Eval Managemt Psychiat Therapy Indiv Appr 20-30 Min W/ Med Eval Managemt [id number] ZAC, ODITA D DoD Psychoactive Medication Management Psychoactive Medication Management [id number] ZAC, ODITA D DoD Psychiat Therapy Indiv Appr 20-30 Min W/ Med Eval Managemt Psychiat Therapy Indiv Appr 20-30 Min W/ Med Eval Manageks [id number] 006 ZAC ODLUIS D [facility] Psychoactive Medication Management Psychoactive Medication Management [id number] ZACZAK DoD Immunization Administration One Vaccine Immunization Administration One Vaccine 10369 ODILIA PRYOR [facility] Social History Combined list of available smoking, tobacco, and other social history from [facility] of Defense and [facility] facilities. Social History Type Response Date Comment [facility] e Tobacco smoking status NHIS VA-TOBACCO FORMER USER 03/15/2024 [facility] History of tobacco use [place]-TO[place]CO QUIT 15 YRS OR MORE 03/15/2024 [facility] History of tobacco use VA-TOBACCO NEVER USED 08/29/2023 [facility] History of tobacco use VA-TOBACCO FORMER USER 09/28/2020 [facility] History of tobacco use VA-TOBACCO FORMER USER 10/08/2018 [facility] History of tobacco use LIFETIME NON-USER OF TOBACCO 07/21/2017 [facility] History of tobacco use LIFETIME NON-USER OF TOBACCO 10/17/2016 [facility] History of tobacco use LIFETIME NON-USER OF TOBACCO 10/28/2015 [facility] History of tobacco use LIFETIME NON-USER OF TOBACCO 12/23/2014 [facility] History of tobacco use QUIT TOBACCO >7 YEARS AGO 03/10/2014 [facility] History of tobacco use QUIT TOBACCO >7 YEARS AGO 04/15/2013 [facility] History of tobacco use QUIT TOBACCO >7 YEARS AGO 06/11/2012 [facility] History of tobacco use DATE LAST SMOKED 11/29/2011 [facility] History of tobacco use LIFETIME NON-TOBACCO USER 09/16/2010 [facility] History of tobacco use DATE LAST SMOKED 06/24/2009 [facility] History of tobacco use LIFETIME NON-TOBACCO USER 06/23/2008 [facility] History of tobacco use TOBACCO USE/SMOKING SCREEN 07/27/2007 [facility] History of tobacco use DATE LAST SMOKED 07/24/2006 [facility] History of tobacco use LIFETIME NON-TOBACCO USER 12/02/2004 [facility] This section is an empty social history section. DoD Assessment and Plan Combined list of future care activities from [facility] of [facility] and [facility] facilities (e.g., assessment and plan notes, appointments, orders, and referrals). Additional future care activities may be listed in the Plan of Care section. Result Assessment and Plan Date Source Assessment and Plan No data available for this section 01/06/2025 Ambulatory Pharmacy Plan of Care List of future care activities from [facility] facilities. Additional future care activities may be listed in the Assessment and Plan section. Date/Time Care Activity Care Activity Detail Facili ty 01/29/2025 AMBULATORY - PS[facility]AT[facility]ATORY - [facility] Advance Directives List of completed, amended, or rescinded Advance Directives on record at Department of [facility] Affairs facilities. An actual copy of the Directive is not included. Date Advance Directive Provider Source 04/21/2017 ADVANCE DIRECTIVE DISCUSSION YFN JOHNSON [facility] 06/26/2015 ADVANCE DIRECTIVE DISCUSSION CATA SAL [facility] Functional Status Combined list of recent functional and cognitive assessments recorded at [facility] of [facility] and [facility] ([place] Functional [place] Measurement (FIM) Scale: 1 = Total Assistance (Subject = 0% +), 2 = Maximal Assistance (Subject = 25% +), 3 = Moderate Assistance (Subject = 50% +), 4 = Minimal Assistance (Subject = 75% +), 5 = Supervision, 6 = Modified [place] (Device), 7 = Complete [place] (Timely, Safely). Assessment Date/Time Source Assessment Type Assessment Skill Assessment Score Assessment Details No data available for this section
--- NOTE | 2025-01-06 08:00 | CT_ITS ---
FINAL REPORT TECHNIQUE: Thin section axial CT images of the temporal bones were obtained. Coronal and sagittal reformatted images were also obtained. This study was performed with techniques to keep radiation doses as low as reasonably achievable (ALARA). Individualized dose reduction techniques using automated exposure control or adjustment of mA and/or kV according to the patient's size were employed. CLINICAL HISTORY: DIZZINESS, FOLLOW UP right mastoiditis FROM MRI COMPARISON: MRI of the head 11/22/2024 FINDINGS: Right temporal bone: The internal auditory canal has an unremarkable appearance. The inner ear structures are unremarkable. The external auditory canal has an unremarkable appearance. No abnormality is identified of the middle ear cavity. The ossicles are intact. There is a trace amount of fluid present in the right lateral mastoid air cells, a marked improvement when compared to the prior exam of 11/22/2024. No bony mass is identified. Left temporal bone: The internal auditory canal has an unremarkable appearance. The inner ear structures are unremarkable. The external auditory canal has an unremarkable appearance. No abnormality is identified of the middle ear cavity. The ossicles are intact. The mastoid air cells and mastoid antrum have an unremarkable appearance. No bony mass is identified. No air-fluid levels are noted in the visualized portions of the paranasal sinuses. IMPRESSION: Marked improvement in the right mastoid air cells when compared with the prior MRI of 11/22/2024. Reviewed, Interpreted and Dictated by Danya Alexander MD Transcribed by Danna Jacome Authenticated and [facility]
== END 2025-01-06 23:59 | disposition home or self-care (01) ==
LOC: RAD 07:48
PROVIDERS: PCP Nurse Practitioner Family; Visit Provider Nurse Practitioner
DX: H70.11 Chronic mastoiditis, right ear (principal)
CPT/HCPCS: 70486

== ENCOUNTER 2025-01-09 07:32 | Outpatient (CLI) | payer MEDICARE, OTHER, SELFPAY ==
--- OUTSIDE RECORDS SUMMARY | 2024-12-31 04:02 | XMS_ITS ---
Author Name [facility] [place] [facility] [place] Address [address] [place] [address] Care Team Providers Care Benefits Administrator Name Role Phone MING TSANG Primary [...] TRICA RE DODA WNR Oct 09, 2020 [facility] [id number] MELANIE,LE ONARD PATIENT MEDICARE (WNR) MEDICARE (M) PART A Nov 05, 2010 PART A [id number] MELANIE,LE ONARD PATIENT MEDICARE (WNR) MEDICARE (M) PART B Nov 05, 2010 PART B [id number] MELANIE,LE ONARD PATIENT MEDICARE (WNR) MEDICARE (M) PART A Nov 05, 2010 PART A [id number] [facility] [id number] MELANIE,LE ONARD PATIENT MEDICARE (WNR) MEDICARE (M) PART B Nov 05, 2010 PART B [id number] [id number] MELANIE,LE ONARD PATIENT MEDICARE (WNR) MEDICARE (M) PART A Nov 05, 2010 PART A [id number] [facility] [phone] MELANIE,LE ONQUEENIE PATIENT MEDICARE (WNR) MEDICARE (M) PART B Nov 05, 2010 PART B [id number] [facility] [phone] MELANIE,LE ONQUEENIE PATIENT MEDICARE (WNR) MEDICARE (M) PART A Nov 05, 2010 PART A [id number] [id number] MELANIE,LE ONQUEENIE PATIENT MEDICARE (WNR) MEDICARE (M) PART B Nov 05, 2010 PART B [id number] [id number] MELANIE,LE ONARD PATIENT MEDICARE (WNR) MEDICARE (M) PART A Nov 05, 2010 PART A [id number] [place] [address] MAXINE NAVARRO PATIENT MEDICARE (WNR) MEDICARE (M) PART B Nov 05, 2010 PART B [id number] [place] [address] [phone] MAXINE NAVARRO PATIENT MEDICARE (WNR) MEDICARE (M) PART A Nov 05, 2010 PART A [id number] [id number] [phone] MAXINE NAVARRO PATIENT MEDICARE (WNR) MEDICARE (M) PART B Nov 05, 2010 PART B [id number] [id number] [phone] MAXINE NAVARRO PATIENT FOR LIFE TRICA RE FOR LIFE Mar 31, 2010 [facility] [id number] MAXINE NAVARRO PATIENT FOR LIFE DIREC T CARE Mar 31, 2010 FOR LIFE [id number] MAXINE NAVARRO PATIENT -FO R-LIFE TRICA RE FOR LIFE December 05, 2010 TF [id number] MAXINE NAVARRO PATIENT Selected Encounter This section includes the information on record at [place] for the Encounter. Date/Time Encounter Type Encounter Description Reason Pro vider Source December 31, 2024 08:02 AM Outpatient Encounter ADMIN PAT ACTIVTIES (MASNONCT) IHE Encounter Template Text not used by [facility] Plan of Treatment: Future Appointments (+ 6 months) and Future Tests (+/- 45 days) The Plan of Treatment section includes future care activities for the [facility] [place] [facility]. This section includes future appointments and future orders which are active, pending or scheduled. Future Appointments This section includes appointments that were scheduled to occur 6 months from the date of the Encounter, up to a maximum of 20 appointments. The data comes from all [facility] facilities. Appointment Date/Time Appointment Type Appointme nt Facility Name Jan 29, 2025 01:00 PM AMBULATORY - PSYCHIATRY [place] [facility] Jan 31, 2025 10:00 AM [facility]ORY - NONE [place] [facility] Advance Directives: All historical and current Section Date Range: From patient's date of to the date document was created. This section includes ALL of a patient's completed or amended [place] Advance and Rescinded Directives. The entries below indicate that a directive exists for the patient, but an actual copy is not included with this document. The data [facility] from [facility]. Date Advance Directives Provider Source Apr 21, 2017 ADVANCE DIRECTIVE DISCUSSION YFN JOHNSON [facility] Jun 26, 2015 ADVANCE DIRECTIVE DISCUSSION ILIA SAL [facility] Encounter Notes: All associated encounter notes This section contains the clinical notes associated to the Encounter. Date/Time Encounter Note(s) Provider Source December 31, 2024 01:56 PM ADDENDUM: LOCAL TITLE: Addendum STANDARD TITLE: ADDENDUM DATE OF NOTE: DECEMBER 31, 2024@13:56:25 ENTRY DATE: DECEMBER 31, 2024@13:56:26 AUTHOR: MING TSANG EXP COSIGNER: URGENCY: STATUS: COMPLETED This med was last refilled in Mar 2024 for 3 months, is he still taking it and who is prescribing it? Does he follows with [facility] renal provider? /es/ MING TSANG M.D. PRIMARY CARE STAFF PHYSICIAN Signed: 12/31/2024 13:57 Receipt Acknowledged By: 01/06/2025 10:33 /franny/ RICHA MORALES,RN tank wagon driver --- Original Document --- 12/31/24 PHARMACY TELEPHONE CARE NOTE: 1. Name of caller: 2. Phone #: 3. Specialty Clinic/Primary Care Team: No Data Found for the Selected Note Titles 4. Medication: LISINOPRIL 20MG TAB 5. Last fill date: Provider: 6. The caller requests prescription: Mailed 7. View Alert to: /elmer George CPhT Pharmacy Food Aide Signed: 12/31/2024 08:03 Receipt Acknowledged By: 12/31/2024 13:56 /elmer TSANG M.D. PRIMARY CARE STAFF PHYSICIAN 01/03/2025 ADDENDUM STATUS: COMPLETED Attempted to contact , no answer. No VM option /franny/ RICHA MORALES,RN tank wagon driver Signed: 01/03/2025 09:38 MING TSANG-CDD [facility] December 31, 2024 08:02 AM PHARMACY TELEPHONE ENCOUNTER NOTE: LOCAL TITLE: PHARMACY TELEPHONE CARE NOTE STANDARD TITLE: PHARMACY TELEPHONE ENCOUNTER NOTE DATE OF NOTE: DECEMBER 31, 2024@08:02 ENTRY DATE: DECEMBER 31, 2024@08:02:55 AUTHOR: RILEY GEORGE EXP COSIGNER: URGENCY: STATUS: COMPLETED PHARMACY TELEPHONE CARE NOTE Has ADDENDA 1. Name of caller: 2. Phone #: 3. Specialty Clinic/Primary Care Team: No Data Found for the Selected Note Titles 4. Medication: LISINOPRIL 20MG TAB 5. Last fill date: Provider: 6. The caller requests prescription: Mailed 7. View Alert to: /elmer George CPhT Pharmacy Food Aide Signed: 12/31/2024 08:03 Receipt Acknowledged By: 12/31/2024 13:56 /elmer TSANG M.D. PRIMARY CARE STAFF PHYSICIAN 12/31/2024 ADDENDUM STATUS: COMPLETED This med was last refilled in Mar 2024 for 3 months, is he still taking it and who is prescribing it? Does he follows with [facility] renal provider? /elmer TSANG M.D. PRIMARY CARE STAFF PHYSICIAN Signed: 12/31/2024 13:57 Receipt Acknowledged By: 01/06/2025 10:33 /franny/ RICHA MORALES,RN tank wagon driver 01/03/2025 ADDENDUM STATUS: COMPLETED Attempted to contact , no answer. No VM option /franny/ RICHA MORALES,RN tank wagon driver Signed: 01/03/2025 09:38 01/06/2025 ADDENDUM STATUS: COMPLETED Attempted to contact , no answer /RICHA Leija,RN tank wagon driver Signed: 01/06/2025 10:34 RILEY GEORGE-JONELLE [facility]
--- NOTE | 2025-01-09 | CA_ITS ---
APPROVED REPORT Exam: Pharmacologic Technologist: Ann Jama Ht: 5 ft 6 in Wt: 157 lbs BSA: 1.80 m2 HR: 90 bpm BP: 157/92 mmHg Rhythm: SR Medical History Cardiac Risk Factors: Hyperlipidemia, Smoking Stress Test Details HR Resting HR: 90 bpm Max Heart Rate (APMHR): 141 bpm Target HR (85% APMHR): 120 bpm Recovery HR: 96 bpm BP Resting BP: 157.0/92.0 mmHg Max BP: 162.0/81.0 mmHg Recovery BP: 148.0/78.0 mmHg ECG Resting ECG: SR Stress ECG Conclusion During lexiscan pt experinced no symptoms. No arrhythmias noted. Electronically signed by : Екатерина Lock MD 01/12/2025 20:56:06
--- OUTSIDE RECORDS SUMMARY | 2025-01-09 07:35 | XMS_ITS | Continuity of Care Document ---
Author Name [facility] Organization [facility] Care Team Providers Care Assistant Center Manager Name Role Phone [facility] Unavailable Unavailable Problems Combined list of problems from Department of Defense and Veterans Affairs facilities. It does not include entries that were removed or entered in error. 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 No change DoD DIVERTICULOSIS Active Condition Diver ticulitis resolved. Pt reports that he had colonoscopy several (? 5 ) years ago. No record of it in chart. Refer to Dr. Soto for repeat/screenin g [facility] ESSENTIAL HYPERTENSION BENIGN Active Condition Better control on current regimen - continue DoD DIVERTICULITIS OF COLON Active Condition Full review of hospital record done including labs and imaging. Complete course of antibiotics. Written information from Up-To-Date (including diet information) provided. [facility] DIABETES MELLITUS Active Condition Go od control. No change [facility] FUNCTIONAL MURMUR Active Condition Adria ring of [...] need to make appt for yearly physical DoD visit for: laboratory Inactive Condition DoD NONORGANIC SLEEP DISORDERS Active Condition [facility] BIPOLAR DISORDER Active Condition Pat ient to FU w/ referral management. Will enter referral if needed. [facility] REFRACTIVE ERROR - HYPERMETROPIA Active Condition PT [...] TOLD TO CONTINUE USING OTC READERS PRN. 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 [facility] HYPERLIPIDEMIA Active Condition Good control. D oD OBESITY MORBID Active Condition Great ly improved. [facility] FATIGUE Active Condition Related to his sleep apnea. Much improved with his increased exercise and some additional caffeine. Patient not interested in pursuing CPAP further at this time. 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, recommended to pt, f/up for further evaluation, pt states he will make appt [facility] RHINOVIRUS Active Condition [facility] Benign prostatic hyperplasia Active Condition [facility] Benign prostatic hyperplasia Active Condition [facility] BIPOLAR AFF, MANIC-MILD Active Condition [facility] Bipolar disorder (SNOMED CT 27449246) Active Condition [facility] Bipolar disorder in remission (SNOMED CT 30168940) Active Condition Jun 11, 2012 Entered By: Humble [place] Comment: -[facility] p 2012 Entered By: Humble [place] Comment: [place]- [place] [facility] BLEPHARITIS NOS Active Condition [facility] comanaged care Active Condition Jun Entered By: Humble [place] Comment: [facility] Dementia Active Condition [facility] depression. 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 Active Condition [facility] Hyperlipidemia Active Condition [facility] HYPERLIPIDEMIA NEC/NOS Active Condition [facility] Hypertension Active Condition [facility] Hypertension * (ICD-9-CM 401.9) Active Condition [facility] Hypertension, Essential Active Condition [facility] Insulin treated type 2 diabetes mellitus Active Condition [facility] Major Depression, recurrent (ICD-9-CM 296.30) Active Condition [facility] Parkinson disease Active Condition [facility] Parkinson's disease Active Condition [facility] Personal History of Transient Ischemic Attack (Tia), and Cerebral Infarction wit Active Condition [facility] Posttraumatic Stress Disorder Active Condition [facility] PROPHY VACC. STREP PNEU Active Condition [facility] Routine Med Exam Active Condition [facility] Sensorineural hearing loss of Combined types, Bilateral (ICD-9-CM 389.18) Active Condition [facility] Sensorineural Hearing Loss, Bilateral (ICD-9-CM 389.18) Active Condition [facility] Sensorineural hearing loss, bilateral (SNOMED CT 376685272) Active Condition [facility] Transient cerebral ischemia Active Condition [facility] Unspecified Sleep Apnea (ICD-9-CM 780.57) Active Condition [facility] VACCIN FOR INFLUENZA Active Condition [facility] LOSS OF TEETH, ACQUIRED Inactive Condition [facility] Diagnosis: ICD-10-CM E11.9 Type 2 diabetes mellitus without complications Active Diagnosis [facility] Diagnosis: ICD-10-CM F31.9 Bipolar disorder, unspecified Active Diagnosis [facility] Diagnosis: ICD-10-CM Z71.89 Other specified counseling Active Diagnosis [facility] Diagnosis: ICD-10-CM G20.C Parkinsonism, unspecified Active Diagnosis [facility] Medications Combined list of outpatient medications from Department of Defense and [facility] Affairs facilities.Medications provided include 1) outpatient medications [...] MOUTH DAILY FOR GOUT ORAL ACTIVE 12/06/2025 [id number] 5 GIL TSANG R 2024 90 [place] ALLOPURINOL 100MG TAB TAKE ONE TABLET BY MOUTH DAILY FOR GOUT ORAL DISCONT INUED 03/20/2025 [id number] GIL TSANG R 2023 90 [place] [facility] [place] ALLOPURINOL 100MG TAB TAKE ONE TABLET BY MOUTH EVERY DAY ORAL ACTIVE AJAY PUENTE 2013 [facility] ALLOPURINOL 100MG TAB TAKE ONE TABLET BY MOUTH EVERY DAY ORAL ACTIVE BLAKE JORDAN I 2017 [facility] ASPIRIN 81MG TAB,CHEWABL E CHEW ONE TABLET BY MOUTH EVERY DAY ORAL ACTIVE Chris WALLER 2020 [place] [facility] ASPIRIN TAB TAKE 81MG BY MOUTH EVERY DAY ORAL ACTIVE AJAY PUENTE 2012 [facility] benztropine 0.5 mg oral tablet TAKE ONE TABLET BY MOUTH TWICE A DAY -- NO DRIVING IF FEELING DROWSY FROM THIS MEDICATI ON, # 60 EA, 1 total refill(s ), Acute Complet ed 12/21/2022 2 2022 60.0 Ambulat ory Pharmac y BRAND CELEXA TAB TAKE BY MOUTH EVERY DAY ORAL ACTIVE Chris WALLER DARIN MARCUS 2020 [place] [facility] CHOLECALCIF MIKE 25MCG (1,000UNIT) TAB TAKE TWO TABLETS BY MOUTH EVERY DAY ORAL ACTIVE JADENCLARKEBLAKE I 2017 [facility] CHOLECALCIF MIKE 25MCG (1,000UNIT) TAB TAKE ONE TABLET BY MOUTH EVERY DAY ORAL ACTIVE AJAY PUENTE 2011 [facility] citalopram 20 mg tablet See dose instruct [...] MOUTH DAILY FOR MOOD ORAL ACTIVE 03/30/2025 [id number] RONY STEPHENSON 2023 45 [place] [facility] CITALOPRAM TAB TAKE BY MOUTH DAILY ORAL ACTIVE GIL TSANG 2023 [place] [facility] clopidogrel 75 mg tablet 75 mg, Oral, [...] DAILY TO THIN BLOOD ORAL ACTIVE 09/10/2025 [id number] 5 GIL TSANG R 2024 90 [place] [facility] CLOPIDOGREL BISULFATE 75MG TAB TAKE ONE TABLET BY MOUTH DAILY TO THIN BLOOD ORAL DISCONT INUED 03/20/2025 [id number] GIL TSANG R 2023 90 [place] [facility] CLOPIDOGREL BISULFATE 75MG TAB TAKE ONE TABLET BY MOUTH EVERY DAY ORAL ACTIVE BLAKE JORDAN I 2017 [facility] CYANOCOBALA MIN 1000MCG TAB TAKE ONE TABLET BY MOUTH EVERY DAY ORAL ACTIVE BLAKE JORDAN I 2017 [facility] DIVALPROEX NA 500MG TAB,SA TAKE TWO TABLETS BY MOUTH DAILY FOR MOOD ORAL ACTIVE 08/10/2025 [id number] RONY STEPHENSON 2024 180 [place] [facility] DIVALPROEX NA 500MG TAB,SA TAKE TWO TABLETS BY MOUTH DAILY FOR MOOD ORAL DISCONT INUED (EDIT) 10/14/2024 [id number] 4 RONY STEPHENSON 2023 180 [place] [facility] DIVALPROEX NA 500MG TAB,SA TAKE TWO TABLETS BY MOUTH DAILY FOR MOOD ORAL DISCONT INUED 06/27/2024 [id number] SACHINRONY DACOSTA 2023 180 [place] [facility] divalproex sodium ER [Mylan] 500 mg tablet [...] ORAL ACTIVE GIL TSANG 2023 [place] [facility] FLOMAX (BRAND) 0.4 MG ORAL CAP May cause drowsine ss.Be careful if taking OTCs.Ovidio e or use exactly as directed .Swallow whole. 07/16/2024 [id number] 3 2023 90 [facility] fluticasone 50 mcg/inh [...] 30 MINUTES BEFORE MEALS ORAL ACTIVE 10/02/2025 [id number] TSANG,GIL EK R 2024 180 [place] GEMFIBROZIL 600MG TAB TAKE ONE TABLET BY MOUTH TWICE A DAY FOR CHOLESTE ROL -TAKE 30 MINUTES BEFORE MEALS ORAL DISCONT INUED 03/20/2025 [id number] GIL TSANG EK R 2023 180 [place] [facility] GEMFIBROZIL 600MG TAB TAKE ONE TABLET BY MOUTH TWICE A DAY ORAL ACTIVE BLAKE JORDAN I 2017 [facility] GLIMEPIRIDE 2MG TAB TAKE ONE TABLET BY MOUTH EVERY DAY ORAL ACTIVE [facility] AJAY SELBY 2012 [facility] lisinopril 10 mg tablet 10 mg, Oral, [...] DAILY FOR HIGH BLOOD PRESSURE ORAL 06/17/2024 [id number] GIL TSANG EK R 2023 45 [place] [facility] LISINOPRIL 40MG TAB TAKE ONE TABLET BY MOUTH EVERY DAY ORAL [facility]EL[facility] 2011 [facility] LISINOPRIL 40MG TAB TAKE ONE-HALF TABLET BY MOUTH EVERY DAY ORAL ACTIVE BLAKE JORDAN I 2017 [facility] Lokelma 5 g Packet [5g] See Instruct [...] MOUTH DAILY FOR MEMORY ORAL ACTIVE 01/13/2025 [id number] 5 TRINHGIL EK R 2024 90 [place] MEMANTINE HCL 10MG TAB TAKE ONE TABLET BY MOUTH DAILY FOR MEMORY ORAL DISCONT INUED 12/30/2024 [id number] 5 GIL TSANG EK R 2024 90 [place] MEMANTINE HCL 10MG TAB TAKE ONE TABLET BY MOUTH DAILY FOR MEMORY ORAL DISCONT INUED 10/07/2024 [id number] 4 TSANGGIL HEART EK R 2023 90 [place] [facility] MEMANTINE HCL 10MG TAB TAKE ONE TABLET BY MOUTH DAILY FOR MEMORY ORAL DISCONT INUED 06/20/2024 [id number] TSANGGIL EK R 2023 90 [place] [facility] MEMANTINE HCL 10MG TAB TAKE ONE TABLET BY MOUTH TWICE A DAY ORAL ACTIVE AJAY PUENTE 2011 [facility] MEMANTINE HCL 10MG TAB TAKE ONE TABLET BY MOUTH EVERY DAY ORAL ACTIVE BLAKE JORDAN I 2017 [facility] Memantine Hydrochlori de (Namenda Eq.) Tablet 10 mg Oral 06/25/2024 [id number] 06/26 3 2023 180 [facility] METFORMIN 1000MG/XAVI GLIPTIN 50MG TAB TAKE JANUMET BY MOUTH TWICE A DAY ORAL ACTIVE AJAY PUENTE 2011 [facility] METFORMIN HCL 1000MG/XAVI GLIPTIN PHOSPHATE 50MG 24 HR TAB,SA TAKE ONE TABLET BY MOUTH EVERY DAY ORAL ACTIVE SRIDHARChris DARIN VELAZQUEZ 2020 [place] [facility] metformin-s itagliptin 1000 mg-50 mg oral tablet TAKE 1 TABLET BY MOUTH TWICE A DAY WITH MEALS, # 180 EA, 1 total refill(s ), Acute Complet ed 01/09/2023 2 2022 180.0 Ambulat ory Pharmac y PANTOPRAZOL E NA 40MG TAB,EC TAKE ONE TABLET BY MOUTH EVERY DAY ORAL ACTIVE SRIDHARChris DARIN VELAZQUEZ 2020 [place] [facility] PRIMIDONE 50 MG ORAL TAB Do not drink alcohol. Take or use exactly as directed .May cause drowsine ss/dizzi ness. 06/25/2024 [id number] 3 2023 90 [facility] primidone 50 mg [...] DAILY FOR TREMORS ORAL SUSPEND ED 03/31/2025 [id number] 5 GIL TSANG R 2024 90 [place] PRIMIDONE 50MG TAB TAKE ONE TABLET BY MOUTH DAILY FOR TREMORS ORAL DISCONT INUED 09/17/2025 [id number] 5 GIL TSANG R 2024 90 [place] PRIMIDONE 50MG TAB TAKE ONE TABLET BY MOUTH DAILY FOR TREMORS ORAL DISCONT INUED 03/20/2025 [id number] GIL TSANG R 2023 90 [place] [facility] PRIMIDONE 50MG TAB TAKE ONE TABLET BY MOUTH EVERY DAY ORAL ACTIVE BLAKE JORDAN I 2017 [facility] propranolol 60 mg oral tablet TAKE 1 [...] MOUTH DAILY FOR TREMOR ORAL ACTIVE 09/10/2025 [id number] 5 GIL TSANG EK R 2024 90 [place] [facility] PROPRANOLOL HCL 60MG CAP,SA TAKE ONE CAPSULE BY MOUTH DAILY FOR TREMOR ORAL DISCONT INUED 03/20/2025 [id number] GIL TSANG EK R 2023 90 [place] [facility] PROPRANOLOL HCL 60MG CAP,SA TAKE 1 CAPSULE BY MOUTH EVERY DAY ORAL ACTIVE BLAKE JORDAN I 2017 [facility] PROPRANOLOL HCL 60MG CAP,SA TAKE 1 CAPSULE BY MOUTH EVERY DAY ORAL ACTIVE [facility]E 2011 [facility] QUEtiapine 100 mg tablet See dose [...] AT BEDTIME FOR MOOD ORAL ACTIVE 03/30/2025 [id number] RONY STEPHENSON 2023 45 [place] [facility] QUETIAPINE FUMARATE 300MG TAB TAKE ONE TABLET BY MOUTH ORAL ACTIVE Chris WALLER 2020 [place] [facility] QUETIAPINE TAB TAKE BY MOUTH ORAL ACTIVE TRINHGIL EK R 2023 [place] [facility] SIMVASTATIN 40MG TAB TAKE ONE-HALF TABLET BY MOUTH AT BEDTIME ORAL ACTIVE BROWNSJENS AJAY SELBY 2011 [facility] SITAGLIPTIN (EQV-ZITUVI O) 50MG TAB TAKE ONE TABLET BY MOUTH DAILY FOR BLOOD SUGAR - STORE IN ORIGINAL CONTAINE R. OPENED BOTTLES MUST BE USED WITHIN 3 MONTHS ORAL ACTIVE 03/18/2025 [id number] TRINHGIL EK R 2024 90 [place] [facility] SITAGLIPTIN (EQV-ZITUVI O) 50MG TAB TAKE ONE TABLET BY MOUTH DAILY FOR BLOOD SUGAR - STORE IN ORIGINAL CONTAINE R. OPENED BOTTLES MUST BE USED WITHIN 3 MONTHS ORAL DISCONT INUED 12/15/2024 [id number] TSANGGIL EK R 2024 90 [place] SITAGLIPTIN (EQV-ZITUVI O) 50MG TAB TAKE ONE TABLET BY MOUTH DAILY FOR BLOOD SUGAR - STORE IN ORIGINAL CONTAINE R. OPENED BOTTLES MUST BE USED WITHIN 3 MONTHS ORAL DISCONT INUED 08/14/2024 [id number] TALAT TSANG 2023 90 [place] SITAGLIPTIN (EQV-ZITUVI O) 50MG TAB TAKE ONE TABLET BY MOUTH DAILY FOR BLOOD SUGAR - STORE IN ORIGINAL CONTAINE R. OPENED BOTTLES MUST BE USED WITHIN 3 MONTHS ORAL DISCONT INUED 06/18/2024 [id number] GIL TSANG R 2023 90 [place] [facility] sodium zircon cyclosilic 5 GM ORAL PWPK 07/12/2024 [id number] 3 2023 90 [facility] SODIUM ZIRCONIUM CYCLOSILICA TE 5GM/PKT PWDR,RENST- ORAL TAKE 1 PACKET BY MOUTH DAILY FOR HIGH POTASSIU M -MIX PACKET CONTENTS IN A GLASS WITH AT LEAST 3 TABLESPO ONS OF WATER OR MORE THEN STIR WELL AND DRINK. IF POWDER REMAINS, ADD WATER, STIR, AND DRINK. REPEAT UNTIL NO POWDER REMAINS. ORAL 04/18/2024 [id number] GIL TSANG R 2023 30 [place] [facility] tamsulosin 0.4 mg capsule 0.4 mg, Oral, [...] EVERY EVENING FOR PROSTATE ORAL ACTIVE 11/05/2025 [id number] 5 GIL TSANG EK R 2024 90 [place] [facility] TAMSULOSIN HCL 0.4MG CAP TAKE ONE CAPSULE BY MOUTH EVERY EVENING FOR PROSTATE ORAL DISCONT INUED 03/20/2025 [id number] GIL TSANG EK R 2023 90 [place] [facility] TAMSULOSIN HCL 0.4MG CAP TAKE 1 CAPSULE BY MOUTH EVERY DAY ORAL ACTIVE JACOB STANTON NON 2016 [place] [facility] [facility] TAMSULOSIN HCL 0.4MG CAP TAKE ONE CAPSULE BY MOUTH AT BEDTIME ORAL ACTIVE BLAKE JORDAN I 2017 [facility] Allergies, Adverse Reactions, Alerts Combined list of allergies from Department of Defense and Veterans Affairs facilities. It does not include entries that were removed or entered in error. Substance Category Reaction Severity Reaction type Status Date Reported Comments Source INTRAVASCULA R CONTRAST MEDIA Propensity to adverse reactions to drug (finding) Urticaria, Swelling, Pharyngeal swelling active 2 [facility] IODINATED CONTRAST MEDIA Propensity to adverse reactions to drug (finding) active 4 [place] [facility] IODINE Propensity to adverse reactions to drug (finding) ITCHING,TONI ERING EYES, Diarrhea active 2 [facility] IODINE Drug allergy (disorder) Unknown active 9 [facility] [place] IODINE Drug allergy (disorder) active 9 [facility] iodine topical Propensity to adverse reactions to drug Unknown Active Reaction( s): Unknown Unknown Organiza tion sertraline Propensity to adverse reactions to drug Vomiting Active Unknown Organiza tion SHELLFISH Propensity to adverse reactions to food (finding) Urticaria, Pharyngeal swelling active 2 [facility] ZOLOFT Drug allergy (disorder) Vomiting active 9 [facility] Immunizations Combined list of available immunizations from the Department of Defense and Veterans Affairs facilities. 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 Comments Source INFLUENZA, HIGH-DOSE, TRIVALENT, PF 1 03/17/ 2025 135 complet ed HISTORICA L INFORMATI ON - FROM OTHER REGISTRY, [place] [facility] influenza virus vaccine, inactivated 2022 EVA Hardwick clyde, left (delt oid) [id number] 197 sanofi pasteur complet ed influenza virus vaccine, inactivat ed 06/05/23 Given 0068C-[id number] [facility] [place] COVID Vaccine Moderna 2021 zzLef t Arm [id number] 207 complet ed COVID Vaccine Moderna 12/10/21 Given Ambulat ory Pharmac y SARS-COV-2 (COVID-19) vaccine, mRNA, spike protein, LNP, preservative free, 100 mcg or 50 mcg dose 4 2021 EPIFANIO FRENCH [id number] 207 Moderna [employer], Inc. (MOD) complet ed SARS-COV- 2 (COVID-19 ) vaccine, mRNA, spike protein, LNP, preservat luz elena free, 100 mcg or 50 mcg dose DoD COVID Vaccine Moderna 2020 Kimmyef t Arm [id number] 207 complet ed COVID Vaccine Moderna 06/10/21 Given Ambulat ory Pharmac y SARS-COV-2 (COVID-19) vaccine, mRNA, spike protein, LNP, preservative free, 100 mcg or 50 mcg dose 3 2020 ODILIA PRYOR [id number] 207 Moderna [employer] (MOD) complet ed SARS-COV- 2 (COVID-19 ) vaccine, mRNA, spike protein, LNP, preservat luz elena free, 100 mcg or 50 mcg dose DoD COVID-19 (MODERNA), MRNA, LNP-S, PF, 100 MCG/0.5 ML DOSE 2 2020 207 complet ed [facility] COVID Vaccine Moderna 2020 Body, whole [id number] 207 complet ed COVID Vaccine Moderna 11/12/20 Given Ambulat ory Pharmac y SARS-COV-2 (COVID-19) vaccine, mRNA, spike protein, LNP, preservative free, 100 mcg or 50 mcg dose 2 2020 [id number] 207 Moderna [employer] (MOD) complet ed SARS-COV- 2 (COVID-19 ) vaccine, mRNA, spike protein, LNP, preservat luz elena free, 100 mcg or 50 mcg dose DoD COVID Vaccine Moderna 2020 zzLef t Arm [id number] 207 complet ed COVID Vaccine Moderna 10/16/20 Given Ambulat ory Pharmac y SARS-COV-2 (COVID-19) vaccine, mRNA, spike protein, LNP, preservative free, 100 mcg or 50 mcg dose 1 2020 [id number] 207 Moderna [employer] (MOD) complet ed SARS-COV- 2 (COVID-19 ) vaccine, mRNA, spike protein, LNP, preservat luz elena free, 100 mcg or 50 mcg dose DoD COVID-19 (MODERNA), MRNA, LNP-S, PF, 100 MCG/0.5 ML DOSE 1 2020 207 complet ed [facility] INFLUENZA, UNSPECIFIED FORMULATION 2019 88 complet ed [facility] INFLUENZA, HIGH DOSE SEASONAL 2016 135 complet ed Community [facility] INFLUENZA, SEASONAL, INJECTABLE 2016 141 complet ed Community PCP [facility] INFLUENZA, SEASONAL, INJECTABLE 2014 141 complet ed outside provider [facility] PNEUMOCOCCAL CONJUGATE PCV 13 2014 133 complet ed [facility] ZOSTER LIVE 2013 121 complet ed [facility] FLU,3 YRS (HISTORICAL) 2013 88 complet ed [facility] FLU,3 YRS (HISTORICAL) 2012 88 complet ed [facility] PNEUMOCOCCAL POLYSACCHARID E PPV23 2011 33 complet ed [facility] PNEUMOCOCCAL, UNSPECIFIED FORMULATION 2011 109 complet ed [facility] FLU,3 YRS (HISTORICAL) 2011 88 complet ed per pt [facility] FLU,3 YRS (HISTORICAL) 2010 88 complet ed [facility] INFLUENZA, UNSPECIFIED FORMULATION 2009 NONE 88 complet ed [facility] PNEUMOCOCCAL, UNSPECIFIED FORMULATION 2009 NONE 109 complet ed [facility] NOVEL INFLUENZA-H1N 1-09, ALL FORMULATIONS 2008 128 complet ed [employer] [facility] FLU,3 YRS (HISTORICAL) 2008 88 complet ed [facility] influenza virus vaccine,split 2007 zzLef t Arm [id number] 15 complet ed influenza virus vaccine,s plit 05/21/08 Given Ambulat ory Pharmac y influenza virus vaccine, split virus (incl. 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 purified surface antigen)- retired CODE DoD FLU,3 YRS (HISTORICAL) 2007 88 complet ed [facility] INFLUENZA, UNSPECIFIED FORMULATION 2006 NONE 88 complet ed [facility] Influenza Vaccination (Refused) (HISTORICAL) 2002 complet ed DECLINED SydnieTERRY BUTCHER TETANUS REFUSED (HISTORICAL) 2001 complet ed verbalize s [facility] TETANUS REFUSED (HISTORICAL) 2001 complet ed does not wish to receive this visit. SydnieCURRYEmersonHumble BUTCHER INFLUENZA (HISTORICAL) 2001 88 complet ed [facility] Results Combined list of recent chemistry, [...] 09, 2024 07:55 AM Reporting Lab: [facility] [address] [address] Performing Lab: [facility] [address] [address] [facility] MICROALBU MIN/CREAT RATIO CREATININE [MASS/VOLUM E] IN URINE 60.8 mg/dL 03/22 Specimen Type: URINE No comment entered. Ordering Provider: MING TSANG Report Released Date/Time: Mar 15, 2024 11:30 AM Reporting Lab: [facility] [address] [address] Performing Lab: [facility] [address] [address] [facility] MICROALBU MIN/CREAT RATIO MICROALBUMI N [MASS/VOLUM E] IN URINE 9.0 mg/L 0.0 - 30.0 03/22 Specimen Type: URINE No comment entered. Ordering Provider: MING TSANG Report Released Date/Time: Mar 15, 2024 11:30 AM Reporting Lab: [place] [phone] Performing Lab: [place] [phone] [place] [address] MICROALBU MIN/CREAT RATIO MICROALBUMI N/CREATININ E [MASS RATIO] IN URINE 14.8 ug/mg{ creat} 03/22 Specimen Type: URINE No comment entered. Ordering Provider: MING TSANG Report Released Date/Time: Mar 15, 2024 11:30 AM Reporting Lab: [place] [phone] Performing Lab: [place] [phone] [facility] ALT ALANINE AMINOTRANSF ERASE [ENZYMATIC ACTIVITY/VO LUME] [...] 2024 11:30 AM Reporting Lab: [facility] [place] [address] [address] Performing Lab: [facility] [place] [address] [address] [facility] AST ASPARTATE AMINOTRANSF ERASE [ENZYMATIC ACTIVITY/VO LUME] [...] Mar 15, 2024 11:30 AM Reporting Lab: [address] [address] Performing Lab: [place] [phone] [facility] CBC/PLT LEUKOCYTES [#/VOLUME] IN BLOOD BY AUTOMATED COUNT 6.6 10*3/u L 5.0 - 10.0 03/15 Specimen Type: BLOOD No comment entered. Ordering Provider: MING TSANG Report Released Date/Time: Mar 15, 2024 11:30 AM Reporting Lab: [address] [address] Performing Lab: [place] [phone] [facility] CBC/PLT ERYTHROCYTE S [#/VOLUME] IN BLOOD BY AUTOMATED COUNT 3.91 10*6/u L 4.6 - 6.2 03/15 L Specimen Type: BLOOD No comment entered. Ordering Provider: MING TSANG Report Released Date/Time: Mar 15, 2024 11:30 AM Reporting Lab: [place] [address] Performing Lab: [address] CBC/PLT HEMOGLOBIN [MASS/VOLUM E] IN BLOOD 13.0 g/dL 14.0 - 18.0 03/15 L Specimen Type: BLOOD No comment entered. Ordering Provider: MING TSANG Report Released Date/Time: Mar 15, 2024 11:30 AM Reporting Lab: [place] [address] Performing Lab: [address] CBC/PLT HEMATOCRIT [VOLUME FRACTION] OF BLOOD BY AUTOMATED COUNT 39.0 42.0 - 52.0 03/15 L Specimen Type: BLOOD No comment entered. Ordering Provider: MING TSANG Report Released Date/Time: Mar 15, 2024 11:30 AM Reporting Lab: [place] [address] Performing Lab: [address] CBC/PLT MCV [ENTITIC VOLUME] BY AUTOMATED COUNT 99.7 fL 80.0 - 94.0 03/15 H Specimen Type: BLOOD No comment entered. Ordering Provider: MING TSANG Report Released Date/Time: Mar 15, 2024 11:30 AM Reporting Lab: [place] [id number] Performing Lab: [address] CBC/PLT MCH [ENTITIC MASS] BY AUTOMATED COUNT 33.2 pg 27.0 - 31.0 03/15 H Specimen Type: BLOOD No comment entered. Ordering Provider: MING TSANG Report Released Date/Time: Mar 15, 2024 11:30 AM Reporting Lab: [address] [address] Performing Lab: [address] [address] [facility] CBC/PLT MCHC [MASS/VOLUM E] BY AUTOMATED COUNT 33.3 g/dL 32.0 - 36.0 03/15 Specimen Type: BLOOD No comment entered. Ordering Provider: MING TSANG Report Released Date/Time: Mar 15, 2024 11:30 AM Reporting Lab: [address] [address] Performing Lab: [address] [address] [facility] CBC/PLT PLATELETS [#/VOLUME] IN BLOOD 259 10*3/u L 150 - 450 03/15 Specimen Type: BLOOD No comment entered. Ordering Provider: MING TSANG Report Released Date/Time: Mar 15, 2024 11:30 AM Reporting Lab: [address] [address] Performing Lab: [address] [address] [facility] CBC/PLT PLATELET MEAN VOLUME [ENTITIC VOLUME] IN BLOOD 9.6 fL 9.0 - 13.1 03/15 Specimen Type: BLOOD No comment entered. Ordering Provider: MING TSANG Report Released Date/Time: Mar 15, 2024 11:30 AM Reporting Lab: [address] [address] Performing Lab: [address] [address] [facility] CBC/PLT ERYTHROCYTE DISTRIBUTIO N WIDTH [ENTITIC VOLUME] BY AUTOMATED COUNT 14.1 11.0 - 16.0 03/15 Specimen Type: BLOOD No comment entered. Ordering Provider: MING TSANG Report Released Date/Time: Mar 15, 2024 11:30 AM Reporting Lab: [address] [address] Performing Lab: [address] [address] [facility] CBC/PLT NUCLEATED ERYTHROCYTE S/100 ERYTHROCYTE S IN BLOOD 0.0 0.0 - 0.0 03/15 Specimen Type: BLOOD No comment entered. Ordering Provider: MING TSANG Report Released Date/Time: Mar 15, 2024 11:30 AM Reporting Lab: [place] [address] [address] Performing Lab: [address] [address] [facility] GLYCOHEMO GLOBIN HEMOGLOBIN A1C/HEMOGLO BIN.TOTAL IN BLOOD BY HPLC 9.1 4.4 - 6.4 03/15 H Specimen Type: BLOOD Comment: [facility] guidelines for A1c interpretat ion: Glycemic control targets are based on Shared Decision Making between clinicians and patients. Criteria used to establish an A1c target recommendat ion can be found at https://www .[place].gov/bladimir lityandpati entsafety/ and include the use of [...] 9.27. Ref: https://ngs p.org/CAPda ta.asp. The in-house Onfido-MoneyExpert D-100 analyzer has a historical CV <= 2%. Contact the laboratory for further performance characteris tics of this assay. Ordering Provider: MING TSANG Report Released Date/Time: Mar 15, 2024 11:30 AM Reporting Lab: [facility] [address] [address] Performing Lab: [address] [address] [facility] LIPID PROFILE CHOLESTEROL [MASS/VOLUM E] IN SERUM [...] 2024 11:30 AM Reporting Lab: [place] [address] [address] Performing Lab: [place] [address] [address] [facility] LIPID PROFILE TRIGLYCERID E [MASS/VOLUM E] IN [...] 2024 11:30 AM Reporting Lab: [place] [address] [address] Performing Lab: [place] [address] [address] [facility] LIPID PROFILE CHOLESTEROL IN HDL [MASS/VOLUM E] [...] 2024 11:30 AM Reporting Lab: [place] [address] [address] Performing Lab: [place] [address] [address] [facility] LIPID PROFILE CHOLESTEROL IN LDL [MASS/VOLUM E] [...] 2024 11:30 AM Reporting Lab: [place] [address] [address] Performing Lab: [place] [address] [address] [facility] PANEL 1 CREATININE [MASS/VOLUM E] IN SERUM [...] 2024 11:30 AM Reporting Lab: [place] [address] [address] Performing Lab: [place] [place] [address] [address] [facility] PANEL 1 UREA NITROGEN [MASS/VOLUM E] IN [...] Mar 15, 2024 11:30 AM Reporting Lab: [place] [address] [place] [address] Performing Lab: [place] [address] [facility] PANEL 1 GLUCOSE [MASS/VOLUM E] IN SERUM [...] 2024 11:30 AM Reporting Lab: [place] [address] [address] Performing Lab: [place] [address] [address] [facility] PANEL 1 SODIUM [MOLES/VOLU ME] IN SERUM [...] 2024 11:30 AM Reporting Lab: [place] [address] [address] Performing Lab: [place] [address] [address] [facility] PANEL 1 POTASSIUM [MOLES/VOLU ME] IN SERUM [...] 2024 11:30 AM Reporting Lab: [place] [address] [address] Performing Lab: [place] [address] [address] [facility] PANEL 1 CHLORIDE [MOLES/VOLU ME] IN SERUM [...] 15, 2024 11:30 AM Reporting Lab: [place] [place] [address] [address] Performing Lab: [place] [address] [address] [facility] PANEL 1 CARBON DIOXIDE, TOTAL [MOLES/VOLU ME] [...] 2024 11:30 AM Reporting Lab: [place] [address] [address] Performing Lab: [place] [address] [address] [facility] PANEL 1 CALCIUM [MASS/VOLUM E] IN SERUM [...] 2024 11:30 AM Reporting Lab: [place] [address] [address] Performing Lab: [place] [address] [address] [facility] PANEL 1 ANION GAP 3 IN SERUM [...] 2024 11:30 AM Reporting Lab: [place] [address] [address] Performing Lab: [place] [address] [address] [facility] PANEL 1 GLOMERULAR FILTRATION RATE/1.73 SQ M.PREDICTED [...] 2024 11:30 AM Reporting Lab: [place] [address] [address] Performing Lab: [place] [address] [address] [facility] Vital Signs Combined list of inpatient and outpatient Vital Signs from Department of Defense and Veterans Affairs, ranging from 12 months to all on record, depending upon the facility. Vital Sign Value Date Comments Source SYSTOLIC BLOOD PRESSURE 124 03/15/2024 10:22:26 [facility] DIASTOLIC BLOOD PRESSURE 76 03/15/2024 10:22:26 [facility] PULSE OXIMETRY 99 03/15/2024 10:22:26 [facility] WEIGHT 155 03/15/2024 10:22:26 [facility] PAIN 0 03/15/2024 10:22:26 [facility] TEMPERATURE 97.6 03/15/2024 10:22:26 [facility] PULSE 83 03/15/2024 10:22:26 [facility] RESPIRATION 20 03/15/2024 10:22:26 [facility] Encounters Combined list of: 1) Encounters from Department of Veterans Affairs facilities going backup to the last 18 months, not all [place] inpatient encounters are included; 2) Encounters from the Department of [facility] facilities going backup to 280 months. Location Location Details Encounter Type Encounter Number Reason For Visit Attending Provider ADM Date DC Date Status Disposition Source [facility] [place] OUTPATIENT [id number] f/u WALDEMAR Judge W 05/26 Released w/o Limitations [facility] [place] [facility] [place]PAT[facility] [id number] f/u WALDEMAR Judge W 09/09 Released w/o Limitations [facility] [place] [facility] [place] TELE CONSULT [id number] call re labs LINN MATUTE 09/14 [facility] [place] [facility] [place] OUTPATIENT [id number] f/u WALDEMAR Judge W 09/19 Released w/o Limitations [facility] [place] [facility] [place] TELE CONSULT [id number] Consult LINN MATUTE 09/28 [facility] [place] [place] OUTPATIENT [id number] fever/c ongesti on WALDEMAR DUBOSE P 10/11 Released w/o Limitations [facility] [place] [facility] [place] OUTPATIENT [id number] tired all the time WALDEMAR COSTA 10/20 Released w/o Limitations [facility] [place] [facility] [place] OUTPATIENT [id number] f/u labwork WALDEMAR COSTA 10/31 Released w/o Limitations [facility] [place] [facility] [place] TELE CONSULT [id number] lab orders LINN MATUTE 12/13 [facility] [place] [facility] [place] OUTPATIENT [id number] lab results WALDEMAR COSTA 01/09 Released w/o Limitations [facility] [place] [facility] [place] TELE CONSULT [id number] Lab results [facility] 03/22 [facility] [place] [facility] [place] TELE CONSULT [id number] request for labs [facility] 03/28 [facility] [place] [facility] [place] OUTPATIENT [id number] f/u diabete s SELAM KEBEDE 05/01 Released w/o Limitations [facility] [place] [facility] [place] OUTPATIENT [id number] annual pe SELAM KEBEDE 06/01 Released w/o Limitations [facility] [place] [facility] [place] OUTPATIENT [id number] diabeti c eye exam RAUDEL HAYDEN 06/01 Released w/o Limitations [facility] [place] [facility] [place] OUTPATIENT [id number] discuss sleep apnea KRISTIAN HUDSON 08/02 Released w/o Limitations [facility] [place] [facility] [place] OUTPATIENT [id number] med refills PENDERGJESSICA LEWIS JR 10/26 Released w/o Limitations [facility] [place] [facility] [place] TELE CONSULT [id number] annual bloodwo rk ELICIA CASANOVA 04/10 [facility] [place] [facility] [place] OUTPATIENT [id number] sherri f/u YANG NORMAN S 05/01 Released w/o Limitations [facility] [place] [facility] [place] OUTPATIENT [id number] f/u diabeti c YANG NORMNA S 06/05 Released w/o Limitations [facility] [place] [facility] [place] OUTPATIENT [id number] fu from [facility] inpatie nt stay YANG NORMAN S 09/14 Released w/o Limitations [facility] [place] [facility] [place] OUTPATIENT [id number] f/u bp YANG NORMAN S 10/09 Released w/o Limitations [facility] [place] [place] OUTPATIENT [id number] followu p on bloodpr essure YANG NORMAN S 11/06 Released w/o Limitations [facility] [place] [facility] [place] TELE CONSULT [id number] LUKE Kirby 12/31 [facility] [place](Im [facility] [place] OUTPATIENT [id number] NEMO ANSARI 05/21 Released w/o Limitations [facility]( [facility]ion [facility] [place]) [facility](Ph [facility]sical [facility] [place] OUTPATIENT [id number] Pas entered the order-t humb arthrop athy. OTONIEL MASON 11/05 Released w/o Limitations [facility] [place]) [facility] [place] OUTPATIENT [id number] thumb arthrop aty OTONIEL MASON 11/14 Released w/o Limitations [facility] [place] [facility] [place] OUTPATIENT [id number] OTONIEL MASON 11/19 Released w/o Limitations [facility] [place] OUTPATIENT [id number] 7 ODILIA Zhou 06/10 Released w/o Limitations [facility]( Imms[facility]) [facility] OUTPATIENT [id number] 4 Notes Entered by: EPIFANIO FRENCH 10 Dec 2021 1203 ------- ------- ------- ------- -- Moderna Booster 2 EPIFANIO FRENCH 12/10 Released w/o Limitations [facility]( Imms[facility]) [facility] Outpatient Encounter [id number] STANLEY DIAS 08/29 [facility] Outpatient Encounter [id number] 11/20 [place] [facility] Outpatient Encounter [id number] 02/25 [place] Outpatient Encounter [id number] 02/27 [place] Outpatient Encounter [id number] 03/01 [place] [facility] Outpatient Encounter [id number] 03/05 [place] [facility] Outpatient Encounter [id number] 03/05 [place] [facility] Outpatient Encounter [id number] 03/06 [place] [facility] [place] Outpatient Encounter [id number] 03/08 [place] [facility] [place] OFFICE O/P NEW MOD 45 MIN [id number] Diagnos is: ICD-10- CM G20.C Max onism, unspeci TREASURE Parr 03/15 [place] [facility] [place] CASE MANAGEMENT [id number] Diagnos is: ICD-10- CM 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 KIERSTEN Brooks 03/15 [place] [facility] [place] Outpatient Encounter [id number] 03/15 [place] [facility] [place] HC PRO PHONE CALL 5-10 MIN [id number] Diagnos is: ICD-10- CM E11.9 Type 2 diabete s mellitu s without complic ations Livier SALINAS 03/19 [place] [facility] [place] HC PRO PHONE CALL 5-10 MIN [id number] Diagnos is: ICD-10- CM 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 TIKI Diamond 03/19 [place] [facility] TARGETED CASE MANAGEMENT [id number] RAMY STEEN 03/20 [place] Outpatient Encounter [id number] 03/20 [place] [facility] TARGETED CASE MANAGEMENT [id number] Humble GARCIA 03/20 [facility] Outpatient Encounter [id number] 03/22 [place] [facility] [place] PSYTX W PT 60 MINUTES [id number] Diagnos is: ICD-10- CM F31.9 Bipolar disorde r, unspeci fiMONI Castro 03/22 [place] [facility] [place] Outpatient Encounter [id number] 03/22 [place] [facility] [place] Outpatient Encounter [id number] 03/22 [place] [facility] [place] Outpatient Encounter [id number] 03/22 [place] [facility] [place] Outpatient Encounter [id number] 03/26 [place] [facility] Outpatient Encounter [id number] 01 03/26 [place] [facility] Outpatient Encounter [id number] 03/29 [place] [facility] [place] PSYCH DIAG EVAL W/MED SRVCS [id number] Diagnos is: ICD-10- CM F31.9 Bipolar disorde r, unspeci fied FORTINO STEPHENSON 03/29 [place] [facility] Outpatient Encounter [id number] 03/29 [place] [facility] Outpatient Encounter [id number] 04/10 [place] Outpatient Encounter [id number] 04/24 [place] [facility] HC PRO PHONE CALL 5-10 MIN [id number] Diagnos is: ICD-10- CM 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 TKII Diamond 05/09 [place] [facility] Outpatient Encounter [id number] 05/15 [place] [facility] HC PRO PHONE CALL 5-10 MIN [id number] Diagnos is: ICD-10- CM E11.9 Type 2 diabete s mellitu s without complic ations Livier SALINAS 05/15 [place] [facility] [place] HC PRO PHONE CALL 5-10 MIN [id number] Diagnos is: ICD-10- CM 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 TIKI Diamond 05/15 [place] [facility] Outpatient Encounter [id number] 06/24 [place] [facility] Outpatient Encounter [id number] 07/09 [place] [facility] OFFICE O/P EST HI 40 MIN [id number] Diagnos is: ICD-10- CM F31.9 Bipolar disorde r, unspeci fied FORTINO STEPHENSON 08/09 [place] [facility] [place] Outpatient Encounter [id number] 09/09 [place] [facility] [place] Outpatient Encounter [id number] 09/16 [place] [facility] [place] PH1 ASSMT&MGMT NQHP 5-10 [id number] Diagnos is: ICD-10- CM E11.9 Type 2 diabete s mellitu s without complic ations ZELALEM JOAQUIN 09/16 [place] [facility] Outpatient Encounter [id number] 09/18 [place] [facility] PH1 ASSMT&MGMT NQHP 5-10 [id number] Diagnos is: ICD-10- CM E11.9 Type 2 diabete s mellitu s without complic ations Livier SALINAS 09/24 [place] [facility] [place] Outpatient Encounter [id number] 09/30 [place] [facility] Outpatient Encounter [id number] 10/02 [place] [facility] Outpatient Encounter [id number] 10/15 [place] [facility] [place] Outpatient Encounter [id number] 10/21 [place] [facility] [place] Outpatient Encounter [id number] 11/04 [place] [facility] [place] OFFICE O/P EST MOD 30 MIN [id number] Diagnos is: ICD-10- CM F31.9 Bipolar disorde r, unspeci fiFORTINO Zaragoza 11/08 [place] [facility] Outpatient Encounter [id number] 74 12/05 [place] [facility] Outpatient Encounter [id number] 57 12/17 [place] Outpatient Encounter [id number] 12/18 [place] [facility] PH1 ASSMT&MGMT NQHP 5-10 [id number] Diagnos is: ICD-10- CM E11.9 Type 2 diabete s mellitu s without complic ations Livier SALINAS 12/18 [place] [facility] Outpatient Encounter [id number] 12/31 [place] Procedures Combined list of: 1) Procedures from Department of [facility] Affairs facilities going back up to thelast 18 months, not all [place] non-surgical procedures are included; 2) All procedures from the Department of Defense facilities. Procedure Procedure Type Code Date Perfomer Comments Sourc e OTHER SURGICAL EXTRACTION OF TOOTH 994 DoD ALVEOLOPLASTY 994 DoD BIOPSY OF GUM 994 DoD Exercises A isted Exercises For ROM Exercises Assisted Exercises For ROM 31266 009 DEEPAK REED DoD Exercises A isted Exercises For ROM Exercises Assisted [place]erc[place] 07974 009 KASSANDRA JUAREZ DoD Exercises A isted Exercises For [place] [address]0937 009 DONNIE MASON [facility] Physical Medicine Physical Therapy Evaluation Physical Medicine Physical Therapy Evaluation 01152 009 DONNIE MASON [facility] Influenza Split Virus Vaccine Age 3+ Years Intramuscular 008 KATHARINE STANFORD [facility] Immunization Administration One Vaccine Immunization Administration One Vaccine 93354 008 KATHARINE STANFORD [facility] Psychoactive Medication Management Psychoactive Medication Management 43148 007 ZAC, ODITA D DoD Psychiat Therapy Indiv Appr 20-30 Min W/ Med Eval Managemt Psychiat Therapy Indiv Appr 20-30 Min W/ Med Eval Manageme 51342 007 ZAC, ODITA D DoD Psychoactive Medication Management Psychoactive Medication Management 91129 007 ZAC, ODITA D DoD Psychiat Therapy Indiv Appr 20-30 Min W/ Med Eval Managemt Psychiat Therapy Indiv Appr 20-30 Min W/ Med Eval Manageme 96211 007 ZAC, ODITA D DoD Psychoactive Medication Management Psychoactive Medication Management 81397 007 ZAC, ODITA D DoD Psychiat Therapy Indiv Appr 20-30 Min W/ Med Eval Managemt Psychiat Therapy Indiv Appr 20-30 Min W/ Med Eval Manageme 26542 006 ZAC, ODITA D DoD Psychoactive Medication Management Psychoactive Medication Management 86073 006 ZAC, ODITA D DoD Determination Of Refractive State Determination Of Refractive State 42253 006 [facility] Diabetic indicator; retinal eye exam, dilated, bilateral 006 , [facility] Ophthalmological New Patient Start Comprehensive Care Ophthalmological New Patient Start Comprehensive Care 28179 006 , [facility] Psychiat Therapy Indiv Appr 20-30 Min W/ Med Eval Managemt Psychiat Therapy Indiv Appr 20-30 Min W/ Med Eval Manageme 00207 006 ZAC, ODITA D [facility] Psychoactive Medication Management Psychoactive Medication Management 61604 006 ZAC, ODITA D DoD Psychiat Therapy Indiv Appr 20-30 Min W/ Med Eval Managemt Psychiat Therapy Indiv Appr 20-30 Min W/ Med Eval Manageme [id number] ZAC, ODITA D [facility] Psychoactive Medication Management Psychoactive Medication Management [id number] ZAC, ODITA D [facility] Psychiat Therapy Indiv Appr 20-30 Min W/ Med Eval Managemt Psychiat Therapy Indiv Appr 20-30 Min W/ Med Eval Managemt [id number] ZAC, ODITA D [facility] Psychoactive Medication Management Psychoactive Medication Management [id number] ZAC, ODITA D [facility] Psychiat Therapy Indiv Appr 20-30 Min W/ Med Eval Managemt Psychiat Therapy Indiv Appr 20-30 Min W/ Med Eval Managemt [id number] ZAC, ODITA D [facility] Psychoactive Medication Management Psychoactive Medication Management [id number] ZACZAK D DoD Immunization Administration One Vaccine Immunization Administration One Vaccine 11297 PRYOR ODILIA Anat [facility] No data available for this section [facility] Social History Combined list of available smoking, tobacco, and other social history from [facility] of Defense and [facility] facilities. Social History Type Response Date Comment Sour e Tobacco smoking status NHIS NC-TOBACCO FORMER USER 03/15/2024 [facility] of [facility] History of tobacco use NC-TOBACCO NEVER USED 08/29/2023 [facility] History of tobacco use NC-TOBACCO FORMER USER 09/28/2020 [facility] History of tobacco use NC-TOBACCO FORMER USER 10/08/2018 [facility] History of tobacco use LIFETIME NON-USER OF TOBACCO 07/21/2017 [facility] History of tobacco use LIFETIME NON-USER OF TOBACCO 10/17/2016 [facility] History of tobacco use LIFETIME NON-USER OF TOBACCO 10/28/2015 [facility] History of tobacco use LIFETIME NON-USER OF TOBACCO 12/23/2014 [facility] History of tobacco use QUIT TOBACCO >7 YEARS AGO 03/10/2014 [facility] History of tobacco use QUIT TOBACCO >7 YEARS AGO 04/15/2013 [facility] History of tobacco use QUIT TOBACCO >7 YEARS AGO 06/11/2012 [facility] History of tobacco use DATE LAST SMOKED 11/29/2011 [facility] History of tobacco use LIFETIME NON-TOBACCO USER 09/16/2010 [facility] History of tobacco use DATE LAST SMOKED 06/24/2009 [facility] History of tobacco use LIFETIME NON-TOBACCO USER 06/23/2008 [facility] History of tobacco use TOBACCO USE/SMOKING SCREEN 07/27/2007 [facility] History of tobacco use DATE LAST SMOKED 07/24/2006 [facility] History of tobacco use LIFETIME NON-TOBACCO USER 12/02/2004 [facility] This section is an empty social history section. [facility] Assessment and Plan Combined list of future care activities from Department of Defense and [facility] facilities (e.g., assessment and plan notes, appointments, orders, and referrals). Additional future care activities may be listed in the Plan of Care section. Result Assessment and Plan Date Source Assessment and Plan No data available for this section 01/09/2025 Ambulatory Pharmacy Plan of Care List of future care activities from Department [facility] facilities. Additional future care activities may be listed in the Assessment and Plan section. Date/Time Care Activity Care Activity Detail Facili ty 01/29/2025 [facility] Advance Directives List of completed, amended, or rescinded Advance Directives on record at [facility] facilities. An actual copy of the Directive is not included. Date Advance Directive Provider Source 04/21/2017 ADVANCE DIRECTIVE DISCUSSION YFN JOHNSON [facility] 06/26/2015 ADVANCE DIRECTIVE DISCUSSION CATA SAL [facility] Functional Status Combined list of recent functional and cognitive assessments recorded at [facility] Functional [place] Measurement (FIM) Scale: 1 = Total Assistance (Subject = 0% +), 2 = Maximal Assistance (Subject = 25% +), 3 = Moderate Assistance (Subject = 50% +), 4 = Minimal Assistance (Subject = 75% +), 5 = Supervision, 6 = Modified [place] (Device), 7 = Complete [place] (Timely, Safely). Assessment Date/Time Source Assessment Type Assessment Skill Assessment Score Assessment Details No data available for this section
--- NOTE | 2025-01-09 08:00 | NM_ITS ---
APPROVED REPORT Exam: Nuclear Stress Test Indication: soa..fatigue Patient Location: Outpatient Stress Tech: Ann TAYLOR Tech:ABRIL Flores RT(R)(N) Ht: 5 ft 6 in Wt: 154 lbs HR: 88 bpm BP: 157/92 mmHg BSA: 1.79 m2 TID: 1.07 BMI: 24.8 History: soa..fatigue Procedure: Patient received 0.4 mg of intravenous Lexiscan, resting heart rate 88 bpm, resting blood pressure 157/92 mmHg, with Lexiscan maximum heart rate achieved was 102 bpm which is 85 % of the maximum predicted heart rate and blood pressure was 138/92 mmHg. With Lexiscan, patient denied any complaint of chest pain. Cardiac Stress and Resting SPECT Images: Cardiac Stress and Resting SPECT images were obtained using technetium 99m Myoview 32.9 mCi stress and 10.31 mCi at rest. Resting and stress imaging in supine and prone positions demonstrate a medium sized, mild, partially reversible perfusion defect in the inferior LV wall. Gated imaging demonstrates normal global LV systolic function. There is mild hypokinesis of the basal inferior LV wall. LVEF is calculated at 59%. Conclusion: Medium sized, mild, partially reversible perfusion defect in the inferior LV wall. Findings are suggestive of partial reversible ischemia. Gated imaging demonstrates normal global LV systolic function. There is mild hypokinesis of the basal inferior LV wall. LVEF is calculated at 59%. Electronically signed by : Екатерина Lock MD 01/12/2025 20:51:16
[2025-01-09] MEDS: SODIUM CHLORIDE 0.9% 10ML SYR (RAD ONLY) 10 ML IV ×2 (09:19→09:20)
[2025-01-09] MEDS: ISOTOPE MYOVIEW (PER STUDY) 1 DOSE IV (09:19)
[2025-01-09] MEDS: REGADENOSON 0.4MG/5ML SYRINGE 0.4 MG IV (09:19)
--- NOTE | 2025-01-09 10:15 | CA_ITS ---
APPROVED REPORT EXAM: Comprehensive 2D, Doppler, and color-flow Echocardiogram Immigration Case Manager: Yady Mendoza, RCS, RVS Ht: 5 ft 6 in Wt: 157lbs BSA: 1.80 BP: 104/64 mmHg Indications: Murmur, Abn EKG, Shortness of breath 2D Dimensions IVSd 0.88 cm LVEF (Visual) 52.00 % PWd 0.77 cm LA Volume 19.90 mL LVDd 4.07 cm LA Volume Index 10.80 mL/m2 (M/F) 16-34 LVDs 3.00 cm Left Atrium 2.36 cm M-Mode Dimensions RVDd 1.72 cm (0.9-2.6) LA Diam 2.49 cm (1.9-4.0) LVDd 4.10 cm (3.5-5.7) LVDs 3.08 cm (3.5-5.7) IVSd 1.22 cm (0.6-1.1) PWd 0.90 cm (0.6-1.1) EF (Teich) 49.70% EPSs 0.74 cm FS 24.90% EDV (Teich) 74.20 mL TAPSE 1.54 (<1.7) ESV (Teich) 37.30 mL LV Diastology E Decel Time 260 (160-240 msec) E/A Ratio 0.73 MED A' 11.20 cm/s LAT A' 15.50 cm/s Aortic Valve BRITTANIE Index 0.99 cm2/m2 AoV Peak Jason. 185.0 (50-130 cm/s) AI PHT 442.00 ms AO Peak GR. 13.60 mmHg AO Mean GR. 6.70 (<5 mmHg) AO VTI 33.8 (18-25 cm) BRITTANIE (VTI) 1.83 (2.5-4.5 cm2) Mitral Valve MV A Velocity 120.0 (40-130 cm/s) E/A Ratio 0.73 MV Mean Gr. 2.20 (<2mmHg) Tricuspid Valve TR P. Velocity 163.00 cm/s RAP Estimate 10.00 mmHg RVSP 20.70 mmHg Left Ventricle The left ventricle is normal size. The left ventricular systolic function is normal. The left ventricular ejection fraction is within the normal range. There is increased overall thickness. There is normal LV segmental wall motion. The left ventricular diastolic function is normal. LVEF is 55%. Right Ventricle The right ventricle is normal size. The right ventricular systolic function is normal. Atria The left atrium size is normal. The right atrium size is normal. There is no Doppler evidence of interatrial shunt. Aortic Valve The aortic valve is mildly thickened. There is no hemodynamically significant aortic stenosis. Moderate aortic regurgitation. Mitral Valve The mitral valve is mildly thickened. No evidence of mitral valve stenosis. Trace mitral regurgitation. Tricuspid Valve Tricuspid valve is grossly normal in structure and function. Trace tricuspid regurgitation. There is insufficient TR jet to estimate RVSP. Pulmonic Valve The pulmonary valve is normal in structure. Trace pulmonic regurgitation. Great Vessels The aortic root is normal in size. IVC is normal in size and collapses >50% with inspiration. Pericardium There is no pericardial effusion. Other Information Study Quality: Fair Conclusion Normal biventricular systolic function. Moderate AI. Electronically signed by : Екатерина Lock MD 01/14/2025 00:38:36
== END 2025-01-09 23:59 | disposition home or self-care (01) ==
LOC: RAD 07:34
PROVIDERS: PCP Nurse Practitioner Family; Visit Provider Physician Assistant
DX: I35.1 Nonrheumatic aortic (valve) insufficiency (principal); R94.39 Abnormal result of other cardiovascular function study; R94.31 Abnormal electrocardiogram [ECG] [EKG]; R42 Dizziness and giddiness
CPT/HCPCS: 78452; 93017; 93018; 93306; A9502; J2785

== ENCOUNTER 2025-03-03 07:35 | Day surgery (SDC) | payer MEDICARE, OTHER, SELFPAY ==
[2025-03-03] VITALS (15 sets, daily range): BP systolic 107–145; BP diastolic 57–85; PULSE 60–90; RESP 14–20; O2SAT 95–100; BMI 25.2
--- NOTE | 2025-03-03 07:16 | IR_ITS ---
APPROVED REPORT Patient Location: Outpatient PROCEDURES Left heart catheterization Left ventriculogram Selective coronary angiogram Drug-eluting stent deployment to the proximal dominant right coronary INDICATION Abnormal Myoview with large inferior defect, Angina pectoris, Coronary artery disease Informed consent was obtained prior to the procedure. COMPLICATIONS NONE Estimated Blood Loss: LESS THAN 10 ML TECHNIQUE One percent lidocaine used to anesthetize the right anterior aspect of the wrist. The right radial artery was accessed via the Seldinger technique. A 6 [place] sheath was placed in the right radial artery. 2.5 mg of Verapamil, 800 mcg of nitroglycerin, 1mg Lidocaine and 5000 U Heparin were given through the arterial sheath. The JL3 catheter was also used to perform left heart catheterization, left ventriculogram and selective coronary angiogram. At the end of the diagnostic angiogram therapeutic heparin was administered giving a therapeutic ACT and the guide catheter was placed in the right coronary followed by Choice PT extra-support wire placed distally. A 5 mm x 30 mm [place] frontier stent was deployed in the proximal right coronary artery at 15 radha reducing the highly eccentric stenosis to 0%. OLGA-3 flow was present before and after the procedure. At the end of procedure the apparatus was removed the sheath was removed good hemostasis was achieved using TR banding patient was transferred to the postop putting her in stable condition ANGIOGRAPHIC RESULTS The left main artery Normal The left anterior descending artery Has proximal 30% stenoses with additional mid vessel stenoses at the distal LAD being occluded and not reaching the apex The circumflex artery Vestigial and normal The right coronary artery Massively large and dominant with proximal 20% stenosis and a highly eccentric soft large atheromatous plaque creating a 70% stenosis followed by additional 30% stenosis and distal eccentric 30% stenoses. The posterior lateral branch has a massively large 4 mm vessel and gives rise to 2 large distal branches. The posterior descending artery is large and patent The THAO ventriculogram reveals Not performed The left ventricular end-diastolic pressure 20 mmHg IMPRESSION Heavy plaque burden and a soft eccentric massively large dominant right coronary artery which accompanies the abnormal inferior Myoview defect Successful stenting of the proximal right coronary severe disease reduced to 0% with 1 drug-eluting stent Chronically occluded distal LAD PLAN 1. Plavix and aspirin 2. LDL less than 55 to be achieved with high intensity statin 3. Avoidance of tobacco products 4. Risk factor modification 5. Cardiac rehabilitation Electronically signed by : Stephen Diaz MD 03/03/2025 11:07:19
[2025-03-03 08:04] LABS: Hematocrit 39.8 % (42.0-52.0); Hemoglobin 13.3 g/dL (14.1-18.0); Immature Granulocytes % 0.4 %; Mean Corpuscular HGB Conc 33.4 g/dL (31.8-35.4); Mean Corpuscular Hemoglobin 32.9 pg (27.0-31.2); Mean Corpuscular Volume 98.5 fl (80-94); Nucleated Red Blood Cells % 0.3 %; Platelet Count 236 K/mm3 (142-424); Red Blood Count 4.04 M/mm3 (4.60-6.20); Red Cell Distribution Width-SD 48.8 fL; White Blood Count 11.3 K/mm3 (4.8-10.8)
[2025-03-03 08:15] LABS: Anion Gap 21.3 mEq/L (5-15); Blood Urea Nitrogen 44 mg/dl (9-20); Calcium 10.2 mg/dl (8.4-10.2); Carbon Dioxide 19 mmol/L (22.0-30.0); Chloride 100 mmol/L (98-107); Creatinine Clearance Estimated 29 mL/min (50-200); Creatinine,Serum 2.10 mg/dl (0.66-1.25); Estimated Glomerular Filt Rate 31 ml/min (>60); GFR (African American) 37 ML/MIN (>60); Glucose 179 mg/dl (74-100); Potassium 5.3 mmoL/L (3.5-5.1); Sodium 135 mmol/L (136-145)
[2025-03-03] MEDS: HEPARIN 1,000 UNITS/500ML NS (CATH LAB) 3000 UNIT IV (09:26)
[2025-03-03] MEDS: LIDOCAINE 1% 10ML MDV 10 ML IJ (09:27)
[2025-03-03] MEDS: VERAPAMIL 2.5MG/ML 2ML VIAL 2.5 MG IV (09:27)
[2025-03-03] MEDS: FAMOTIDINE 20MG/2ML VIAL 20 MG IV (09:28)
[2025-03-03] MEDS: 0.9 % SODIUM CHLORIDE 500 ML 25 ML IV (09:28)
[2025-03-03] MEDS: METHYLPREDNISOLONE SOD SUCC 125MG VIAL 125 MG IV (09:29)
[2025-03-03] MEDS: CLOPIDOGREL 75MG TAB 75 MG PO (09:29)
[2025-03-03] MEDS: HEPARIN 1,000 UNITS/ML 10ML VIAL (CATH LAB) 5000 UNIT IV (09:30)
[2025-03-03] MEDS: FENTANYL 100MCG/2ML VIAL 50 MCG IV (09:30)
[2025-03-03] MEDS: MIDAZOLAM HCL 1MG/ML 5ML VIAL 1 MG IV (09:31)
[2025-03-03] MEDS: NITROGLYCERIN 800MCG/8ML SYR (CATH LAB) 800 MCG IA (09:33)
[2025-03-03] MEDS: IOPAMIDOL-370 (76%);100ML BOTTLE 50 ML IV (15:12)
[2025-03-03 15:14] LABS: CATHL Activated Clotting Time 281 SEC (74-125)
== END 2025-03-03 14:03 | disposition home or self-care (01) ==
PROVIDERS: PCP Nurse Practitioner Family; Visit Provider Internal Medicine
PROC: 4A023N7 Measurement of Cardiac Sampling and Pressure, Left Heart, Percutaneous Approach (ICD-10-PCS; CPT 93452; principal; 2025-03-03 07:15)
DX: I25.119 Atherosclerotic heart disease of native coronary artery with unspecified angina pectoris (principal); R93.1 Abnormal findings on diagnostic imaging of heart and coronary circulation; R06.02 Shortness of breath; I10 Essential (primary) hypertension; E78.5 Hyperlipidemia, unspecified; R01.1 Cardiac murmur, unspecified; I35.1 Nonrheumatic aortic (valve) insufficiency; R25.1 Tremor, unspecified; Z95.5 Presence of coronary angioplasty implant and graft; Z87.891 Personal history of nicotine dependence; Z79.82 Long term (current) use of aspirin; Z79.02 Long term (current) use of antithrombotics/antiplatelets; Z79.890 Hormone replacement therapy; Z79.899 Other long term (current) drug therapy; Z79.52 Long term (current) use of systemic steroids; Z91.041 Radiographic dye allergy status
CPT/HCPCS: 80048; 85025; 85347; 92928; 93458; 99152; C1725; C1769; C1874; C9600; J1200; J1644; J2919; J3010; J7040; Q9967

== ENCOUNTER 2025-03-06 11:38 | Outpatient (CLI) | payer MEDICARE, OTHER, SELFPAY ==
--- OUTSIDE RECORDS SUMMARY | 2025-01-16 04:09 | XMS_ITS | Encounter Summary ---
Author Name [facility] [place] Address [address] [place] [address] Care Team Providers Care Private Duty Rn Name Role Phone MING TSANG Primary Care [...] TRICA RE DODA WNR Oct 09, 2020 [facility] [id number] MELANIE,MAXINE ONARD PATIENT MEDICARE (WNR) MEDICARE (M) PART A Nov 05, 2010 PART A [id number] [facility] [id number] MELANIE,LE ONARD PATIENT MEDICARE (WNR) MEDICARE (M) PART B Nov 05, 2010 PART B [id number] [facility] [id number] MELANIE,LE ONARD PATIENT MEDICARE (WNR) MEDICARE (M) PART A Nov 05, 2010 PART A [id number] MELANIE,LE ONARD PATIENT MEDICARE (WNR) MEDICARE (M) PART B Nov 05, 2010 PART B [id number] [phone] MELANIEMAXINE GEE PATIENT MEDICARE (WNR) MEDICARE (M) PART A Nov 05, 2010 [place] [id number] [id number] MELANIEMAXINE PATIENT MEDICARE (WNR) MEDICARE (M) PART B Nov 05, 2010 [place] [id number] [id number] MELANIEMAXINE GEE PATIENT MEDICARE (WNR) MEDICARE (M) PART A Nov 05, 2010 PART A [address] [place] [address] MELANIE,LE ONQUEENIE PATIENT MEDICARE (WNR) MEDICARE (M) PART B Nov 05, 2010 PART B [address] [place] [address] MELANIEMAXINE GEE PATIENT MEDICARE (WNR) MEDICARE (M) PART A Nov 05, 2010 PART [place] [id number] [id number] MELANIEMAXINE GEE PATIENT MEDICARE (WNR) MEDICARE (M) PART B Nov 05, 2010 PART B [id number] [id number] [phone] MELANIEMAXINE GEE PATIENT MEDICARE (WNR) MEDICARE (M) PART A Nov 05, 2010 PART A [id number] MAXINE NAVARRO PATIENT MEDICARE (WNR) MEDICARE (M) PART B Nov 05, 2010 PART B [id number] MAXINE NAVARRO PATIENT FOR LIFE TRICA RE FOR LIFE Mar 31, 2010 SPONS[facility] [id number] MAXINE NAVARRO PATIENT FOR LIFE DIREC T CARE Mar 31, 2010 FOR LIFE [id number] MAXINE NAVARRO PATIENT -FO R-LIFE TRICA RE FOR LIFE December 05, 2010 [facility] [id number] [phone] MAXINE NAVARRO PATIENT Selected Encounter This section includes the information on record at [place] for the Encounter. Date/Time Encounter Type Encounter Description Reason Pro vider Source Jan 16, 2025 08:09 AM Outpatient Encounter ADMIN PAT ACTIVTIES (MASNONCT) IHE Encounter Template Text not used by [facility] Plan of Treatment: Future Appointments (+ 6 months) and Future Tests (+/- 45 days) The Plan of Treatment section includes future care activities for the patient from all [place] [facility] This section includes future appointments and future orders which are active, pending or scheduled. Future Appointments This section includes appointments that were scheduled to occur 6 months from the date of the Encounter, up to a maximum of 20 appointments. The data comes from all [place] treatment facilities. Appointment Date/Time Appointment Type Appointme nt Facility Name Jan 29, 2025 01:00 PM AMBULATORY - PSYCHIATRY MAXINE TEE [facility] Jan 31, 2025 10:00 AM AMBULATORY - NONE MADHURIINGAILYN Price [facility] Mar 31, 2025 11:00 AM AMBULATORY - MEDICINE VIVEK JIMENEZ [facility] Apr 30, 2025 01:00 PM AMBULATORY - PSYCHIATRY [facility]INE [facility] Advance Directives: All historical and current Section Date Range: From patient's date of to the date document was created. This section includes ALL of a patient's completed or amended [place] Advance and Rescinded Directives. The entries below indicate that a directive exists for the patient, but an actual copy is not included with this document. The data comes from all [facility]. Date Advance Directives Provider Source Apr 21, 2017 ADVANCE DIRECTIVE DISCUSSION YFN JOHNSON [facility] Jun 26, 2015 ADVANCE DIRECTIVE DISCUSSION ILIA SAL [facility] Encounter Notes: All associated encounter notes This section contains the clinical notes associated to the Encounter. Date/Time Encounter Note(s) Provider Source Jan 16, 2025 08:09 AM ADMINISTRATIVE NOT E: LOCAL TITLE: CCC: SCHEDULING ADMINISTRATION STANDARD TITLE: ADMINISTRATIVE NOTE DATE OF NOTE: JAN 16, 2025@08:09:39 ENTRY DATE: JAN 16, 2025@08:09:39 AUTHOR: TRINY MCCABE COSIGNER: URGENCY: STATUS: COMPLETED CCC: SCHEDULING ADMINISTRATION Has ADDENDA Caller Verification Call Back Number: [phone] Emergency Contact: COREY NAVARRO Emergency Contact Caller/Recipient Relation to Patient: Self Caller Name: CHELE NAVARRO Administrative Administrative Note Reason: Other Administrative Note Comments: Pt called stated to please use this number [phone] for his Vvc appts only. Please do not change in system. IMPORTANT: This note was created by [facility] Clinical Contact Center staff. Please do not alert the staff member by adding them as a signer for future communications. Alerts are not monitored by this user. /franny/ TRINY MCCABE Signed: 01/16/2025 08:09 Receipt Acknowledged By: 01/16/2025 08:23 /franny/ ALEXSANDRA STEPHENSON MD Psychiatry Attending 01/16/2025 11:12 /franny/ Pau Pollard MSA 01/16/2025 ADDENDUM STATUS: COMPLETED resent link to this number for next appt /elmer Pollard MSA Signed: 01/16/2025 11:15 TRINY MCCABE-CDD [facility]
--- OUTSIDE RECORDS SUMMARY | 2025-01-29 09:00 | XMS_ITS | Encounter Summary ---
Author Name [facility] [facility] [place] [facility] [place] Address [address] [place] [address] Care Team Providers Care Supervisory Clerk Name Role Phone MING TSANG Primary Care [...] RE DODA WNR Oct 09, 2020 [facility] [id number] [phone] MELANIE,LE ONQUEENIE PATIENT MEDICARE (WNR) MEDICARE (M) PART A Nov 05, 2010 PART A [id number] [id number] MELANIE,LE ONQUEENIE PATIENT MEDICARE (WNR) MEDICARE (M) PART B Nov 05, 2010 PART B [id number] [id number] MAXINE NAVARRO ONQUEENIE PATIENT MEDICARE (WNR) MEDICARE (M) PART A Nov 05, 2010 PART A [id number] [id number] MAXINE NAVARRO KERRYQUEENIE PATIENT MEDICARE (WNR) MEDICARE (M) PART B Nov 05, 2010 PART B [id number] [id number] MELANIEMAXINE GEE PATIENT MEDICARE (WNR) MEDICARE (M) PART B Nov 05, 2010 PART B [id number] [facility] [phone] MELANIEMAXINE PATIENT MEDICARE (WNR) MEDICARE (M) PART A Nov 05, 2010 PART A [id number] MELANIEMAXINE GEE PATIENT MEDICARE (WNR) MEDICARE (M) PART A Nov 05, 2010 PART A [id number] [id number] MELANIEMAXINE ONQUEENIE PATIENT MEDICARE (WNR) MEDICARE (M) PART B Nov 05, 2010 PART B [id number] [id number] [phone] MELANIE,LE ONQUEENIE PATIENT MEDICARE (WNR) MEDICARE (M) PART A Nov 05, 2010 PART A [id number] [id number] MELANIEMAXINE GEE PATIENT MEDICARE (WNR) MEDICARE (M) PART B Nov 05, 2010 PART B [id number] [id number] [phone] MELANIEMAXINE GEE PATIENT MEDICARE (WNR) MEDICARE (M) PART A Nov 05, 2010 PART A [id number] MELANIEMAXINE GEE PATIENT MEDICARE (WNR) MEDICARE (M) PART B Nov 05, 2010 PART B [id number] MAXINE NAVARRO PATIENT FOR LIFE TRICA RE FOR LIFE Mar 31, 2010 SPONSOR [id number] MAXINE NAVARRO PATIENT FOR LIFE DIREC T CARE Mar 31, 2010 FOR LIFE [id number] MAXINE NAVARRO PATIENT -FO R-LIFE TRICA RE FOR LIFE December 05, 2010 [facility] [id number] MAXINE NAVARRO PATIENT Selected Encounter This section includes the information on record at [place] for the Encounter. Date/Time Encounter Type Encounter Description Reason Provider Source Jan 29, 2025 01:00 PM Outpatient [facility]UL[facility] Encounter Template Text not used by [facility] Plan of Treatment: Future Appointments (+ 6 months) and Future Tests (+/- 45 days) The Plan of Treatment section includes future care activities for the [facility] This section includes future appointments and future orders which are active, pending or scheduled. Future Appointments This section includes appointments that were scheduled to occur 6 months from the date of the Encounter, up to a maximum of 20 appointments. The data comes from all [place] treatment facilities. Appointment Date/Time Appointment Type Appointme nt Facility Name Jan 31, 2025 10:00 AM AMBULATORY - NONE ADEEL Price [facility] Mar 31, 2025 11:00 AM AMBULATORY - MEDICINE VIVEK JIMENEZ [facility] Apr 30, 2025 01:00 PM AMBULATORY - PSYCHIATRY MAXINE TEE [facility] Social History: Smoking Status (Most current) and [...] 2024 11:00 AM VA-TOBACCO FORMER USER [facility] Tobacco Use History This section includes a history of the smoking, or tobacco-related health factors, that were collected on or before the date of the Encounter. The data comes from the [place] facility where the Encounter took place. Date/Time Smoking Status/Tobacco Use Comment F acility Mar 15, 2024 11:00 AM [place]-TO[place] QUIT 15 YRS OR MORE [facility] Advance Directives: All historical and current Section [...] 21, 2017 ADVANCE DIRECTIVE DISCUSSION YFN JOHNSON [facility] Jun 26, 2015 ADVANCE DIRECTIVE DISCUSSION ILIA SAL [facility]
--- OUTSIDE RECORDS SUMMARY | 2025-01-29 09:01 | XMS_ITS | Encounter Summary ---
Author Name [facility] [place] [place] [facility] [place] [facility] [place] Address [address] [place] [address] Care Team Providers Care Carburetor Expert Name Role Phone MING TSANG Primary Care [...] RE DODA WNR Oct 09, 2020 DODA [id number] MELANIE,MAXINE ONARD PATIENT MEDICARE (WNR) MEDICARE (M) PART A Nov 05, 2010 PART A [id number] [id number] [phone] MELANIE,MAXINE ONARD PATIENT MEDICARE (WNR) MEDICARE (M) PART B Nov 05, 2010 PART B [id number] [place] [address] [phone] MELANIE,MAXINE ONARD PATIENT MEDICARE (WNR) MEDICARE (M) PART A Nov 05, 2010 PART A [id number] [id number] MELANIE,MAXINE ONARD PATIENT MEDICARE (WNR) MEDICARE (M) PART B Nov 05, 2010 PART B [id number] [place] [address] [phone] MELANIEMAXINE ONQUEENIE PATIENT MEDICARE (WNR) MEDICARE (M) PART B Nov 05, 2010 PART B [id number] [facility] MELANIE,MAXINE ONARD PATIENT MEDICARE (WNR) MEDICARE (M) PART A Nov 05, 2010 PART A [id number] MELANIEMAXINE ONARD PATIENT MEDICARE (WNR) MEDICARE (M) PART A Nov 05, 2010 PART A [id number] [id number] [phone] MELANIE,MAXINE ONARD PATIENT MEDICARE (WNR) MEDICARE (M) PART B Nov 05, 2010 PART B [id number] [id number] [phone] MELANIE,MAXINE ONARD PATIENT MEDICARE (WNR) MEDICARE (M) PART A Nov 05, 2010 PART A [id number] [id number] MELANIEMAXINE ONARD PATIENT MEDICARE (WNR) MEDICARE (M) PART B Nov 05, 2010 PART B [id number] [id number] MELANIEMAXINE PATIENT MEDICARE (WNR) MEDICARE (M) PART A Nov 05, 2010 PART A [id number] [phone] MELANIEMAXINE GEE PATIENT MEDICARE (WNR) MEDICARE (M) PART B Nov 05, 2010 PART B [id number] MAXINE NAVARRO PATIENT FOR LIFE TRICA RE FOR LIFE Mar 31, 2010 [facility] [id number] MAXINE NAVARRO PATIENT FOR LIFE DIREC T CARE Mar 31, 2010 FOR LIFE [id number] MAXINE NAVARRO PATIENT -FO R-LIFE TRICA RE FOR LIFE December 05, 2010 [id number] MAXINE NAVARRO PATIENT Selected Encounter This section includes the information on record at [place] for the Encounter. Date/Time Encounter Type Encounter Description Reason Provider Source Jan 29, 2025 01:01 PM SYNCH AUDIO-ONLY EST MOD 30 TELEPHONE MH ICD-10-CM F31.9 Bipolar disorder, unspecified ALEXSANDRA STEPHENSON IHMegan Encounter Template Text not used by [place] Assessments - Encounter Diagnoses This section includes the primary and secondary diagnoses documented for the Encounter. Date/Time Primary/Secondary Diagnosis Diagnosis Name Provider Source Jan 29, 2025 01:01 PM PRIMARY Bipolar disorder, unspecified PATSY BRAXTON-MARIAN Jimenez [facility] Plan of Treatment: Future Appointments (+ 6 months) and Future Tests (+/- 45 days) The Plan of Treatment section includes future care activities for the patient from all [place] treatmentfacilities. This section includes future appointments and future orders which are active, pending or scheduled. Future Appointments This section includes appointments that were scheduled to occur 6 months from the date of the Encounter, up to a maximum of 20 appointments. The data comes from all [place] treatment facilities. Appointment Date/Time Appointment Type Appointme nt Facility Name Jan 31, 2025 10:00 AM AMBULATORY - NONE ADEEL Price [facility] Mar 31, 2025 11:00 AM AMBULATORY - MEDICINE VIVEK JIMENEZ [facility] Apr 30, 2025 01:00 PM AMBULATORY - PSYCHIATRY MAXINE GORDONYARIELKERRY [facility] Advance Directives: All historical and current Section Date Range: From patient's date of to the date document was created. This section includes ALL of a patient's completed or amended [place] Advance and Rescinded Directives. The entries below indicate that a directive exists for the patient, but an actual copy is not included with this document. The data comes from all [place] facilities. Date Advance Directives Provider Source Apr 21, 2017 ADVANCE DIRECTIVE DISCUSSION YFN JOHNSON [facility] Jun 26, 2015 ADVANCE DIRECTIVE DISCUSSION ILIA SAL [facility] Encounter Notes: All associated encounter notes This section contains the clinical notes associated to the Encounter. Date/Time Encounter Note(s) Provider Source Jan 29, 2025 01:24 PM MENTAL HEALTH E & M NOTE: LOCAL TITLE: MHC E&M WITH PSYCHOTHERAPY STANDARD TITLE: MENTAL HEALTH E & M NOTE DATE OF NOTE: JAN 29, 2025@13:24 ENTRY DATE: JAN 29, 2025@13:24:53 AUTHOR: ALEXSANDRA STEPHENSON EXP COSIGNER: URGENCY: STATUS: COMPLETED PATIENT NAME: CHELE NAVARRO PATIENT RACE: WHITE PATIENT SEX: MALE PATIENT AGE: 79 MARITAL STATUS:MARITAL STATUS - [place] RATING: SERVICE CONNECTED % - 100 Date of Service (if earlier than date of documentation): Is the patient seen via VVC? Yes Yes - Patient's consent Patient's address during the session: Residential Address: Mailing Address: [address] [place] [address] [place] [address] [facility] County[place] Bad Addr: Office: UNSPECIFIED E-mail: [email or web address] Patient's telephone number (cellular and/or landline): Names of other individuals present in the home: Contact information for emergency call or contact centre manager: Yes - confirmed that they are in a private and safe place PSYCHOTHERAPY SECTION SUMMARY OF PSYCHOTHERAPY: (minutes) Time spent during this session exclusively on psychotherapy EVALUATION AND MANAGEMENT CHEMICAL RESEARCH TECHNICIAN COMPLAINT: F/U for Bipolar and meds review. INTERVAL HISTORY: Targeted review of systems was performed. Pertinent findings include: 79 Yo MWM interviewed by phone after failed t connect with [facility]. Pt's son is not around at the moment and pt himself was not able to get the computer program going. Reports Hx of Bipolar for 30+ years and transfer care from [place] to here in 2023. 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 Reports slept well and mood has been fair. Reports taking meds as prescribed. Nevertheless, he has not filled Depakote since 08-11-2024 but other two mes were refilled as recently in December. Pt reports not aware of side effects [...] Hx: Pt and his recently moved from [place] to this area. His son is and also moved along with them. Son is employed at [employer] for the past 6 months now. Legal Hx: None reproted. 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 PAIN ASSESSMENT: No - Pain Intensity: Location: Duration: Characteristics: Other: MEDICATION RECONCILIATION: I have reviewed all prescriptions [...] MINUTES BEFORE MEALS Indication: FOR CHOLESTEROL 6) PRIMIDONE 50MG TAB TAKE ONE TABLET BY MOUTH DAILY ACTIVE (S) Indication: FOR TREMORS 7) PROPRANOLOL HCL 60MG SA CAP TAKE ONE CAPSULE BY MOUTH DAILY ACTIVE Indication: FOR TREMOR 8) QUETIAPINE FUMARATE 200MG TAB TAKE ONE-HALF TABLET BY MOUTH ACTIVE AT BEDTIME Indication: FOR MOOD 9) SITAGLIPTIN (EQV-ZITUVIO) 50MG TAB TAKE ONE TABLET BY MOUTH ACTIVE DAILY - STORE IN ORIGINAL CONTAINER. OPENED BOTTLES MUST BE USED WITHIN 3 MONTHS Indication: FOR BLOOD SUGAR 10) TAMSULOSIN HCL 0.4MG CAP TAKE ONE CAPSULE BY MOUTH EVERY ACTIVE EVENING Indication: FOR PROSTATE Pending Outpatient Medications Status 1) CITALOPRAM HYDROBROMIDE 40MG TAB TAKE ONE-HALF TABLET BY PENDING MOUTH DAILY Indication: FOR MOOD 2) DIVALPROEX 500MG 24HR (ER) SA TAB TAKE TWO TABLETS BY MOUTH PENDING DAILY Indication: FOR MOOD 3) QUETIAPINE FUMARATE 200MG TAB TAKE ONE-HALF TABLET BY MOUTH PENDING AT BEDTIME Indication: FOR MOOD Inactive Outpatient Medications Status 1) MEMANTINE HCL 10MG TAB TAKE ONE TABLET BY MOUTH DAILY Indication: FOR MEMORY 14 Total Medications Allergies: local and remote IODINATED CONTRAST MEDIA FACILITY ALLERGY/ADR -------- [id number]^CLNCL/TH SUSAN REPT EFF [id number]^200CHIODINE 512^[facility] S[facility]^512 IODINE 528^[facility]^528 INTRAVASCULAR CONTRAST MEDIA 528^[facility]^528 [place] PAST MEDICAL HISTORY: Active problems [...] hours MENTAL STATUS EXAM: Appearance: No acute distress Orientation/Alertness: Oriented to person, place, and time Attitude: Cooperative Behavior: Calm Speech: Normal in tone, rate, volume and amount Mood: Euthymic plesant Affect: Stable Thought Process: Linear, Organized, Goal [...] - Partial Panel found WBC , BLOOD, 03/15/24@0 6.6 K/cmm (5.0 - 10.0) RBC, BLOOD, 03/15/24 3.91 LM/cmm (4.6 - 6.2) HGB, BLOOD, 03/15/24 13.0 Lg/dL (14.0 - 18.0) HCT, BLOOD, 03/15/24 39.0 L% (42.0 - 52.0) MCV, BLOOD, 03/15/24 99.7 HfL (80.0 - 94.0) MCH, BLOOD, 03/15/24 33.2 Hpg (27.0 - 31.0) MCHC, BLOOD, 03/15/24 33.3 g/dL (32.0 - 36.0) RDW, BLOOD, 03/15/24 14.1 % (11.0 - 16.0) PLT, BLOOD, 03/15/24 259 K/cmm (150 - 450) MPV, BLOOD, 03/15/24 9.6 fL (9.0 - 13.1) NRBC, BLOOD, 08/09/24@1210 0.0 % (0.0 - 0.0) PANEL 1 [...] Indicates COMMENTS AVAILABLE...Refer to Interim Lab Report. [place]: ____ Valproic Acid: 30.8 ug/mL L (09/30/2024 08:55) Drugs of Abuse - NONE FOUND SUICIDE RISK ASSESSMENT: C-SSRS Screening Schley-Suicide Severity Rating Scale (C-SSRS Screener) 1. Over [...] due to responses to other questions. ASSESSMENT: 79 Yo WM interviewed by phone for 3 months f/u after failed to connect on [employer]. Reports Bipolar Hx for 30 years and has been fairly stable in mood for many years while on 3 meds. VPA was 30 recently. Panel 1 and CBC were fair. Denies sied effects or problems Denies al/ruslan/si/hi. DSM5 Diagnosis: Bipolar disorder, unspecified (ICD-10-CM F31.9) [...] present to the nearest emergency room, the [facility] ER, or to call 911 should they experience acute suicidal or homicidal ideation or their medical condition rapidly deteriorate. Patient was also provided with the telephone number for the National Suicide Hotline. DISPOSITION: Visit modality: Telephone 15 (minutes) Time spent in medical discussion with the patient 30 (minutes) Total time The following activities were performed: Preparing to see the patient such as review of tests, x-rays, labs, SHAKA (Specify test reviewed) Obtaining and or review a separately obtained history Counseling and educating the patient/family/caregiver Ordering medications, tests, or procedures (Specify what tests are ordered) /franny/ ALEXSANDRA STEPHENSON MD Psychiatry Attending Signed: 01/29/2025 13:32 ALEXSANDRA STEPHENSON-Barbara [facility] Jan 29, 2025 01:23 PM MENTAL HEALTH MEDI CATION MGT NOTE: LOCAL TITLE: [facility] OUTPATIENT EMLR STANDARD TITLE: MENTAL HEALTH MEDICATION MGT NOTE DATE OF NOTE: JAN 29, 2025@13:23 ENTRY DATE: JAN 29, 2025@13:23:49 AUTHOR: ALEXSANDRA STEPHENSON EXP COSIGNER: URGENCY: STATUS: COMPLETED MEDICATION RECONCILIATION: /caregiver refused a copy of medication list I [...] MINUTES BEFORE MEALS Indication: FOR CHOLESTEROL 6) PRIMIDONE 50MG TAB TAKE ONE TABLET BY MOUTH DAILY ACTIVE (S) Indication: FOR TREMORS 7) PROPRANOLOL HCL 60MG SA CAP TAKE ONE CAPSULE BY MOUTH DAILY ACTIVE Indication: FOR TREMOR 8) QUETIAPINE FUMARATE 200MG TAB TAKE ONE-HALF TABLET BY MOUTH ACTIVE AT BEDTIME Indication: FOR MOOD 9) SITAGLIPTIN (EQV-ZITUVIO) 50MG TAB TAKE ONE TABLET BY MOUTH ACTIVE DAILY - STORE IN ORIGINAL CONTAINER. OPENED BOTTLES MUST BE USED WITHIN 3 MONTHS Indication: FOR BLOOD SUGAR 10) TAMSULOSIN HCL 0.4MG CAP TAKE ONE CAPSULE BY MOUTH EVERY ACTIVE EVENING Indication: FOR PROSTATE Pending Outpatient Medications Status 1) CITALOPRAM HYDROBROMIDE 40MG TAB TAKE ONE-HALF TABLET BY PENDING MOUTH DAILY Indication: FOR MOOD 2) DIVALPROEX 500MG 24HR (ER) SA TAB TAKE TWO TABLETS BY MOUTH PENDING DAILY Indication: FOR MOOD 3) QUETIAPINE FUMARATE 200MG TAB TAKE ONE-HALF TABLET BY MOUTH PENDING AT BEDTIME Indication: FOR MOOD Inactive Outpatient Medications Status 1) MEMANTINE HCL 10MG TAB TAKE ONE TABLET BY MOUTH DAILY Indication: FOR MEMORY 14 Total Medications Allergies: local and remote IODINATED CONTRAST MEDIA FACILITY ALLERGY/ADR -------- [id number]^CLNCL/HLTH [place] REPT EFF [id number]^200CHIODINE 512^[facility]^512 IODINE 528^[facility]^528 INTRAVASCULAR CONTRAST MEDIA 528^[facility]^[address] [place] Active and Recently Outpatient Medications [...] MINUTES BEFORE MEALS Indication: FOR CHOLESTEROL 6) PRIMIDONE 50MG TAB TAKE ONE TABLET BY MOUTH DAILY ACTIVE (S) Indication: FOR TREMORS 7) PROPRANOLOL HCL 60MG SA CAP TAKE ONE CAPSULE BY MOUTH DAILY ACTIVE Indication: FOR TREMOR 8) QUETIAPINE FUMARATE 200MG TAB TAKE ONE-HALF TABLET BY MOUTH ACTIVE AT BEDTIME Indication: FOR MOOD 9) SITAGLIPTIN (EQV-ZITUVIO) 50MG TAB TAKE ONE TABLET BY MOUTH ACTIVE DAILY - STORE IN ORIGINAL CONTAINER. OPENED BOTTLES MUST BE USED WITHIN 3 MONTHS Indication: FOR BLOOD SUGAR 10) TAMSULOSIN HCL 0.4MG CAP TAKE ONE CAPSULE BY MOUTH EVERY ACTIVE EVENING Indication: FOR PROSTATE Pending Outpatient Medications Status 1) CITALOPRAM HYDROBROMIDE 40MG TAB TAKE ONE-HALF TABLET BY PENDING MOUTH DAILY Indication: FOR MOOD 2) DIVALPROEX 500MG 24HR (ER) SA TAB TAKE TWO TABLETS BY MOUTH PENDING DAILY Indication: FOR MOOD 3) QUETIAPINE FUMARATE 200MG TAB TAKE ONE-HALF TABLET BY MOUTH PENDING AT BEDTIME Indication: FOR MOOD Inactive Outpatient Medications Status 1) MEMANTINE HCL 10MG TAB TAKE ONE TABLET BY MOUTH DAILY Indication: FOR MEMORY 14 Total Medications Allergies: local and remote IODINATED CONTRAST MEDIA FACILITY ALLERGY/ADR -------- [id number]^CLNCL/HLTH [place]US[place] REPT EFF [id number]^200CHIODINE 512^[facility]^512 IODINE 528^[facility]^528 INTRAVASCULAR CONTRAST MEDIA 528^[facility]^528 [place] Allergies: Local and Remote IODINATED CONTRAST MEDIA FACILITY ALLERGY/ADR -------- [id number]^CLNCL/HLTH SUSAN REPT EFF [id number]^200CHIODINE 512^[facility]^512 IODINE 528^[facility]^528 INTRAVASCULAR CONTRAST MEDIA 528^[facility]^528 [place] Medication Reconciliation ACTIVE OUTPATIENT MEDICATIONS LOCAL/REMOTE: ALLOPURINOL 100MG TAB Directions: TAKE ONE TABLET BY MOUTH DAILY FOR GOUT Quantity: 90 for 90 days Issued: 12/05/24 Filled: 12/05/24 Expires: 12/06/25 Refills: 1 Status: ACTIVE CITALOPRAM HYDROBROMIDE 40MG TAB Directions: TAKE ONE-HALF TABLET BY MOUTH DAILY FOR MOOD Quantity: 45 for 90 days Issued: 03/29/24 Filled: 12/14/24 Expires: 03/30/25 Refills: 0 Status: ACTIVE CLOPIDOGREL BISULFATE 75MG TAB Directions: TAKE ONE TABLET BY MOUTH DAILY TO THIN BLOOD Quantity: 90 for 90 days Issued: 09/09/24 Filled: 12/17/24 Expires: 09/10/25 Refills: 0 Status: ACTIVE DIVALPROEX 500MG 24HR (ER) SA TAB Directions: TAKE TWO TABLETS BY MOUTH DAILY FOR MOOD Quantity: 180 for 90 days Issued: 08/09/24 Filled: 08/11/24 Expires: 08/10/25 Refills: 3 Status: ACTIVE GEMFIBROZIL 600MG TAB Directions: TAKE ONE TABLET BY MOUTH TWICE A DAY FOR CHOLESTEROL -TAKE 30 MINUTES BEFORE MEALS Quantity: 180 for 90 days Issued: 10/01/24 Filled: 01/06/25 Expires: 10/02/25 Refills: 0 Status: ACTIVE PROPRANOLOL HCL 60MG SA CAP Directions: TAKE ONE CAPSULE BY MOUTH DAILY FOR TREMOR Quantity: 90 for 90 days Issued: 09/09/24 Filled: 12/27/24 Expires: 09/10/25 Refills: 0 Status: ACTIVE QUETIAPINE FUMARATE 200MG TAB Directions: TAKE ONE-HALF TABLET BY MOUTH AT BEDTIME FOR MOOD Quantity: 45 for 90 days Issued: 03/29/24 Filled: 12/14/24 Expires: 03/30/25 Refills: 0 Status: ACTIVE SITAGLIPTIN (EQV-ZITUVIO) 50MG TAB Directions: TAKE ONE TABLET BY MOUTH DAILY FOR BLOOD SUGAR - STORE IN ORIGINAL CONTAINER. OPENED BOTTLES MUST BE USED WITHIN 3 MONTHS Quantity: 90 for 90 days Issued: 12/18/24 Filled: 12/18/24 Expires: 03/18/25 Refills: 0 Status: ACTIVE TAMSULOSIN HCL 0.4MG CAP Directions: TAKE ONE CAPSULE BY MOUTH EVERY EVENING FOR PROSTATE Quantity: 90 for 90 days Issued: 11/04/24 Filled: 11/04/24 Expires: 11/05/25 Refills: 1 Status: ACTIVE PRIMIDONE 50MG TAB Directions: TAKE ONE TABLET BY MOUTH DAILY FOR TREMORS Quantity: 90 for 90 days Issued: 12/31/24 Filled: 03/07/25 Expires: 03/31/25 Refills: 0 Status: ACTIVE/SUSP No remote medications found. PENDING OUTPATIENT MEDICATONS (LOCAL/REMOTE): CITALOPRAM HYDROBROMIDE 40MG TAB Directions: TAKE ONE-HALF TABLET BY MOUTH DAILY Quantity: 45 Special: TAKE ONE-HALF TABLET PO DAILY Status: PENDING DIVALPROEX 500MG 24HR (ER) SA TAB Directions: TAKE TWO TABLETS BY MOUTH DAILY Quantity: 180 Special: TAKE TWO TABLETS PO DAILY Status: PENDING QUETIAPINE FUMARATE 200MG TAB Directions: TAKE ONE-HALF TABLET BY MOUTH AT BEDTIME Quantity: 45 Special: TAKE ONE-HALF TABLET PO QHS Status: PENDING No remote medications found. ACTIVE/PENDING INPT MEDICATIONS: No local medications found. No remote medications found. ACTIVE NONVA MEDICATIONS (LOCAL): CITALOPRAM TAB Directions: MOUTH Status: ACTIVE DIVALPROEX(HANDLING ALERT) TAB (DELAYED Directions: MOUTH Status: ACTIVE QUETIAPINE TAB Directions: MOUTH Status: ACTIVE OUTPATIENT MEDICATIONS (LOCAL)WITHIN 90 DAYS: PRIMIDONE 50MG TAB Directions: TAKE ONE TABLET BY MOUTH DAILY FOR TREMORS Quantity: 90 for 90 days Issued: 12/31/24 Filled: 03/07/25 Expires: 03/31/25 Refills: 0 Status: ACTIVE/SUSP MEMANTINE HCL 10MG TAB Directions: TAKE ONE TABLET BY MOUTH DAILY FOR MEMORY Quantity: 90 for 90 days Issued: 10/15/24 Filled: 12/20/24 Expires: 01/13/25 Refills: 0 Status: DISCONTINUED OUTPATIENT MEDICATIONS (LOCAL) WITHIN 90 DAYS: PRIMIDONE 50MG TAB Directions: TAKE ONE TABLET BY MOUTH DAILY FOR TREMORS Quantity: 90 for 90 days Issued: 12/31/24 Filled: 03/07/25 Expires: 03/31/25 Refills: 0 Status: ACTIVE/SUSP ALLOPURINOL 100MG TAB Directions: TAKE ONE TABLET BY MOUTH DAILY FOR GOUT Quantity: 90 for 90 days Issued: 03/19/24 Filled: 08/27/24 Expires: 03/20/25 Refills: 0 Status: DISCONTINUED CLOPIDOGREL BISULFATE 75MG TAB Directions: TAKE ONE [...] 06/18/24 Expires: 03/20/25 Refills: 0 Status: DISCONTINUED PRIMIDONE 50MG TAB Directions: TAKE ONE TABLET BY MOUTH DAILY FOR TREMORS Quantity: 90 for 90 days Issued: 09/16/24 Filled: 12/17/24 Expires: 09/17/25 Refills: 0 Status: DISCONTINUED PROPRANOLOL HCL 60MG [...] Filled: 09/16/24 Expires: 12/15/24 Refills: 0 Status: DISCONTINUED TAMSULOSIN HCL 0.4MG CAP Directions: TAKE ONE CAPSULE BY MOUTH EVERY EVENING FOR PROSTATE Quantity: 90 for 90 days Issued: 03/19/24 Filled: 07/30/24 Expires: 03/20/25 Refills: 0 Status: DISCONTINUED CLINIC MEDICATIONS (LOCAL): No local medications found. Reviewed current medications with patient/signficant other, patient/significant other reports patient taking ALL VA, Non VA & OTC medications as listed on [facility] medication tab outpatient section. /franny/ ALEXSANDRA STEPHENSON MD Psychiatry Attending Signed: 01/29/2025 13:24 ALEXSANDRA STEPHENSON-JONELLE [facility]
--- OUTSIDE RECORDS SUMMARY | 2025-01-31 10:00 | XMS_ITS | Encounter Summary ---
Author Organization [facility] Address [address] [place] [address] Care Team Providers Care Icu Manager Name Role Phone Esequiel Huerta MD Primary Care Provider [phone] Reason for Visit * Reason Comments Consult Pt is a 79 year old male that presents to the clinic on this date as a new patients. Encounter Details Date Type Department Care Team ([facility] st Contact Info) Description 01/31/2025 10:00 AM EDT Office Visit [facility] [address] [place] [address] Piper Hudson, [place] MARKETING DIRECTOR [address] [address] Stage 3b chronic kidney disease (CMS/HCC) (Primary Dx); Essential hypertension; Other microscopic hematuria; Hyperkalemia; Chronic kidney disease-mineral and bone disorder; Diabetes mellitus due to underlying condition with diabetic chronic kidney disease, unspecified CKD stage, unspecified whether skilled nursing insulin use (CMS/HCC) Social History Tobacco Use Types Packs/Day Years Used Date Smoking Tobacco: Never Smokeless Tobacco: Former Alcohol Use Standard Drinks/Week Comments Never 0 (1 standard drink = 0.6 oz pur e alcohol) AUDIT-C Answer Date Recorded Q1: How often do you have a drink containing alcohol? Never 01/31/2025 Q2: How many drinks containi ng alcohol do you have on a typical day when you are drinking? Patient does not drink Frequency of Binge Drinking Not on file 01/06 Sex and Gender Information Value Date Recorded Sex Assigned at Not on file Legal Sex Male 11:17 AM EDT Gender Identity Not on file Sexual Orientation Not on file documented as of this encounter Last Filed Vital Signs Vital Sign Reading Time Taken Comments Blood Pressure 108/69 01/31/2025 10:12 AM EDT Pulse 71 01/31/2025 10:12 AM EDT Temperature - - Respiratory Rate 20 01/31/2025 10:12 AM EDT Oxygen Saturation 95% 01/31/2025 10:12 AM EDT Inhaled Oxygen Concentration - - Weight 70.8 kg (156 lb) 01/31/2025 10:12 AM EDT Height 167.6 cm (5' 6 ) 01/31/2025 10:12 AM EDT Body Mass Index 25.18 01/31/2025 10:12 AM EDT documented in this encounter Functional Status documented as of this encounter Miscellaneous Notes * Progress Notes - Pipre Hudson APRN - 01/31/2025 10:00 AM EDT Nephrology Outpatient Consult Note Reason for referral: CKD evaluation Referring Provider: Esequiel Huerta MD HPI: Wilson Esteban is a 79 y.o. male with PMH of BPH, Gout, HTN, Parkinson, HLD, DM, TIA, and CKD3b presents as a new consult at the request of Esequiel Huerta MD for CKD Patient notes long history of CKD, previously followed by Nephrology prior to move in 03/2024. Served in [place] + exposure to agent orange. Notes intermittent hematuria with thorough workup per Urology, noting a congential defect. Baseline creatinine ~2. Previously on lokelma 5mg daily for hyperkalemia, has been off since May 2024. No NSAIDs. DM, unsure of most recent A1c. BP at goal <130/80 at home. Denies hematuria, dysuria, abd pain, SOA, CP. I have personally reviewed records from referring provider and other consultants. REVIEW OF SYSTEMS A complete 14-point review of systems was obtained and is negative except as reported in the HPI Past Medical History[1] Surgical History[2] Family History[3] Social History Tobacco Use Smoking status: Never Smokeless tobacco: Former Substance Use Topics Alcohol use: Never Medications Current Medications[4] Allergies[5] PHYSICAL EXAMINATION Visit Vitals BP 108/69 (BP Location: Left arm, Patient Position: Sitting, BP Cuff Size: Adult) Pulse 71 Resp 20 Ht 1.676 m (5' 6 ) Wt 70.8 kg (156 lb) SpO2 95% BMI 25.18 kg/m?? Smoking Status Never BSA 1.82 m?? GA: well developed, well nourished, conversant, NAD EYES: Anicteric sclera, no injection, no discharge HENT: Head is normocephalic and atraumatic. Mucous membranes are moist. NECK: Supple. No visible masses or thyromegaly RESP: Normal resp effort. Lungs clear to auscultation bilaterally. No wheezing, rhonchi or crackles CV: Heart RRR, no murmurs or rubs GI: Abdomen soft, non tender, and non distended. Positive bowel sounds. : No suprapubic tenderness, no CVA tenderness MSK/Ext: No edema. No joint swelling. No cyanosis or clubbing NEURO: Grossly intact. No focal deficits. Cooperative PSYCH: Appropriate mood and affect, AAO SKIN: Normal temperature. No rash or ulcers. No jaundice LAB AND IMAGING RESULTS I have independently reviewed and interpreted the test results and discussed with patient. Labs scanned in to media tab of [facility] from an outside facility. Labs completed on 10/28/24 ASSESSMENT/PLAN CKD3b Cr baseline ~2, most recent egfr 34 Hyperkalemia Mild 5, would resume lokelma if >5 HTN At goal DM Goal A1c <7 CKDBMD ca/po4 stable Vit D and PTH prior to next visit At risk for fluid, electrolyte, and acid/base imbalance RTC in 4m Piper Hudson APRN [1] Past Medical History: Diagnosis Date BPH (benign prostatic hyperplasia) Dementia (CMS/HCC) DM2 (diabetes mellitus, type 2) (CMS/HCC) Gout HLD (hyperlipidemia) HTN (hypertension) Parkinsonian syndrome (CMS/HCC) TIA (transient ischemic attack) [2] History reviewed. No pertinent surgical history. [3] History reviewed. No pertinent family history. [4] Current Outpatient Medications Medication Sig Dispense Refill allopurinol (Zyloprim) 100 MG tablet Take 1 tablet by mouth daily. aspirin (Ecotrin) 325 MG EC tablet Take 1 tablet by mouth daily. cholecalciferol (Vitamin D3) 25 MCG (1000 UT) tablet Take 1 tablet by mouth daily. citalopram (CeleXA) 40 MG tablet Take 1 tablet by mouth daily. (Patient taking differently: Take 0.5 tablets by mouth daily.) clopidogrel (Plavix) 75 MG tablet Take 1 tablet by mouth daily. divalproex (Depakote ER) 500 MG 24 hr tablet Take 1 tablet by mouth 2 times a day. Do not crush, chew, or split. gemfibrozil (Lopid) 600 MG tablet Take 1 tablet by mouth 2 times a day. lisinopril 20 MG tablet Take 0.5 tablets by mouth daily. memantine (Namenda) 10 MG tablet Take 1 tablet by mouth 2 times a day. primidone (Mysoline) 50 MG tablet Take 1 tablet by mouth. propranolol LA (Inderal LA) 60 MG 24 hr capsule Take 1 capsule by mouth daily. Do not crush, chew, or split. QUEtiapine (SEROquel) 200 MG tablet Take 0.5 tablets by mouth nightly. SITagliptin (Januvia) 50 MG tablet Take 1 tablet by mouth daily. tamsulosin (Flomax) 0.4 MG 24 hr capsule Take 1 capsule by mouth daily. glimepiride (Amaryl) 2 MG tablet Take 1 tablet by mouth daily before breakfast. (Patient not taking: Reported on 01/31/2025) simvastatin (Zocor) 40 MG tablet Take 1 tablet by mouth nightly. (Patient not taking: Reported on 01/31/2025) No current facility-administered medications for this visit. [5] Allergies Allergen Reactions Iodinated Contrast Media Unknown - Patient states they do not know rxn details Shellfish Allergy Unknown - Patient states they do not know rxn details documented in this encounter Plan of Treatment Scheduled Orders Name Type Priority Associated Diagnoses Orde r Schedule CBC W/O Differential Lab Routine Stage 3b chronic kidney disease (CMS/HCC) Expected: 01/31/2025 (Approximate), Expires: 08/02/2026 Protein, Random, Urine with Creatinine Lab Routine Stage 3b chronic kidney disease (CMS/HCC) Expected: 01/31/2025 (Approximate), Expires: 08/02/2026 PTH Intact Total Lab Routine Stage 3b chronic kidney disease (CMS/HCC) Expected: 01/31/2025 (Approximate), Expires: 08/02/2026 Renal Function Panel, Plasma Lab Routine Stage 3b chronic kidney disease ([facility]) Expected: 01/31/2025 (Approximate), Expires: 08/02/2026 Urinalysis with reflex microscopic (Culture NOT Included) Lab Routine Stage 3b chronic kidney disease ([facility]) Expected: 01/31/2025 (Approximate), Expires: 08/02/2026 Vitamin D 25 Hydroxy Lab Routine Stage 3b chronic kidney disease ([facility]) Expected: 01/31/2025 (Approximate), Expires: 08/02/2026 documented as of this encounter Visit Diagnoses Diagnosis Stage 3b chronic kidney disease ([facility])- Primary Essential hypertension Unspecified essential hypertension Other microscopic hematuria Hyperkalemia Hyperpotassemia 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
--- OUTSIDE RECORDS SUMMARY | 2025-02-03 11:36 | XMS_ITS | Encounter Summary ---
Author Name [facility] [facility] [place] [place] Address [address] [place] [address] Care Team Providers Care Core Baker Name Role Phone MING TSANG Primary Care [...] TRICA RE DODA WNR Oct 09, 2020 [facility] [id number] MELANIE,LE ONARD PATIENT MEDICARE (WNR) MEDICARE (M) PART A Nov 05, 2010 PART A [id number] MELANIE,LE ONARD PATIENT MEDICARE (WNR) MEDICARE (M) PART B Nov 05, 2010 PART B [id number] [phone] MELANIE,LE ONARD PATIENT MEDICARE (WNR) MEDICARE (M) PART A Nov 05, 2010 PART A [id number] [facility] [phone] MELANIE,LE ONARD PATIENT MEDICARE (WNR) MEDICARE (M) PART B Nov 05, 2010 [place] [id number] [id number] MELANIE,LE ONARD PATIENT MEDICARE (WNR) MEDICARE (M) PART B Nov 05, 2010 PART B [id number] [facility] MELANIE,LE ONQUEENIE PATIENT MEDICARE (WNR) MEDICARE (M) PART A Nov 05, 2010 PART A [id number] [facility] [phone] MELANIEMAXINE GEE PATIENT MEDICARE (WNR) MEDICARE (M) PART A Nov 05, 2010 PART A [id number] [id number] MELANIE,LE ONQUEENIE PATIENT MEDICARE (WNR) MEDICARE (M) PART B Nov 05, 2010 PART B [id number] [id number] [phone] [id number] MELANIE,LE ONQUEENIE PATIENT MEDICARE (WNR) MEDICARE (M) PART B Nov 05, 2010 PART B [address] [place] [address] [phone] MAXINE NAVARRO PATIENT MEDICARE (WNR) MEDICARE (M) PART A Nov 05, 2010 PART A [id number] [place] [address] MAXINE NAVARRO PATIENT MEDICARE (WNR) MEDICARE (M) PART A Nov 05, 2010 PART A [id number] [id number] MAXINE NAVARRO PATIENT MEDICARE (WNR) MEDICARE (M) PART B Nov 05, 2010 PART B [id number] [id number] MAXINE NAVARRO PATIENT FOR LIFE TRICA RE FOR LIFE Mar 31, 2010 [facility] [id number] MAXINE NAVARRO PATIENT FOR LIFE DIREC T CARE Mar 31, 2010 [facility] [id number] MAXINE NAVARRO PATIENT -FO R-LIFE TRICA RE FOR LIFE December 05, 2010 [id number] MAXINE NAVARRO PATIENT Selected Encounter This section includes the information on record at [place] for the Encounter. Date/Time Encounter Type Encounter Description Reason Pro vider Source Feb 03, 2025 03:36 PM Outpatient Encounter ADMIN PAT ACTIVTIES (MASNONCT) IHE Encounter Template Text not used by [facility] Plan of Treatment: Future Appointments (+ 6 months) and Future Tests (+/- 45 days) The Plan of Treatment section includes future care activities for the patient from all [place] treatmentfacilities. This section includes future appointments and future orders which are active, pending or scheduled. Future Appointments This section includes appointments that were scheduled to occur 6 months from the date of the Encounter, up to a maximum of 20 appointments. The data comes from all [place] treatment facilities. Appointment Date/Time Appointment Type Appointme nt Facility Name Mar 31, 2025 11:00 AM AMBULATORY - MEDICINE VIVEK JIMENEZ [facility] Apr 30, 2025 01:00 PM AMBULATORY - PSYCHIATRY MAXINE NAY [facility] Advance Directives: All historical and current Section Date Range: From patient's date of to the date document was created. This section includes ALL of a patient's completed or amended [place] Advance and Rescinded Directives. The entries below indicate that a directive exists for the patient, but an actual copy is not included with this document. The data comes from all [facility]. Date Advance Directives Provider Source Apr 21, 2017 ADVANCE DIRECTIVE DISCUSSION YFN JOHNSON [facility] Jun 26, 2015 ADVANCE DIRECTIVE DISCUSSION ILIA SAL [facility] Encounter Notes: All associated encounter notes This section contains the clinical notes associated to the Encounter. Date/Time Encounter Note(s) Provider Source Jan 31, 2025 03:36 PM NONVA NOTE: LOCAL TITLE: OUTSIDE MEDICAL RECORD-OTHER STANDARD TITLE: NONVA NOTE DATE OF NOTE: JAN 31, 2025@15:36 ENTRY DATE: FEB 03, 2025@15:37:24 AUTHOR: KISHAN PANDEY EXP COSIGNER: URGENCY: STATUS: COMPLETED The scanned document may be viewed in [employer]. /franny/ KISHAN PANDEY NON LICENSED NUCLEAR EQUIPMENT OPERATOR Signed: 02/03/2025 15:37 KISHAN PANDEY-[facility]
--- OUTSIDE RECORDS SUMMARY | 2025-02-17 07:37 | XMS_ITS | Encounter Summary ---
Author Name [facility] [facility] [place] Organization [facility] [place] Address [address] [place] [address] Care Team Providers Care Flow Coordinator Name Role Phone MING TSANG Primary [...] TRICA RE DODA WNR Oct 09, 2020 [facility] [id number] MELANIE,LE ONQUEENIE PATIENT MEDICARE (WNR) MEDICARE (M) PART A Nov 05, 2010 PART A [id number] [facility] [phone] MELANIE,MAXINE ONQUEENIE PATIENT MEDICARE (WNR) MEDICARE (M) PART B Nov 05, 2010 PART B [id number] [facility] MAXINE NAVARRO ONARD PATIENT MEDICARE (WNR) MEDICARE (M) PART A Nov 05, 2010 PART A [id number] [facility] [phone] MAXINE NAVARRO ONQUEENIE PATIENT MEDICARE (WNR) MEDICARE (M) PART A Nov 05, 2010 PART A [id number] [facility] [phone] MELANIEMAXINE GEE PATIENT MEDICARE (WNR) MEDICARE (M) PART B Nov 05, 2010 PART B [id number] [id number] MELANIEMAXINE GEE PATIENT MEDICARE (WNR) MEDICARE (M) PART B Nov 05, 2010 PART B [id number] [id number] MELANIE,LE ONQUEENIE PATIENT MEDICARE (WNR) MEDICARE (M) PART A Nov 05, 2010 PART A [id number] MELANIEMAXINE ONARD PATIENT MEDICARE (WNR) MEDICARE (M) PART B Nov 05, 2010 PART B [id number] MELANIEMAXINE ONARD PATIENT MEDICARE (WNR) MEDICARE (M) PART A Nov 05, 2010 PART A [id number] [place] [address] [phone] MELANIEMAXINE GEE PATIENT MEDICARE (WNR) MEDICARE (M) PART A Nov 05, 2010 PART [address] [place] [address] MAXINE NAVARRO PATIENT MEDICARE (WNR) MEDICARE (M) PART B Nov 05, 2010 PART B [id number] [id number] MELANIEMAXINE GEE PATIENT MEDICARE (WNR) MEDICARE (M) PART B Nov 05, 2010 PART B [id number] [id number] MAXINE NAVARRO PATIENT FOR LIFE TRICA RE FOR LIFE Mar 31, 2010 [facility] [id number] MAXINE NAVARRO PATIENT FOR LIFE DIREC T CARE Mar 31, 2010 FOR LIFE [id number] MAXINE NAVARRO PATIENT -FO R-LIFE TRICA RE FOR LIFE December 05, 2010 [id number] MAXINE NAVARRO PATIENT Selected Encounter This section includes the information on record at [place] for the Encounter. Date/Time Encounter Type Encounter Description Reason Pro vider Source Feb 17, 2025 11:37 AM Outpatient Encounter EVENT (HISTORICAL) IHE Encounter [...] 20 appointments. The data comes from all [place] treatment facilities. Appointment Date/Time Appointment Type Appointme nt Facility Name Mar 31, 2025 11:00 AM AMBULATORY - MEDICINE VIVEK JIMENEZ [facility] Apr 30, 2025 01:00 PM AMBULATORY - PSYCHIATRY MAXINE TEE [facility] Social History: Smoking Status (Most current) and Tobacco Use (All prior to encounter date) This section includes the most current, and the historical, smoking and tobacco- related health factors from the [place] facility where the Encounter took place. Current Smoking Status This section includes the most current smoking, or tobacco-related health factor, from the [place] facility where the Encounter took place. Date/Time Current Smoking Status Comment Facil ity Mar 15, 2024 11:00 AM [place]-TOBACCO FORMER USER [facility] Tobacco Use History This section includes a history of the smoking, or tobacco-related health factors, that were collected on or before the date of the Encounter. The data comes from the [place] facility where the Encounter took place. Date/Time Smoking Status/Tobacco Use Comment F acility Mar 15, 2024 11:00 AM [place]-TOBACCO QUIT 15 YRS OR MORE [facility] Advance Directives: All historical and current Section Date Range: From patient's date of to the date document was created. This section includes ALL of a patient's completed or amended [place] Advance and Rescinded Directives. The entries below indicate that a directive exists for the patient, but an actual copy is not included with this document. The data comes from all [facility]. Date Advance Directives Provider Source Apr 21, 2017 ADVANCE DIRECTIVE DISCUSSION YFN JOHNSON [facility] Jun 26, 2015 ADVANCE DIRECTIVE DISCUSSION ILIA SAL [facility]
--- OUTSIDE RECORDS SUMMARY | 2025-03-06 11:39 | XMS_ITS | Continuity of Care Document ---
Author Name [facility] Organization [facility] Care Team Providers Care Wire Fence Erector Name Role Phone [facility] Unavailable Unavailable Problems Combined list of problems from Department of Defense and Veterans Affairs facilities. It does not include entries that were removed or entered in error. 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 No change DoD DIVERTICULOSIS Active Condition Diver ticulitis resolved. Pt reports that he had colonoscopy several (? 5 ) years ago. No record of it in chart. Refer to Dr. Soto for repeat/screenin g [facility] ESSENTIAL HYPERTENSION BENIGN Active Condition Better control on current regimen - continue DoD DIVERTICULITIS OF COLON Active Condition Full review of hospital record done including labs and imaging. Complete course of antibiotics. Written information from Up-To-Date (including diet information) provided. [facility] DIABETES MELLITUS Active Condition Go od control. No change [facility] FUNCTIONAL MURMUR Active Condition Adria ring of [...] referral management. Will enter referral if needed. [facility] REFRACTIVE ERROR - HYPERMETROPIA Active Condition PT [...] TOLD TO CONTINUE USING OTC READERS PRN. 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 [facility] HYPERLIPIDEMIA Active Condition Good control. D oD OBESITY MORBID Active Condition Great ly improved. [facility] FATIGUE Active Condition Related to his sleep apnea. Much improved with his increased exercise and some additional caffeine. Patient not interested in pursuing CPAP further at this time. [facility] NON-NEOPLASTIC NEVUS Active Condition pt states lesion present for several years, recommended to pt, f/up for further evaluation, pt states he will make appt [facility] RHINOVIRUS Active Condition [facility] Benign prostatic hyperplasia Active Condition [facility] Benign prostatic hyperplasia Active Condition [facility] BIPOLAR AFF, MANIC-MILD Active Condition [facility] Bipolar disorder (SNOMED CT 22559234) Active Condition [facility] Bipolar disorder in remission (SNOMED CT 09292627) Active Condition Jun 11, 2012 Entered By: Humble W[place] Comment: -[facility] p 2012 Entered By: Humble [place] Comment: [place]- psychiatry [facility] BLEPHARITIS NOS Active Condition [facility] coman[facility] care Active Condition Jun Entered By: Humble W[place] Comment: [facility] Dementia Active Condition [facility] depression. 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 Diabetes mellitus (SNOMED CT 90445033) Active Condition [facility] Dyslipidemia (ICD-9-CM 272.4) Active Condition [facility] FITTING AND ADJUSTMENT OF HEARING AID Active Condition [facility] Gout Active Condition [facility] Gout * (ICD-9-CM 274.9) Active Condition [facility] Hearing Loss Active Condition [facility] htn. Active Condition [facility] Hyperlipidemia Active Condition [facility] [facility] HYPERLIPIDEMIA NEC/NOS Active Condition [facility] Hypertension Active Condition [facility] Hypertension * (ICD-9-CM 401.9) Active Condition [facility] Hypertension, Essential Active Condition [facility] Insulin treated type 2 diabetes mellitus Active Condition [facility] Major Depression, recurrent (ICD-9-CM 296.30) Active Condition [facility] Parkinson disease Active Condition [facility] Parkinson's disease Active Condition [facility] Personal History of Transient Ischemic Attack (Tia), and Cerebral Infarction wit Active Condition [facility] Posttraumatic Stress Disorder Active Condition [facility] PROPHY VACC. STREP PNEU Active Condition [facility] Routine Med Exam Active Condition [facility] Sensorineural hearing loss of Combined types, Bilateral (ICD-9-CM 389.18) Active Condition [facility] Sensorineural Hearing Loss, Bilateral (ICD-9-CM 389.18) Active Condition [facility] Sensorineural hearing loss, bilateral (SNOMED CT 598322517) Active Condition [facility] Transient cerebral ischemia Active Condition [facility] Unspecified Sleep Apnea (ICD-9-CM 780.57) Active Condition [facility] VACCIN FOR INFLUENZA Active Condition [facility] LOSS OF TEETH, ACQUIRED Inactive Condition [facility] Diagnosis: ICD-10-CM F31.9 Bipolar disorder, unspecified Active Diagnosis [facility] Diagnosis: ICD-10-CM E11.9 Type 2 diabetes mellitus without complications Active Diagnosis [facility] Diagnosis: ICD-10-CM Z71.89 Other specified counseling Active Diagnosis [facility] Diagnosis: ICD-10-CM G20.C Parkinsonism, unspecified Active Diagnosis [facility] Medications Combined list of outpatient medications from Department of Defense and [facility] facilities.Medications provided include 1) outpatient medications [...] MOUTH DAILY FOR GOUT ORAL ACTIVE 12/06/2025 [id number] 5 GIL TSANG R 2024 90 [place] [facility] ALLOPURINOL 100MG TAB TAKE ONE TABLET BY MOUTH DAILY FOR GOUT ORAL DISCONT INUED 03/20/2025 [id number] 5 GIL TSANG R 2023 90 [place] [facility] [place] ALLOPURINOL 100MG TAB TAKE ONE TABLET BY MOUTH EVERY DAY ORAL ACTIVE AJAY PUENTE 2013 [facility] ALLOPURINOL 100MG TAB TAKE ONE TABLET BY MOUTH EVERY DAY ORAL ACTIVE BLAKE JORDAN I 2017 [facility] ASPIRIN 81MG TAB,CHEWABL E CHEW ONE TABLET BY MOUTH EVERY DAY ORAL ACTIVE Chris WALLER 2020 [place] [facility] ASPIRIN TAB TAKE 81MG BY MOUTH EVERY DAY ORAL ACTIVE AJAY PUENTE 2012 [facility] benztropine 0.5 mg oral tablet TAKE ONE TABLET BY MOUTH TWICE A DAY -- NO DRIVING IF FEELING DROWSY FROM THIS MEDICATI ON, # 60 EA, 1 total refill(s ), Acute Complet ed 12/21/2022 2 2022 60.0 Ambulat ory Pharmac y BRAND CELEXA TAB TAKE BY MOUTH EVERY DAY ORAL ACTIVE Chris WALLER DARIN MARCUS 2020 [place] [facility] CHOLECALCIF MIKE 25MCG (1,000UNIT) TAB TAKE TWO TABLETS BY MOUTH EVERY DAY ORAL ACTIVE BLAKE JORDAN I 2017 [facility] CHOLECALCIF MIKE 25MCG (1,000UNIT) TAB TAKE ONE TABLET BY MOUTH EVERY DAY ORAL ACTIVE AJAY PUENTE 2011 [facility] citalopram 20 mg tablet See dose [...] BY MOUTH DAILY FOR MOOD ORAL ACTIVE 01/30/2026 [id number] 5 RONY STEPHENSON 2024 45 [place] [facility] CITALOPRAM HYDROBROMID E 40MG TAB TAKE ONE-HALF TABLET BY MOUTH DAILY FOR MOOD ORAL DISCONT INUED 03/30/2025 [id number] RONY STEPHENSON 2023 45 [place] [facility] CITALOPRAM TAB TAKE BY MOUTH DAILY ORAL ACTIVE GIL TSANG 2023 [place] [facility] [place] clopidogrel 75 mg tablet 75 mg, Oral, [...] DAILY TO THIN BLOOD ORAL ACTIVE 09/10/2025 [id number] 5 GIL TSANG R 2024 90 [place] [facility] CLOPIDOGREL BISULFATE 75MG TAB TAKE ONE TABLET BY MOUTH DAILY TO THIN BLOOD ORAL DISCONT INUED 03/20/2025 [id number] GIL TSANG R 2023 90 [place] [facility] [place] CLOPIDOGREL BISULFATE 75MG TAB TAKE ONE TABLET BY MOUTH EVERY DAY ORAL ACTIVE BLAKE JORDAN I 2017 [facility] CYANOCOBALA MIN 1000MCG TAB TAKE ONE TABLET BY MOUTH EVERY DAY ORAL ACTIVE BLAKE JORDAN I 2017 [facility] DIVALPROEX NA 500MG TAB,SA TAKE TWO TABLETS BY MOUTH DAILY FOR MOOD ORAL ACTIVE 01/30/2026 [id number] 5 RONY STEPHENSON 2024 180 [place] [facility] [place] DIVALPROEX NA 500MG TAB,SA TAKE TWO TABLETS BY MOUTH DAILY FOR MOOD ORAL DISCONT INUED 08/10/2025 [id number] RONY STEPHENSON PRANEETH 2024 180 [place] [facility] DIVALPROEX NA 500MG TAB,SA TAKE TWO TABLETS BY MOUTH DAILY FOR MOOD ORAL DISCONT INUED (EDIT) 10/14/2024 [id number] 4 RONY STEPHENSON [address] [place] [address] [facility] DIVALPROEX NA 500MG TAB,SA TAKE TWO TABLETS BY MOUTH DAILY FOR MOOD ORAL DISCONT INUED 06/27/2024 [id number] RONY STEPHENSON [address] [place] [address] [facility] divalproex sodium ER [Mylan] 500 mg tablet [...] TWICE A DAY ORAL ACTIVE GIL TSANG EK R [address] [place] [address] [facility] fluticasone 50 mcg/inh nasal spray SPRAY 1 [...] 30 MINUTES BEFORE MEALS ORAL ACTIVE 10/02/2025 [id number] 5 GIL TSANG EK R 2024 180 [place] GEMFIBROZIL 600MG TAB TAKE ONE TABLET BY MOUTH TWICE A DAY FOR CHOLESTE ROL -TAKE 30 MINUTES BEFORE MEALS ORAL DISCONT INUED 03/20/2025 [id number] GIL TSANG R 2023 180 [place] [facility] [place] GEMFIBROZIL 600MG TAB TAKE ONE TABLET BY MOUTH TWICE A DAY ORAL ACTIVE BLAKE JORDAN I 2017 [facility] GLIMEPIRIDE 2MG TAB TAKE ONE TABLET BY MOUTH EVERY DAY ORAL ACTIVE [place] AJAY SELBY 2012 [facility] lisinopril 10 mg tablet 10 mg, [...] DAILY FOR HIGH BLOOD PRESSURE ORAL 06/17/2024 [id number] GIL TSANG R 2023 45 [place] [facility] [place] LISINOPRIL 40MG TAB TAKE ONE TABLET BY MOUTH EVERY DAY ORAL ACTIVE AJAY PUENTE 2011 [facility] LISINOPRIL 40MG TAB TAKE ONE-HALF TABLET BY MOUTH EVERY DAY ORAL ACTIVE BLAKE JORDAN I 2017 [facility] Lokelma 5 g Packet [5g] See [...] DAILY FOR MEMORY ORAL DISCONT INUED 12/30/2024 [id number] 5 GIL TSANG EK R 2024 90 [place] MEMANTINE HCL 10MG TAB TAKE ONE TABLET BY MOUTH DAILY FOR MEMORY ORAL DISCONT INUED 10/07/2024 [id number] 4 GIL TSANG EK R 2023 90 [place] [facility] [place] MEMANTINE HCL 10MG TAB TAKE ONE TABLET BY MOUTH DAILY FOR MEMORY ORAL DISCONT INUED 06/20/2024 [id number] GIL TSANG EK R 2023 90 [place] [facility] [place] MEMANTINE HCL 10MG TAB TAKE ONE TABLET BY MOUTH DAILY FOR MEMORY ORAL 01/13/2025 [id number] 5 GIL TSANG EK R 2024 90 [place] MEMANTINE HCL 10MG TAB TAKE ONE TABLET BY MOUTH TWICE A DAY ORAL ACTIVE AJAY PUENTE 2011 [place] [facility] MEMANTINE HCL 10MG TAB TAKE ONE TABLET BY MOUTH EVERY DAY ORAL ACTIVE BLAKE JORDAN I 2017 [facility] METFORMIN 1000MG/XAVI GLIPTIN 50MG TAB TAKE JANUMET BY MOUTH TWICE A DAY ORAL ACTIVE AJAY PUENTE 2011 [place] [facility] [facility] METFORMIN HCL 1000MG/XAVI GLIPTIN PHOSPHATE 50MG 24 HR TAB,SA TAKE ONE TABLET BY MOUTH EVERY DAY ORAL ACTIVE Chris WALLER 2020 [place] [facility] metformin-s itagliptin 1000 mg-50 mg oral tablet TAKE 1 TABLET BY MOUTH TWICE A DAY WITH MEALS, # 180 EA, 1 total refill(s ), Acute Complet ed 01/09/2023 2 2022 180.0 Ambulat ory Pharmac y PANTOPRAZOL E NA 40MG TAB,EC TAKE ONE TABLET BY MOUTH EVERY DAY ORAL ACTIVE Chris WALLER 2020 [place] [facility] primidone 50 mg tablet 50 mg, Oral, [...] BY MOUTH DAILY FOR TREMORS ORAL ACTIVE 03/31/2025 [id number] 5 GIL TSANG EK R 2024 90 [place] PRIMIDONE 50MG TAB TAKE ONE TABLET BY MOUTH DAILY FOR TREMORS ORAL DISCONT INUED 09/17/2025 [id number] 5 GIL TSANG EK R 2024 90 [place] PRIMIDONE 50MG TAB TAKE ONE TABLET BY MOUTH DAILY FOR TREMORS ORAL DISCONT INUED 03/20/2025 [id number] GIL TSANG EK R 2023 90 [place] [facility] [place] PRIMIDONE 50MG TAB TAKE ONE TABLET BY MOUTH EVERY DAY ORAL ACTIVE BLAKE JORDAN I 2017 [facility] propranolol 60 mg oral tablet TAKE 1 [...] MOUTH DAILY FOR TREMOR ORAL ACTIVE 09/10/2025 [id number] 5 GIL TSANG EK R 2024 90 [place] [facility] PROPRANOLOL HCL 60MG CAP,SA TAKE ONE CAPSULE BY MOUTH DAILY FOR TREMOR ORAL DISCONT INUED 03/20/2025 [id number] GIL TSANG EK R 2023 90 [place] [facility] PROPRANOLOL HCL 60MG CAP,SA TAKE 1 CAPSULE BY MOUTH EVERY DAY ORAL ACTIVE BLAKE JORDAN I 2017 [facility] PROPRANOLOL HCL 60MG CAP,SA TAKE 1 CAPSULE BY MOUTH EVERY DAY [facility]AY SELBY 2011 [place] [facility] QUEtiapine 100 mg tablet See dose [...] MOUTH AT BEDTIME FOR MOOD ORAL ACTIVE 01/30/2026 [id number] SACHINRONY DACOSTA 2024 45 [place] [facility] QUETIAP[facility] FUMARATE 200MG TAB TAKE ONE-HALF TABLET BY MOUTH AT BEDTIME FOR MOOD ORAL DISCONT INUED 03/30/2025 [id number] RONY STEPHENSON 2023 45 [place] [facility] QUETIAPINE FUMARATE 300MG TAB TAKE ONE TABLET BY MOUTH ORAL ACTIVE Chris WALLER [place] [facility] QUETIAPINE TAB TAKE BY MOUTH ORAL ACTIVE GIL TSANG R 2023 [place] [facility] SIMVASTATIN 40MG TAB TAKE ONE-HALF TABLET BY MOUTH AT BEDTIME ORAL ACTIVE [facility] AJAY SELBY 2011 [facility] SITAGLIPTIN (EQV-ZITUVI O) 50MG TAB TAKE ONE TABLET BY MOUTH DAILY FOR BLOOD SUGAR - STORE IN ORIGINAL CONTAINE R. OPENED BOTTLES MUST BE USED WITHIN 3 MONTHS ORAL ACTIVE 03/18/2025 [id number] 5 GIL TSANG R 2024 90 [place] [facility] SITAGLIPTIN (EQV-ZITUVI O) 50MG TAB TAKE ONE TABLET BY MOUTH DAILY FOR BLOOD SUGAR - STORE IN ORIGINAL CONTAINE R. OPENED BOTTLES MUST BE USED WITHIN 3 MONTHS ORAL DISCONT INUED 12/15/2024 [id number] 5 GIL TSANG R 2024 90 [place] [facility] SITAGLIPTIN (EQV-ZITUVI O) 50MG TAB TAKE ONE TABLET BY MOUTH DAILY FOR BLOOD SUGAR - STORE IN ORIGINAL CONTAINE R. OPENED BOTTLES MUST BE USED WITHIN 3 MONTHS ORAL DISCONT INUED 08/14/2024 [id number] TALAT TSANG 2023 90 [place] [facility] SITAGLIPTIN (EQV-ZITUVI O) 50MG TAB TAKE ONE TABLET BY MOUTH DAILY FOR BLOOD SUGAR - STORE IN ORIGINAL CONTAINE R. OPENED BOTTLES MUST BE USED WITHIN 3 MONTHS ORAL DISCONT INUED 06/18/2024 [id number] GIL TSANG R 2023 90 [place] [facility] SODIUM ZIRCONIUM CYCLOSILICA TE 5GM/PKT PWDR,RENST- ORAL TAKE 1 PACKET BY MOUTH DAILY FOR HIGH POTASSIU M -MIX PACKET CONTENTS IN A GLASS WITH AT LEAST 3 TABLESPO ONS OF WATER OR MORE THEN STIR WELL AND DRINK. IF POWDER REMAINS, ADD WATER, STIR, AND DRINK. REPEAT UNTIL NO POWDER REMAINS. ORAL 04/18/2024 [id number] GIL TSANG R 2023 30 [place] [facility] tamsulosin 0.4 mg capsule 0.4 mg, [...] EVERY EVENING FOR PROSTATE ORAL ACTIVE 11/05/2025 [id number] 5 GIL TSANG R [address] [place] [address] [facility] TAMSULOSIN HCL 0.4MG CAP TAKE ONE CAPSULE BY MOUTH EVERY EVENING FOR PROSTATE ORAL DISCONT INUED 03/20/2025 [id number] GIL TSANG EK R [address] [place] [address] [facility] TAMSULOSIN HCL 0.4MG CAP TAKE 1 CAPSULE BY MOUTH EVERY DAY ORAL ACTIVE JACOB STANTON 2016 [place] [facility] TAMSULOSIN HCL 0.4MG CAP TAKE ONE CAPSULE BY MOUTH AT BEDTIME ORAL ACTIVE JADENCLARKEBLAKE I 2017 [place] [facility] Allergies, Adverse Reactions, Alerts Combined list of allergies from Department of Defense and Veterans Affairs facilities. It does not include entries that were removed or entered in error. Substance Category Reaction Severity Reaction type Status Date Reported Comments Source INTRAVASCULA R CONTRAST MEDIA Propensity to adverse reactions to drug (finding) Urticaria, Swelling, Pharyngeal swelling active 2 [facility] IODINATED CONTRAST MEDIA Propensity to adverse reactions to drug (finding) active 4 [place] [facility] IODINE Propensity to adverse reactions to drug (finding) ITCHING,TONI ERING EYES, Diarrhea active 2 [facility] IODINE Drug allergy (disorder) Unknown active 9 [facility] [place] IODINE Drug allergy (disorder) active 9 [facility] iodine topical Propensity to adverse reactions to drug Unknown Active Reaction( s): Unknown Unknown Organiza tion sertraline Propensity to adverse reactions to drug Vomiting Active Unknown Organiza tion SHELLFISH Propensity to adverse reactions to food (finding) Urticaria, Pharyngeal swelling active 2 [facility] ZOLOFT Drug allergy (disorder) Vomiting active 9 [facility] Immunizations Combined list of available immunizations from the Department of Defense and Veterans Affairs facilities. Immunization Series Date Given Administered By Site Reaction Lot Number CVX Code Drug Wool Scourer Status Comments Source INFLUENZA, HIGH-DOSE, TRIVALENT, PF 1 2024 135 complet ed HISTORICA L INFORMATI ON - FROM OTHER REGISTRY, [place] [facility] COVID-19 (PFIZER), MRNA, LNP-S, PF, WING-SUCROSE, 30 MCG/0.3 ML (AGES 12+ YEARS) 2 2023 309 complet ed HISTORICA L INFORMATI ON - FROM OTHER REGISTRY, [facility] SY influenza virus vaccine, inactivated 2022 EVA Hardwick cylde, left (delt oid) [id number] 197 sanofi pasteur complet ed influenza virus vaccine, inactivat ed 06/05/23 Given [id number] [facility] INFLUENZA, ADJUVANTED, QUADRIVALENT, PF 1 2021 205 complet ed HISTORICA L INFORMATI ON - FROM OTHER REGISTRY, [facility] COVID Vaccine Moderna 2021 zzLef t Arm [id number] 207 complet ed COVID Vaccine Moderna 12/10/21 Given Ambulat ory Pharmac y SARS-COV-2 (COVID-19) vaccine, mRNA, spike protein, LNP, preservative free, 100 mcg or 50 mcg dose 4 2021 EPIFANIO FRENCH [id number] 207 Moderna [employer], [employer] (MOD) complet ed SARS-COV- 2 (COVID-19 ) vaccine, mRNA, spike protein, LNP, preservat luz elena free, 100 mcg or 50 mcg dose DoD COVID Vaccine Moderna 2020 zzLef t Arm [id number] 207 complet ed COVID Vaccine Moderna 06/10/21 Given Ambulat ory Pharmac y SARS-COV-2 (COVID-19) vaccine, mRNA, spike protein, LNP, preservative free, 100 mcg or 50 mcg dose 3 2020 ODILIA PRYOR [id number] 207 [employer] (MOD) complet ed SARS-COV- 2 (COVID-19 ) vaccine, mRNA, spike protein, LNP, preservat luz elena free, 100 mcg or 50 mcg dose DoD COVID-19 (MODERNA), MRNA, LNP-S, PF, 100 MCG/0.5 ML DOSE 2 2020 207 complet ed [facility] COVID Vaccine Moderna 2020 Body, whole [id number] 207 complet ed COVID Vaccine Moderna 11/12/20 Given Ambulat ory Pharmac y SARS-COV-2 (COVID-19) vaccine, mRNA, spike protein, LNP, preservative free, 100 mcg or 50 mcg dose 2 2020 [id number] 207 [employer] (MOD) complet ed SARS-COV- 2 (COVID-19 ) vaccine, mRNA, spike protein, LNP, preservat luz elena free, 100 mcg or 50 mcg dose DoD COVID-19 (MODERNA), MRNA, LNP-S, PF, 100 MCG/0.5ML DOSE OR 50 MCG/0.25ML DOSE 2020 207 complet ed HISTORICA L INFORMATI ON - FROM OTHER REGISTRY, [facility] COVID Vaccine Moderna 2020 Jhoan t Arm [id number] 207 complet ed COVID Vaccine Moderna 10/16/20 Given Ambulat ory Pharmac y SARS-COV-2 (COVID-19) vaccine, mRNA, spike protein, LNP, preservative free, 100 mcg or 50 mcg dose 1 2020 [id number] 207 [employer] (MOD) complet ed SARS-COV- 2 (COVID-19 ) vaccine, mRNA, spike protein, LNP, preservat luz elena free, 100 mcg or 50 mcg dose DoD COVID-19 (MODERNA), MRNA, LNP-S, PF, 100 MCG/0.5 ML DOSE 1 2020 207 complet ed [facility] INFLUENZA, UNSPECIFIED FORMULATION 2019 88 complet ed [facility] INFLUENZA, HIGH DOSE SEASONAL 2016 135 complet ed Community [facility] INFLUENZA, SEASONAL, INJECTABLE 2016 141 complet ed Community PCP [facility] INFLUENZA, SEASONAL, INJECTABLE 2014 141 complet ed outside provider [facility] PNEUMOCOCCAL CONJUGATE PCV 13 2014 133 complet ed [facility] ZOSTER LIVE 2013 121 complet ed [facility] FLU,3 YRS (HISTORICAL) 2013 88 complet ed [facility] FLU,3 YRS (HISTORICAL) 2012 88 complet ed [facility] PNEUMOCOCCAL POLYSACCHARID E PPV23 2011 33 complet ed [facility] PNEUMOCOCCAL, UNSPECIFIED FORMULATION 2011 109 complet ed [facility] FLU,3 YRS (HISTORICAL) 2011 88 complet ed per pt [facility] FLU,3 YRS (HISTORICAL) 2010 88 complet ed [facility] INFLUENZA, UNSPECIFIED FORMULATION [address] [facility] PNEUMOCOCCAL, UNSPECIFIED FORMULATION 2009 [address] [facility] NOVEL INFLUENZA-H1N 1-09, ALL FORMULATIONS [address] [facility] INFLUENZA, UNSPECIFIED FORMULATION [address] [facility] influenza virus vaccine,split 2007 zzLef t Arm [id number] 15 complet ed influenza virus vaccine,s plit 05/21/08 Given Ambulat ory Pharmac y influenza virus vaccine, split virus (incl. 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 purified surface antigen)- retired CODE DoD FLU,3 YRS (HISTORICAL) 2007 88 complet ed [facility] INFLUENZA, UNSPECIFIED FORMULATION [address] [facility] PNEUMOVAX REFUSED (HISTORICAL) 2002 complet ed DECLINED ADRIANA BUTCHER TETANUS REFUSED (HISTORICAL) 2001 complet ed verbalize [place] ADRIANA BUTCHER TETANUS REFUSED (HISTORICAL) 2001 complet ed does not wish to receive this visit. ADRIANA BUTCHER INFLUENZA (HISTORICAL) 2001 88 complet ed [facility] S[facility] Results Combined list of recent [...] Aug 09, 2024 07:55 AM Reporting Lab: [place] [id number] Performing Lab: [place] [id number] [facility] MICROALBU MIN/CREAT RATIO CREATININE [MASS/VOLUM E] IN URINE 60.8 mg/dL 03/22 Specimen Type: URINE No comment entered. Ordering Provider: MING TSANG Report Released Date/Time: Mar 15, 2024 11:30 AM Reporting Lab: [place] [id number] Performing Lab: [place] [id number] [facility] MICROALBU MIN/CREAT RATIO MICROALBUMI N [MASS/VOLUM E] IN URINE 9.0 mg/L 0.0 - 30.0 03/22 Specimen Type: URINE No comment entered. Ordering Provider: MING TSANG Report Released Date/Time: Mar 15, 2024 11:30 AM Reporting Lab: [place] [id number] Performing Lab: [place] [id number] [facility] MICROALBU MIN/CREAT RATIO MICROALBUMI N/CREATININ E [MASS RATIO] IN URINE 14.8 ug/mg{ creat} 03/22 Specimen Type: URINE No comment entered. Ordering Provider: MING TSANG Report Released Date/Time: Mar 15, 2024 11:30 AM Reporting Lab: [place] [id number] Performing Lab: [place] [id number] [facility] ALT ALANINE AMINOTRANSF ERASE [ENZYMATIC ACTIVITY/VO LUME] [...] 2024 11:30 AM Reporting Lab: [place] [address] [address] Performing Lab: [place] [address] [address] [facility] AST ASPARTATE AMINOTRANSF ERASE [ENZYMATIC ACTIVITY/VO LUME] [...] 2024 11:30 AM Reporting Lab: [place] [address] [address] Performing Lab: [place] [address] [address] [facility] CBC/PLT LEUKOCYTES [#/VOLUME] IN BLOOD BY AUTOMATED COUNT 6.6 10*3/u L 5.0 - 10.0 03/15 Specimen Type: BLOOD No comment entered. Ordering Provider: MING TSANG Report Released Date/Time: Mar 15, 2024 11:30 AM Reporting Lab: [place] [id number] Performing Lab: [address] CBC/PLT ERYTHROCYTE S [#/VOLUME] IN BLOOD BY AUTOMATED COUNT 3.91 10*6/u L 4.6 - 6.2 03/15 L Specimen Type: BLOOD No comment entered. Ordering Provider: MING TSANG Report Released Date/Time: Mar 15, 2024 11:30 AM Reporting Lab: [place] [address] Performing Lab: [address] CBC/PLT HEMOGLOBIN [MASS/VOLUM E] IN BLOOD 13.0 g/dL 14.0 - 18.0 03/15 L Specimen Type: BLOOD No comment entered. Ordering Provider: MING TSANG Report Released Date/Time: Mar 15, 2024 11:30 AM Reporting Lab: [place] [address] Performing Lab: [address] CBC/PLT HEMATOCRIT [VOLUME FRACTION] OF BLOOD BY AUTOMATED COUNT 39.0 42.0 - 52.0 03/15 L Specimen Type: BLOOD No comment entered. Ordering Provider: MING TSANG Report Released Date/Time: Mar 15, 2024 11:30 AM Reporting Lab: [place] [address] Performing Lab: [address] CBC/PLT MCV [ENTITIC VOLUME] BY AUTOMATED COUNT 99.7 fL 80.0 - 94.0 03/15 H Specimen Type: BLOOD No comment entered. Ordering Provider: MING TSANG Report Released Date/Time: Mar 15, 2024 11:30 AM Reporting Lab: [place] [id number] Performing Lab: [address] [id number] [place] [address] CBC/PLT MCH [ENTITIC MASS] BY AUTOMATED COUNT 33.2 pg 27.0 - 31.0 03/15 H Specimen Type: BLOOD No comment entered. Ordering Provider: MING TSANG Report Released Date/Time: Mar 15, 2024 11:30 AM Reporting Lab: [address] [address] Performing Lab: [place] [id number] [place] [address] CBC/PLT MCHC [MASS/VOLUM E] BY AUTOMATED COUNT 33.3 g/dL 32.0 - 36.0 03/15 Specimen Type: BLOOD No comment entered. Ordering Provider: MING TSANG Report Released Date/Time: Mar 15, 2024 11:30 AM Reporting Lab: [address] [address] Performing Lab: [place] [id number] [place] [address] CBC/PLT PLATELETS [#/VOLUME] IN BLOOD 259 10*3/u L 150 - 450 03/15 Specimen Type: BLOOD No comment entered. Ordering Provider: MING TSANG Report Released Date/Time: Mar 15, 2024 11:30 AM Reporting Lab: [address] [address] Performing Lab: [address] [address] [facility] CBC/PLT PLATELET MEAN VOLUME [ENTITIC VOLUME] IN BLOOD 9.6 fL 9.0 - 13.1 03/15 Specimen Type: BLOOD No comment entered. Ordering Provider: MING TSANG Report Released Date/Time: Mar 15, 2024 11:30 AM Reporting Lab: [address] [address] Performing Lab: [address] [address] [facility] CBC/PLT ERYTHROCYTE DISTRIBUTIO N WIDTH [ENTITIC VOLUME] BY AUTOMATED COUNT 14.1 11.0 - 16.0 03/15 Specimen Type: BLOOD No comment entered. Ordering Provider: MING TSANG Report Released Date/Time: Mar 15, 2024 11:30 AM Reporting Lab: [place] [id number] Performing Lab: [place] [id number] [facility] CBC/PLT NUCLEATED ERYTHROCYTE S/100 ERYTHROCYTE S IN BLOOD 0.0 0.0 - 0.0 03/15 Specimen Type: BLOOD No comment entered. Ordering Provider: MING TSANG Report Released Date/Time: Mar 15, 2024 11:30 AM Reporting Lab: [place] [id number] Performing Lab: [place] [id number] [facility] GLYCOHEMO GLOBIN HEMOGLOBIN A1C/HEMOGLO BIN.TOTAL IN BLOOD BY HPLC 9.1 4.4 - 6.4 03/15 H Specimen Type: BLOOD Comment: [facility] guidelines for A1c interpretat ion: Glycemic control targets are based on Shared Decision Making between clinicians and patients. Criteria used to establish an A1c target recommendat ion can be found at https://www .[place].gov/bladimir lityandpati entsafety/ and include the use of [...] 9.27. Ref: https://ngs p.org/CAPda ta.asp. The in-house ImpactFlo-Appinions D-100 analyzer has a historical CV <= 2%. Contact the laboratory for further performance characteris tics of this assay. Ordering Provider: MING TSANG Report Released Date/Time: Mar 15, 2024 11:30 AM Reporting Lab: [facility] [place] [facility] [address] [address] Performing Lab: [place] [address] [address] [facility] LIPID PROFILE CHOLESTEROL [MASS/VOLUM E] IN SERUM [...] 2024 11:30 AM Reporting Lab: [place] [facility] [address] [address] Performing Lab: [place] [facility] [address] [address] [facility] LIPID PROFILE TRIGLYCERID E [MASS/VOLUM E] IN [...] Mar 15, 2024 11:30 AM Reporting Lab: [place] [address] [address] Performing Lab: [place] [address] [address] [facility] LIPID PROFILE CHOLESTEROL IN HDL [MASS/VOLUM E] [...] 15, 2024 11:30 AM Reporting Lab: STE[facility] [address] [address] Performing Lab: [address]URI[address] [address] [facility] LIPID PROFILE CHOLESTEROL IN LDL [MASS/VOLUM E] [...] 2024 11:30 AM Reporting Lab: [place] [address] [address] Performing Lab: [place] [address] [address] [facility] PANEL 1 CREATININE [MASS/VOLUM E] IN SERUM [...] 2024 11:30 AM Reporting Lab: [place] [address] [address] Performing Lab: [place] [address] [address] [facility] PANEL 1 UREA NITROGEN [MASS/VOLUM E] IN SERUM OR PLASMA 42 mg/dL 9 03/15 H Specimen Type: PLASMA Comment: Estimated [...] 2024 11:30 AM Reporting Lab: [place] [address] [address] Performing Lab: STE[facility] [address] [address] [facility] PANEL 1 GLUCOSE [MASS/VOLUM E] IN SERUM [...] 2024 11:30 AM Reporting Lab: [place] [address] [address] Performing Lab: [place] [address] [address] [facility] PANEL 1 SODIUM [MOLES/VOLU ME] IN SERUM [...] 2024 11:30 AM Reporting Lab: [place] [address] [address] Performing Lab: [place] [address] [address] [facility] PANEL 1 POTASSIUM [MOLES/VOLU ME] IN SERUM [...] 2024 11:30 AM Reporting Lab: [place] [address] [address] Performing Lab: [place] [address] [address] [facility] PANEL 1 CHLORIDE [MOLES/VOLU ME] IN SERUM [...] 2024 11:30 AM Reporting Lab: [place] [address] [address] Performing Lab: [place] [address] [address] [facility] PANEL 1 CARBON DIOXIDE, TOTAL [MOLES/VOLU ME] [...] 2024 11:30 AM Reporting Lab: [place] [address] [address] Performing Lab: [place] [address] [address] [facility] PANEL 1 CALCIUM [MASS/VOLUM E] IN SERUM [...] 2024 11:30 AM Reporting Lab: [place] [id number] [address] Performing Lab: M[facility]URISIERRAAnat [facility] [address] [address] [facility] PANEL 1 ANION GAP 3 IN SERUM [...] 2024 11:30 AM Reporting Lab: [facility] [facility] [address] [address] Performing Lab: [place] [facility] [address] [address] [facility] PANEL 1 GLOMERULAR FILTRATION RATE/1.73 SQ M.PREDICTED [...] Mar 15, 2024 11:30 AM Reporting Lab: [facility] [address] [address] Performing Lab: [facility] [address] [address] [facility] Vital Signs Combined list of inpatient and outpatient Vital Signs from Department of [facility] and [facility], ranging from 12 months to all on record, depending upon the facility. Vital Sign Value Date Comments Source SYSTOLIC BLOOD PRESSURE 124 03/15/2024 10:22:26 [facility] DIASTOLIC BLOOD PRESSURE 76 03/15/2024 10:22:26 [facility] PULSE OXIMETRY 99 03/15/2024 10:22:26 [facility] 155 03/15/2024 10:22:26 [place] [facility] PAIN 0 03/15/2024 10:22:26 [place] [facility] TEMPERATURE 97.6 03/15/2024 10:22:26 [facility] PULSE 83 03/15/2024 10:22:26 [facility] [facility] RESPIRATION 20 03/15/2024 10:22:26 [facility] Encounters Combined list of: 1) Encounters from [facility] facilities going backup to the last 18 months, not all [place] inpatient encounters are included; 2) Encounters from the Department of [facility] facilities going backup to 280 months. Location Location Details Encounter Type Encounter Number Reason For Visit Attending Provider ADM Date DC Date Status Disposition Source [facility] OUTPATIENT [id number] f/u WALDEMAR Judge 05/26 Released w/o Limitations [facility] [facility] OUTPATIENT [id number] f/u WALDEMAR Judge 09/09 Released w/o Limitations [facility] [place] [place] TELE CONSULT [id number] call re labs LINN MATUTE 09/14 [facility] [place] [place] OUTPATIENT [id number] f/u diabete s WALDEMAR COSTA 09/19 Released w/o Limitations [facility] [place] [place] TELE CONSULT [id number] Consult LINN MATUTE 09/28 [facility] [place] [place] OUTPATIENT [id number] fever/c ongesti on SEDRICKWALDEMAR 10/11 Released w/o Limitations [facility] [place] [place] OUTPATIENT [id number] tired all the time WALDEMAR COSTA 10/20 Released w/o Limitations [facility] [place] [place] OUTPATIENT [id number] f/u labwork WALDEMAR COSTA 10/31 Released w/o Limitations [facility] [place] [place] TELE CONSULT [id number] lab orders LINN MATUTE 12/13 [facility] [place] [place] OUTPATIENT [id number] lab results WALDEMAR COSTA 01/09 Released w/o Limitations [facility] [place] [place] TELE CONSULT [id number] Lab results [facility] 03/22 [facility] [place] [place] TELE CONSULT [id number] request for labs [facility] 03/28 [facility] [place] [place] OUTPATIENT [id number] f/u diabete s SELAM KEBEDE 05/01 Released w/o Limitations [facility] [place] [place] OUTPATIENT [id number] annual pe SELAM KEBEDE 06/01 Released w/o Limitations [facility] [place] [place] OUTPATIENT [id number] diabeti c eye exam RAUDEL HAYDEN 06/01 Released w/o Limitations [facility]( [facility] [place] [place] OUTPATIENT [id number] discuss sleep apnea KRISTIAN HUDSON 08/02 Released w/o Limitations [facility] [place] [place] OUTPATIENT [id number] med refills PENDJESSICA ROGERS JR 10/26 Released w/o Limitations [facility] [place] [place] TELE CONSULT [id number] annual bloodwo rk ELICIA CASANOVA 04/10 [facility] [place] [place] OUTPATIENT [id number] sherri f/u YANG NORMAN S 05/01 Released w/o Limitations [facility] [place] [place] OUTPATIENT [id number] f/u diabeti c YANG NROMAN 06/05 Released w/o Limitations [facility] [place] [place] OUTPATIENT [id number] fu from [facility] inpatie nt stay YANG NORMAN S 09/14 Released w/o Limitations [facility] [place] [place] OUTPATIENT [id number] f/u bp YANG NORMAN S 10/09 Released w/o Limitations [facility] [place] [place] OUTPATIENT [id number] followu p on bloodpr YANG Sorto S 11/06 Released w/o Limitations [facility] [place] [place] TELE CONSULT [id number] venkataLUKE Dawn Ruma 12/31 [facility] [place]atio [facility] [place] OUTPATIENT [id number] EMA WILSONNEMO Royal 05/21 Released w/o Limitations [facility]( [facility]ion [facility] [place]) [facility]Ph [facility]sical Therapy [place] OUTPATIENT [id number] Pas entered the order-t humb arthrop athy. OTONIEL MASON 11/05 Released w/o Limitations [facility]( [facility] [place]) [facility] [place] OUTPATIENT [id number] thumb arthrop atOTONIEL Hartmann 11/14 Released w/o Limitations [facility] [place] [place] OUTPATIENT [id number] OTONIEL MASON 11/19 Released w/o Limitations [facility] [place]) OUTPATIENT [id number] 7 ODILIA Zhou 06/10 Released w/o Limitations [facility]( Imms/We llness [facility]) [facility] OUTPATIENT [id number] 4 Notes Entered by: EPIFANIO FRENCH 10 Dec 2021 1203 ------- ------- ------- ------- -- Moderna Booster 2 EPIFANIO FRENCH 12/10 Released w/o Limitations [facility]( Imms/We llness [facility]) [facility] Outpatient Encounter [id number] 11/20 [facility] En[facility] [id number] 02/25 [place] Outpatient Encounter [id number] 02/27 [place] Outpatient Encounter [id number] 03/01 [place] Outpatient Encounter [id number] 03/05 [place] Outpatient Encounter [id number] 03/05 [place] Outpatient Encounter [id number] 03/06 [place] [facility] Outpatient Encounter [id number] 03/08 [place] [facility] OFFICE O/P NEW MOD 45 MIN [id number] Diagnos is: ICD-10- CM G20.C Max onism, unspeci TREASURE Parr 03/15 [place] [facility] CASE MANAGEMENT [id number] Diagnos is: ICD-10- CM Z71.89 Other specifi ed anger control counselor KIERSTEN Brooks 03/15 [place] [facility] Outpatient Encounter [id number] 03/15 [place] [facility] HC PRO PHONE CALL 5-10 MIN [id number] Diagnos is: ICD-10- CM E11.9 Type 2 diabete s mellitu s without complic ations Livier SALINAS 03/19 [place] [facility] HC PRO PHONE CALL 5-10 MIN [id number] Diagnos is: ICD-10- CM Z71.89 Other specifi ed anger control counselor TIKI Diamond 03/19 [place] [facility] TARGETED CASE MANAGEMENT [id number] RAMY STEEN 03/20 [place] Outpatient Encounter [id number] 03/20 [place] [facility] TARGETED CASE MANAGEMENT [id number] Humble GARCIA 03/20 [facility] Outpatient Encounter [id number] 03/22 [place] [facility] PSYTX W PT 60 MINUTES [id number] Diagnos is: ICD-10- CM F31.9 Bipolar disorde r, unspeci MONI Sanchez 03/22 [place] [facility] Outpatient Encounter [id number] 03/22 [place] [facility] Outpatient Encounter [id number] 03/22 [place] [facility] Outpatient Encounter [id number] 03/22 [place] [facility] Outpatient Encounter [id number] 03/26 [place] [facility] Outpatient Encounter [id number] 03/26 [place] [facility] Outpatient Encounter [id number] 03/29 [place] [facility] PSYCH DIAG KELLIAL W/MED SRVCS [id number] Diagnos is: ICD-10- CM F31.9 Bipolar disorde r, unspeci fied FORTINO STEPHENSON 03/29 [place] [facility] Outpatient Encounter [id number] 03/29 [place] Outpatient Encounter [id number] 04/10 [place] Outpatient Encounter [id number] 04/24 [place] HC PRO PHONE CALL 5-10 MIN [id number] Diagnos is: ICD-10- CM Z71.89 Other specifi ed anger control counselor TIKI Diamond 05/09 [place] [facility] Outpatient Encounter [id number] 05/15 [place] HC PRO PHONE CALL 5-10 MIN [id number] Diagnos is: ICD-10- CM E11.9 Type 2 diabete s mellitu s without complic atLivier Harrison 05/15 [place] [facility] HC PRO PHONE CALL 5-10 MIN [id number] Diagnos is: ICD-10- CM Z71.89 Other specifi ed anger control counselor TIKI Diamond 05/15 [place] [facility] Outpatient Encounter [id number] 06/24 [place] 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 ZELALEM JOAQUIN 09/16 [place] [facility] Outpatient Encounter [id number] 09/18 [place] [facility] PH1 ASSMT&MGMT NQHP 5-10 [id number] Diagnos is: ICD-10- CM E11.9 Type 2 diabete s mellitu s without complic ations Livier SALINAS 09/24 [place] [facility] Outpatient Encounter [id number] 09/30 [place] [facility] Outpatient Encounter [id number] 10/02 [place] [facility] Outpatient Encounter [id number] 10/15 [place] [facility] Outpatient Encounter [id number] 10/21 [place] [facility] Outpatient Encounter [id number] 11/04 [place] [facility] OFFICE O/P EST MOD 30 MIN [id number] Diagnos is: ICD-10- CM F31.9 Bipolar disorde r, unspeci fied FORTINO STEPHENSON 11/08 [place] [facility] Outpatient Encounter [id number] 12/05 [place] Outpatient Encounter [id number] 12/17 [place] [facility] Outpatient Encounter [id number] 12/18 [place] [facility] PH1 ASSMT&MGMT NQHP 5-10 [id number] Diagnos is: ICD-10- CM E11.9 Type 2 diabete s mellitu s without complic ations Livier SALINAS 12/18 [place] [facility] Outpatient Encounter [id number] 12/31 [place] [facility] Outpatient Encounter [id number] 01/16 [place] [facility] Outpatient Encounter [id number] FORTINO STEPHENSON 01/29 [place] [facility] SYNCH AUDIO-ONLY EST MOD 30 [id number] Diagnos is: ICD-10- CM F31.9 Bipolar disorde r, unspeci FORTINO Carrillo 01/29 [place] Outpatient Encounter [id number] 02/03 [place] [facility] Outpatient Encounter [id number] 02/17 [place] [facility] Procedures Combined list of: 1) Procedures from Department of [facility] facilities going back up to thelast 18 months, not all [place] non-surgical procedures are included; 2) All procedures from the Department of Defense facilities. Procedure Procedure Type Code Date Perfomer Comments Sourc e No data available for this section [facility] OTHER SURGICAL EXTRACTION OF TOOTH 994 [facility] ALVEOLOPLASTY 9[facility] BIOPSY OF GUM 994 DoD Exercises A isted Exercises For ROM Exercises [place]isted [place]ises [place] ROM 49650 009 DEEPAK REED DoD Exercises A isted Exercises For ROM Exercises [place]isted [place] 54639 009 KASSANDRA JUAREZ DoD Exercises A isted Exercises For ROM Exercises Assisted [place]ercises [place] ROM 25376 009 DONNIE MASON [facility] Physical Medicine Physical Therapy Evaluation Physical Medicine Physical Therapy Evaluation 36502 009 DONNIE MASON [facility] Influenza Split Virus Vaccine Age 3+ Years Intramuscular 008 KATHARINE STANFORD [facility] Immunization Administration One Vaccine Immunization Administration One Vaccine 12653 008 KATHARINE STANFORD [facility] Psychoactive Medication Management Psychoactive Medication Management 53447 007 ZAC, ODITA D DoD Psychiat Therapy Indiv Appr 20-30 Min W/ Med Eval Managemt Psychiat Therapy Indiv Appr 20-30 Min W/ Med Eval Managemt 20514 007 ZAC, ODITA D [facility] Psychoactive Medication Management Psychoactive Medication Management 58704 007 ZAC, ODITA D DoD Psychiat Therapy Indiv Appr 20-30 Min W/ Med Eval Managemt Psychiat Therapy Indiv Appr 20-30 Min W/ Med Eval Managemt 92455 007 ZAC, ODITA D DoD Psychoactive Medication Management Psychoactive Medication Management 67454 007 ZAC, ODITA D DoD Psychiat Therapy Indiv Appr 20-30 Min W/ Med Eval Managemt Psychiat Therapy Indiv Appr 20-30 Min W/ Med Eval Managemt 28273 006 ZAC, ODITA D DoD Psychoactive Medication Management Psychoactive Medication Management 72739 006 ZAC, ODITA D DoD Determination Of Refractive State Determination Of Refractive State 01326 006 , [facility] Diabetic indicator; retinal eye exam, dilated, bilateral 006 , [facility] Ophthalmological New Patient Start Comprehensive Care Ophthalmological New Patient Start Comprehensive Care 38225 006 [facility] Psychiat Therapy Indiv Appr 20-30 Min W/ Med Eval Managemt Psychiat Therapy Indiv Appr 20-30 Min W/ Med Eval Managemt 72234 006 ZAC, ODITA D DoD Psychoactive Medication Management Psychoactive Medication Management 33133 006 ZAC, ODITA D DoD Psychiat Therapy Indiv Appr 20-30 Min W/ Med Eval [facility] Psychiat Therapy Indiv Appr 20-30 Min W/ Med Eval Managemt [id number] ZAC, ODITA D DoD Psychoactive Medication Management Psychoactive Medication Management [id number] ZAC, ODITA [facility] Psychiat Therapy Indiv Appr 20-30 Min W/ Med Eval [facility] Psychiat Therapy Indiv Appr 20-30 Min W/ Med Eval Managemt [id number] ZAC, ODITA D DoD Psychoactive Medication Management Psychoactive Medication Management [id number] ZAC, OD[facility] D [facility] Psychiat Therapy Indiv Appr 20-30 Min W/ Med Eval [facility] Psychiat Therapy Indiv Appr 20-30 Min W/ Med Eval Managemt [id number] ZAC, ODITA D [facility] Psychoactive Medication Management Psychoactive Medication Management [id number] ZAK FRANK DoD Immunization Administration One Vaccine Immunization Administration One Vaccine [id number] ODILIA PRYOR [facility] Social History Combined list of available smoking, tobacco, and other social history from [facility] of Defense and [facility] facilities. Social History Type Response Date Comment Sourc e Tobacco smoking status NHIS [facility]-TOBACCO FORMER USER 03/15/2024 [facility] History of tobacco use [place]-TOBACCO QUIT 15 YRS OR MORE 03/15/2024 [facility] History of tobacco use IA-TOBACCO NEVER USED 08/29/2023 [facility] History of tobacco use IA-TOBACCO FORMER USER 09/28/2020 [facility] History of tobacco use IA-TOBACCO FORMER USER 10/08/2018 [facility] History of tobacco use LIFETIME NON-USER OF TOBACCO 07/21/2017 [facility] History of tobacco use LIFETIME NON-USER OF TOBACCO 10/17/2016 [facility] History of tobacco use LIFETIME NON-USER OF TOBACCO 10/28/2015 [facility] History of tobacco use LIFETIME NON-USER OF TOBACCO 12/23/2014 [facility] History of tobacco use QUIT TOBACCO >7 YEARS AGO 03/10/2014 [facility] History [facility] tobacco use QUIT TOBACCO >7 YEARS AGO 04/15/2013 [facility] History of tobacco use QUIT TOBACCO >7 YEARS AGO 06/11/2012 [facility] History of tobacco use DATE LAST SMOKED 11/29/2011 [facility] History of tobacco use LIFETIME NON-TOBACCO USER 09/16/2010 [facility] History of tobacco use DATE LAST SMOKED 06/24/2009 [facility] History of tobacco use LIFETIME NON-TOBACCO USER 06/23/2008 [facility] History of tobacco use TOBACCO USE/SMOKING SCREEN 07/27/2007 [facility] History of tobacco use DATE LAST SMOKED 07/24/2006 [facility] History of tobacco use LIFETIME NON-TOBACCO USER 12/02/2004 [facility] This section is an empty social history section. [facility] Assessment and Plan Combined list of future care activities from [facility] of [facility] facilities (e.g., assessment and plan notes, appointments, orders, and referrals). Additional future care activities may be listed in the Plan of Care section. Result Assessment and Plan Date Source Assessment and Plan No data available for this section 03/06/2025 Ambulatory Pharmacy Plan of Care List of future care activities from [facility] facilities. Additional future care activities may be listed in the Assessment and Plan section. Date/Time Care Activity Care Activity Detail Facili ty 03/31/2025 AMBULATORY - MEDICINE AMBULATORY - MEDICI [facility] Advance Directives List of completed, amended, or rescinded Advance Directives on record at [facility] facilities. An actual copy of the Directive is not included. Date Advance Directive Provider Source 04/21/2017 ADVANCE DIRECTIVE DISCUSSION [facility] 06/26/2015 ADVANCE DIRECTIVE DISCUSSION CATA [facility] Functional Status Combined list of recent functional and cognitive assessments recorded at [facility] [place] Functional Luna Measurement (FIM) Scale: 1 = Total Assistance (Subject = 0% +), 2 = Maximal Assistance (Subject = 25% +), 3 = Moderate Assistance (Subject = 50% +), 4 = Minimal Assistance (Subject = 75% +), 5 = Supervision, 6 = Modified Luna (Device), 7 = Complete Luna (Timely, Safely). Assessment Date/Time Source Assessment Type Assessment Skill Assessment Score Assessment Details No data available for this section
--- OUTSIDE RECORDS SUMMARY | 2025-03-06 11:44 | XMS_ITS | Clinical Summary ---
Author Organization [facility] Address [address] [place] [address] Care Team Providers Care Stringing Machine Tender Name Role Phone Esequiel Huerta MD Primary Care Provider [phone] Allergies Active Allergy Reactions Criticality Noted Date Comments Iodinated Contrast Media Unknown - Patie nt states they do not know rxn details Low 01/28/2025 Shellfish Allergy Unknown - Patient st ates they do not know rxn details Low 01/28/2025 Medications allopurinol (Zyloprim) 100 MG tablet Take 1 tablet by mouth daily. Active citalopram (CeleXA) 40 MG tablet Take 1 tablet by mouth daily. Active clopidogrel (Plavix) 75 MG tablet Take 1 tablet by mouth daily. Active divalproex (Depakote ER) 500 MG 24 hr tablet Take 1 tablet by mouth 2 times a day. Do not crush, chew, or split. Active gemfibrozil (Lopid) 600 MG tablet Take 1 tablet by mouth 2 times a day. Active lisinopril 20 MG tablet Take 0.5 tablets by mouth daily. Active memantine (Namenda) 10 MG tablet Take 1 tablet by mouth 2 times a day. Active SITagliptin (Januvia) 50 MG tablet Take 1 tablet by mouth daily. Active tamsulosin (Flomax) 0.4 MG 24 hr capsule Take 1 capsule by mouth daily. Active QUEtiapine (SEROquel) 200 MG tablet Take 0.5 tablets by mouth nightly. Active primidone (Mysoline) 50 MG tablet Take 1 tablet by mouth. Active propranolol LA (Inderal LA) 60 MG 24 hr capsule Take 1 capsule by mouth daily. Do not crush, chew, or split. Active simvastatin (Zocor) 40 MG tablet Take 1 tablet by mouth nightly. Active cholecalciferol (Vitamin D3) 25 MCG (1000 UT) tablet Take 1 tablet by mouth daily. Active aspirin (Ecotrin) 325 MG EC tablet Take 1 tablet by mouth daily. Active glimepiride (Amaryl) 2 MG tablet Take 1 tablet by mouth daily before breakfast. Active Encounters Date Type Department Care Team Description 01/31/2025 10:00 AM EDT Office Visit [facility] [address] [place] [id number] Piper Hudson APRN Stage 3b chronic kidney disease ([facility]) (Primary Dx); Essential hypertension; Other microscopic hematuria; Hyperkalemia; Chronic kidney disease-mineral and bone disorder; Diabetes mellitus due to underlying condition with diabetic chronic kidney disease, unspecified CKD stage, unspecified whether alf insulin use ([facility]) 01/31/2025 Travel from Last 3 Months Social History Tobacco Use Types Packs/Day Years [...] on file Sexual Orientation Not on file Last Filed Vital Signs Vital Sign Reading [...] Mass Index 25.18 01/31/2025 10:12 AM EDT Plan of Treatment Health Maintenance Due Date Last Done Comments [facility]-Depression Screening 1945 [facility]-Diabetes: Hemoglobin A1C 1945 [facility]-Hepatitis C Screening 1945 [facility]-Infant/Child/Adol SDOH Screenings 1945 Diabetes: Dental Exam 11/19/1955 [facility]- SDOH Screenings 11/19/1963 [facility]-Adult SDOH Screenings 11/19/1963 [facility]-DTaP,Tdap,and Td Vaccines (1 - Tdap) 1964 [facility]-Zoster Vaccines (2 of 3) 08/20/2014 06/25/2014 [facility]-RSV Vaccine: 60+ Years or (1 - 1-dose 75+ series) 2020 [id number] Vaccine (6 - 2023- season) 2024 12/10/2021, 06/10/2021, 11/22/2020, Additional history exists [facility]-Influenza Vaccine (#1) 04/07/202510/21, 04/07/2020, 05/21/2017, Additional history exists [facility]-Pneumococcal Vaccine: 50+ Years Completed 01/12/2015, 05/07/2012, 05/07/2012, Additional history exists [facility]-Obesity Intervention Completed 01/31/2025 HPV Vaccines Aged Out No longer eligi ble based on patient's age to complete this topic [facility]-HIB Vaccines Aged Out No longer e ligible based on patient's age to complete this topic [facility]-Hepatitis A Vaccines Aged Out No longer eligible based on patient's age to complete this topic [facility]-IPV Vaccines Aged Out No longer e ligible based on patient's age to complete this topic [facility]-Rotavirus Vaccines Aged Out No lo nger eligible based on patient's age to complete this topic Care Teams Stringing Machine Tender Relationship Specialty Start Date End Date Esequiel Huerta MD [address] [place] [address] PCP - General 05/08/24
--- OUTSIDE RECORDS SUMMARY | 2025-03-06 11:44 | XMS_ITS | Encounter Summary ---
Author Organization [facility] Address [address] [place] [address] Care Team Providers Care Agronomy Instructor Name Role Phone Esequiel Huerta MD Primary Care Provider [phone] Encounter Details Date Type Department Care Team (Latest Contact Info) Description 01/31/2025 Travel Social History Tobacco Use Types Packs/Day Years [...] on file documented as of this encounter Functional Status documented as of this encounter Plan of Treatment Not on file documented as of this encounter Visit Diagnoses Not on filedocumented in this encounter Additional Health Concerns Assessment Noted Time A Body Mass Index follow-up plan has been documented for the patient 01/31/2025 11:37 AM EDT documented as of this encounter Care Teams Agronomy Instructor Relationship Specialty Start Date End Date Esequiel Huerta MD [facility] [place] [address] PCP - General 05/08/24 documented as of this encounter
[2025-03-06 12:16] LABS: Hematocrit 35.9 % (42.0-52.0); Hemoglobin 11.6 g/dL (14.1-18.0); Immature Granulocytes % 0.7 %; Mean Corpuscular HGB Conc 32.3 g/dL (31.8-35.4); Mean Corpuscular Hemoglobin 32.8 pg (27.0-31.2); Mean Corpuscular Volume 101.4 fl (80-94); Nucleated Red Blood Cells % 0.2 %; Platelet Count 207 K/mm3 (142-424); Red Blood Count 3.54 M/mm3 (4.60-6.20); Red Cell Distribution Width-SD 53.4 fL; White Blood Count 8.8 K/mm3 (4.8-10.8)
[2025-03-06 12:41] LABS: Anion Gap 12.3 mEq/L (5-15); Blood Urea Nitrogen 34 mg/dl (9-20); Calcium 9.8 mg/dl (8.4-10.2); Carbon Dioxide 25 mmol/L (22.0-30.0); Chloride 106 mmol/L (98-107); Creatinine,Serum 1.80 mg/dl (0.66-1.25); Estimated Glomerular Filt Rate 37 ml/min (>60); GFR (African American) 44 ML/MIN (>60); Glucose 114 mg/dl (74-100); Potassium 5.3 mmoL/L (3.5-5.1); Sodium 138 mmol/L (136-145)
== END 2025-03-06 23:59 | disposition home or self-care (01) ==
LOC: LAB 11:39
PROVIDERS: PCP Nurse Practitioner Family; Visit Provider Internal Medicine
DX: I25.10 Atherosclerotic heart disease of native coronary artery without angina pectoris (principal)
CPT/HCPCS: 36415; 80048; 85025

== ENCOUNTER 2025-03-17 12:11 | Outpatient (CLI) | payer MEDICARE, OTHER, SELFPAY ==
--- OUTSIDE RECORDS SUMMARY | 2025-01-31 10:00 | XMS_ITS | Encounter Summary ---
Author Organization [facility] Address [address] [place] [address] Care Team Providers Care Development Expert Name Role Phone Esequiel Huerta MD Primary Care Provider [phone] Reason for Visit * Reason Comments Consult Pt is a 79 year old male that presents to the clinic on this date as a new patients. Encounter Details Date Type Department Care Team ([facility] st Contact Info) Description 01/31/2025 10:00 AM EDT Office Visit [facility] [address] [place] [address] Piper Hudson, SECOND HAND [address] [address] Stage 3b chronic kidney disease (CMS/HCC) (Primary Dx); Essential hypertension; Other microscopic hematuria; Hyperkalemia; Chronic kidney disease-mineral and bone disorder; Diabetes mellitus due to underlying condition with diabetic chronic kidney disease, unspecified CKD stage, unspecified whether extermination supervisor insulin use (CMS/HCC) Social History Tobacco Use [...] encounter Miscellaneous Notes * Progress Notes - Piper Hudson APRN - 01/31/2025 10:00 AM EDT [...] Labs scanned in to media tab of [employer] from an outside facility. Labs completed on [...] Lab Routine Stage 3b chronic kidney disease ([facility]) Expected: 01/31/2025 (Approximate), Expires: 08/02/2026 Urinalysis with reflex microscopic (Culture NOT Included) Lab Routine Stage 3b chronic kidney disease ([facility]) Expected: 01/31/2025 (Approximate), Expires: 08/02/2026 Vitamin D 25 Hydroxy Lab Routine Stage 3b chronic kidney disease ([facility]) Expected: 01/31/2025 (Approximate), Expires: 08/02/2026 documented as of this encounter Visit Diagnoses Diagnosis Stage 3b chronic kidney disease ([facility])- Primary Essential hypertension Unspecified essential hypertension Other microscopic hematuria Hyperkalemia Hyperpotassemia 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
--- OUTSIDE RECORDS SUMMARY | 2025-03-17 12:15 | XMS_ITS | Clinical Summary ---
Author Organization [facility] Address [address] [place] [address] Care Team Providers Care Robotics Technologist Name Role Phone Esequiel Huerta MD Primary Care Provider [phone] Allergies Active Allergy Reactions Criticality Noted Date [...] Description 01/31/2025 10:00 AM EDT Office Visit [facility] [address] [phone] Piper Hudsno APRN Stage 3b chronic kidney disease ([facility]) (Primary Dx); Essential hypertension; Other microscopic hematuria; Hyperkalemia; Chronic kidney disease-mineral and bone disorder; Diabetes mellitus due to underlying condition with diabetic chronic kidney disease, unspecified CKD stage, unspecified whether 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 operator 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 insulin use ([facility]) 01/31/2025 Travel from Last 3 Months Social [...] Hemoglobin A1C 1945 [facility]-Hepatitis C Screening 1945 [facility]-/Child/Adol SDOH Screenings 1945 Diabetes: Dental Exam 11/19/1955 [facility]- SDOH Screenings 11/19/1963 [facility]-Adult SDOH Screenings 11/19/1963 [facility]-DTaP,Tdap,and Td Vaccines (1 - Tdap) 1964 [facility]-Zoster Vaccines (2 of 3) 08/20/2014 06/25/2014 [facility]-RSV Vaccine: 60+ Years or (1 - 1-dose 75+ series) 2020 [id number] Vaccine (6 - 2023- season) 2024 12/10/2021, [...] age to complete this topic Care Teams Robotics Technologist Relationship Specialty Start Date End Date Esequiel Huerta MD [address] [place] [address] PCP - General 05/08/24
--- OUTSIDE RECORDS SUMMARY | 2025-03-17 12:15 | XMS_ITS | Encounter Summary ---
Author Organization [facility] Address [address] [place] [address] Care Team Providers Care Warehouse Packaging Supervisor Name Role Phone Esequiel Huerta MD Primary Care Provider [phone] Encounter Details Date Type Department Care Team [...] documented as of this encounter Care Teams Warehouse Packaging Supervisor Relationship Specialty Start Date End Date Esequiel Huerta MD [facility] [employer] [place] [address] PCP - General 05/08/24 documented as of this encounter
[2025-03-17 12:34] LABS: Hematocrit 34.3 % (42.0-52.0); Hemoglobin 11.5 g/dL (14.1-18.0); Immature Granulocytes % 0.5 %; Mean Corpuscular HGB Conc 33.5 g/dL (31.8-35.4); Mean Corpuscular Hemoglobin 33.9 pg (27.0-31.2); Mean Corpuscular Volume 101.2 fl (80-94); Nucleated Red Blood Cells % 0 %; Platelet Count 190 K/mm3 (142-424); Red Blood Count 3.39 M/mm3 (4.60-6.20); Red Cell Distribution Width-SD 52.4 fL; White Blood Count 8.0 K/mm3 (4.8-10.8)
[2025-03-17 12:55] LABS: Alanine Aminotransferase 11 U/L (12-78); Albumin Level 4.2 g/dl (3.5-5.0); Alkaline Phosphatase 65 U/L (38-126); Anion Gap 10.7 mEq/L (5-15); Aspartate Amino Transferase 19 U/L (17-59); Bilirubin,Direct 0.2 mg/dl (0.0-0.4); Bilirubin,Indirect 0.1 mg/dL (0.0-0.9); Bilirubin,Total 0.3 mg/dl (0.2-1.3); Bilirubin,Unconjugated 0.1 mg/dL (0.0-1.1); Blood Urea Nitrogen 27 mg/dl (9-20); Calcium 9.6 mg/dl (8.4-10.2); Carbon Dioxide 24 mmol/L (22.0-30.0); Chloride 106 mmol/L (98-107); Cholesterol 170 mg/dl (140-200); Creatinine,Serum 1.50 mg/dl (0.66-1.25); Estimated Glomerular Filt Rate 45 ml/min (>60); GFR (African American) 55 ML/MIN (>60); Glucose 107 mg/dl (74-100); HDL Cholesterol 43 mg/dl (40-60); Magnesium 1.4 mg/dl (1.6-2.3); Potassium 4.7 mmoL/L (3.5-5.1); Sodium 136 mmol/L (136-145); Total Protein,Serum 6.8 g/dl (6.3-8.2); Triglycerides 87 mg/dl (30-150)
[2025-03-17 13:11] LABS: Free T4 (Free Thyroxine) 0.74 ng/dl (0.78-2.19)
[2025-03-17 13:24] LABS: Thyroid Stimulating Hormone 5.08 uIU/mL (0.465-4.68)
== END 2025-03-17 23:59 | disposition home or self-care (01) ==
LOC: LAB 12:12
PROVIDERS: PCP Nurse Practitioner Family; Visit Provider Physician Assistant
DX: I25.10 Atherosclerotic heart disease of native coronary artery without angina pectoris (principal); I10 Essential (primary) hypertension
CPT/HCPCS: 36415; 80048; 80061; 80076; 83735; 84439; 84443; 85025

== ENCOUNTER 2025-04-23 00:23 | Inpatient (IN) | payer MEDICARE, OTHER, SELFPAY ==
[2025-04-23] VITALS (10 sets, daily range): BP systolic 103–145; BP diastolic 52–71; PULSE 64–84; RESP 12–20; TEMP 36.7–37.6; O2SAT 92–100; BMI 26.4; BMI 25.8; BMI 25.7
--- NOTE | 2025-04-23 00:30 | CT_ITS ---
PROCEDURE INFORMATION: Exam: CT Lumbar Spine Without Contrast Exam date and time: 04/23/2025 1:00 AM Age: 79 years old Clinical indication: Injury or trauma; Additional info: Trauma, critical injury suspected TECHNIQUE: Imaging protocol: Computed tomography of the lumbar spine without contrast. Radiation optimization: All CT scans at this facility use at least one of these dose optimization techniques: automated exposure control; mA and/or kV adjustment per patient size (includes targeted exams where dose is matched to clinical indication); or iterative reconstruction. COMPARISON: CT THORACIC SPINE WO CON 04/23/2025 12:58 AM FINDINGS: Bones/joints: There is a mild superior endplate deformity of L1 which is age-indeterminate. The remaining vertebral bodies demonstrate normal height. There is nopu-yb-mhfovecy degenerative disc disease most prominent at L1-L2 and L3-L4. Significant facet arthropathy noted L4-L5 and L5-S1. 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 Normal alignment. No significant disc bulge or herniation. No severe spinal canal stenosis. There is ynin-fb-qgglzsfb bony foraminal stenosis on the left at L3-L4 and L4-L5. Soft tissues: Unremarkable. IMPRESSION: Age-indeterminate mild superior endplate compression deformity of L1. Correlation with the clinical exam with regard to the level of pain is recommended. Further evaluation with MR imaging could be performed as clinically indicated.
--- NOTE | 2025-04-23 00:30 | CT_ITS ---
PROCEDURE INFORMATION: Exam: CTA Head With Contrast, Arteriography Exam date and time: 04/23/2025 1:04 AM Age: 79 years old Clinical indication: Injury or trauma; Additional info: Trauma, critical injury suspected TECHNIQUE: Imaging protocol: Computed tomographic angiography of the head with contrast. Exam focused on the arteries. 3D rendering (Not supervised by radiologist): MIP and/or 3D reconstructed images were created by the technologist. Radiation optimization: All CT scans at this facility use at least one of these dose optimization techniques: automated exposure control; mA and/or kV adjustment per patient size (includes targeted exams where dose is matched to clinical indication); or iterative reconstruction. Contrast material: ISOVUE; Contrast volume: 80 ml; Contrast route: INTRAVENOUS (IV); COMPARISON: CT HEAD/BRAIN WO CON 04/23/2025 12:54 AM FINDINGS: ANTERIOR CIRCULATION: Right internal carotid artery: Intracranial segment is patent with no significant stenosis. No aneurysm. Right middle cerebral artery: No occlusion or significant stenosis. No aneurysm. Right anterior cerebral artery: No occlusion or significant stenosis. No aneurysm. Left internal carotid artery: Intracranial segment is patent with no significant stenosis. No aneurysm. Left middle cerebral artery: No occlusion or significant stenosis. No aneurysm. Left anterior cerebral artery: No occlusion or significant stenosis. No aneurysm. POSTERIOR CIRCULATION: Right vertebral artery: No occlusion or significant stenosis. No aneurysm. Left vertebral artery: No occlusion or significant stenosis. No aneurysm. Basilar artery: No occlusion or significant stenosis. No aneurysm. Right posterior cerebral artery: No occlusion or significant stenosis. No aneurysm. Left posterior cerebral artery: No occlusion or significant stenosis. No aneurysm. Brain: Moderate chronic brain volume loss and chronic small vessel ischemic changes. Cerebral ventricles: No ventriculomegaly. Bones/joints: Unremarkable. No acute fracture. Soft tissues: Unremarkable. IMPRESSION: No significant intracranial arterial abnormality.
--- NOTE | 2025-04-23 00:30 | CT_ITS ---
PROCEDURE INFORMATION: Exam: CT Cervical Spine Without Contrast Exam date and time: 04/23/2025 12:56 AM Age: 79 years old Clinical indication: Injury or trauma; Additional info: Trauma, critical injury suspected TECHNIQUE: Imaging protocol: Computed tomography of the cervical spine without contrast. Radiation optimization: All CT scans at this facility use at least one of these dose optimization techniques: automated exposure control; mA and/or kV adjustment per patient size (includes targeted exams where dose is matched to clinical indication); or iterative reconstruction. COMPARISON: CT HEAD/BRAIN WO CON 04/23/2025 12:54 AM FINDINGS: Bones: Multilevel degenerative changes of the cervical spine producing multiple levels of mild spinal canal stenosis. Mild right neural foraminal stenosis from C3-C7. Straightening of the curvature of the cervical spine is likely positional. Lungs: Lung apices are normal. Soft tissues: Unremarkable. IMPRESSION: No acute fracture or malalignment of the cervical spine.
--- NOTE | 2025-04-23 00:30 | CT_ITS ---
PROCEDURE INFORMATION: Exam: CTA Neck With Contrast Exam date and time: 04/23/2025 1:04 AM Age: 79 years old Clinical indication: Injury or trauma; Additional info: Trauma, critical injury suspected TECHNIQUE: Imaging protocol: Computed tomographic angiography of the neck with contrast. Exam focused on the cervical segments of the vasculature. 3D rendering (Not supervised by radiologist): MIP and/or 3D reconstructed images were created by the technologist. Radiation optimization: All CT scans at this facility use at least one of these dose optimization techniques: automated exposure control; mA and/or kV adjustment per patient size (includes targeted exams where dose is matched to clinical indication); or iterative reconstruction. Contrast material: ISOVUE; Contrast volume: 80 ml; Contrast route: INTRAVENOUS (IV); COMPARISON: CT ANGIO NECK 04/23/2025 1:04 AM FINDINGS: Right common carotid artery: Mild atherosclerotic changes of the right carotid bifurcation with 0% stenosis of the internal carotid artery per NASCET criteria. Right internal carotid artery: No stenosis of the extracranial segment. No dissection or occlusion. Right external carotid artery: No occlusion or stenosis of the origin. Left common carotid artery: Mild atherosclerotic changes of the left carotid bifurcation with 10% stenosis of the internal carotid artery per NASCET criteria. Left internal carotid artery: No stenosis of the extracranial segment. No dissection or occlusion. Left external carotid artery: No occlusion or stenosis of the origin. Right vertebral artery: No stenosis. No dissection or occlusion. 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 Aorta: The left vertebral artery originates directly from the aorta. Soft tissues: Normal. No significant soft tissue swelling. Bones/joints: No acute fracture. IMPRESSION: 1. No acute carotid or vertebral arterial injury. 2. 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 REFERENCES: NASCET CRITERIA. The degree of stenosis in the cervical segment of the internal carotid artery is based on NASCET criteria. Normal is no stenosis. Mild is less than 50% stenosis. Moderate is 50-69% stenosis. Severe is 70% to 99% stenosis. Total occlusion is no detectable patent lumen.
--- NOTE | 2025-04-23 00:30 | CT_ITS ---
PROCEDURE INFORMATION: Exam: CT Head Without Contrast Exam date and time: 04/23/2025 12:54 AM Age: 79 years old Clinical indication: Injury or trauma; Additional info: Trauma, critical injury suspected TECHNIQUE: Imaging protocol: Computed tomography of the head without contrast. Radiation optimization: All CT scans at this facility use at least one of these dose optimization techniques: automated exposure control; mA and/or kV adjustment per patient size (includes targeted exams where dose is matched to clinical indication); or iterative reconstruction. COMPARISON: MR HEAD/BRAIN WO CON 11/22/2024 9:20 AM FINDINGS: Brain: Chronic bilateral basal ganglia lacunar infarctions. Moderate chronic brain volume loss and moderate to advanced chronic small vessel ischemic changes. Cerebral ventricles: No ventriculomegaly. Paranasal sinuses: Mild mucosal thickening in the paranasal sinuses. Mastoid air cells: Visualized mastoid air cells are well aerated. Orbital cavities: Status post bilateral cataract surgery. Bones: Unremarkable. No acute fracture. Soft tissues: Unremarkable. IMPRESSION: No acute intracranial findings.
--- NOTE | 2025-04-23 00:30 | CT_ITS ---
PROCEDURE INFORMATION: Exam: CT Thoracic Spine Without Contrast Exam date and time: 04/23/2025 12:58 AM Age: 79 years old Clinical indication: Injury or trauma; Additional info: Trauma, critical injury suspected TECHNIQUE: Imaging protocol: Computed tomography of the thoracic spine without contrast. Radiation optimization: All CT scans at this facility use at least one of these dose optimization techniques: automated exposure control; mA and/or kV adjustment per patient size (includes targeted exams where dose is matched to clinical indication); or iterative reconstruction. COMPARISON: CT CERVICAL SPINE WO CON 04/23/2025 12:56 AM FINDINGS: Bones/joints: There is a mild superior endplate deformity of L1 which appears old however, with the lack of prior imaging is age indeterminate. The thoracic vertebral bodies demonstrate normal height. Diffuse moderate degenerative disc disease and mild facet arthropathy is noted. Normal alignment. No significant disc bulge or herniation. No severe spinal canal stenosis. No significant neural foraminal narrowing. Soft tissues: Unremarkable. Other findings: The chest is reported separately. IMPRESSION: 1. No acute thoracic spine fracture. 2. Mild superior endplate deformity of L1 which appears old but is indeterminate in age with the lack of prior imaging. Correlation with the clinical exam with regard to the level of pain is recommended. Further evaluation with MR imaging could be performed as clinically indicated.
--- NOTE | 2025-04-23 00:33 | [facility].EDGENADL ---
Discharge Plan Disposition Patient Disposition: Admitted Prescriptions Prescriptions: No Action clopidogrel 75 mg tablet 75 mg PO DAILY tamsulosin 0.4 mg capsule 0.4 mg PO DAILY allopurinol 100 mg tablet 100 mg PO DAILY primidone 50 mg tablet 50 mg PO HS divalproex 500 mg tablet,delayed release (DR/EC) 500 mg PO BID quetiapine 100 mg tablet 100 mg PO DAILY citalopram 20 mg tablet 20 mg PO DAILY atorvastatin [Lipitor] 40 mg tablet 40 mg PO DAILY Qty: 90 3RF diphenhydramine HCl [Benadryl] 25 mg capsule 25 mg PO ONCE Qty: 1 0RF Rx Instructions: Take one capsule the night prior to procedure. sitagliptin 50 mg tablet 50 mg PO DAILY Qty: 90 1RF propranolol 60 mg tablet 60 mg PO DAILY Qty: 90 3RF lisinopril 5 mg tablet 5 mg PO DAILY Qty: 90 3RF levothyroxine [Synthroid] 25 mcg tablet 25 mcg PO DAILY Qty: 30 2RF memantine 10 mg tablet 10 mg PO BID Qty: 60 3RF (DME) walker Misc See Rx Instructions .Route Qty: 1 0RF Rx Instructions: Use walker at all times to help prevent falls aspirin 81 mg Tablet 81 mg PO DAILY 30 Days Qty: 30 3RF Clinical Impressions Clinical Impression: MIGUEL (acute kidney injury), Acute hyperkalemia, AMS (altered mental status), Spell of change in speech Print Language Print Language: Mohawk Discharge ED Provider: Aguila Jeffries General Adult HPI General Chief complaint: Altered Mental Status Stated complaint: ALTERED MENTAL STATUS Time Seen by Provider: 04/23/25 00:23 History of Present Illness HPI narrative: 79-year-old male with history of coronary artery disease status post recent stenting, on aspirin and clopidogrel, history of chronic kidney disease, Parkinson's, prior mini strokes, presents for altered mental status and fall. History is somewhat unclear. Per family, he has been complaining intermittently of chest pain over the last few days. He was eating and drinking normally, did not have a fever or any obvious infectious symptoms today. He went to bed and was seemingly normal. He awoke and fell against a cedar chest and afterwards was confused, altered, with some garbled speech. EMS reports that he was initially hypotensive and confused but significantly improved after 500 mL of fluid en route. On arrival patient is alert and oriented to person and place but not year. He reports no significant discomfort or pain, denies any numbness or weakness. Related Data Home Medications ?Medication ?Instructions ?Recorded ?Confirmed allopurinol 100 mg tablet 100 mg PO DAILY 10/21/24 03/31/25 citalopram 20 mg tablet 20 mg PO DAILY 10/21/24 03/31/25 clopidogrel 75 mg tablet 75 mg PO DAILY 10/21/24 03/31/25 divalproex 500 mg tablet,delayed 500 mg PO BID 10/21/24 03/31/25 release primidone 50 mg tablet 50 mg PO HS 10/21/24 03/31/25 quetiapine 100 mg tablet 100 mg PO DAILY 10/21/24 03/31/25 tamsulosin 0.4 mg capsule 0.4 mg PO DAILY 10/21/24 03/31/25 Previous Rx's ?Medication ?Instructions ?Recorded walker #1 ea 09/18/24 diphenhydramine HCl 25 mg capsule 25 mg PO ONCE contrast allergy #1 01/14/25 (Benadryl) cap aspirin 81 mg tablet 81 mg PO DAILY 30 days #30 tabs 03/03/25 lisinopril 5 mg tablet 5 mg PO DAILY #90 tabs 03/05/25 atorvastatin 40 mg tablet (Lipitor) 40 mg PO DAILY #90 tabs 03/12/25 levothyroxine 25 mcg tablet 25 mcg PO DAILY #30 tabs 03/21/25 (Synthroid) propranolol 60 mg tablet 60 mg PO DAILY #90 tabs 04/01/25 sitagliptin 50 mg tablet 50 mg PO DAILY #90 tabs 04/01/25 memantine 10 mg tablet 10 mg PO BID #60 tabs 04/14/25 Allergies Allergy/AdvReac Type Severity Reaction Status Date / Time iodine Allergy throat Verified 03/31/25 11:14 swelling, hives PFSH [facility] Disclaimer: The information contained in this section may have been updated after the patient was seen, as this information can be updated by other users. Medical History Deviated septum septum is deviated the left anteriorly and back to the right posteriorly CAD (coronary artery disease) Hyperkalemia Aortic insufficiency Impacted cerumen of right ear Chronic right mastoiditis His CT scan showed significant resolution of the mastoid inflammation and fluid Cardiac murmur Abnormal ECG SOB (shortness of breath) High cholesterol Parkinson disease Surgical History History of heart artery stent Hx of cardiac cath Hx of nasal septoplasty History of uvulectomy Hx of adenoidectomy History of dental surgery Hx of tonsillectomy Social History Smoking Status: Never smoker alcohol intake: never substance use type: denies use current occupational status: retired Travel in the last 8 weeks?: None Other Medical History Have you received the Pneumonia Vaccine: Yes ROS Obtained: Yes All systems reviewed & no additional complaints except as documented Physical Exam General General appearance: alert and in no apparent distress Head Head exam: atraumatic and normocephalic Eye Eye exam: Present normal appearance, PERRL and EOMI ENT ENT exam: Present normal oropharynx and normal external ear exam Neck Neck exam: Present normal inspection and full ROM Chest Chest inspection: Present normal inspection and symmetric chest wall rise; Absent tenderness Respiratory Respiratory exam: Present normal lung sounds bilaterally; Absent respiratory distress Cardiovascular Cardiovascular exam: Present regular rate and normal rhythm Abdominal Exam Abdominal exam: Present soft; Absent distention, tenderness or guarding Extremities Exam Extremities exam: Present normal inspection; Absent edema or joint swelling Back Exam Back exam: Present normal inspection; Absent tenderness Neurological Exam Neurological exam: Present alert and oriented X3; Absent motor sensory deficit Psychiatric Psychiatric exam: Present normal affect and normal mood Skin Skin exam: Present warm, dry and normal color Lymphatic Lymphatic Findings: no adenopathy Medical Decision Making Medical Records Medical records reviewed: Yes I reviewed the patient's medical records. Screening: Per USPSTF and CDC recommendations, given the prevalence of disease in our region, it is our hospital?s policy to screen for HIV and viral Hepatitis for all patients aged 18 and over and those with ongoing risk factors. Marco Inquiry Pt receiving controlled substance: No Marco was queried for this patient: No Vital Signs: 04/23/25 00:32 04/23/25 01:28 04/23/25 02:00 Temperature 98.9 F Temperature Source Oral Pulse Rate 80 64 Pulse Rate [Radial] 70 Respiratory Rate 18 12 20 Blood Pressure 126/65 126/62 Blood Pressure [Right Arm] 107/59 L Blood Pressure Mean [Right Arm] 75 Blood Pressure Position [Right Arm] Sitting 02 Sat by Pulse Oximetry 96 100 95 Oxygen Delivery Method Nasal Cannula Room Air Oxygen Flow Rate (LPM) 2 Lab Data Lab results reviewed: Yes I reviewed the patient's lab results. Lab Results 04/22/25 00:00: Plasma/Serum Alcohol < 10 04/22/25 23:55: WBC 9.7, RBC 2.87 L, Hgb 9.8 L, Hct 29.0 L, MCV 101.0 H, MCH 34.1 H, MCHC 33.8, RDW 14.1, Plt Count 160, MPV 9.9, Neut % (Auto) 75.9, Lymph % (Auto) 16.0, Catron % (Auto) 7.6, Eos % (Auto) 0.0 L, Baso % (Auto) 0.1, Neut # (Auto) 7.3, Lymph # (Auto) 1.6, Catron # (Auto) 0.7, Eos # (Auto) 0.0, Baso # (Auto) 0.0, PT 10.9, INR 0.98, APTT 27.3, Sodium 133 L, Potassium 5.7 H, Chloride 102, Carbon Dioxide 20 L, Anion Gap 16.7 H, BUN 56 H, Creatinine 2.60 H, Estimated Creat Clear 24, Estimated GFR 24 L, Est GFR ( Amer) 29 L, Glucose 140 H, Calcium 8.9, Magnesium 2.0, Total Bilirubin 0.9, AST 43, ALT 18, Alkaline Phosphatase 27 L, Total Creatine Kinase 66, Troponin I 0.08 H, NT-Pro-B Natriuret Pep 1510 H, Total Protein 6.9, Albumin 3.8, Globulin 3.1, Albumin/Globulin Ratio 1.2, TSH 2.36, Thyroxine (T4) 5.4 L 04/23/25 00:38: VBG pH 7.39, VBG pCO2 40.7, VBG pO2 53.4 H, VBG HCO3 24.0, VBG Total CO2 25.3, VBG O2 Saturation 85.4 H, VBG Base Excess -0.9, VBG Lactic Acid 2.2 H 04/23/25 01:26: Urine Color Yellow, Urine Appearance Clear, Urine pH 6.0, Ur Specific Davenport 1.020, Urine Protein 1+ A, Urine Glucose (UA) Negative, Urine Ketones Negative, Urine Blood Negative, Urine Nitrate Negative, Urine Bilirubin Negative, Urine Urobilinogen 0.2, Ur Leukocyte Esterase Negative, Urine RBC None, Urine WBC Occasional, Ur Squamous Epith Cells Occasional, Amorphous Sediment Trace, Urine Sperm Occ 04/23/25 01:28: Urine Opiates Screen Negative, Urine Methadone Screen Negative, Ur Barbituates Screen Positive H, Ur Phencyclidine Scrn Negative, Ur Amphetamines Screen Negative, U Benzodiazepines Scrn Negative, Urine Cocaine Screen Negative, U Marijuana (THC) Screen Negative 04/22/25 23:55 04/22/25 23:55 Orders (Tests/Meds): ED MEDICATIONS Discontinued Medications Generic Name Dose Route Start Last Admin Trade Name Freq PRN Reason Stop Dose Admin Iopamidol 80 ml 04/23/25 01:19 04/23/25 01:21 Iopamidol-370 (76%);100ml Bottle IV 04/23/25 01:20 80 ml ONCE ONE Administration Sodium Chloride 50 ml 04/23/25 01:19 04/23/25 01:21 0.9 % Sodium Chloride 50 Ml Vial IV 04/23/25 01:20 50 ml ONCE ONE Administration Sodium Chloride 10 ml 04/23/25 01:19 04/23/25 01:21 Sodium Chloride 0.9% 10ml Syr (Rad Only) IV 04/23/25 01:20 10 ml ONCE ONE Administration ORDERS Category Date Time Status CT abdomen pelvis w con Stat Cat Scan 04/23/25 00:[address] angio head Stat Cat Scan 04/23/25 00:[address] angio neck Stat Cat Scan 04/23/25 00:[address] cervical spine wo con Stat Cat Scan 04/23/25 00:[address] chest w con Stat Cat Scan 04/23/25 00:[address] head/brain wo con Stat Cat Scan 04/23/25 00:[address] lumbar spine wo con Stat Cat Scan 04/23/25 00:[address] thoracic spine wo con Stat Cat Scan 04/23/25 00:30 Completed BNP [NT Pro Brain Natriuretic Pep.] Stat Lab 04/23/25 00:00 Completed CBC w/Auto Diff [Complete Blood Count Auto Diff] Stat Lab 04/23/25 00:00 Completed CK [Creatine Kinase] Stat Lab 04/23/25 00:00 Completed CMP [Comprehensive Metabolic Panel] Stat Lab 04/23/25 00:00 Completed Ethanol [Ethyl Alcohol] Stat Lab 04/23/25 00:38 Completed Full Resp Panel w/COVID ([facility]) Routine Lab 04/23/25 01:22 Received INR [Prothrombin Time INR] Stat Lab 04/23/25 00:00 Completed Lactate Venous Stat Lab 04/23/25 00:56 Ordered Magnesium Stat Lab 04/23/25 00:00 Completed PTT [Activated Partial Thrombo Time] Stat Lab 04/23/25 00:00 Completed T4 (Thyroxine) Stat Lab 04/23/25 00:00 Completed TSH [Thyroid Stimulating Hormone] Stat Lab 04/23/25 00:00 Completed Troponin I Q3H Lab 04/23/25 00:00 Completed Troponin I Q3H Lab 04/23/25 03:30 Ordered UA [Urinalysis and Microscopic] Stat Lab 04/23/25 01:26 Completed UDS [Drug Screen,Urine] Stat Lab 04/23/25 01:28 Completed Blood Culture Stat Micro 04/23/25 00:36 Received VBG [Venous Blood Gas] Stat RT 04/23/25 00:38 Completed ECG Data Tracing #1: ECG initial impression date: 04/23/25 ECG initial impression time: 01:21 ECG normal with no acute: arrhythmias, ischemia, conduction abnormalities, chamber hypertrophy Normal Sinus Rhythm: Yes HEART Score History (anamnesis): Moderately suspicious ECG: Normal Age: >65 years Risk factors: Atherosclerosis history Troponin: 1-3x normal limit HEART Score: 6 Medical Decision Narrative: 79-year-old male with history of coronary artery disease status post recent stenting, Parkinson's, diabetes presents for altered mental status and fall. History was obtained via interactive discussion with patient, EMS, family, chart review. On arrival, patient is afebrile, normotensive, satting appropriately, alert and partially oriented, moving all extremities spontaneously. Fingerstick blood glucose normal. Full physical exam performed and significant for mild tenderness to the chest and abdomen. No tenderness to the neck spines or extremities. NIH of 1 for dysarthria initially, resolved shortly thereafter. Differential includes but is not limited to intracranial trauma intrathoracic trauma intra-abdominal trauma spine trauma extremity trauma, stroke, TIA, ACS, intoxication, infection. Patient was given 1 L IV fluid bolus for symptomatic management and correction of underlying abnormalities. Workup initiated including emergent trauma scans, broad-spectrum labs, infectious workup. Patient is listed allergy to contrast, however, he has had IV contrast recently with a cath. Given this, I felt the benefits of contrast outweigh the risk at this time. On re-evaluation, patient sleeping comfortably, easily arousable, answers questions appropriately. Speech much improved from arrival. Laboratory workup independently interpreted by me and significant for MIGUEL with creatinine 2.6, up from baseline of less than 2. BUN similarly elevated. Potassium 5.7 without hyperkalemic changes on EKG, troponin elevated at 0.08. Urine does not appear consistent with infection. Alcohol negative. Urine barbiturates positive, unclear if he is prescribed perpetuates at baseline. Imaging independently interpreted by me and significant for no evidence of acute hemorrhagic or ischemic stroke. Old L1 compression deformity, patient is nontender in this area. No obvious pneumonia or other findings. See radiology read for full review of final results. EKG independently interpreted by me and significant for normal sinus rhythm. The underlying etiology of patient's presentation remains somewhat unclear. It is possible he had a TIA, seems more likely that he has had a concussion from his fall. He does have an MIGUEL and elevated initial troponin. No obvious signs of infection and normal vital signs, so empiric antibiotics were not initiated. Interactive discussion was had with the hospitalist on-call for admission for further evaluation and management. Procedures Risk/Benefits of Procedure(s) Were Explained: Yes Critical Care Critical Care Time Critical Care Time: Yes Attestation: On 04/23/25, the high probability of a clinically significant, sudden or life threatening deterioration of the following system(s) neuro required my full and direct attention, intervention and personal management. The time I documented below is in addition to time spent performing reported procedures but includes the following listed in this critical care notation. Total Time Total Critical Care Time: 45
--- NOTE | 2025-04-23 00:38 | CT_ITS ---
PROCEDURE INFORMATION: Exam: CT Abdomen And Pelvis With Contrast Exam date and time: 04/23/2025 1:08 AM Age: 79 years old Clinical indication: Injury or trauma TECHNIQUE: Imaging protocol: Computed tomography of the abdomen and pelvis with contrast. Radiation optimization: All CT scans at this facility use at least one of these dose optimization techniques: automated exposure control; mA and/or kV adjustment per patient size (includes targeted exams where dose is matched to clinical indication); or iterative reconstruction. Contrast material: ISOVUE; Contrast volume: 80 ml; Contrast route: IV; COMPARISON: CR XR HIP LT 2-3V W/PELVIS 09/18/2024 10:14 PM FINDINGS: Tubes, catheters and devices: There is an age indeterminate superior endplate deformity of L1. Lungs: The chest is reported separately. Liver: Normal. No mass. Gallbladder and biliary ducts: Normal. No calcified stones. No ductal dilation. Pancreas: Normal. No ductal dilation. Spleen: Normal. No splenomegaly. Adrenal glands: Normal. No mass. Kidneys and ureters: Normal. No hydronephrosis. Stomach and bowel: There is significant sigmoid diverticulosis without acute inflammation. No bowel obstruction. No mucosal thickening. Appendix: No evidence of appendicitis. Intraperitoneal space: Unremarkable. No free air. No significant fluid collection. Vasculature: There is mild calcific atherosclerotic disease. No aneurysm. Lymph nodes: Unremarkable. No enlarged lymph nodes. Urinary bladder: Unremarkable as visualized. Reproductive: The prostate gland is mildly enlarged. Bones/joints: There are bilateral L5 pars defects. Soft tissues: Unremarkable. IMPRESSION: 1. Age-indeterminate superior endplate deformity of L1. 2. No acute intra-abdominal or intrapelvic abnormality.
--- NOTE | 2025-04-23 00:38 | CT_ITS ---
PROCEDURE INFORMATION: Exam: CT Chest With Contrast; Diagnostic Exam date and time: 04/23/2025 1:08 AM Age: 79 years old Clinical indication: Injury or trauma TECHNIQUE: Imaging protocol: Diagnostic computed tomography of the chest with contrast. Radiation optimization: All CT scans at this facility use at least one of these dose optimization techniques: automated exposure control; mA and/or kV adjustment per patient size (includes targeted exams where dose is matched to clinical indication); or iterative reconstruction. Contrast material: ISOVUE; Contrast volume: 80 ml; Contrast route: IV; COMPARISON: CT ANGIO NECK 04/23/2025 1:04 AM FINDINGS: Lungs: There are dependent atelectatic changes. There is a mosaic pattern of the lungs which may represent air trapping. No consolidation or mass. Pleural spaces: There no pneumothorax. There is a trace left pleural effusion. Heart: There is a small pericardial effusion. The heart is top-normal in size Coronary arteries: Coronary artery calcifications and stents are noted. Lymph nodes: There are a few mildly prominent nonspecific mediastinal lymph nodes. Vasculature: Unremarkable. No aortic aneurysm. Bones/joints: There are moderate degenerative changes of the thoracic spine. No acute fracture the heart is top-normal in size. Soft tissues: Unremarkable. IMPRESSION: 1. No traumatic findings. 2. Nonurgent findings as noted.
[2025-04-23 00:44] LABS: Hematocrit 29.0 % (42.0-52.0); Hemoglobin 9.8 g/dL (14.1-18.0); Immature Granulocytes % 0.4 %; Mean Corpuscular HGB Conc 33.8 g/dL (31.8-35.4); Mean Corpuscular Hemoglobin 34.1 pg (27.0-31.2); Mean Corpuscular Volume 101.0 fl (80-94); Nucleated Red Blood Cells % 0 %; Platelet Count 160 K/mm3 (142-424); Red Blood Count 2.87 M/mm3 (4.60-6.20); Red Cell Distribution Width-SD 51.6 fL; White Blood Count 9.7 K/mm3 (4.8-10.8)
[2025-04-23 00:46] LABS: Albumin Level 3.8 g/dl (3.5-5.0); Chloride 102 mmol/L (98-107); Potassium 5.7 mmoL/L (3.5-5.1); Sodium 133 mmol/L (136-145)
--- NOTE | 2025-04-23 00:46 | PC.NURSE ---
pt out of the room for testing.
[2025-04-23 00:48] LABS: Alanine Aminotransferase 18 U/L (12-78); Anion Gap 16.7 mEq/L (5-15); Aspartate Amino Transferase 43 U/L (17-59); Blood Urea Nitrogen 56 mg/dl (9-20); Carbon Dioxide 20 mmol/L (22.0-30.0); Creatinine Clearance Estimated 24 mL/min (50-200); Creatinine,Serum 2.60 mg/dl (0.66-1.25); Estimated Glomerular Filt Rate 24 ml/min (>60); GFR (African American) 29 ML/MIN (>60); Magnesium 2.0 mg/dl (1.6-2.3)
[2025-04-23 00:49] LABS: Albumin/Globulin Ratio 1.2 (1.1-1.8); Alkaline Phosphatase 27 U/L (38-126); Bilirubin,Total 0.9 mg/dl (0.2-1.3); Calcium 8.9 mg/dl (8.4-10.2); Creatine Kinase 66 U/L (55-170); Globulin 3.1 g/dL (1.3-3.2); Glucose 140 mg/dl (74-100); Total Protein,Serum 6.9 g/dl (6.3-8.2)
[2025-04-23 00:52] LABS: Activated Partial Thrombo Time 27.3 seconds (22.8-30.6); INR 0.98 (0.9-1.1); Prothrombin Time 10.9 seconds (10.1-12.5)
--- OUTSIDE RECORDS SUMMARY | 2025-04-23 00:52 | XMS_ITS | Clinical Summary ---
Author Organization [facility] Address [address] [place] [address] Care Team Providers Care Pediatric Immunologist Name Role Phone Esequiel Huerta MD Primary Care Provider [phone] Allergies Active Allergy Reactions Criticality Noted Date [...] Description 01/31/2025 10:00 AM EDT Office Visit [facility] [address] [place] [id number] Piper Hudson APRN Stage 3b chronic kidney disease ([facility]) (Primary Dx); Essential hypertension; Other microscopic hematuria; Hyperkalemia; Chronic kidney disease-mineral and bone disorder; Diabetes mellitus due to underlying condition with diabetic chronic kidney disease, unspecified CKD stage, unspecified whether outpatient physical therapist insulin use ([facility]) 01/31/2025 Travel from Last 3 Months Social [...] or (1 - 1-dose 75+ series) 2020 [id number] Vaccine (6 - 2024- season) 2025 12/10/2021, 06/10/2021, 11/22/2020, Additional history exists [facility]-Influenza [...] age to complete this topic Care Teams Pediatric Immunologist Relationship Specialty Start Date End Date Esequiel Huerta MD [address] [place] [address] PCP - General 05/08/24
[2025-04-23 00:56] LABS: VBG HCO3 24.0 mmol/L (23-30); VBG PCO2 40.7 mmol/L (35-51); VBG PH 7.39 mmol/L (7.31-7.41); VBG PO2 53.4 mmol/L (28-40)
[2025-04-23 00:57] LABS: Lactate Venous 2.2 mmol/L (0.4-2.0)
[2025-04-23 00:59] LABS: NT Pro Brain Natriuretic Pep. 1510 pg/mL (0-450)
[2025-04-23 01:02] LABS: Troponin I 0.08 ng/ml (0.00-0.034)
[2025-04-23 01:06] LABS: T4 (Thyroxine) 5.4 ug/dl (5.53-11.0)
[2025-04-23 01:20] LABS: Thyroid Stimulating Hormone 2.36 uIU/mL (0.465-4.68)
[2025-04-23] MEDS: IOPAMIDOL-370 (76%);100ML BOTTLE 80 ML IV (01:21)
[2025-04-23] MEDS: 0.9 % SODIUM CHLORIDE 50 ML VIAL IV (01:21)
[2025-04-23] MEDS: SODIUM CHLORIDE 0.9% 10ML SYR (RAD ONLY) 10 ML IV (01:21)
--- NOTE | 2025-04-23 01:21 | ECG_ITS ---
APPROVED REPORT Exam: Resting ECG HR:72 bpm ECG Measurements Heart Rate 72 AXES KS 153 P 28 QRSd 91 QRS 42 QT 363 T 38 QTc 387 Conclusion SINUS RHYTHM WITH SINUS ARRHYTHMIA NORMAL ECG UNCONFIRMED REPORT Electronically signed by : ANSHU SOLOMON, 04/23/2025 07:42:59
[2025-04-23 01:31] LABS: Adenovirus,PCR Not Detected (NotDetected); Chlamydophila Pneumoniae, PCR Not Detected (NotDetected); Coronavirus 19, PCR Not Detected (NotDetected); Coronovirus HKU1,PCR Not Detected (NotDetected); Influenza A, PCR Not Detected (NotDetected); Influenza AH1, 2009 Not Detected (NotDetected); Influenza AH1, PCR Not Detected (NotDetected); Influenza AH3,PCR Not Detected (NotDetected); Influenza B, PCR Not Detected (NotDetected); Mycoplasma Pneumoniae, PCR Not Detected (NotDetected); Parainfluenza 1, PCR Not Detected (NotDetected); Parainfluenza 2, PCR Not Detected (NotDetected); Parainfluenza 3, PCR Not Detected (NotDetected); Parainfluenza 4, PCR Not Detected (NotDetected)
[2025-04-23 01:31] LABS: Bilirubin,Urine Negative (Negative); Color,Urine YELLOW (Yellow); Glucose,Urine (UA) Negative (Negative); Ketones,Urine Negative (Negative); Leukocyte Esterase,Urine Negative (Negative); Microscopic, Urine URINE MICROSCOPIC (MICROSCOPIC); PH,Urine 6.0 (5.0-8.5); Protein,Urine 1+ (Negative); Specific Gravity, Urine 1.020 (1.005-1.030); Urobilinogen,Urine 0.2 EU/dl (0.2)
[2025-04-23 01:37] LABS: Amorphous Sediment,Urine Trace /lpf; Squamous Epithelial Cell,Urine Occasional #/hpf (0-5); WBC,Urine Occasional #/hpf (0-3)
[2025-04-23 01:38] LABS: Sperm,Urine OCC /lpf
[2025-04-23 01:43] LABS: Amphetamine/Metha Screen,Urine Negative ng/ml (<1000)
[2025-04-23 01:44] LABS: Barbiturates Screen,Urine Positive ng/ml (<200); Benzodiazepines Screen,Urine Negative ng/ml (<200)
[2025-04-23 01:46] LABS: Methadone Screen,Urine Negative ng/ml (<300)
[2025-04-23 01:47] LABS: Opiate Screen,Urine Negative ng/ml (<300); Phencyclidine Screen,Urine Negative ng/ml (<25)
--- NOTE | 2025-04-23 02:16 | MR_ITS ---
FINAL REPORT TECHNIQUE: Multiplanar MR without contrast CLINICAL HISTORY: Status post fall, aphasia, AMS overnight FINDINGS: Diffusion sequences show no signal abnormality to indicate acute infarct. Scattered periventricular white matter signal changes are seen compatible with advanced chronic ischemic gliotic disease. Severe generalized atrophy is present. No mass, hemorrhage or edema is seen. Ventricles are normal. Major vascular flow voids are intact. IMPRESSION: 1. No mass, acute infarct or hydrocephalus 2. Advanced atrophy and chronic ischemic white matter changes Reviewed, Interpreted and Dictated by Tona hTomas MD Transcribed by Shante Mccloud Authenticated and [facility]
--- NOTE | 2025-04-23 02:36 | PC.NURSE ---
report given to linnea JEFFERSON
--- NOTE | 2025-04-23 02:42 | EXP.HP ---
History of Present Illness *Admission Date: 04/23/25 *Reason for visit:: Fall into cedar chest, aphasia, altered mental status *History of present illness: Extremely nice 79-year-old male with past medical history of Parkinson's disease, diabetes, TIA, CAD status post left heart cath with stent placement to months ago by Dr. Alejandro, dementia, MAURI not on CPAP. Patient presents after witnessed fall at home. Patient witnessed hitting cedar chest by family at home, and brought to emergency room by EMS for evaluation. Family also states patient suffered from confusion, aphasia during fall episode. EMS notified, and patient reportedly hypoxic/confused upon EMS arrival. Patient brought to emergency room and given 1 L crystalloid with resolution of confusion. CT head/neck/abdomen/spine all within normal limits in the emergency room. UA showed no signs of infection. Patient denies fevers, chills, chest pain, loss of consciousness, palpitations, painful urination. States he had similar fall episode in September. Patient hard of hearing, but without speech deficits during my evaluation in the emergency room. Patient's BUN/creatinine 56/2.6 during ED evaluation. Denies history of chronic kidney disease. No family present during my evaluation of patient in the emergency room. [facility] Disclaimer: The information contained in this section may have been updated after the patient was seen, as this information can be updated by other users. Medical History Deviated septum septum is deviated the left anteriorly and back to the right posteriorly CAD (coronary artery disease) Hyperkalemia Aortic insufficiency Impacted cerumen of right ear Chronic right mastoiditis His CT scan showed significant resolution of the mastoid inflammation and fluid Cardiac murmur Abnormal ECG SOB (shortness of breath) High cholesterol Parkinson disease Surgical History History of heart artery stent Hx of cardiac cath Hx of nasal septoplasty History of uvulectomy Hx of adenoidectomy History of dental surgery Hx of tonsillectomy Social History Smoking Status: Never smoker alcohol intake: never substance use type: denies use current occupational status: retired Travel in the last 8 weeks?: None Other Medical History Have you received the Pneumonia Vaccine: Yes Review of Systems Review of Systems Review of systems (narrative): see [facility] Home Medications and Allergies Home Medications ?Medication ?Instructions ?Recorded ?Confirmed ?Type walker #1 ea 09/18/24 03/31/25 Rx allopurinol 100 mg tablet 100 mg PO DAILY 10/21/24 03/31/25 History citalopram 20 mg tablet 20 mg PO DAILY 10/21/24 03/31/25 History clopidogrel 75 mg tablet 75 mg PO DAILY 10/21/24 03/31/25 History divalproex 500 mg tablet,delayed 500 mg PO BID 10/21/24 03/31/25 History release primidone 50 mg tablet 50 mg PO HS 10/21/24 03/31/25 History quetiapine 100 mg tablet 100 mg PO DAILY 10/21/24 03/31/25 History tamsulosin 0.4 mg capsule 0.4 mg PO DAILY 10/21/24 03/31/25 History diphenhydramine HCl 25 mg capsule 25 mg PO ONCE contrast allergy #1 01/14/25 03/31/25 Rx (Benadryl) cap aspirin 81 mg tablet 81 mg PO DAILY 30 days #30 tabs 03/03/25 03/31/25 Rx lisinopril 5 mg tablet 5 mg PO DAILY #90 tabs 03/05/25 03/31/25 Rx atorvastatin 40 mg tablet (Lipitor) 40 mg PO DAILY #90 tabs 03/12/25 03/31/25 Rx levothyroxine 25 mcg tablet 25 mcg PO DAILY #30 tabs 03/21/25 03/31/25 Rx (Synthroid) propranolol 60 mg tablet 60 mg PO DAILY #90 tabs 04/01/25 04/01/25 Rx sitagliptin 50 mg tablet 50 mg PO DAILY #90 tabs 04/01/25 04/01/25 Rx memantine 10 mg tablet 10 mg PO BID #60 tabs 04/14/25 Rx New Prescriptions to Start Prescriptions: Allergies Allergy/AdvReac Type Severity Reaction Status Date / Time iodine Allergy throat Verified 03/31/25 11:14 swelling, hives Exam Data for Last 24 hours Vital signs and Labs for Last 24 Hours: Temp Pulse Resp BP Pulse Ox O2 Del Method O2 Flow Rate 98.9 F 64 20 126/62 95 Room Air 2 04/23/25 00:32 04/23/25 02:00 04/23/25 02:00 04/23/25 02:00 04/23/25 02:00 04/23/25 01:28 04/23/25 00:32 Laboratory Results - last 24 hr 04/22/25 00:00: Plasma/Serum Alcohol < 10 04/22/25 23:55: WBC 9.7, RBC 2.87 L, Hgb 9.8 L, Hct 29.0 L, MCV 101.0 H, MCH 34.1 H, MCHC 33.8, RDW 14.1, Plt Count 160, MPV 9.9, Neut % (Auto) 75.9, Lymph % (Auto) 16.0, Meeker % (Auto) 7.6, Eos % (Auto) 0.0 L, Baso % (Auto) 0.1, Neut # (Auto) 7.3, Lymph # (Auto) 1.6, Meeker # (Auto) 0.7, Eos # (Auto) 0.0, Baso # (Auto) 0.0, PT 10.9, INR 0.98, APTT 27.3, Sodium 133 L, Potassium 5.7 H, Chloride 102, Carbon Dioxide 20 L, Anion Gap 16.7 H, BUN 56 H, Creatinine 2.60 H, Estimated Creat Clear 24, Estimated GFR 24 L, Est GFR ( Amer) 29 L, Glucose 140 H, Calcium 8.9, Magnesium 2.0, Total Bilirubin 0.9, AST 43, ALT 18, Alkaline Phosphatase 27 L, Total Creatine Kinase 66, Troponin I 0.08 H, NT-Pro-B Natriuret Pep 1510 H, Total Protein 6.9, Albumin 3.8, Globulin 3.1, Albumin/Globulin Ratio 1.2, TSH 2.36, Thyroxine (T4) 5.4 L 04/23/25 00:38: VBG pH 7.39, VBG pCO2 40.7, VBG pO2 53.4 H, VBG HCO3 24.0, VBG Total CO2 25.3, VBG O2 Saturation 85.4 H, VBG Base Excess -0.9, VBG Lactic Acid 2.2 H 04/23/25 01:26: Urine Color Yellow, Urine Appearance Clear, Urine pH 6.0, Ur Specific Custer 1.020, Urine Protein 1+ A, Urine Glucose (UA) Negative, Urine Ketones Negative, Urine Blood Negative, Urine Nitrate Negative, Urine Bilirubin Negative, Urine Urobilinogen 0.2, Ur Leukocyte Esterase Negative, Urine RBC None, Urine WBC Occasional, Ur Squamous Epith Cells Occasional, Amorphous Sediment Trace, Urine Sperm Occ 04/23/25 01:28: Urine Opiates Screen Negative, Urine Methadone Screen Negative, Ur Barbituates Screen Positive H, Ur Phencyclidine Scrn Negative, Ur Amphetamines Screen Negative, U Benzodiazepines Scrn Negative, Urine Cocaine Screen Negative, U Marijuana (THC) Screen Negative I & O for Last 24 hours: Intake & Output 04/20/25 04/21/25 04/22/25 04/23/25 23:59 23:59 23:59 23:59 Weight 74.344 kg Constitutional Constitutional: no acute distress *Routine HEENT Exam Head: Present normocephalic Eye: Present EOMI ENT: Present mucous membranes moist *Routine Neck Exam Neck: Present supple and full ROM *Routine Respiratory Exam Respiratory: Present patient mechanically ventilated *Routine Cardiovascular Exam Cardiovascular: Present RRR, Normal S1 and Normal S2 *Routine Abdominal Exam Abdominal: Present soft and normoactive bowel sounds *Routine Rectal Exam Rectal:: deferred *Routine Genitalia Exam Genitalia:: deferred *Routine Extremities Exam Extremities: Present full ROM Routine Back/Spine/Pelvis Exam Back/Spine: Present full ROM *Routine Skin Exam Skin: Present intact *Routine Neurological Exam Neurological: Present alert and oriented X3 Routine Psychiatric Exam Psychiatric: Present normal affect Assessment and Plan *Assessment and plan (1) Spell of change in speech: Status: Acute Category: Medical Code(s): R47.89 - Other speech disturbances (2) AMS (altered mental status): Status: Acute Category: Medical Code(s): R41.82 - Altered mental status, unspecified (3) Acute hyperkalemia: Status: Acute Category: Medical Code(s): E87.5 - Hyperkalemia (4) MIGUEL (acute kidney injury): Status: Acute Category: Medical Code(s): N17.9 - Acute kidney failure, unspecified Plan Extremely nice 79-year-old male with past medical history of Parkinson's disease, diabetes, TIA, CAD status post left heart cath with stent placement to months ago by Dr. Diaz, dementia, MAURI not on CPAP. Patient presents after witnessed fall at home. Patient witnessed hitting cedar chest by family at home, and brought to emergency room by EMS for evaluation. Altered mental status rule out CVA: ? Patient's family told EMS that patient has history of TIAs. CTA head/neck, and CT brain without signs of acute infarction. Will order MRI brain to rule out acute CVA given patient's aphasia/confusion symptoms tonight. Given patient's improvement in mental status in the emergency room, patient's confusion is likely secondary to dehydration. Full respiratory panel nasopharyngeal pending in emergency room to rule out respiratory illness as cause of altered mental status. No signs of genitourinary infection noted from UTI inspection. Dehydration: ? Most likely etiology for patient's symptoms tonight. 1 L normal saline given in emergency room. Will continue 100 cc/h normal saline x 24 hours. Follow daily weights and I's and O's during hospitalization. Status post fall likely dehydration/Parkinson's related, ? Given patient had similar fall back in September, suspect underlying Parkinson's disease related shuffling gait and dehydration as cause of fall episodes. Order PT/OT evaluation during hospitalization. The rest of workup as noted in AMS/dehydration sections. Elevated troponin: Admission troponin 0.08. Will trend troponins every 3 x 2 then stop if trend is normal. Monitor patient on cardiac monitoring overnight. PPx: Heparin 5000 units subcu daily CODE STATUS full FEN: Regular diet MDM ? I spoke with emergency room provider about patient ? I made decision admit patient to hospital status post fall for altered mental status evaluation ?Complex medical patient with acute altered mental status, acute dehydration, acute MIGUEL, chronic Parkinson's/TIA/dementia/CAD issues. ? I reviewed all imaging/lab work listed below including MDM I reviewed all pertinent lab work/imaging during patient's admission evaluation including WBC 9.7, Hgb 9.8, HCT 29 platelets 160 PTT 27.3, INR 0.98, PT 10.9 MAG 2.9 NA 133, K5.7, CL 102, CO2 20, 56, CR 2.6, GLU 140 Total bili 0.9, AST 43, ALT 18, alk phos 27, total protein 6.9 CPK 66 Blood alcohol level <10, TSH 2.36, free T4=5.4, troponin 0.08 BMP 1510 Urine drug screen. Positive for barbiturates CT lumbar/cervical/thoracic spine without acute abnormalities CT abdomen/pelvis without acute abnormalities CT brain: No acute abnormalities CTA head/neck moderate to severe stenosis left vertebral artery, no LVO 01/09/2025 echocardiogram: EF 55% moderate regurg I will repeat troponin every 3 hours x 2, I will also repeat CBC, mag, BMP in AM. 35 minutes interpreted hospital patient with myself 04/23/2025 Discharge planning: Hopefully within next 24 to 96 hours depending on patient's response to IV hydration and MIGUEL treatment.
--- NOTE | 2025-04-23 02:58 | PC.NURSE ---
Patient arrived to floor via stretcher from ED at 02:46.
[2025-04-23] MEDS: 0.9 % SODIUM CHLORIDE 1000ML 1,000 ML 100 ML IV ×2 (03:51→15:13)
--- NOTE | 2025-04-23 04:55 | PC.NURSE ---
When doing this Patient Admission it was not possible for me to verify the medications and to assess his home left. From the ER MD's note Pt has had a long history of dementia. He is pleasant and can tell you his name what day of the week it is and where her is at. His speech is very gabbled and slurred. Pt has a bed alarm on and call light with in reach. LISBETH BRADY RN
[2025-04-23 04:57] LABS: Reflex Lactic Add Lactic Reflex
[2025-04-23 05:05] LABS: Troponin I 0.06 ng/ml (0.00-0.034)
[2025-04-23 06:35] LABS: Hematocrit 28.1 % (42.0-52.0); Hemoglobin 9.1 g/dL (14.1-18.0); Immature Granulocytes % 0.2 %; Mean Corpuscular HGB Conc 32.4 g/dL (31.8-35.4); Mean Corpuscular Hemoglobin 33.0 pg (27.0-31.2); Mean Corpuscular Volume 101.8 fl (80-94); Nucleated Red Blood Cells % 0 %; Platelet Count 120 K/mm3 (142-424); Red Blood Count 2.76 M/mm3 (4.60-6.20); Red Cell Distribution Width-SD 52.8 fL; White Blood Count 8.7 K/mm3 (4.8-10.8)
[2025-04-23 06:41] LABS: Lactic Acid Follow Up (RFLX 1) 0.7 mmol/L (0.7-2.1)
[2025-04-23 06:42] LABS: Anion Gap 9.3 mEq/L (5-15); Blood Urea Nitrogen 45 mg/dl (9-20); Calcium 8.3 mg/dl (8.4-10.2); Carbon Dioxide 24 mmol/L (22.0-30.0); Chloride 104 mmol/L (98-107); Creatinine Clearance Estimated 26 mL/min (50-200); Creatinine,Serum 2.40 mg/dl (0.66-1.25); Estimated Glomerular Filt Rate 26 ml/min (>60); GFR (African American) 32 ML/MIN (>60); Glucose 92 mg/dl (74-100); Magnesium 2.1 mg/dl (1.6-2.3); Potassium 4.3 mmoL/L (3.5-5.1); Sodium 133 mmol/L (136-145)
[2025-04-23 06:53] LABS: Troponin I 0.06 ng/ml (0.00-0.034)
--- NOTE | 2025-04-23 07:50 | HMH.PHAINT1 ---
Pharmacy Intervention Comments: MEDICATION RECONCILIATION COMPLETED ON PATIENT USING EXTERNAL FILL HISTORY FROM PHARMACY AND LISTS FROM PCP, NEUROLOGY, AND CARDIOLOGY OFFICES. -MINA LI, AMADOUD
[2025-04-23] MEDS: ALLOPURINOL 100MG TABLET 100 MG PO (08:59)
[2025-04-23] MEDS: CITALOPRAM 20MG TABLET 20 MG PO (08:59)
[2025-04-23] MEDS: LEVOTHYROXINE 25MCG (0.025MG) TAB 25 MCG PO (08:59)
[2025-04-23] MEDS: DIVALPROEX 500MG (Delayed-Release) TABLET 500 MG PO ×2 (08:59→20:15)
[2025-04-23] MEDS: TAMSULOSIN 0.4MG CAPSULE 0.4 MG PO (08:59)
[2025-04-23] MEDS: LISINOPRIL 5MG TABLET 5 MG PO (08:59)
[2025-04-23] MEDS: PROPRANOLOL 20MG TAB 60 MG PO (08:59)
[2025-04-23] MEDS: MEMANTINE 10MG TABLET 10 MG PO ×2 (09:01→20:15)
[2025-04-23] MEDS: CLOPIDOGREL 75MG TAB 75 MG PO (09:05)
[2025-04-23] MEDS: ASPIRIN EC 81MG TABLET 81 MG PO (09:05)
[2025-04-23] MEDS: HEPARIN SODIUM 5,000 UNIT/ML VIAL 5000 UNIT SUBCUT ×3 (09:07→20:15)
--- NOTE | 2025-04-23 11:15 | SW/DCPLANNER ---
Addendum entered by Tammy Mc 04/23/25 14:06: [facility] is able to accept patient. Giancarlo Osborn Original Note: Spoke with patient once he is medically stable and ready for discharge if he would be interested in home health services. Patient stated that he is interested in home health and that he has no preference in what agency i send his information to. I will fax patient's information to [facility] and will update once i hear back from them. Giancarlo Osborn
--- NOTE | 2025-04-23 11:17 | HMH.PTEV ---
Physical Therapy Evaluation Rehab PT IP Evaluation Start: 04/23/25 03:20 Freq: ONCE Status: Active Protocol: Document 04/23/25 10:48 NATACHA (Rec: 04/23/25 11:17 NATACHA [id number]) Subjective/History History History Per H&P: Extremely nice 79-year-old male with past medical history of Parkinson's disease, diabetes, TIA, CAD status post left heart cath with stent placement to months ago by Dr. Alejandro, dementia, MAURI not on CPAP. Patient presents after witnessed fall at home. Patient witnessed hitting cedar chest by family at home , and brought to emergency room by EMS for evaluation. Family also states patient suffered from confusion, aphasia during fall episode. EMS notified, and patient reportedly hypoxic/confused upon EMS arrival. Patient brought to emergency room and given 1 L crystalloid with resolution of confusion. CT head/neck/abdomen/ spine all within normal limits in the emergency room. UA showed no signs of infection. Patient denies fevers , chills, chest pain, loss of consciousness, palpitations, painful urination. States he had similar fall episode in September. Patient hard of hearing, but without speech deficits during my evaluation in the emergency room. Patient's BUN/creatinine 56/2.6 during ED evaluation. Denies history of chronic kidney disease. No family present during my evaluation of patient in the emergency room. Subjective Subjective Pt reports he lives with his and son in a single- story home with no MONI. Pt reports he is normally IND with mobility. Pt owns a RW but reports he rarely uses it. New diagnosis of No cancer in past 12 months? [facility] How much help from another person do you currently need... Turning from your None back to your side while in a flat bed without using bedrails? Moving from lying on None back to sitting on the side of a flat bed without using bedrails? Moving to and from a None bed to a chair ( including a wheelchair)? Standing up from a None chair using your arms? (e.g., wheelchair, bedside chair) Walking in hospital A little room? Climbing 3-5 steps A little with a railing? Mobility Score 22 Mobility Level [facility] Mobility Walk 25 feet or more Mobility Calculator Rehab PT IP Eval Objective Appearance Patient Behavior Appropriate,Cooperative Patient Orientation Person,Place Difficulty following none instructions Speech Pattern Clear Ambulation Patient Able to Yes Ambulate Ambulation Observation IP General Gait Shuffling Step Pattern Observation Ambulation Distance 30 (feet) Ambulation Assistive None Device Ambulation Ability Supervision/Stand by Balance Ability to Arise Able, uses arms to help Sitting Balance Steady, safe Standing Balance Steady, wide stance Dynamic Sitting Good Balance Ability Dynamic Standing Good Balance Ability Transfers Bed Transfer Ability Independent Sit to Stand Bed Supervision/Stand by Transfer Ability Rehab PT IP prob,goals,plan Problems Date of Evaluation: 04/23/25 Rehab Potential Rehab Potential Innapropriate for Skilled Therapy Discharge Plan PT Discharge Plan Pt most appropriate to d/c home when deemed medically necessary d/t current level of mobility, home set-up, and family support. Pt not appropriate for skilled acute care PT at this time d/t pt?s mobility being at baseline. PT recommending pt use RW to maximize safety with ambulation d/t shuffling gait. Pt would benefit from OP or HH PT to address his gait and balance impairments. Eval Complexity Eval Charge Codes 68460 - Moderate Complexity PHYSICIAN CERTIFICATION: I certify the specified therapy services for Wilson Esteban are required, authorized, and reviewed every 30 days.
--- NOTE | 2025-04-23 11:33 | HMH.OTEV ---
OT Evaluation Rehab OT IP Evaluation Start: 04/23/25 02:36 Freq: ONCE Status: Active Protocol: Document 04/23/25 11:25 PRINCESS (Rec: 04/23/25 11:32 PRINCESS [id number]) Rehab OT IP Assessment Subjective History Per HPI: HPI narrative: 79-year-old male with history of coronary artery disease status post recent stenting, on aspirin and clopidogrel, history of chronic kidney disease, Parkinson's, prior mini strokes, presents for altered mental status and fall. History is somewhat unclear. Per family, he has been complaining intermittently of chest pain over the last few days. He was eating and drinking normally, did not have a fever or any obvious infectious symptoms today. He went to bed and was seemingly normal. He awoke and fell against a cedar chest and afterwards was confused, altered, with some garbled speech. EMS reports that he was initially hypotensive and confused but significantly improved after 500 mL of fluid en route. On arrival patient is alert and oriented to person and place but not year. He reports no significant discomfort or pain, denies any numbness or weakness. Subjective I guess he is 52. Pt was supine in bed when therapy entered room. Pt orient x3. Pt reported they live with and son in SS home with no steps to enter. Pt reports they have walker, but do not use it for FM tasks. Pt reports they have hx of falling back in october. Pt reports no current falls in past 30 days. Pt reports they are ind in ADLs and IADLs and do not drive, but have family to drive them. pt reports they are not normally on O2, but was on 2 L of O2 at time of evaluation. pt agreed to FM task. Pt went from supine to EOB ind. Pt then demo dynamic sitting balance at EOB to don socks with Ind. Pt then able to complete STS transfer with Ind and complete FM task with CGA just for safety as pt had Parkinsons gait present. Pt demo good balance and endurance for task. Pt then sat back on EOB ind and went to supine position. Pt left supine in bed with call light and all other needs within reach. Objective Patient Orientation Person,Place,Birthday Right Upper WFL Extremity Gross ROM Left Upper Extremity WFL Gross ROM Bed Mobility bed mobility-scooting,bed mobility - supine/sit Assist Level Independent Transfer Training Sit/Stand Transfer Assist Level Independent Chair Transfer Sit to/from Ambulatory Technique Chair Transfer None Assistive Devices Lower Body Dressing Independent Ability Decrease in No Endurance Rehab OT IP prob,goals,plan Problems Date of Evaluation: 04/23/25 Rehab Potential Rehab Potential Innapropriate for Skilled Therapy Equipment Needs Assistive Devices Standard Walker,Rolling / Wheeled Walker Discharge Plan OT Discharge Plan At this time, pt is at baseline and would not benefit from skilled cute OT services and interventions while admitted at [facility]. Once medically stable, pt can DC home. Pt could benefit from skilled OT services to improve QOL and functional limitations in occupational performance. Eval Complexity Eval Charge Codes 55669 - Moderate Complexity PHYSICIAN CERTIFICATION: I certify the specified therapy services for Wilson Esteban are required, authorized, and reviewed every 30 days.
[2025-04-23 14:23] LABS: Chloride 104 mmol/L (98-107); Potassium 4.3 mmoL/L (3.5-5.1); Sodium 138 mmol/L (136-145)
[2025-04-23 14:26] LABS: Anion Gap 13.3 mEq/L (5-15); Blood Urea Nitrogen 45 mg/dl (9-20); Calcium 8.9 mg/dl (8.4-10.2); Carbon Dioxide 25 mmol/L (22.0-30.0); Creatinine Clearance Estimated 27 mL/min (50-200); Creatinine,Serum 2.30 mg/dl (0.66-1.25); Estimated Glomerular Filt Rate 28 ml/min (>60); GFR (African American) 33 ML/MIN (>60); Glucose 120 mg/dl (74-100)
--- NOTE | 2025-04-23 15:11 | P.EN_ITS ---
<Statement entered by Naeem Interiano MD - 04/23/25 15:50> Rounded on patient after nurse practitioner. Personally examined and interviewed patient. Agree with exam findings and care plan as documented. Mr. Esteban is a very pleasant 79-year-old male who presented to the emergency room early this morning after a fall. He has a history of Parkinson's disease, bipolar, cognitive impairment, CAD, mood disorder, seizures, gout, hyperlipidemia, LHC with NED, & BPH. Patient's family states that he has known Parkinson's disease and had a witnessed fall at home. He did not lose consciousness but speech was garbled after the fall. Extensive workup was done at the emergency department that revealed the patient had elevated BUN/creatinine level, hyperkalemia present on admission, and elevated troponin. CTAs of head/neck, brain without signs of acute infarct. MRI done today showed no acute findings. Patient mentation has been baseline, patient aware of si tuation, name, birthday, year. Patient was assessed by PT/OT who states he is at baseline function and can return home to previous living situation. Patient was given 1 L bolus in the ED and fluids continued at 100 mL/H. Kidney function slightly improved this afternoon, creatinine 2.3?baseline appears to be around 1.5. Hyperkalemia resolved. Will continue fluid rehydration. Patient had recent heart cath in February 2025, troponin initially 0.08 trending downward to 0.06. Patient denies any chest pain. Will recheck CBC, CMP in the AM. Plans to discharge home tomorrow.
--- OUTSIDE RECORDS SUMMARY | 2025-04-23 15:37 | XMS_ITS | Clinical Summary ---
Author Organization [facility] Address [address] [place] [address] Care Team Providers Care Yard Coordinator Name Role Phone Esequiel Huerta MD Primary Care Provider [phone] Allergies Active Allergy Reactions Criticality Noted Date [...] Description 01/31/2025 10:00 AM EDT Office Visit [facility] [address] [place] [id number] Piper Hudson APRN Stage 3b chronic kidney disease ([facility]) (Primary Dx); Essential hypertension; Other microscopic hematuria; Hyperkalemia; Chronic kidney disease-mineral and bone disorder; Diabetes mellitus due to underlying condition with diabetic chronic kidney disease, unspecified CKD stage, unspecified whether long term care pharmacist insulin use ([facility]) 01/31/2025 Travel from Last 3 Months [...] or (1 - 1-dose 75+ series) 2020 [id number] Vaccine (6 - 2024- season) 2025 12/10/2021, [...] age to complete this topic Care Teams Yard Coordinator Relationship Specialty Start Date End Date Esequiel Huerta MD [address] [place] [address] PCP - General 05/08/24
[2025-04-23] MEDS: ACETAMINOPHEN 325MG TAB 650 MG PO (17:13)
--- NOTE | 2025-04-23 17:50 | PC.NURSE ---
pt is resting in bed, ate good meals today, MRI neg. IV c/d/i running NS @ 100, Tylenol given for low grade fever of 99.4, call light in reach
[2025-04-23] MEDS: PRIMIDONE 50MG TABLET 50 MG PO (20:15)
[2025-04-24] VITALS: BP 154/67; PULSE 85; RESP 17; TEMP 37; O2SAT 96
[2025-04-24] MEDS: 0.9 % SODIUM CHLORIDE 1000ML 1,000 ML 100 ML IV (00:51)
[2025-04-24 04:00] VITALS: BP 158/96; PULSE 100; RESP 17; TEMP 37.1; O2SAT 97
[2025-04-24 06:17] LABS: Hematocrit 29.5 % (42.0-52.0); Hemoglobin 9.8 g/dL (14.1-18.0); Immature Granulocytes % 0.2 %; Mean Corpuscular HGB Conc 33.2 g/dL (31.8-35.4); Mean Corpuscular Hemoglobin 33.4 pg (27.0-31.2); Mean Corpuscular Volume 100.7 fl (80-94); Nucleated Red Blood Cells % 0 %; Platelet Count 132 K/mm3 (142-424); Red Blood Count 2.93 M/mm3 (4.60-6.20); Red Cell Distribution Width-SD 50.6 fL; White Blood Count 6.0 K/mm3 (4.8-10.8)
[2025-04-24] MEDS: LEVOTHYROXINE 25MCG (0.025MG) TAB 25 MCG PO (06:27)
[2025-04-24 06:32] LABS: Anion Gap 12.3 mEq/L (5-15); Blood Urea Nitrogen 36 mg/dl (9-20); Calcium 8.8 mg/dl (8.4-10.2); Carbon Dioxide 23 mmol/L (22.0-30.0); Chloride 106 mmol/L (98-107); Creatinine Clearance Estimated 36 mL/min (50-200); Creatinine,Serum 1.70 mg/dl (0.66-1.25); Estimated Glomerular Filt Rate 39 ml/min (>60); GFR (African American) 47 ML/MIN (>60); Glucose 83 mg/dl (74-100); Magnesium 1.9 mg/dl (1.6-2.3); Potassium 4.3 mmoL/L (3.5-5.1); Sodium 137 mmol/L (136-145)
[2025-04-24 08:00] VITALS: BP 141/69; PULSE 117; PULSE 90; RESP 16; TEMP 36.7; O2SAT 96
--- NOTE | 2025-04-24 08:27 | P.DS_ITS ---
<Statement entered by Naeem Interiano MD - 04/24/25 13:12> Rounded on patient after nurse practitioner. Personally examined and interviewed patient. Agree with exam findings and care plan as documented. General Admission date:: 04/23/25 Discharge date: 04/24/25 HPI HPI HPI: Extremely nice 79-year-old male with past medical history of Parkinson's disease, diabetes, TIA, CAD status post left heart cath with stent placement to months ago by Dr. Alejandro, dementia, MAURI not on CPAP. Patient presents after witnessed fall at home. Patient witnessed hitting cedar chest by family at home, and brought to emergency room by EMS for evaluation. Family also states patient suffered from confusion, aphasia during fall episode. EMS notified, and patient reportedly hypoxic/confused upon EMS arrival. Patient brought to emergency room and given 1 L crystalloid with resolution of confusion. CT head/neck/abdomen/spine all within normal limits in the emergency room. UA showed no signs of infection. Patient denies fevers, chills, chest pain, loss of consciousness, palpitations, painful urination. States he had similar fall episode in September. Patient hard of hearing, but without speech deficits during my evaluation in the emergency room. Patient's BUN/creatinine 56/2.6 during ED evaluation. Denies history of chronic kidney disease. No family present during my evaluation of patient in the emergency room. Hospital Course Hospital Course Hospital Course: Mr. Esteban is a very pleasant 79-year-old male who presented to the emergency room early yesterday morning after a fall. He has a history of Parkinson's disease, bipolar, cognitive impairment, CAD, mood disorder, seizures, gout, hyperlipidemia, LHC with NED, & BPH. Patient's family states that he has known Parkinson's disease and had a witnessed fall at home. He did not lose consciousness but speech was garbled after the fall. Extensive workup was done at the emergency department that revealed the patient had elevated BUN/creatinine level, hyperkalemia present on admission, and elevated troponin. CTAs of head/neck, brain without signs of acute infarct. MRI done today showed no acute findings. Patient mentation has been baseline, patient aware of situation, name, birthday, year. Patient was assessed by PT/OT who states he is at baseline function and can return home to previous living situation. Patient was given 1 L bolus in the ED and fluids continued at 100 mL/H. Kidney function slightly improved this afternoon, creatinine 2.3?baseline appears to be around 1.5. Hyperkalemia resolved. Will continue fluid rehydration. Patient had recent heart cath in February 2025, troponin initially 0.08 trending downward to 0.06. Patient continued to deny chest pain during admission. Initial kidney function elevated on admission, BUN 45, creatinine 2.40. Patient received IV fluid hydration throughout admission, repeat BUN/creatinine day of discharge BUN 36, creatinine 1.70. Patient is well-appearing, states he is ready to go home. Conversation with patient's family state he has assistance within the home. Patient is back to baseline and appropriate for discharge today. Patient should continue home medications at discharge: Allopurinol 100 mg daily, aspirin 81 mg daily, atorvastatin 40 mg daily, citalopram 20 mg daily, Plavix 75 mg daily, Depakote 500 mg twice daily, levothyroxine 25 mcg daily, lisinopril 5 mg daily, memantine 10 mg twice daily, primidone 50 mg at bedtime, propranolol 60 mg daily, quetiapine 100 mg daily, sitagliptin 50 mg daily, and tamsulosin 0.4 mg daily. Exam Data for Last 24 hours Vital signs and Labs for Last 24 Hours: Temp Pulse Resp BP Pulse Ox O2 Del Method O2 Flow Rate 98.7 F 100 H 17 158/96 H 97 Room Air 2 04/24/25 04:00 04/24/25 04:00 04/24/25 04:00 04/24/25 04:00 04/24/25 04:00 04/24/25 07:56 04/23/25 09:00 Laboratory Results - last 24 hr 04/23/25 14:09: Sodium 138, Potassium 4.3, Chloride 104, Carbon Dioxide 25, Anion Gap 13.3, BUN 45 H, Creatinine 2.30 H, Estimated Creat Clear 27, Estimated GFR 28 L, Est GFR ( Amer) 33 L, Glucose 120 H D, Calcium 8.9 04/24/25 05:48: WBC 6.0 D, RBC 2.93 L, Hgb 9.8 L, Hct 29.5 L, MCV 100.7 H, MCH 33.4 H, MCHC 33.2, RDW 13.6, Plt Count 132 L, MPV 9.9, Neut % (Auto) 65.9, Lymph % (Auto) 22.8, [place] % (Auto) 10.7 H, Eos % (Auto) 0.2, Baso % (Auto) 0.2, Neut # (Auto) 3.9, Lymph # (Auto) 1.4, [place] # (Auto) 0.6, Eos # (Auto) 0.0, Baso # (Auto) 0.0, Sodium 137, Potassium 4.3, Chloride 106, Carbon Dioxide 23, Anion Gap 12.3, BUN 36 H, Creatinine 1.70 H D, Estimated Creat Clear 36, Estimated GFR 39 L, Est GFR ( Amer) 47 L D, Glucose 83 D, Calcium 8.8, Magnesium 1.9 I & O for Last 24 hours: Intake & Output 04/21/25 04/22/25 04/23/25 04/24/25 23:59 23:59 23:59 23:59 Intake Total 1240 / 1340 1281.666 / 1281.666 Output Total 425 / 425 900 / 900 Balance 815 / 915 381.666 / 381.666 Weight 72.575 kg Microbiology Reports for the Last 24 Hours: Microbiology 04/23/25 00:36 Blood Blood Culture - Preliminary NO GROWTH AFTER 24 HOURS 04/23/25 00:36 Blood Blood Culture - Preliminary NO GROWTH AFTER 24 HOURS Constitutional Constitutional: no acute distress, average body habitus and cooperative *Routine HEENT Exam Head: Present normocephalic *Routine Neck Exam Neck: Present supple and full ROM; Absent lymphadenopathy *Routine Respiratory Exam Respiratory: Present CTA bilaterally, able to speak in complete sentences and symmetric chest movement; Absent wheezes or crackles *Routine Cardiovascular Exam Cardiovascular: Present RRR, Normal S1 and Normal S2 *Routine Abdominal Exam Abdominal: Present soft and normoactive bowel sounds; Absent tenderness or distended *Routine Extremities Exam Extremities: Present full ROM, pulses intact and normal capillary refill; Absent edema *Routine Skin Exam Skin: Present intact, dry and pallor; Absent rash *Routine Neurological Exam Neurological: Present alert, vision grossly intact, hearing grossly intact and normal speech Comments: Oriented to self, birthday, situation Routine Psychiatric Exam Psychiatric: Present normal affect Results Data Completed and Pending Labs on day of discharge: Labs from last 24 hours 04/24/25 04/23/25 05:48 14:09 WBC 6.0 D RBC 2.93 L Hgb 9.8 L Hct 29.5 L MCV 100.7 H MCH 33.4 H MCHC 33.2 RDW 13.6 Plt Count 132 L MPV 9.9 Neut % (Auto) 65.9 Lymph % (Auto) 22.8 [place] % (Auto) 10.7 H Eos % (Auto) 0.2 Baso % (Auto) 0.2 Neut # (Auto) 3.9 Lymph # (Auto) 1.4 [place] # (Auto) 0.6 Eos # (Auto) 0.0 Baso # (Auto) 0.0 Sodium 137 138 Potassium 4.3 4.3 Chloride 106 104 Carbon Dioxide 23 25 Anion Gap 12.3 13.3 BUN 36 H 45 H Creatinine 1.70 H D 2.30 H Estimated Creat Clear 36 27 Estimated GFR 39 L 28 L Est GFR ( Amer) 47 L D 33 L Glucose 83 D 120 H D Calcium 8.8 8.9 Magnesium 1.9 Preliminary micro results at discharge 04/23/25 00:36 Blood Culture - Preliminary Blood NO GROWTH AFTER 24 HOURS 04/23/25 00:36 Blood Culture - Preliminary Blood NO GROWTH AFTER 24 HOURS DS: Diagnosis Discharge Diagnosis (1) Spell of change in speech: Status: Acute Code(s): R47.89 - Other speech disturbances (2) AMS (altered mental status): Status: Acute Code(s): R41.82 - Altered mental status, unspecified (3) Acute hyperkalemia: Status: Acute Code(s): E87.5 - Hyperkalemia (4) MIGUEL (acute kidney injury): Status: Acute Code(s): N17.9 - Acute kidney failure, unspecified Meds Home Medications and Allergies Home Medications ?Medication ?Instructions ?Recorded ?Confirmed ?Type walker #1 ea 09/18/24 03/31/25 Rx allopurinol 100 mg tablet 100 mg PO DAILY 10/21/24 History citalopram 20 mg tablet 20 mg PO DAILY 10/21/2404/07 History clopidogrel 75 mg tablet 75 mg PO DAILY 10/21/2404/07 History divalproex 500 mg tablet,delayed 500 mg PO BID 5 04/23/25 History release primidone 50 mg tablet 50 mg PO HS 10/21/24 5 History quetiapine 100 mg tablet 100 mg PO DAILY 10/21/24 History tamsulosin 0.4 mg capsule 0.4 mg PO DAILY 10/21/24 History aspirin 81 mg tablet 81 mg PO DAILY 30 days #30 t abs 03/03/25 04/23/25 Rx lisinopril 5 mg tablet 5 mg PO DAILY #90 tabs 03/0504/23/25 Rx atorvastatin 40 mg tablet (Lipitor) 40 mg PO DAILY #90 tabs 03/12/25 04/23/25 Rx levothyroxine 25 mcg tablet 25 mcg PO DAILY #30 tabs 0 03/21/25 04/23/25 Rx (Synthroid) propranolol 60 mg tablet 60 mg PO DAILY #90 tabs 03/0804/23/25 Rx sitagliptin 50 mg tablet 50 mg PO DAILY #90 tabs 03/0804/23/25 Rx memantine 10 mg tablet 10 mg PO BID #60 tabs 04/23/25 Rx New Prescriptions to Start Prescriptions: Allergies Allergy/AdvReac Type Severity Reaction Status Date / Time iodine Allergy throat Verified 03/31/25 11:14 swelling, hives Discharge Plan Disposition Patient Disposition: Home Health Service Condition: Fair Discharge Order Discharge Orders: Discharge Order (Routine); Ordered 04/24/25 Ordered By: Angle Simms Follow up Plan Follow up with: Kaia Roa APRN [Nurse Practitioner, Medical] - 05/05/25 2:00 pm Prescriptions/Medication Reconciliation: Continued clopidogrel 75 mg tablet 75 mg PO DAILY tamsulosin 0.4 mg capsule 0.4 mg PO DAILY allopurinol 100 mg tablet 100 mg PO DAILY primidone 50 mg tablet 50 mg PO HS divalproex 500 mg tablet,delayed release (DR/EC) 500 mg PO BID quetiapine 100 mg tablet 100 mg PO DAILY citalopram 20 mg tablet 20 mg PO DAILY atorvastatin [Lipitor] 40 mg tablet 40 mg PO DAILY Qty: 90 3RF sitagliptin 50 mg tablet 50 mg PO DAILY Qty: 90 1RF propranolol 60 mg tablet 60 mg PO DAILY Qty: 90 3RF lisinopril 5 mg tablet 5 mg PO DAILY Qty: 90 3RF levothyroxine [Synthroid] 25 mcg tablet 25 mcg PO DAILY Qty: 30 2RF memantine 10 mg tablet 10 mg PO BID Qty: 60 3RF (DME) walker Misc See Rx Instructions .Route Qty: 1 0RF Rx Instructions: Use walker at all times to help prevent falls aspirin 81 mg Tablet 81 mg PO DAILY 30 Days Qty: 30 3RF Problem Reconciliation Problems Reviewed?: Yes Patient Discharge Instructions ACTIVITY: Ambulate as tolerated DIET: continue same diet Patient Instructions: Acute Kidney Injury, How to Prevent Falls, DI for Altered Mental Status Print Language: Green[place]ic Providers Primary Care Provider: Provider,Referral Admit Provider: Naeem Interiano Attending Provider: Naeem Interiano
[2025-04-24] MEDS: DIVALPROEX 500MG (Delayed-Release) TABLET 500 MG PO (08:39)
[2025-04-24] MEDS: ALLOPURINOL 100MG TABLET 100 MG PO (08:39)
[2025-04-24] MEDS: LISINOPRIL 5MG TABLET 5 MG PO (08:39)
[2025-04-24] MEDS: CITALOPRAM 20MG TABLET 20 MG PO (08:39)
[2025-04-24] MEDS: CLOPIDOGREL 75MG TAB 75 MG PO (08:39)
[2025-04-24] MEDS: HEPARIN SODIUM 5,000 UNIT/ML VIAL 5000 UNIT SUBCUT (08:39)
[2025-04-24] MEDS: ASPIRIN EC 81MG TABLET 81 MG PO (08:39)
[2025-04-24] MEDS: MEMANTINE 10MG TABLET 10 MG PO (08:39)
[2025-04-24] MEDS: TAMSULOSIN 0.4MG CAPSULE 0.4 MG PO (08:39)
[2025-04-24] MEDS: PROPRANOLOL 20MG TAB 60 MG PO (08:40)
--- NOTE | 2025-04-25 10:40 | SW/DCPLANNER ---
Spoke with patient's on the phone. Patient's stated that patient is alot better today. Patient's stated that she is aware of his upcoming appointment. Patient's stated that they did not give him any new medicine. Patient's stated that home health is coming Monday to sit him up. Patient's stated that she has no concerns or questions at this time. Giancarlo Osborn
== END 2025-04-24 12:52 | disposition home health service (06) | DRG 683 ==
LOC: ER 00:49 → 2ND 02:17
PROVIDERS: Internal Medicine; Admitting Provider Internal Medicine Adolescent Medicine; Emergency Provider Emergency Medicine; Visit Provider Internal Medicine Adolescent Medicine
DX: N17.9 Acute kidney failure, unspecified (principal); R47.01 Aphasia; E86.0 Dehydration; E87.5 Hyperkalemia; G20.A1 Parkinson's disease without dyskinesia, without mention of fluctuations; F02.80 Dementia in other diseases classified elsewhere, unspecified severity, without behavioral disturbance, psychotic disturbance, mood disturbance, and anxiety; M25.552 Pain in left hip; I25.10 Atherosclerotic heart disease of native coronary artery without angina pectoris; G47.33 Obstructive sleep apnea (adult) (pediatric); E11.9 Type 2 diabetes mellitus without complications; F31.9 Bipolar disorder, unspecified; W18.30XA Fall on same level, unspecified, initial encounter; Y92.009 Unspecified place in unspecified non-institutional (private) residence as the place of occurrence of the external cause; E78.00 Pure hypercholesterolemia, unspecified; R47.1 Dysarthria and anarthria; R41.82 Altered mental status, unspecified; R79.89 Other specified abnormal findings of blood chemistry; Z95.5 Presence of coronary angioplasty implant and graft; Z86.73 Personal history of transient ischemic attack (TIA), and cerebral infarction without residual deficits; Z79.82 Long term (current) use of aspirin; Z79.02 Long term (current) use of antithrombotics/antiplatelets; Z79.84 Long term (current) use of oral hypoglycemic drugs; Z79.890 Hormone replacement therapy; Z79.899 Other long term (current) drug therapy; Z91.041 Radiographic dye allergy status
CPT/HCPCS: 0223U; 36415; 70450; 70496; 70498; 70551; 71260; 72125; 72128; 72131; 74177; 80048; 80053; 80307; 80320; 81001; 82550; 82803; 83605; 83735; 83880; 84436; 84443; 84484; 85025; 85610; 85730; 87040; 93005; 97162; 97166; 99285; J1644; J7030; Q9967